=== PATIENT | female | born 1950 | race Caucasian/White ===

== ENCOUNTER → 2017-09-05 14:06 | Outpatient (CLI) | payer MEDICARE, OTHER, SELFPAY ==
[2017-09-05 15:42] LABS: Absolute Lymphocyte Count 3.13 X10^3/ul (0.83-4.51); Absolute Neutrophil Count 5.6 X10^3/uL (2.0-7.7); Basophil# 0.02 X10^3/uL; Basophil% 0.2 % (0-1); Eosinophil# 0.22 X10^3/uL; Eosinophils% 2.3 % (0-5); Hematocrit 41.2 % (37-47); Hemoglobin 13.7 g/dl (12.0-15.0); Lymphocyte # 3.13 X10^3/ul (4.0); Lymphocyte % 32.2 % (19-41); Mean Corp Hgb Conc 33.3 g/gl (32-36); Mean Corpuscular Hgb 31.9 pg (27.0-32.0); Mean Platelet Vol. 10.9 fl (6.2-12.0); Monocyte# 0.69 X10^3/uL; Monocyte% 7.1 % (0-10); Neutrophil # 5.63 X10^3/uL (2.7-7.7); Platelet Count 253 K/mm3 (150-450); RBC Distribution Width CV 13.6 % (11.6-14.6); RBC Distribution Width SD 46.6 fl (35.1-43.9); Red Blood Count 4.29 M/mm3 (4.2-5.4); White Blood Count 9.7 K/mm3 (4.4-11.0)
[2017-09-05 15:49] LABS: POSITIVE COUNT NO; POSITIVE DIFFERENTIAL NO; POSITIVE MORPHOLOGY NO
[2017-09-05 16:07] LABS: AST(SGOT) 29 U/L (15-37); Alanine Aminotransfer ALT/SGPT 55 U/L (13-56); Albumin, Serum 3.7 g/dL (3.2-5.0); Alkaline Phosphatase 73 U/L (45-117); Anion Gap 9 (5-15); BUN 24 mg/dL (7-18); CRP 5.72 mg/L (0.0-3.0); Calcium,Total 8.8 mg/dL (8.5-10.1); Chloride 106 mmol/L (98-107); Creatinine, Serum 0.75 mg/dL (0.55-1.02); EST Glomerular Filtration Rate 82 mL/min (>60); Est Glom Filt Rate - Afr Amer 100 mL/min (>60); Globulin 3.6 g/dL (2.2-4.2); Glucose 83 mg/dL (74-106); Potassium 4.1 mmol/L (3.5-5.1); Protein, Total 7.3 g/dL (6.4-8.2); Rheumatoid Factor < 10.0 IU/mL (<15); Sodium Level 141 mmol/L (136-145)
[2017-09-05 16:17] LABS: Erythrocyte Sedimentation Rate 11 mm/hr (0-30)
[2017-09-07 16:09] LABS: SJOGREN'S Anti-SS-A test < 0.2 AI (0.0-0.9); SJOGREN'S Anti-SS-B test < 0.2 AI (0.0-0.9)
[2017-09-08 09:27] LABS: CCP IgG Antibodies 2 units (0-19); HEPATITIS B SURFACE AG Negative (Negative); Hep B Surface Antibodies Non Reactive (.); Hep C Antibodies <0.1 s/co ratio (0.0-0.9)
[2017-09-08 09:39] LABS: ANTINUCLEAR ANTIBODIES DIRECT Negative (Negative)
== END ==
PROVIDERS: Family Provider Internal Medicine; PCP Internal Medicine; Visit Provider Internal Medicine Rheumatology
DX: M06.4 Inflammatory polyarthropathy (principal); E11.9 Type 2 diabetes mellitus without complications
CPT/HCPCS: 36415; 80053; 85025; 85652; 86038; 86140; 86200; 86235; 86431; 86706; 86803; 87340

== ENCOUNTER → 2017-12-26 11:15 | Outpatient (CLI) | payer MEDICARE, OTHER, SELFPAY | PROVIDERS: Family Provider Internal Medicine; PCP Internal Medicine; Visit Provider Internal Medicine Rheumatology | DX: M06.4 Inflammatory polyarthropathy (principal); E11.9 Type 2 diabetes mellitus without complications; I10 Essential (primary) hypertension; Z79.899 Other long term (current) drug therapy; Z79.4 Long term (current) use of insulin | CPT/HCPCS: 36415; 80053; 83036 ==

== ENCOUNTER → 2017-12-28 09:49 | Outpatient (CLI) | payer MEDICARE, OTHER, SELFPAY ==
[2017-12-28 12:20] LABS: Absolute Lymphocyte Count 2.58 X10^3/ul (0.83-4.51); Basophil# 0.02 X10^3/uL; Basophil% 0.3 % (0-1); Eosinophil# 0.24 X10^3/uL; Eosinophils% 3.7 % (0-5); Hematocrit 42.8 % (37-47); Hemoglobin 13.7 g/dl (12.0-15.0); Lymphocyte # 2.58 X10^3/ul (4.0); Lymphocyte % 40.2 % (19-41); Mean Corpuscular Hgb 30.5 pg (27.0-32.0); Mean Corpuscular Volume 95.3 fL (81-99); Mean Platelet Vol. 10.6 fl (6.2-12.0); Monocyte# 0.53 X10^3/uL; Monocyte% 8.3 % (0-10); Neutrophil # 3.04 X10^3/uL (2.7-7.7); Neutrophil % 47.3 % (47-70); Platelet Count 216 K/mm3 (150-450); RBC Distribution Width CV 13.5 % (11.6-14.6); RBC Distribution Width SD 46.9 fl (35.1-43.9); Red Blood Count 4.49 M/mm3 (4.2-5.4); White Blood Count 6.4 K/mm3 (4.4-11.0)
[2017-12-28 12:21] LABS: POSITIVE COUNT NO; POSITIVE DIFFERENTIAL NO; POSITIVE MORPHOLOGY NO
[2017-12-28 12:45] LABS: Hemoglobin A1c 6.6 % (4.2-6.3)
[2017-12-28 12:49] LABS: AST(SGOT) 16 U/L (15-37); Alanine Aminotransfer ALT/SGPT 36 U/L (13-56); Albumin, Serum 3.5 g/dL (3.2-5.0); Alkaline Phosphatase 68 U/L (45-117); Anion Gap 8 (5-15); BUN 16 mg/dL (7-18); BUN/Creat Ratio 22.5 RATIO (10-20); Calcium,Total 8.3 mg/dL (8.5-10.1); Chloride 108 mmol/L (98-107); Creatinine, Serum 0.71 mg/dL (0.55-1.02); EST Glomerular Filtration Rate 88 mL/min (>60); Est Glom Filt Rate - Afr Amer 106 mL/min (>60); Globulin 3.6 g/dL (2.2-4.2); Glucose 109 mg/dL (74-106); Potassium 3.9 mmol/L (3.5-5.1); Protein, Total 7.1 g/dL (6.4-8.2); Sodium Level 141 mmol/L (136-145)
== END ==
PROVIDERS: Family Provider Internal Medicine; PCP Internal Medicine; Visit Provider Internal Medicine Rheumatology
DX: M06.4 Inflammatory polyarthropathy (principal); I10 Essential (primary) hypertension; E11.9 Type 2 diabetes mellitus without complications; Z79.4 Long term (current) use of insulin; Z79.899 Other long term (current) drug therapy
CPT/HCPCS: 36415; 80053; 83036; 85025

== ENCOUNTER → 2018-02-15 12:34 | Outpatient (CLI) | payer MEDICARE, OTHER, SELFPAY ==
--- NOTE | 2018-02-15 12:38 | BI_ITS ---
MAMMOGRAPHY - BILATERAL SCREENING 3-D CELESTINE SYNTHESIS REASON FOR EXAM: Female, 67 years old. Bilateral Screening 3-D tomosynthesis PERTINENT HISTORY: Asymptomatic. Family breast carcinoma, maternal aunt about age 50 and first cousins x2 each about age 50. TECHNIQUE: 2-D mammograms and 3-D Celestine synthesis of the breast (s) were performed. CAD was performed. COMPARISON: 02/07/2017 through 10/07/2014. FINDINGS: The breast composition is almost entirely fat. No new asymmetric density, dominant mass, dense spiculated masses, abnormal clustered microcalcifications, architectural distortion, skin thickening or nipple retraction identified. Coarse benign-appearing calcifications. No new abnormality identified with tomosynthesis. There has been no significant change since the prior study. BI/SCREENING MAMM (CAD), BILAT IMPRESSION: No mammographic signs of malignancy. Routine yearly mammograms recommended. ASSESSMENT CATEGORY: BIRADS Category 2: Benign. A letter regarding these results will be sent to the patient by the facility within 30 days. FOLLOW UP RECOMMENDATION: Yearly follow up mammogram recommended. (A) Negative results should not deter biopsy as a palpable lesion should be followed on clinical grounds and biopsy performed if clinically persistent for 3 months or increasing size. Approximately 10% of breast cancers are not detected by mammography. A normal mammogram should not delay biopsy of a clinically suspicious abnormality. . Electronically Signed: Rich Mckenna, at 22:10 EDT Tel , Service support ,
== END ==
PROVIDERS: Family Provider Internal Medicine; PCP Internal Medicine
DX: Z12.31 Encounter for screening mammogram for malignant neoplasm of breast (principal)
CPT/HCPCS: 77063; 77067

== ENCOUNTER → 2018-03-22 08:44 | Outpatient (CLI) | payer MEDICARE, OTHER, SELFPAY ==
[2018-03-22 10:20] LABS: Absolute Neutrophil Count 3.7 X10^3/uL (2.0-7.7); Basophil# 0.02 X10^3/uL; Basophil% 0.3 % (0-1); Eosinophil# 0.26 X10^3/uL; Eosinophils% 3.8 % (0-5); Hematocrit 41.8 % (37-47); Lymphocyte % 36.2 % (19-41); Mean Corp Hgb Conc 33.5 g/gl (32-36); Mean Corpuscular Hgb 31.5 pg (27.0-32.0); Mean Corpuscular Volume 94.1 fL (81-99); Mean Platelet Vol. 10.8 fl (6.2-12.0); Monocyte# 0.45 X10^3/uL; Monocyte% 6.5 % (0-10); Neutrophil # 3.67 X10^3/uL (2.7-7.7); Neutrophil % 53.1 % (47-70); Platelet Count 237 K/mm3 (150-450); RBC Distribution Width CV 13.4 % (11.6-14.6); RBC Distribution Width SD 44.7 fl (35.1-43.9); Red Blood Count 4.44 M/mm3 (4.2-5.4); White Blood Count 6.9 K/mm3 (4.4-11.0)
[2018-03-22 10:21] LABS: POSITIVE COUNT NO; POSITIVE DIFFERENTIAL NO; POSITIVE MORPHOLOGY NO
[2018-03-22 10:31] LABS: ALB/GLOB Ratio 0.9 RATIO (0.9-2.4); AST(SGOT) 17 U/L (15-37); Alanine Aminotransfer ALT/SGPT 43 U/L (13-56); Albumin, Serum 3.6 g/dL (3.2-5.0); Alkaline Phosphatase 74 U/L (45-117); Anion Gap 9 (5-15); BUN 19 mg/dL (7-18); BUN/Creat Ratio 24.3 RATIO (10-20); Calcium,Total 8.8 mg/dL (8.5-10.1); Chloride 105 mmol/L (98-107); Creatinine, Serum 0.78 mg/dL (0.55-1.02); EST Glomerular Filtration Rate 79 mL/min (>60); Est Glom Filt Rate - Afr Amer 95 mL/min (>60); Globulin 3.9 g/dL (2.2-4.2); Glucose 155 mg/dL (74-106); Protein, Total 7.5 g/dL (6.4-8.2); Sodium Level 139 mmol/L (136-145)
== END ==
PROVIDERS: Family Provider Internal Medicine; PCP Internal Medicine; Visit Provider Internal Medicine Rheumatology
DX: M06.4 Inflammatory polyarthropathy (principal); E11.9 Type 2 diabetes mellitus without complications; I10 Essential (primary) hypertension; Z79.899 Other long term (current) drug therapy
CPT/HCPCS: 36415; 80053; 85025

== ENCOUNTER → 2018-06-14 09:09 | Outpatient (CLI) | payer MEDICARE, OTHER, SELFPAY ==
[2018-06-14 10:21] LABS: Absolute Neutrophil Count 4.1 X10^3/uL (2.0-7.7); Basophil# 0.01 X10^3/uL; Basophil% 0.2 % (0-1); Eosinophil# 0.25 X10^3/uL; Eosinophils% 3.8 % (0-5); Hematocrit 41.8 % (37-47); Hemoglobin 13.7 g/dl (12.0-15.0); Mean Corp Hgb Conc 32.8 g/gl (32-36); Mean Corpuscular Hgb 31.1 pg (27.0-32.0); Mean Corpuscular Volume 94.8 fL (81-99); Mean Platelet Vol. 10.4 fl (6.2-12.0); Monocyte# 0.31 X10^3/uL; Monocyte% 4.7 % (0-10); Neutrophil # 4.08 X10^3/uL (2.7-7.7); Neutrophil % 61.1 % (47-70); Platelet Count 228 K/mm3 (150-450); RBC Distribution Width CV 13.3 % (11.6-14.6); Red Blood Count 4.41 M/mm3 (4.2-5.4); White Blood Count 6.7 K/mm3 (4.4-11.0)
[2018-06-14 10:23] LABS: POSITIVE COUNT NO; POSITIVE DIFFERENTIAL NO; POSITIVE MORPHOLOGY NO
[2018-06-14 10:46] LABS: AST(SGOT) 20 U/L (15-37); Alanine Aminotransfer ALT/SGPT 39 U/L (13-56); Albumin, Serum 3.6 g/dL (3.2-5.0); Alkaline Phosphatase 72 U/L (45-117); Anion Gap 5 (5-15); BUN 15 mg/dL (7-18); BUN/Creat Ratio 19.8 RATIO (10-20); Calcium,Total 8.7 mg/dL (8.5-10.1); Chloride 106 mmol/L (98-107); Creatinine, Serum 0.76 mg/dL (0.55-1.02); EST Glomerular Filtration Rate 81 mL/min (>60); Est Glom Filt Rate - Afr Amer 98 mL/min (>60); Globulin 3.6 g/dL (2.2-4.2); Glucose 121 mg/dL (74-106); Protein, Total 7.2 g/dL (6.4-8.2); Sodium Level 140 mmol/L (136-145)
== END ==
PROVIDERS: Family Provider Internal Medicine; PCP Internal Medicine; Referring Provider Internal Medicine Rheumatology; Visit Provider Internal Medicine Rheumatology
DX: M06.4 Inflammatory polyarthropathy (principal); E11.9 Type 2 diabetes mellitus without complications; I10 Essential (primary) hypertension; Z79.899 Other long term (current) drug therapy
CPT/HCPCS: 36415; 80053; 85025

== ENCOUNTER → 2018-09-19 08:50 | Outpatient (CLI) | payer MEDICARE, OTHER, SELFPAY ==
[2018-09-19 09:58] LABS: Absolute Lymphocyte Count 2.09 X10^3/ul (0.83-4.51); Absolute Neutrophil Count 3.2 X10^3/uL (2.0-7.7); Basophil# 0.01 X10^3/uL; Basophil% 0.2 % (0-1); Eosinophil# 0.21 X10^3/uL; Eosinophils% 3.5 % (0-5); Hematocrit 43.3 % (37-47); Lymphocyte # 2.09 X10^3/ul (4.0); Lymphocyte % 34.8 % (19-41); Mean Corp Hgb Conc 32.3 g/gl (32-36); Mean Corpuscular Hgb 31.5 pg (27.0-32.0); Mean Corpuscular Volume 97.3 fL (81-99); Mean Platelet Vol. 10.8 fl (6.2-12.0); Monocyte# 0.46 X10^3/uL; Monocyte% 7.7 % (0-10); Neutrophil # 3.23 X10^3/uL (2.7-7.7); Neutrophil % 53.8 % (47-70); POSITIVE COUNT NO; POSITIVE DIFFERENTIAL NO; POSITIVE MORPHOLOGY NO; Platelet Count 234 K/mm3 (150-450); RBC Distribution Width CV 13.7 % (11.6-14.6); RBC Distribution Width SD 47.2 fl (35.1-43.9); Red Blood Count 4.45 M/mm3 (4.2-5.4)
[2018-09-19 10:13] LABS: AST(SGOT) 24 U/L (15-37); Alanine Aminotransfer ALT/SGPT 50 U/L (13-56); Albumin, Serum 3.5 g/dL (3.2-5.0); Alkaline Phosphatase 68 U/L (45-117); Anion Gap 10 (5-15); BUN 15 mg/dL (7-18); BUN/Creat Ratio 20.1 RATIO (10-20); Calcium,Total 8.4 mg/dL (8.5-10.1); Chloride 104 mmol/L (98-107); Creatinine, Serum 0.75 mg/dL (0.55-1.02); EST Glomerular Filtration Rate 82 mL/min (>60); Est Glom Filt Rate - Afr Amer 100 mL/min (>60); Globulin 3.6 g/dL (2.2-4.2); Glucose 143 mg/dL (74-106); Potassium 3.9 mmol/L (3.5-5.1); Protein, Total 7.1 g/dL (6.4-8.2); Sodium Level 141 mmol/L (136-145)
== END ==
PROVIDERS: Family Provider Internal Medicine; PCP Internal Medicine; Referring Provider Internal Medicine Rheumatology; Visit Provider Internal Medicine Rheumatology
DX: M06.4 Inflammatory polyarthropathy (principal); E11.9 Type 2 diabetes mellitus without complications; I10 Essential (primary) hypertension; Z79.899 Other long term (current) drug therapy
CPT/HCPCS: 36415; 80053; 85025

== ENCOUNTER → 2018-12-12 08:58 | Outpatient (CLI) | payer MEDICARE, OTHER, SELFPAY ==
[2018-12-12 09:53] LABS: Absolute Lymphocyte Count 2.16 X10^3/ul (0.83-4.51); Absolute Neutrophil Count 3.4 X10^3/uL (2.0-7.7); Basophil# 0.01 X10^3/uL; Basophil% 0.2 % (0-1); Eosinophil# 0.18 X10^3/uL; Hematocrit 41.6 % (37-47); Hemoglobin 13.8 g/dl (12.0-15.0); Lymphocyte # 2.16 X10^3/ul (4.0); Lymphocyte % 35.8 % (19-41); Mean Corp Hgb Conc 33.2 g/gl (32-36); Mean Corpuscular Hgb 31.7 pg (27.0-32.0); Mean Corpuscular Volume 95.4 fL (81-99); Mean Platelet Vol. 10.6 fl (6.2-12.0); Neutrophil # 3.38 X10^3/uL (2.7-7.7); Platelet Count 226 K/mm3 (150-450); RBC Distribution Width CV 13.7 % (11.6-14.6); RBC Distribution Width SD 47.4 fl (35.1-43.9); Red Blood Count 4.36 M/mm3 (4.2-5.4)
[2018-12-12 09:54] LABS: POSITIVE COUNT NO; POSITIVE DIFFERENTIAL NO; POSITIVE MORPHOLOGY NO
[2018-12-12 10:20] LABS: AST(SGOT) 27 U/L (15-37); Alanine Aminotransfer ALT/SGPT 57 U/L (13-56); Albumin, Serum 3.4 g/dL (3.2-5.0); Alkaline Phosphatase 62 U/L (45-117); Anion Gap 9 (5-15); BUN 18 mg/dL (7-18); BUN/Creat Ratio 25.8 RATIO (10-20); Calcium,Total 8.8 mg/dL (8.5-10.1); Chloride 107 mmol/L (98-107); EST Glomerular Filtration Rate 89 mL/min (>60); Est Glom Filt Rate - Afr Amer 108 mL/min (>60); Globulin 3.5 g/dL (2.2-4.2); Glucose 124 mg/dL (74-106); Potassium 4.1 mmol/L (3.5-5.1); Protein, Total 6.9 g/dL (6.4-8.2); Sodium Level 143 mmol/L (136-145)
== END ==
PROVIDERS: Family Provider Internal Medicine; PCP Internal Medicine; Referring Provider Internal Medicine Rheumatology; Visit Provider Internal Medicine Rheumatology
DX: M06.4 Inflammatory polyarthropathy (principal); E11.9 Type 2 diabetes mellitus without complications; I10 Essential (primary) hypertension; Z79.899 Other long term (current) drug therapy
CPT/HCPCS: 36415; 80053; 85025

== ENCOUNTER → 2019-03-02 10:12 | Outpatient (CLI) | payer MEDICARE, OTHER, SELFPAY ==
--- NOTE | 2019-03-02 10:15 | BI_ITS ---
MAMMOGRAPHY - BILATERAL SCREENING 3-D TOMOSYNTHESIS REASON FOR EXAM: Female, 68 years old. Bilateral Screening 3-D tomosynthesis PERTINENT HISTORY: Maternal aunt, cousin with history of breast cancer. TECHNIQUE: 2-D mammograms and 3-D Tomosynthesis of the breast (s) were performed. CAD was performed. COMPARISON: 02/15/2018, 02/07/17. FINDINGS: The breast composition is almost entirely fat. Unremarkable bilateral breast parenchyma. No dense spiculated masses or suspicious microcalcifications are identified. No architectural distortion is identified. There is no skin thickening or retraction. There has been no significant change since the prior study. BI/SCREEN MAMM (CAD) W/CELESTINE BILAT IMPRESSION: No mammographic signs of malignancy. Routine yearly mammograms recommended. ASSESSMENT CATEGORY: BIRADS Category 1: Negative. A letter regarding these results will be sent to the patient by the facility within 30 days. FOLLOW UP RECOMMENDATION: Yearly follow up mammogram recommended. (A) Approximately 10% of breast cancers are not detected by mammography. A normal mammogram should not delay biopsy of a clinically suspicious abnormality. Electronically Signed: Art Parra MD at 16:50 EDT Tel [phone], Service support ,
== END ==
PROVIDERS: Family Provider Internal Medicine; PCP Internal Medicine; Referring Provider Internal Medicine; Visit Provider Internal Medicine
DX: Z12.31 Encounter for screening mammogram for malignant neoplasm of breast (principal)
CPT/HCPCS: 77063; 77067

== ENCOUNTER → 2019-03-06 08:37 | Outpatient (CLI) | payer MEDICARE, OTHER, SELFPAY ==
[2019-03-06 10:45] LABS: Absolute Lymphocyte Count 2.04 X10^3/uL (0.83-4.51); Basophil# 0.03 X10^3/uL; Basophil% 0.5 % (0-1); Eosinophil# 0.22 X10^3/uL; Eosinophils% 3.9 % (0-5); Hematocrit 41.8 % (37-47); Hemoglobin 13.6 g/dL (12.0-15.0); Lymphocyte # 2.04 X10^3/ul (4.0); Lymphocyte % 36.1 % (19-41); Mean Corp Hgb Conc 32.5 g/dL (32-36); Mean Corpuscular Hgb 31.2 pg (27.0-32.0); Mean Corpuscular Volume 95.9 fL (81-99); Monocyte% 7.1 % (0-10); NRBC Flagged by Analyzer 0 % (0-5); Neutrophil # 2.95 X10^3/uL (2.7-7.7); Neutrophil % 52.2 % (47-70); Platelet Count 216 K/mm3 (150-450); RBC Distribution Width CV 12.9 % (11.6-14.6); RBC Distribution Width SD 45.2 fl (35.1-43.9); Red Blood Count 4.36 M/mm3 (4.2-5.4); White Blood Count 5.7 K/mm3 (4.4-11.0)
[2019-03-06 11:11] LABS: AST(SGOT) 26 U/L (15-37); Alanine Aminotransfer ALT/SGPT 52 U/L (13-56); Albumin, Serum 3.4 g/dL (3.2-5.0); Alkaline Phosphatase 70 U/L (45-117); Anion Gap 6 (5-15); BUN 16 mg/dL (7-18); BUN/Creat Ratio 21.8 RATIO (10-20); Calcium,Total 8.6 mg/dL (8.5-10.1); Chloride 110 mmol/L (98-107); Creatinine, Serum 0.74 mg/dL (0.55-1.02); EST Glomerular Filtration Rate 84 mL/min (>60); Est Glom Filt Rate - Afr Amer 102 mL/min (>60); Globulin 3.5 g/dL (2.2-4.2); Glucose 124 mg/dL (74-106); Potassium 4.2 mmol/L (3.5-5.1); Protein, Total 6.9 g/dL (6.4-8.2); Sodium Level 143 mmol/L (136-145)
== END ==
PROVIDERS: Family Provider Internal Medicine; PCP Internal Medicine; Referring Provider Internal Medicine Rheumatology; Visit Provider Internal Medicine Rheumatology
DX: I10 Essential (primary) hypertension (principal); E11.9 Type 2 diabetes mellitus without complications; Z79.899 Other long term (current) drug therapy; M06.4 Inflammatory polyarthropathy
CPT/HCPCS: 36415; 80053; 85025

== ENCOUNTER → 2019-05-18 14:02 | Outpatient (CLI) | payer MEDICARE, OTHER, SELFPAY ==
--- NOTE | 2019-05-18 | LES_PTH ---
PATIENT: KATALINA CRANE LOC: [facility] U#:[id number] AGE/SX: 74/F ROOM: RE05/18/[address]: Dr. Darek Muse MD : 1950 BED: DIS: SPEC #: [id number] RECD: 05/18/19 14:45 STATUS: CATARINO TIANA #: [id number] FELICIA: 05/18/19 00:[address]: Darek Muse DEPT: SURGICAL PATHOLOGY RECD BY: See Dickson ENTERED: 05/18/19 14:45 SP TYPE: Lesion OTHR DR: Dr. Ainsley Luo MD Tissues: Skin of face, NOS Procedures: Surgery Specimen Level IV HEADER OPERATION: Excisional biopsy lesion right upper eyelid PRE-OP DIAGNOSIS: Elevated vascular lesion x6 months TISSUE SUBMITTED: Right upper lid lesion MICROSCOPIC DIAGNOSIS Right upper lid lesion, biopsy: Mild sebaceous gland hyperplasia. Minimal vascular ectasia. SJ:sameer 05/21/19 COMMENT Case has been reviewed in consultation with Dr. Blanchard who concurs with the above diagnosis. IDC:AM MICROSCOPIC DESCRIPTION Slides are reviewed. GROSS DESCRIPTION Received in fixative is one container labeled with the patient's name and designated right brow. The specimen consists of a piece of pantoja-white skin measuring 0.4 x 0.3 x 0.1 cm. The specimen is totally submitted in one cassette. / SUMAN:sameer 05/18/19 TC:5 CPT: 13665
== END ==
PROVIDERS: Family Provider Internal Medicine; PCP Internal Medicine; Referring Provider Ophthalmology; Visit Provider Ophthalmology
DX: H02.87 Vascular anomalies of eyelid (principal)
CPT/HCPCS: 88305

== ENCOUNTER → 2019-05-29 09:12 | Outpatient (CLI) | payer MEDICARE, OTHER, SELFPAY ==
[2019-05-29 10:07] LABS: Absolute Lymphocyte Count 2.33 X10^3/uL (0.83-4.51); Absolute Neutrophil Count 3.2 X10^3/uL (2.0-7.7); Basophil# 0.04 X10^3/uL; Basophil% 0.6 % (0-1); Eosinophil# 0.24 X10^3/uL; Eosinophils% 3.9 % (0-5); Hemoglobin 14.2 g/dL (12.0-15.0); Lymphocyte # 2.33 X10^3/ul (4.0); Lymphocyte % 37.5 % (19-41); Mean Corp Hgb Conc 32.3 g/dL (32-36); Mean Corpuscular Hgb 31.4 pg (27.0-32.0); Mean Corpuscular Volume 97.3 fL (81-99); Mean Platelet Vol. 10.7 fl (6.2-12.0); Monocyte# 0.45 X10^3/uL; Monocyte% 7.2 % (0-10); NRBC Flagged by Analyzer 0 % (0-5); Neutrophil # 3.15 X10^3/uL (2.7-7.7); Neutrophil % 50.6 % (47-70); Platelet Count 214 K/mm3 (150-450); RBC Distribution Width CV 13.2 % (11.6-14.6); Red Blood Count 4.52 M/mm3 (4.2-5.4); White Blood Count 6.2 K/mm3 (4.4-11.0)
[2019-05-29 10:32] LABS: ALB/GLOB Ratio 1.1 RATIO (0.9-2.4); AST(SGOT) 26 U/L (15-37); Alanine Aminotransfer ALT/SGPT 55 U/L (13-56); Albumin, Serum 3.5 g/dL (3.2-5.0); Alkaline Phosphatase 71 U/L (45-117); Anion Gap 5 (5-15); BUN 18 mg/dL (7-18); BUN/Creat Ratio 26.3 RATIO (10-20); Calcium,Total 9.1 mg/dL (8.5-10.1); Chloride 107 mmol/L (98-107); Creatinine, Serum 0.68 mg/dL (0.55-1.02); EST Glomerular Filtration Rate 91 mL/min (>60); Est Glom Filt Rate - Afr Amer 110 mL/min (>60); Globulin 3.3 g/dL (2.2-4.2); Glucose 120 mg/dL (74-106); Potassium 3.9 mmol/L (3.5-5.1); Protein, Total 6.8 g/dL (6.4-8.2); Sodium Level 141 mmol/L (136-145)
== END ==
PROVIDERS: Family Provider Internal Medicine; PCP Internal Medicine; Referring Provider Internal Medicine Rheumatology; Visit Provider Internal Medicine Rheumatology
DX: M06.4 Inflammatory polyarthropathy (principal); E11.9 Type 2 diabetes mellitus without complications; I10 Essential (primary) hypertension; Z79.899 Other long term (current) drug therapy
CPT/HCPCS: 36415; 80053; 85025

== ENCOUNTER → 2019-08-21 10:29 | Outpatient (CLI) | payer MEDICARE, OTHER, SELFPAY ==
[2019-08-21 13:02] LABS: Absolute Lymphocyte Count 2.13 X10^3/uL (0.83-4.51); Absolute Neutrophil Count 3.2 X10^3/uL (2.0-7.7); Basophil# 0.03 X10^3/uL; Basophil% 0.5 % (0-1); Eosinophil# 0.21 X10^3/uL; Eosinophils% 3.5 % (0-5); Hematocrit 42.5 % (37-47); Hemoglobin 14.2 g/dL (12.0-15.0); Lymphocyte # 2.13 X10^3/ul (4.0); Lymphocyte % 35.7 % (19-41); Mean Corp Hgb Conc 33.4 g/dL (32-36); Mean Corpuscular Hgb 31.9 pg (27.0-32.0); Mean Corpuscular Volume 95.5 fL (81-99); Mean Platelet Vol. 10.6 fl (6.2-12.0); Monocyte# 0.35 X10^3/uL; Monocyte% 5.9 % (0-10); NRBC Flagged by Analyzer 0 % (0-5); Neutrophil # 3.22 X10^3/uL (2.7-7.7); Neutrophil % 54.1 % (47-70); Platelet Count 219 K/mm3 (150-450); RBC Distribution Width CV 12.9 % (11.6-14.6); RBC Distribution Width SD 44.9 fl (35.1-43.9); Red Blood Count 4.45 M/mm3 (4.2-5.4)
[2019-08-21 13:23] LABS: ALB/GLOB Ratio 1.1 RATIO (0.9-2.4); AST(SGOT) 26 U/L (15-37); Alanine Aminotransfer ALT/SGPT 54 U/L (13-56); Albumin, Serum 3.6 g/dL (3.2-5.0); Alkaline Phosphatase 68 U/L (45-117); Anion Gap 5 (5-15); BUN 13 mg/dL (7-18); BUN/Creat Ratio 17.4 RATIO (10-20); Calcium,Total 8.9 mg/dL (8.5-10.1); Chloride 108 mmol/L (98-107); Creatinine, Serum 0.75 mg/dL (0.55-1.02); EST Glomerular Filtration Rate 82 mL/min (>60); Est Glom Filt Rate - Afr Amer 99 mL/min (>60); Globulin 3.3 g/dL (2.2-4.2); Glucose 121 mg/dL (74-106); Protein, Total 6.9 g/dL (6.4-8.2); Sodium Level 140 mmol/L (136-145)
[2019-08-21 13:25] LABS: Vitamin D,25 Hydroxy 59.3 ng/mL (29.95-100.01)
== END ==
PROVIDERS: PCP Internal Medicine; Referring Provider Internal Medicine Rheumatology; Visit Provider Internal Medicine Rheumatology
DX: M06.4 Inflammatory polyarthropathy (principal); E11.9 Type 2 diabetes mellitus without complications; E55.9 Vitamin D deficiency, unspecified; I10 Essential (primary) hypertension; Z79.899 Other long term (current) drug therapy
CPT/HCPCS: 36415; 80053; 82306; 85025

== ENCOUNTER → 2019-11-07 10:35 | Outpatient (CLI) | payer MEDICARE, OTHER, SELFPAY ==
[2019-11-07 12:15] LABS: Absolute Neutrophil Count 3.5 X10^3/uL (2.0-7.7); Basophil# 0.02 X10^3/uL; Basophil% 0.3 % (0-1); Eosinophils% 3.3 % (0-5); Hematocrit 40.8 % (37-47); Hemoglobin 13.4 g/dL (12.0-15.0); Lymphocyte % 31.1 % (19-41); Mean Corp Hgb Conc 32.8 g/dL (32-36); Mean Corpuscular Hgb 30.5 pg (27.0-32.0); Mean Corpuscular Volume 92.7 fL (81-99); Mean Platelet Vol. 10.6 fl (6.2-12.0); Monocyte# 0.44 X10^3/uL; Monocyte% 7.2 % (0-10); NRBC Flagged by Analyzer 0 % (0-5); Neutrophil # 3.53 X10^3/uL (2.7-7.7); Neutrophil % 57.8 % (47-70); Platelet Count 221 K/mm3 (150-450); RBC Distribution Width CV 13.1 % (11.6-14.6); RBC Distribution Width SD 44.7 fl (35.1-43.9); White Blood Count 6.1 K/mm3 (4.4-11.0)
[2019-11-07 12:28] LABS: AST(SGOT) 18 U/L (15-37); Alanine Aminotransfer ALT/SGPT 38 U/L (13-56); Albumin, Serum 3.3 g/dL (3.2-5.0); Alkaline Phosphatase 72 U/L (45-117); Anion Gap 5 (5-15); BUN 16 mg/dL (7-18); BUN/Creat Ratio 22.7 RATIO (10-20); Calcium,Total 8.5 mg/dL (8.5-10.1); Chloride 109 mmol/L (98-107); EST Glomerular Filtration Rate 88 mL/min (>60); Est Glom Filt Rate - Afr Amer 107 mL/min (>60); Globulin 3.4 g/dL (2.2-4.2); Glucose 118 mg/dL (74-106); Potassium 3.6 mmol/L (3.5-5.1); Protein, Total 6.7 g/dL (6.4-8.2); Sodium Level 140 mmol/L (136-145)
== END ==
PROVIDERS: PCP Internal Medicine; Referring Provider Internal Medicine Rheumatology; Visit Provider Internal Medicine Rheumatology
DX: M06.4 Inflammatory polyarthropathy (principal); M19.041 Primary osteoarthritis, right hand; M19.042 Primary osteoarthritis, left hand; E11.9 Type 2 diabetes mellitus without complications; I10 Essential (primary) hypertension; Z79.899 Other long term (current) drug therapy
CPT/HCPCS: 36415; 80053; 85025

== ENCOUNTER → 2020-02-04 10:26 | Outpatient (CLI) | payer MEDICARE, OTHER, SELFPAY ==
[2020-02-04 12:38] LABS: Absolute Lymphocyte Count 2.25 X10^3/uL (0.83-4.51); Absolute Neutrophil Count 3.1 X10^3/uL (2.0-7.7); Basophil# 0.03 X10^3/uL; Basophil% 0.5 % (0-1); Eosinophil# 0.22 X10^3/uL; Eosinophils% 3.6 % (0-5); Hemoglobin 14.1 g/dL (12.0-15.0); Lymphocyte # 2.25 X10^3/ul (4.0); Lymphocyte % 36.5 % (19-41); Mean Corp Hgb Conc 32.8 g/dL (32-36); Mean Corpuscular Volume 97.5 fL (81-99); Monocyte# 0.52 X10^3/uL; Monocyte% 8.4 % (0-10); NRBC Flagged by Analyzer 0 % (0-5); Neutrophil # 3.13 X10^3/uL (2.7-7.7); Neutrophil % 50.7 % (47-70); Platelet Count 239 K/mm3 (150-450); RBC Distribution Width CV 13.2 % (11.6-14.6); RBC Distribution Width SD 47.3 fl (35.1-43.9); Red Blood Count 4.41 M/mm3 (4.2-5.4); White Blood Count 6.2 K/mm3 (4.4-11.0)
[2020-02-04 12:59] LABS: AST(SGOT) 20 U/L (15-37); Alanine Aminotransfer ALT/SGPT 41 U/L (13-56); Albumin, Serum 3.4 g/dL (3.2-5.0); Alkaline Phosphatase 72 U/L (45-117); Anion Gap 4 (5-15); BUN 16 mg/dL (7-18); BUN/Creat Ratio 20.1 RATIO (10-20); Calcium,Total 8.8 mg/dL (8.5-10.1); Chloride 111 mmol/L (98-107); EST Glomerular Filtration Rate 76 mL/min (>60); Est Glom Filt Rate - Afr Amer 92 mL/min (>60); Globulin 3.5 g/dL (2.2-4.2); Glucose 95 mg/dL (74-106); Potassium 3.9 mmol/L (3.5-5.1); Protein, Total 6.9 g/dL (6.4-8.2); Sodium Level 142 mmol/L (136-145)
== END ==
PROVIDERS: PCP Internal Medicine; Referring Provider Internal Medicine Rheumatology; Visit Provider Internal Medicine Rheumatology
DX: M06.4 Inflammatory polyarthropathy (principal); M19.041 Primary osteoarthritis, right hand; E11.9 Type 2 diabetes mellitus without complications; I10 Essential (primary) hypertension; Z79.899 Other long term (current) drug therapy
CPT/HCPCS: 36415; 80053; 85025

== ENCOUNTER → 2020-05-06 09:27 | Outpatient (CLI) | payer MEDICARE, OTHER, SELFPAY ==
[2020-05-06 12:26] LABS: Absolute Lymphocyte Count 2.21 X10^3/uL (0.83-4.51); Basophil# 0.04 X10^3/uL; Basophil% 0.7 % (0-1); Eosinophils% 3.4 % (0-5); Hematocrit 41.7 % (37-47); Hemoglobin 13.9 g/dL (12.0-15.0); Lymphocyte # 2.21 X10^3/ul (4.0); Lymphocyte % 37.4 % (19-41); Mean Corp Hgb Conc 33.3 g/dL (32-36); Mean Corpuscular Hgb 31.5 pg (27.0-32.0); Mean Corpuscular Volume 94.6 fL (81-99); Mean Platelet Vol. 10.9 fl (6.2-12.0); Monocyte# 0.41 X10^3/uL; Monocyte% 6.9 % (0-10); NRBC Flagged by Analyzer 0 % (0-5); Neutrophil # 3.04 X10^3/uL (2.7-7.7); Neutrophil % 51.4 % (47-70); Platelet Count 237 K/mm3 (150-450); RBC Distribution Width SD 44.1 fl (35.1-43.9); Red Blood Count 4.41 M/mm3 (4.2-5.4); White Blood Count 5.9 K/mm3 (4.4-11.0)
[2020-05-06 12:40] LABS: AST(SGOT) 28 U/L (15-37); Alanine Aminotransfer ALT/SGPT 45 U/L (13-56); Albumin, Serum 3.4 g/dL (3.2-5.0); Alkaline Phosphatase 78 U/L (45-117); Anion Gap 8 (5-15); BUN 18 mg/dL (7-18); BUN/Creat Ratio 23.7 RATIO (10-20); Calcium,Total 8.9 mg/dL (8.5-10.1); Chloride 109 mmol/L (98-107); Creatinine, Serum 0.76 mg/dL (0.55-1.02); EST Glomerular Filtration Rate 81 mL/min (>60); Est Glom Filt Rate - Afr Amer 97 mL/min (>60); Globulin 3.5 g/dL (2.2-4.2); Glucose 105 mg/dL (74-106); Potassium 3.6 mmol/L (3.5-5.1); Protein, Total 6.9 g/dL (6.4-8.2); Sodium Level 142 mmol/L (136-145)
== END ==
PROVIDERS: PCP Internal Medicine; Referring Provider Internal Medicine Rheumatology; Visit Provider Internal Medicine Rheumatology
DX: M06.4 Inflammatory polyarthropathy (principal); M19.041 Primary osteoarthritis, right hand; E11.9 Type 2 diabetes mellitus without complications; I10 Essential (primary) hypertension; Z79.899 Other long term (current) drug therapy
CPT/HCPCS: 36415; 80053; 85025

== ENCOUNTER → 2020-05-15 11:53 | Outpatient (CLI) | payer MEDICARE, OTHER, SELFPAY ==
--- NOTE | 2020-05-15 11:54 | BI_ITS ---
MAMMOGRAPHY - BILATERAL SCREENING REASON FOR EXAM: Female, 69 years old. Routine annual screening examination. PERTINENT HISTORY: Aunt with breast cancer. TECHNIQUE: Digital bilateral breast celestine (3D mammographic acquisition) in the CC and MLO projections. 2-D mediolateral oblique (MLO) and craniocaudad (CC) views of both breasts were obtained. CAD: Full Field Digital Mammography with Computer Added Detection was performed. COMPARISON: Comparison is made with prior study dated 03/02/2019 and 02/15/2018. FINDINGS: Breast Composition: The breasts are almost entirely fatty. There are no dominant masses or suspicious calcifications. Stable benign-appearing left axillary lymph nodes. No other significant abnormalities are identified. There has been no significant change since the prior study. BI/SCREEN MAMM (CAD) W/CELESTINE BILAT IMPRESSION: Stable bilateral screening mammogram. Yearly follow-up mammogram recommended. (A) ASSESSMENT CATEGORY: BIRADS Category 2: Benign. A letter regarding these results will be sent to the patient by the facility within 30 days. Approximately 10% of breast cancers are not detected by mammography. A normal mammogram should not delay biopsy of a clinically suspicious abnormality. [id number] Electronically Signed: Tian Prince, at 7:59 EST , Service support ,
== END ==
PROVIDERS: PCP Internal Medicine; Referring Provider Internal Medicine; Visit Provider Internal Medicine
DX: Z12.31 Encounter for screening mammogram for malignant neoplasm of breast (principal)
CPT/HCPCS: 77063; 77067

== ENCOUNTER → 2020-07-22 14:20 | Outpatient (CLI) | payer MEDICARE, OTHER, SELFPAY ==
[2020-07-22 18:21] LABS: Absolute Lymphocyte Count 2.11 X10^3/uL (0.83-4.51); Absolute Neutrophil Count 3.4 X10^3/uL (2.0-7.7); Basophil# 0.04 X10^3/uL; Basophil% 0.6 % (0-1); Eosinophil# 0.41 X10^3/uL; Eosinophils% 6.5 % (0-5); Hematocrit 43.6 % (37-47); Hemoglobin 14.3 g/dL (12.0-15.0); Lymphocyte # 2.11 X10^3/ul (4.0); Lymphocyte % 33.4 % (19-41); Mean Corp Hgb Conc 32.8 g/dL (32-36); Mean Corpuscular Hgb 31.7 pg (27.0-32.0); Mean Corpuscular Volume 96.7 fL (81-99); Mean Platelet Vol. 10.9 fl (6.2-12.0); Monocyte# 0.38 X10^3/uL; NRBC Flagged by Analyzer 0 % (0-5); Neutrophil # 3.36 X10^3/uL (2.7-7.7); Neutrophil % 53.3 % (47-70); Platelet Count 236 K/mm3 (150-450); RBC Distribution Width CV 12.9 % (11.6-14.6); RBC Distribution Width SD 45.7 fl (35.1-43.9); Red Blood Count 4.51 M/mm3 (4.2-5.4); White Blood Count 6.3 K/mm3 (4.4-11.0)
[2020-07-22 18:38] LABS: AST(SGOT) 25 U/L (15-37); Alanine Aminotransfer ALT/SGPT 48 U/L (13-56); Albumin, Serum 3.6 g/dL (3.2-5.0); Alkaline Phosphatase 79 U/L (45-117); Anion Gap 6 (5-15); BUN 15 mg/dL (7-18); BUN/Creat Ratio 21.3 RATIO (10-20); Calcium,Total 8.8 mg/dL (8.5-10.1); Chloride 104 mmol/L (98-107); EST Glomerular Filtration Rate 88 mL/min (>60); Est Glom Filt Rate - Afr Amer 106 mL/min (>60); Globulin 3.5 g/dL (2.2-4.2); Glucose 72 mg/dL (74-106); Potassium 3.6 mmol/L (3.5-5.1); Protein, Total 7.1 g/dL (6.4-8.2); Sodium Level 139 mmol/L (136-145)
== END ==
PROVIDERS: PCP Internal Medicine; Referring Provider Internal Medicine Rheumatology; Visit Provider Internal Medicine Rheumatology
DX: M06.4 Inflammatory polyarthropathy (principal); M19.041 Primary osteoarthritis, right hand; E11.9 Type 2 diabetes mellitus without complications; I10 Essential (primary) hypertension; Z79.899 Other long term (current) drug therapy
CPT/HCPCS: 36415; 80053; 85025

== ENCOUNTER → 2020-10-14 10:54 | Outpatient (CLI) | payer MEDICARE, OTHER, SELFPAY ==
[2020-10-14 12:13] LABS: Absolute Lymphocyte Count 2.18 X10^3/uL (0.83-4.51); Absolute Neutrophil Count 3.1 X10^3/uL (2.0-7.7); Basophil# 0.04 X10^3/uL; Basophil% 0.7 % (0-1); Eosinophil# 0.24 X10^3/uL; Hematocrit 43.9 % (37-47); Hemoglobin 14.4 g/dL (12.0-15.0); Lymphocyte # 2.18 X10^3/ul (4.0); Lymphocyte % 36.3 % (19-41); Mean Corp Hgb Conc 32.8 g/dL (32-36); Mean Corpuscular Hgb 31.6 pg (27.0-32.0); Mean Corpuscular Volume 96.3 fL (81-99); Mean Platelet Vol. 11.1 fl (6.2-12.0); Monocyte# 0.46 X10^3/uL; Monocyte% 7.7 % (0-10); NRBC Flagged by Analyzer 0 % (0-5); Neutrophil # 3.08 X10^3/uL (2.7-7.7); Neutrophil % 51.1 % (47-70); Platelet Count 241 K/mm3 (150-450); RBC Distribution Width CV 12.9 % (11.6-14.6); RBC Distribution Width SD 45.1 fl (35.1-43.9); Red Blood Count 4.56 M/mm3 (4.2-5.4)
[2020-10-14 12:52] LABS: AST(SGOT) 31 U/L (15-37); Alanine Aminotransfer ALT/SGPT 53 U/L (13-56); Albumin, Serum 3.6 g/dL (3.2-5.0); Alkaline Phosphatase 79 U/L (45-117); Anion Gap 6 (5-15); BUN 20 mg/dL (7-18); BUN/Creat Ratio 28.2 RATIO (10-20); Calcium,Total 8.9 mg/dL (8.5-10.1); Chloride 106 mmol/L (98-107); Creatinine, Serum 0.71 mg/dL (0.55-1.02); EST Glomerular Filtration Rate 87 mL/min (>60); Est Glom Filt Rate - Afr Amer 106 mL/min (>60); Globulin 3.5 g/dL (2.2-4.2); Glucose 125 mg/dL (74-106); Potassium 3.8 mmol/L (3.5-5.1); Protein, Total 7.1 g/dL (6.4-8.2); Sodium Level 141 mmol/L (136-145)
== END ==
PROVIDERS: PCP Internal Medicine; Referring Provider Internal Medicine Rheumatology; Visit Provider Internal Medicine Rheumatology
DX: M06.4 Inflammatory polyarthropathy (principal); M19.041 Primary osteoarthritis, right hand; E11.9 Type 2 diabetes mellitus without complications; I10 Essential (primary) hypertension; Z79.899 Other long term (current) drug therapy
CPT/HCPCS: 36415; 80053; 85025

== ENCOUNTER → 2021-01-07 16:36 | Outpatient (CLI) | payer MEDICARE, OTHER, SELFPAY ==
[2021-01-07 17:48] LABS: Absolute Lymphocyte Count 3.03 X10^3/uL (0.83-4.51); Absolute Neutrophil Count 4.6 X10^3/uL (2.0-7.7); Basophil# 0.03 X10^3/uL; Basophil% 0.4 % (0-1); Eosinophils% 2.4 % (0-5); Hematocrit 40.6 % (37-47); Hemoglobin 13.3 g/dL (12.0-15.0); Lymphocyte # 3.03 X10^3/ul (0.83-4.51); Lymphocyte % 35.9 % (19-41); Mean Corp Hgb Conc 32.8 g/dL (32-36); Mean Corpuscular Hgb 31.1 pg (27.0-32.0); Mean Corpuscular Volume 94.9 fL (81-99); Mean Platelet Vol. 11.1 fl (6.2-12.0); Monocyte# 0.61 X10^3/uL; Monocyte% 7.2 % (0-10); NRBC Flagged by Analyzer 0 % (0-5); Neutrophil # 4.55 X10^3/uL (2.7-7.7); Neutrophil % 53.9 % (47-70); Platelet Count 235 K/mm3 (150-450); RBC Distribution Width SD 44.4 fl (35.1-43.9); Red Blood Count 4.28 M/mm3 (4.2-5.4); White Blood Count 8.4 K/mm3 (4.4-11.0)
[2021-01-07 18:05] LABS: ALB/GLOB Ratio 1.1 RATIO (0.9-2.4); AST(SGOT) 18 U/L (15-37); Alanine Aminotransfer ALT/SGPT 39 U/L (13-56); Albumin, Serum 3.6 g/dL (3.2-5.0); Alkaline Phosphatase 89 U/L (45-117); Anion Gap 4 (5-15); BUN 22 mg/dL (7-18); BUN/Creat Ratio 25.9 RATIO (10-20); Calcium,Total 8.7 mg/dL (8.5-10.1); Chloride 108 mmol/L (98-107); Creatinine, Serum 0.85 mg/dL (0.55-1.02); EST Glomerular Filtration Rate 71 mL/min (>60); Est Glom Filt Rate - Afr Amer 86 mL/min (>60); Globulin 3.4 g/dL (2.2-4.2); Glucose 167 mg/dL (74-106); Sodium Level 140 mmol/L (136-145)
== END ==
PROVIDERS: PCP Internal Medicine; Referring Provider Internal Medicine Rheumatology; Visit Provider Internal Medicine Rheumatology
DX: M06.4 Inflammatory polyarthropathy (principal); M19.041 Primary osteoarthritis, right hand; E11.9 Type 2 diabetes mellitus without complications; I10 Essential (primary) hypertension; Z79.899 Other long term (current) drug therapy
CPT/HCPCS: 36415; 80053; 85025

== ENCOUNTER → 2021-03-19 13:57 | Outpatient (CLI) | payer MEDICARE, OTHER, SELFPAY ==
[2021-03-19 18:29] LABS: Absolute Lymphocyte Count 1.92 X10^3/uL (0.83-4.51); Absolute Neutrophil Count 4.3 X10^3/uL (2.0-7.7); Basophil# 0.04 X10^3/uL; Basophil% 0.6 % (0-1); Eosinophil# 0.23 X10^3/uL; Eosinophils% 3.3 % (0-5); Hematocrit 41.5 % (37-47); Hemoglobin 13.6 g/dL (12.0-15.0); Lymphocyte # 1.92 X10^3/ul (0.83-4.51); Lymphocyte % 27.3 % (19-41); Mean Corp Hgb Conc 32.8 g/dL (32-36); Mean Corpuscular Hgb 31.3 pg (27.0-32.0); Mean Corpuscular Volume 95.4 fL (81-99); Mean Platelet Vol. 12.4 fl (6.2-12.0); Monocyte# 0.52 X10^3/uL; Monocyte% 7.4 % (0-10); NRBC Flagged by Analyzer 0 % (0-5); Neutrophil # 4.31 X10^3/uL (2.7-7.7); Neutrophil % 61.1 % (47-70); POSITIVE COUNT YES; Platelet Count 173 K/mm3 (150-450); RBC Distribution Width CV 12.6 % (11.6-14.6); RBC Distribution Width SD 43.6 fl (35.1-43.9); Red Blood Count 4.35 M/mm3 (4.2-5.4)
[2021-03-19 18:46] LABS: Differential Indicated SCAN CRITERIA MET
[2021-03-19 19:00] LABS: ALB/GLOB Ratio 0.9 RATIO (0.9-2.4); AST(SGOT) 19 U/L (15-37); Alanine Aminotransfer ALT/SGPT 42 U/L (13-56); Albumin, Serum 3.2 g/dL (3.2-5.0); Alkaline Phosphatase 73 U/L (45-117); Anion Gap 6 (5-15); BUN 16 mg/dL (7-18); BUN/Creat Ratio 20.9 RATIO (10-20); Calcium,Total 8.3 mg/dL (8.5-10.1); Chloride 106 mmol/L (98-107); Creatinine, Serum 0.77 mg/dL (0.55-1.02); EST Glomerular Filtration Rate 80 mL/min (>60); Est Glom Filt Rate - Afr Amer 96 mL/min (>60); Globulin 3.7 g/dL (2.2-4.2); Glucose 136 mg/dL (74-106); Potassium 3.7 mmol/L (3.5-5.1); Protein, Total 6.9 g/dL (6.4-8.2); Sodium Level 138 mmol/L (136-145)
[2021-03-19 19:45] LABS: Differential Comment SCANNED
== END ==
PROVIDERS: PCP Internal Medicine; Referring Provider Internal Medicine Rheumatology; Visit Provider Internal Medicine Rheumatology
DX: M06.4 Inflammatory polyarthropathy (principal); M19.041 Primary osteoarthritis, right hand; M47.897 Other spondylosis, lumbosacral region; E11.9 Type 2 diabetes mellitus without complications; I10 Essential (primary) hypertension; Z79.899 Other long term (current) drug therapy
CPT/HCPCS: 36415; 80053; 85025

== ENCOUNTER → 2021-06-19 13:12 | Outpatient (CLI) | payer MEDICARE, OTHER, SELFPAY ==
--- NOTE | 2021-06-19 13:14 | BI_ITS ---
MAMMOGRAPHY - BILATERAL SCREENING REASON FOR EXAM: Female, 70 years old. Routine annual screening examination. PERTINENT HISTORY: Aunt with breast cancer. TECHNIQUE: Digital bilateral breast celestine (3D mammographic acquisition) in the CC and MLO projections. 2-D mediolateral oblique (MLO) and craniocaudad (CC) views of both breasts were obtained. CAD: Full Field Digital Mammography with Computer Added Detection was performed. COMPARISON: Comparison is made with prior examination in 05/15/2020 and 03/02/2019. FINDINGS: Breast Composition: The breasts are almost entirely fatty. There are no dominant masses or suspicious calcifications. Stable small benign appearing bilateral axillary lymph nodes. No other significant abnormalities are identified. There has been no significant change since the prior study. BI/SCRN MAMM (CAD)W/CELESTINE BILAT IMPRESSION: Stable bilateral screening mammogram. Yearly follow-up mammogram recommended. (A) ASSESSMENT CATEGORY: BIRADS Category 2: Benign. A letter regarding these results will be sent to the patient by the facility within 30 days. Approximately 10% of breast cancers are not detected by mammography. A normal mammogram should not delay biopsy of a clinically suspicious abnormality. [id number] Electronically Signed: Tian Prince MD at 14:06 EST , Service support ,
[2021-06-19 15:17] LABS: Absolute Lymphocyte Count 1.65 X10^3/uL (0.83-4.51); Absolute Neutrophil Count 3.3 X10^3/uL (2.0-7.7); Basophil# 0.03 X10^3/uL; Basophil% 0.5 % (0-1); Eosinophil# 0.16 X10^3/uL; Eosinophils% 2.9 % (0-5); Hematocrit 42.6 % (37-47); Hemoglobin 14.3 g/dL (12.0-15.0); Lymphocyte # 1.65 X10^3/ul (0.83-4.51); Lymphocyte % 29.9 % (19-41); Mean Corp Hgb Conc 33.6 g/dL (32-36); Mean Corpuscular Hgb 31.6 pg (27.0-32.0); Mean Platelet Vol. 11.4 fl (6.2-12.0); Monocyte# 0.41 X10^3/uL; Monocyte% 7.4 % (0-10); NRBC Flagged by Analyzer 0 % (0-5); Neutrophil # 3.26 X10^3/uL (2.7-7.7); Neutrophil % 59.1 % (47-70); Platelet Count 212 K/mm3 (150-450); RBC Distribution Width SD 44.2 fl (35.1-43.9); Red Blood Count 4.53 M/mm3 (4.2-5.4); White Blood Count 5.5 K/mm3 (4.4-11.0)
[2021-06-19 15:38] LABS: AST(SGOT) 20 U/L (15-37); Alanine Aminotransfer ALT/SGPT 40 U/L (13-56); Albumin, Serum 3.4 g/dL (3.2-5.0); Alkaline Phosphatase 70 U/L (45-117); Anion Gap 7 (5-15); BUN 19 mg/dL (7-18); BUN/Creat Ratio 28.2 RATIO (10-20); Calcium,Total 8.7 mg/dL (8.5-10.1); Chloride 110 mmol/L (98-107); Creatinine, Serum 0.67 mg/dL (0.55-1.02); EST Glomerular Filtration Rate 92 mL/min (>60); Est Glom Filt Rate - Afr Amer 112 mL/min (>60); Globulin 3.4 g/dL (2.2-4.2); Glucose 134 mg/dL (74-106); Potassium 3.9 mmol/L (3.5-5.1); Protein, Total 6.8 g/dL (6.4-8.2); Sodium Level 141 mmol/L (136-145)
== END ==
PROVIDERS: PCP Internal Medicine; Referring Provider Internal Medicine; Visit Provider Internal Medicine
DX: Z12.31 Encounter for screening mammogram for malignant neoplasm of breast (principal); I10 Essential (primary) hypertension; E11.9 Type 2 diabetes mellitus without complications; M06.4 Inflammatory polyarthropathy; M19.041 Primary osteoarthritis, right hand; M47.897 Other spondylosis, lumbosacral region; Z79.899 Other long term (current) drug therapy; Z80.3 Family history of malignant neoplasm of breast
CPT/HCPCS: 36415; 77063; 77067; 80053; 85025

== ENCOUNTER 2021-09-01 13:32 | Outpatient (CLI) | payer MEDICARE, OTHER, SELFPAY ==
[2021-09-01 15:31] LABS: Absolute Lymphocyte Count 2.16 X10^3/uL (0.83-4.51); Absolute Neutrophil Count 3.8 X10^3/uL (2.0-7.7); Basophil# 0.03 X10^3/uL; Basophil% 0.5 % (0-1); Eosinophil# 0.15 X10^3/uL; Eosinophils% 2.3 % (0-5); Hematocrit 43.3 % (37-47); Hemoglobin 14.2 g/dL (12.0-15.0); Lymphocyte # 2.16 X10^3/ul (0.83-4.51); Lymphocyte % 32.6 % (19-41); Mean Corp Hgb Conc 32.8 g/dL (32-36); Mean Corpuscular Hgb 30.9 pg (27.0-32.0); Mean Corpuscular Volume 94.1 fL (81-99); Mean Platelet Vol. 11.3 fl (6.2-12.0); Monocyte# 0.44 X10^3/uL; Monocyte% 6.6 % (0-10); NRBC Flagged by Analyzer 0 % (0-5); Neutrophil # 3.82 X10^3/uL (2.7-7.7); Neutrophil % 57.7 % (47-70); Platelet Count 253 K/mm3 (150-450); RBC Distribution Width CV 13.3 % (11.6-14.6); RBC Distribution Width SD 46.2 fl (35.1-43.9); White Blood Count 6.6 K/mm3 (4.4-11.0)
[2021-09-01 15:54] LABS: AST(SGOT) 27 U/L (15-37); Alanine Aminotransfer ALT/SGPT 54 U/L (13-56); Albumin, Serum 3.6 g/dL (3.2-5.0); Alkaline Phosphatase 70 U/L (45-117); Anion Gap 8 (5-15); BUN 19 mg/dL (7-18); Chloride 107 mmol/L (98-107); Creatinine, Serum 0.63 mg/dL (0.55-1.02); EST Glomerular Filtration Rate 99 mL/min (>60); Est Glom Filt Rate - Afr Amer 120 mL/min (>60); Globulin 3.5 g/dL (2.2-4.2); Glucose 119 mg/dL (74-106); Potassium 3.9 mmol/L (3.5-5.1); Protein, Total 7.1 g/dL (6.4-8.2); Sodium Level 140 mmol/L (136-145)
== END 2021-09-01 23:59 | disposition home or self-care (01) ==
LOC: MTLAB 13:39
PROVIDERS: PCP Internal Medicine; Referring Provider Internal Medicine Rheumatology; Visit Provider Internal Medicine Rheumatology
DX: M06.4 Inflammatory polyarthropathy (principal); E11.9 Type 2 diabetes mellitus without complications; M19.041 Primary osteoarthritis, right hand; M19.042 Primary osteoarthritis, left hand; M47.897 Other spondylosis, lumbosacral region; M17.0 Bilateral primary osteoarthritis of knee; I10 Essential (primary) hypertension; Z79.899 Other long term (current) drug therapy
CPT/HCPCS: 36415; 80053; 85025

== ENCOUNTER → 2021-12-12 | Outpatient (CLI) | payer MEDICARE, OTHER, SELFPAY ==
--- NOTE | 2021-12-12 10:13 | US_ITS ---
STUDY: ABDOMINAL ULTRASOUND - RIGHT UPPER QUADRANT REASON FOR VISIT: Female, 71 years old ELEVATED LIVER ENZYMES TECHNIQUE: Ultrasound evaluation of the right upper quadrant was performed with real-time and static pagan-scale imaging. TECHNICAL QUALITY: Adequate. COMPARISON: None. FINDINGS: Liver: The liver measures 21.6 cm. There is increased echogenicity consistent with fatty infiltration. There is a inhomogeneous appearance of the liver which may represent possible underlying nodularity or infiltrative process. The bile ducts are within normal limits. There is hepatic color flow. The direction of portal flow is hepatopetal. Limited color Doppler of the shana hepatis. Gallbladder: Normal distended gallbladder. The gallbladder wall measures 2.1 mm. There is a negative sonographic Sahu''s sign. There is no pericholecystic fluid. There are no gallstones. Common Bile Duct (C.B.D.): The common bile duct measures 5.2 mm. Pancreas: Normal size of the head, body and tail of the pancreas. There is normal echogenicity of the pancreas. There is no demonstrated pancreatic mass or cyst. Right Kidney: Normal size of the right kidney. The right kidney measures 11.5 x 5.6 x 5.2 cm. Normal renal cortex. The right cortex measures 1.3 cm. There is no demonstrated renal mass or cyst. There is no right hydronephrosis. US/Abdomen Limited IMPRESSION: Abnormal liver. The liver is enlarged fatty infiltrated, and appears inhomogeneous possible with subtle lobulation. Recommend further evaluation with a CT scan or MRI with a liver mass protocol For clarification Electronically Signed: Antonia Georges MD at 16:17 EDT ,
== END | disposition home or self-care (01) ==
LOC: US 10:12
PROVIDERS: PCP Internal Medicine; Visit Provider Internal Medicine Rheumatology
DX: K76.0 Fatty (change of) liver, not elsewhere classified (principal); M06.4 Inflammatory polyarthropathy; E11.9 Type 2 diabetes mellitus without complications; R94.5 Abnormal results of liver function studies; M19.041 Primary osteoarthritis, right hand; M19.042 Primary osteoarthritis, left hand; M47.897 Other spondylosis, lumbosacral region; M17.0 Bilateral primary osteoarthritis of knee; I10 Essential (primary) hypertension; Z79.899 Other long term (current) drug therapy
CPT/HCPCS: 76705

== ENCOUNTER → 2022-01-04 | Outpatient (CLI) | payer MEDICARE, OTHER, SELFPAY ==
[2022-01-04 12:53] LABS: ALB/GLOB Ratio 0.9 RATIO (0.9-2.4); AST(SGOT) 17 U/L (15-37); Alanine Aminotransfer ALT/SGPT 36 U/L (13-56); Albumin, Serum 3.5 g/dL (3.2-5.0); Alkaline Phosphatase 65 U/L (45-117); Anion Gap 7 (5-15); BUN 14 mg/dL (7-18); BUN/Creat Ratio 21.3 RATIO (10-20); Calcium,Total 9.2 mg/dL (8.5-10.1); Chloride 105 mmol/L (98-107); Creatinine, Serum 0.66 mg/dL (0.55-1.02); EST Glomerular Filtration Rate 95 mL/min (>60); Est Glom Filt Rate - Afr Amer 115 mL/min (>60); Globulin 3.8 g/dL (2.2-4.2); Glucose 131 mg/dL (74-106); Potassium 3.7 mmol/L (3.5-5.1); Protein, Total 7.3 g/dL (6.4-8.2); Sodium Level 141 mmol/L (136-145)
== END | disposition home or self-care (01) ==
LOC: MTLAB 10:48
PROVIDERS: PCP Internal Medicine; Referring Provider Internal Medicine Rheumatology; Visit Provider Internal Medicine Rheumatology
DX: M06.4 Inflammatory polyarthropathy (principal); E11.9 Type 2 diabetes mellitus without complications; M19.041 Primary osteoarthritis, right hand; M47.897 Other spondylosis, lumbosacral region; M17.0 Bilateral primary osteoarthritis of knee; I10 Essential (primary) hypertension; Z79.899 Other long term (current) drug therapy
CPT/HCPCS: 36415; 80053

== ENCOUNTER → 2022-01-25 | Outpatient (CLI) | payer MEDICARE, OTHER, SELFPAY ==
[2022-01-25 15:45] LABS: Absolute Lymphocyte Count 2.03 X10^3/uL (0.83-4.51); Absolute Neutrophil Count 3.9 X10^3/uL (2.0-7.7); Basophil# 0.03 X10^3/uL; Basophil% 0.5 % (0-1); Eosinophil# 0.16 X10^3/uL; Eosinophils% 2.4 % (0-5); Hematocrit 44.3 % (37-47); Hemoglobin 14.5 g/dL (12.0-15.0); Lymphocyte # 2.03 X10^3/ul (0.83-4.51); Lymphocyte % 30.9 % (19-41); Mean Corp Hgb Conc 32.7 g/dL (32-36); Mean Corpuscular Volume 94.7 fL (81-99); Mean Platelet Vol. 11.2 fl (6.2-12.0); Monocyte# 0.46 X10^3/uL; NRBC Flagged by Analyzer 0 % (0-5); Neutrophil # 3.89 X10^3/uL (2.7-7.7); Platelet Count 244 K/mm3 (150-450); RBC Distribution Width CV 12.6 % (11.6-14.6); Red Blood Count 4.68 M/mm3 (4.2-5.4); White Blood Count 6.6 K/mm3 (4.4-11.0)
[2022-01-25 16:14] LABS: ALB/GLOB Ratio 1.1 RATIO (0.9-2.4); AST(SGOT) 22 U/L (15-37); Alanine Aminotransfer ALT/SGPT 42 U/L (13-56); Albumin, Serum 3.8 g/dL (3.2-5.0); Alkaline Phosphatase 60 U/L (45-117); Anion Gap 6 (5-15); BUN 19 mg/dL (7-18); Calcium,Total 9.4 mg/dL (8.5-10.1); Chloride 108 mmol/L (98-107); Creatinine, Serum 0.79 mg/dL (0.55-1.02); EST Glomerular Filtration Rate 76 mL/min (>60); Est Glom Filt Rate - Afr Amer 92 mL/min (>60); Globulin 3.5 g/dL (2.2-4.2); Glucose 132 mg/dL (74-106); Potassium 4.3 mmol/L (3.5-5.1); Protein, Total 7.3 g/dL (6.4-8.2); Sodium Level 140 mmol/L (136-145)
== END | disposition home or self-care (01) ==
PROVIDERS: PCP Internal Medicine; Referring Provider Internal Medicine Rheumatology; Visit Provider Internal Medicine Rheumatology
DX: M06.4 Inflammatory polyarthropathy (principal); E11.9 Type 2 diabetes mellitus without complications; M19.041 Primary osteoarthritis, right hand; M47.897 Other spondylosis, lumbosacral region; M17.0 Bilateral primary osteoarthritis of knee; I10 Essential (primary) hypertension; Z79.899 Other long term (current) drug therapy
CPT/HCPCS: 36415; 80053; 85025

== ENCOUNTER → 2022-04-14 | Outpatient (CLI) | payer MEDICARE, OTHER, SELFPAY ==
[2022-04-14 17:31] LABS: Absolute Lymphocyte Count 2.67 X10^3/uL (0.83-4.51); Absolute Neutrophil Count 5.5 X10^3/uL (2.0-7.7); Basophil# 0.05 X10^3/uL; Basophil% 0.6 % (0-1); Eosinophil# 0.16 X10^3/uL; Eosinophils% 1.8 % (0-5); Hematocrit 43.2 % (37-47); Hemoglobin 14.1 g/dL (12.0-15.0); Lymphocyte # 2.67 X10^3/ul (0.83-4.51); Mean Corp Hgb Conc 32.6 g/dL (32-36); Mean Corpuscular Hgb 31.2 pg (27.0-32.0); Mean Corpuscular Volume 95.6 fL (81-99); Mean Platelet Vol. 11.3 fl (6.2-12.0); Monocyte# 0.54 X10^3/uL; Monocyte% 6.1 % (0-10); NRBC Flagged by Analyzer 0 % (0-5); Neutrophil # 5.46 X10^3/uL (2.7-7.7); Neutrophil % 61.3 % (47-70); Platelet Count 258 K/mm3 (150-450); RBC Distribution Width CV 13.6 % (11.6-14.6); RBC Distribution Width SD 47.4 fl (35.1-43.9); Red Blood Count 4.52 M/mm3 (4.2-5.4); White Blood Count 8.9 K/mm3 (4.4-11.0)
[2022-04-14 17:54] LABS: ALB/GLOB Ratio 1.1 RATIO (0.9-2.4); AST(SGOT) 16 U/L (15-37); Alanine Aminotransfer ALT/SGPT 36 U/L (13-56); Albumin, Serum 3.6 g/dL (3.2-5.0); Alkaline Phosphatase 74 U/L (45-117); Anion Gap 7 (5-15); BUN 24 mg/dL (7-18); BUN/Creat Ratio 30.5 RATIO (10-20); Chloride 107 mmol/L (98-107); Creatinine, Serum 0.79 mg/dL (0.55-1.02); EST Glomerular Filtration Rate 77 mL/min (>60); Est Glom Filt Rate - Afr Amer 93 mL/min (>60); Globulin 3.4 g/dL (2.2-4.2); Glucose 96 mg/dL (74-106); Potassium 3.2 mmol/L (3.5-5.1); Sodium Level 143 mmol/L (136-145)
== END | disposition home or self-care (01) ==
LOC: MTLAB 14:16
PROVIDERS: PCP Internal Medicine; Referring Provider Internal Medicine Rheumatology; Visit Provider Internal Medicine Rheumatology
DX: M06.4 Inflammatory polyarthropathy (principal); E11.9 Type 2 diabetes mellitus without complications; M19.041 Primary osteoarthritis, right hand; M19.042 Primary osteoarthritis, left hand; M47.897 Other spondylosis, lumbosacral region; M17.0 Bilateral primary osteoarthritis of knee; I10 Essential (primary) hypertension; Z79.899 Other long term (current) drug therapy
CPT/HCPCS: 36415; 80053; 85025

== ENCOUNTER → 2022-08-02 | Outpatient (CLI) | payer MEDICARE, OTHER, SELFPAY ==
[2022-08-02 12:21] LABS: Absolute Lymphocyte Count 1.94 X10^3/uL (0.83-4.51); Absolute Neutrophil Count 3.7 X10^3/uL (2.0-7.7); Basophil# 0.03 X10^3/uL; Basophil% 0.5 % (0-1); Eosinophil# 0.16 X10^3/uL; Eosinophils% 2.6 % (0-5); Hematocrit 42.9 % (37-47); Hemoglobin 14.3 g/dL (12.0-15.0); Lymphocyte # 1.94 X10^3/ul (0.83-4.51); Mean Corp Hgb Conc 33.3 g/dL (32-36); Mean Corpuscular Hgb 31.4 pg (27.0-32.0); Mean Corpuscular Volume 94.3 fL (81-99); Mean Platelet Vol. 10.7 fl (6.2-12.0); Monocyte# 0.46 X10^3/uL; Monocyte% 7.3 % (0-10); NRBC Flagged by Analyzer 0 % (0-5); Neutrophil # 3.66 X10^3/uL (2.7-7.7); Neutrophil % 58.4 % (47-70); Platelet Count 234 K/mm3 (150-450); RBC Distribution Width CV 12.5 % (11.6-14.6); RBC Distribution Width SD 43.2 fl (35.1-43.9); Red Blood Count 4.55 M/mm3 (4.2-5.4); White Blood Count 6.3 K/mm3 (4.4-11.0)
[2022-08-02 12:33] LABS: AST(SGOT) 19 U/L (15-37); Alanine Aminotransfer ALT/SGPT 32 U/L (13-56); Albumin, Serum 3.4 g/dL (3.2-5.0); Alkaline Phosphatase 69 U/L (45-117); Anion Gap 7 (5-15); BUN 17 mg/dL (7-18); BUN/Creat Ratio 22.2 RATIO (10-20); Calcium,Total 8.8 mg/dL (8.5-10.1); Chloride 107 mmol/L (98-107); Creatinine, Serum 0.77 mg/dL (0.55-1.02); EST Glomerular Filtration Rate 79 mL/min (>60); Est Glom Filt Rate - Afr Amer 96 mL/min (>60); Globulin 3.5 g/dL (2.2-4.2); Glucose 120 mg/dL (74-106); Potassium 4.2 mmol/L (3.5-5.1); Protein, Total 6.9 g/dL (6.4-8.2); Sodium Level 139 mmol/L (136-145)
== END | disposition home or self-care (01) ==
LOC: MTLAB 10:40
PROVIDERS: PCP Internal Medicine; Referring Provider Internal Medicine Rheumatology; Visit Provider Internal Medicine Rheumatology
DX: M06.4 Inflammatory polyarthropathy (principal); E11.9 Type 2 diabetes mellitus without complications; M19.041 Primary osteoarthritis, right hand; M47.897 Other spondylosis, lumbosacral region; M17.0 Bilateral primary osteoarthritis of knee; I10 Essential (primary) hypertension; Z79.899 Other long term (current) drug therapy
CPT/HCPCS: 36415; 80053; 85025

== ENCOUNTER → 2022-10-28 | Outpatient (CLI) | payer MEDICARE, OTHER, SELFPAY ==
[2022-10-28 15:42] LABS: AST(SGOT) 20 U/L (15-37); Alanine Aminotransfer ALT/SGPT 38 U/L (13-56); Albumin, Serum 3.5 g/dL (3.2-5.0); Alkaline Phosphatase 74 U/L (45-117); Anion Gap 2 (5-15); BUN 16 mg/dL (7-18); BUN/Creat Ratio 23.4 RATIO (10-20); Calcium,Total 9.3 mg/dL (8.5-10.1); Chloride 109 mmol/L (98-107); Creatinine, Serum 0.68 mg/dL (0.55-1.02); EST Glomerular Filtration Rate 90 mL/min (>60); Est Glom Filt Rate - Afr Amer 109 mL/min (>60); Globulin 3.4 g/dL (2.2-4.2); Glucose 122 mg/dL (74-106); Potassium 4.1 mmol/L (3.5-5.1); Protein, Total 6.9 g/dL (6.4-8.2); Sodium Level 138 mmol/L (136-145)
[2022-10-28 15:43] LABS: Absolute Lymphocyte Count 2.07 X10^3/uL (0.83-4.51); Absolute Neutrophil Count 3.7 X10^3/uL (2.0-7.7); Basophil# 0.03 X10^3/uL; Basophil% 0.5 % (0-1); Eosinophil# 0.17 X10^3/uL; Eosinophils% 2.7 % (0-5); Hematocrit 43.2 % (37-47); Hemoglobin 14.1 g/dL (12.0-15.0); Lymphocyte # 2.07 X10^3/ul (0.83-4.51); Lymphocyte % 32.3 % (19-41); Mean Corp Hgb Conc 32.6 g/dL (32-36); Mean Corpuscular Hgb 31.1 pg (27.0-32.0); Mean Corpuscular Volume 95.4 fL (81-99); Mean Platelet Vol. 11.3 fl (6.2-12.0); Monocyte# 0.45 X10^3/uL; NRBC Flagged by Analyzer 0 % (0-5); Neutrophil # 3.66 X10^3/uL (2.7-7.7); Neutrophil % 57.2 % (47-70); Platelet Count 250 K/mm3 (150-450); RBC Distribution Width CV 13.4 % (11.6-14.6); RBC Distribution Width SD 46.5 fl (35.1-43.9); Red Blood Count 4.53 M/mm3 (4.2-5.4); White Blood Count 6.4 K/mm3 (4.4-11.0)
== END | disposition home or self-care (01) ==
LOC: MTLAB 11:27
PROVIDERS: PCP Internal Medicine; Referring Provider Internal Medicine Rheumatology; Visit Provider Internal Medicine Rheumatology
DX: M06.4 Inflammatory polyarthropathy (principal); Z79.899 Other long term (current) drug therapy
CPT/HCPCS: 36415; 80053; 85025

== ENCOUNTER → 2023-01-17 | Outpatient (CLI) | payer MEDICARE, OTHER, SELFPAY ==
[2023-01-17 18:06] LABS: Absolute Lymphocyte Count 2.04 X10^3/uL (0.83-4.51); Basophil# 0.03 X10^3/uL; Basophil% 0.4 % (0-1); Eosinophil# 0.15 X10^3/uL; Eosinophils% 1.9 % (0-5); Hematocrit 42.5 % (37-47); Lymphocyte # 2.04 X10^3/ul (0.83-4.51); Lymphocyte % 26.1 % (19-41); Mean Corp Hgb Conc 32.9 g/dL (32-36); Mean Corpuscular Hgb 31.7 pg (27.0-32.0); Mean Corpuscular Volume 96.2 fL (81-99); Mean Platelet Vol. 10.8 fl (6.2-12.0); Monocyte# 0.56 X10^3/uL; Monocyte% 7.2 % (0-10); NRBC Flagged by Analyzer 0 % (0-5); Neutrophil # 5.04 X10^3/uL (2.7-7.7); Neutrophil % 64.3 % (47-70); Platelet Count 236 K/mm3 (150-450); RBC Distribution Width CV 13.1 % (11.6-14.6); RBC Distribution Width SD 46.3 fl (35.1-43.9); Red Blood Count 4.42 M/mm3 (4.2-5.4); White Blood Count 7.8 K/mm3 (4.4-11.0)
[2023-01-17 18:38] LABS: ALB/GLOB Ratio 0.9 RATIO (0.9-2.4); AST(SGOT) 21 U/L (15-37); Alanine Aminotransfer ALT/SGPT 39 U/L (13-56); Albumin, Serum 3.4 g/dL (3.2-5.0); Alkaline Phosphatase 78 U/L (45-117); Anion Gap 5 (5-15); BUN 19 mg/dL (7-18); BUN/Creat Ratio 21.1 RATIO (10-20); Calcium,Total 8.9 mg/dL (8.5-10.1); Chloride 108 mmol/L (98-107); EST Glomerular Filtration Rate 66 mL/min (>60); Est Glom Filt Rate - Afr Amer 80 mL/min (>60); Globulin 3.6 g/dL (2.2-4.2); Glucose 137 mg/dL (74-106); Potassium 3.9 mmol/L (3.5-5.1); Sodium Level 139 mmol/L (136-145)
== END | disposition home or self-care (01) ==
LOC: MTLAB 16:03
PROVIDERS: PCP Internal Medicine; Referring Provider Internal Medicine Rheumatology; Visit Provider Internal Medicine Rheumatology
DX: M06.4 Inflammatory polyarthropathy (principal); M19.041 Primary osteoarthritis, right hand; Z79.899 Other long term (current) drug therapy
CPT/HCPCS: 36415; 80053; 85025

== ENCOUNTER → 2023-04-19 | Outpatient (CLI) | payer MEDICARE, OTHER, SELFPAY ==
[2023-04-19 15:37] LABS: Absolute Lymphocyte Count 2.11 X10^3/uL (0.83-4.51); Absolute Neutrophil Count 3.4 X10^3/uL (2.0-7.7); Basophil# 0.03 X10^3/uL; Basophil% 0.5 % (0-1); Eosinophil# 0.16 X10^3/uL; Eosinophils% 2.6 % (0-5); Hematocrit 42.9 % (37-47); Lymphocyte # 2.11 X10^3/ul (0.83-4.51); Lymphocyte % 33.9 % (19-41); Mean Corp Hgb Conc 32.6 g/dL (32-36); Mean Corpuscular Hgb 31.5 pg (27.0-32.0); Mean Corpuscular Volume 96.4 fL (81-99); Monocyte# 0.48 X10^3/uL; Monocyte% 7.7 % (0-10); NRBC Flagged by Analyzer 0 % (0-5); Neutrophil # 3.43 X10^3/uL (2.7-7.7); Neutrophil % 55.1 % (47-70); Platelet Count 236 K/mm3 (150-450); RBC Distribution Width SD 45.8 fl (35.1-43.9); Red Blood Count 4.45 M/mm3 (4.2-5.4); White Blood Count 6.2 K/mm3 (4.4-11.0)
[2023-04-19 16:05] LABS: AST(SGOT) 22 U/L (15-37); Alanine Aminotransfer ALT/SGPT 47 U/L (13-56); Albumin, Serum 3.4 g/dL (3.2-5.0); Alkaline Phosphatase 73 U/L (45-117); Anion Gap 6 (5-15); BUN 18 mg/dL (7-18); BUN/Creat Ratio 24.2 RATIO (10-20); Calcium,Total 8.8 mg/dL (8.5-10.1); Chloride 106 mmol/L (98-107); Creatinine, Serum 0.74 mg/dL (0.55-1.02); EST Glomerular Filtration Rate 82 mL/min (>60); Est Glom Filt Rate - Afr Amer 99 mL/min (>60); Globulin 3.5 g/dL (2.2-4.2); Glucose 157 mg/dL (74-106); Potassium 4.1 mmol/L (3.5-5.1); Protein, Total 6.9 g/dL (6.4-8.2); Sodium Level 138 mmol/L (136-145)
== END | disposition home or self-care (01) ==
LOC: MTLAB 11:35
PROVIDERS: PCP Internal Medicine; Referring Provider Internal Medicine Rheumatology; Visit Provider Internal Medicine Rheumatology
DX: M06.4 Inflammatory polyarthropathy (principal); Z79.899 Other long term (current) drug therapy
CPT/HCPCS: 36415; 80053; 85025

== ENCOUNTER → 2023-10-20 | Outpatient (CLI) | payer MEDICARE, OTHER, SELFPAY ==
[2023-10-20 12:03] LABS: Absolute Lymphocyte Count 2.24 X10^3/uL (0.83-4.51); Absolute Neutrophil Count 3.5 X10^3/uL (2.0-7.7); Basophil# 0.04 X10^3/uL; Basophil% 0.6 % (0-1); Eosinophil# 0.23 X10^3/uL; Eosinophils% 3.5 % (0-5); Hematocrit 43.4 % (37-47); Hemoglobin 14.2 g/dL (12.0-15.0); Lymphocyte # 2.24 X10^3/ul (0.83-4.51); Lymphocyte % 34.1 % (19-41); Mean Corp Hgb Conc 32.7 g/dL (32-36); Mean Corpuscular Hgb 31.1 pg (27.0-32.0); Mean Corpuscular Volume 95.2 fL (81-99); Mean Platelet Vol. 11.1 fl (6.2-12.0); Monocyte# 0.53 X10^3/uL; Monocyte% 8.1 % (0-10); NRBC Flagged by Analyzer 0 % (0-5); Neutrophil % 53.4 % (47-70); Platelet Count 261 K/mm3 (150-450); RBC Distribution Width CV 13.2 % (11.6-14.6); RBC Distribution Width SD 45.1 fl (35.1-43.9); Red Blood Count 4.56 M/mm3 (4.2-5.4); White Blood Count 6.6 K/mm3 (4.4-11.0)
[2023-10-20 12:22] LABS: AST(SGOT) 24 U/L (15-37); Alanine Aminotransfer ALT/SGPT 46 U/L (13-56); Albumin, Serum 3.5 g/dL (3.2-5.0); Alkaline Phosphatase 68 U/L (45-117); Anion Gap 2 (5-15); BUN 18 mg/dL (7-18); BUN/Creat Ratio 22.5 RATIO (10-20); Calcium,Total 9.1 mg/dL (8.5-10.1); Chloride 108 mmol/L (98-107); EST Glomerular Filtration Rate 75 mL/min (>60); Est Glom Filt Rate - Afr Amer 91 mL/min (>60); Globulin 3.4 g/dL (2.2-4.2); Glucose 95 mg/dL (74-106); Potassium 3.9 mmol/L (3.5-5.1); Protein, Total 6.9 g/dL (6.4-8.2); Sodium Level 141 mmol/L (136-145)
== END | disposition home or self-care (01) ==
LOC: MTLAB 10:38
PROVIDERS: PCP Internal Medicine; Referring Provider Internal Medicine Rheumatology; Visit Provider Internal Medicine Rheumatology
DX: M06.4 Inflammatory polyarthropathy (principal); Z79.899 Other long term (current) drug therapy
CPT/HCPCS: 36415; 80053; 85025

== ENCOUNTER → 2024-04-03 | Outpatient (CLI) | payer MEDICARE, OTHER, SELFPAY ==
[2024-04-03 12:23] LABS: Absolute Lymphocyte Count 1.46 X10^3/uL (0.83-4.51); Absolute Neutrophil Count 3.1 X10^3/uL (2.0-7.7); Basophil# 0.03 X10^3/uL; Basophil% 0.6 % (0-1); Eosinophil# 0.15 X10^3/uL; Hemoglobin 13.6 g/dL (12.0-15.0); Lymphocyte # 1.46 X10^3/ul (0.83-4.51); Mean Corp Hgb Conc 32.4 g/dL (32-36); Mean Corpuscular Hgb 31.2 pg (27.0-32.0); Mean Corpuscular Volume 96.3 fL (81-99); Mean Platelet Vol. 10.9 fl (6.2-12.0); Monocyte# 0.34 X10^3/uL; Monocyte% 6.8 % (0-10); NRBC Flagged by Analyzer 0 % (0-5); Neutrophil # 3.05 X10^3/uL (2.7-7.7); Neutrophil % 60.6 % (47-70); Platelet Count 223 K/mm3 (150-450); RBC Distribution Width CV 13.1 % (11.6-14.6); RBC Distribution Width SD 45.6 fl (35.1-43.9); Red Blood Count 4.36 M/mm3 (4.2-5.4)
[2024-04-03 13:35] LABS: ALB/GLOB Ratio 1.1 RATIO (0.9-2.4); AST(SGOT) 25 U/L (15-37); Alanine Aminotransfer ALT/SGPT 36 U/L (13-56); Albumin, Serum 3.5 g/dL (3.2-5.0); Alkaline Phosphatase 56 U/L (45-117); Anion Gap 5 (5-15); BUN 19 mg/dL (7-18); BUN/Creat Ratio 26.1 RATIO (10-20); Calcium,Total 9.1 mg/dL (8.5-10.1); Chloride 111 mmol/L (98-107); Creatinine, Serum 0.73 mg/dL (0.55-1.02); EST Glomerular Filtration Rate 84 mL/min (>60); Est Glom Filt Rate - Afr Amer 101 mL/min (>60); Globulin 3.3 g/dL (2.2-4.2); Glucose 126 mg/dL (74-106); Potassium 4.4 mmol/L (3.5-5.1); Protein, Total 6.8 g/dL (6.4-8.2); Sodium Level 141 mmol/L (136-145)
== END | disposition home or self-care (01) ==
LOC: MTLAB 10:45
PROVIDERS: PCP Internal Medicine; Referring Provider Internal Medicine Rheumatology; Visit Provider Internal Medicine Rheumatology
DX: M06.4 Inflammatory polyarthropathy (principal); M19.041 Primary osteoarthritis, right hand; M17.0 Bilateral primary osteoarthritis of knee; Z79.899 Other long term (current) drug therapy
CPT/HCPCS: 36415; 80053; 85025

== ENCOUNTER → 2024-06-20 | Outpatient (CLI) | payer MEDICARE, OTHER, SELFPAY ==
[2024-06-20 12:50] LABS: Absolute Lymphocyte Count 1.23 X10^3/uL (0.83-4.51); Absolute Neutrophil Count 6.4 X10^3/uL (2.0-7.7); Basophil# 0.01 X10^3/uL; Basophil% 0.1 % (0-1); Hematocrit 38.7 % (37-47); Hemoglobin 13.2 g/dL (12.0-15.0); Lymphocyte # 1.23 X10^3/ul (0.83-4.51); Lymphocyte % 15.4 % (19-41); Mean Corp Hgb Conc 34.1 g/dL (32-36); Mean Corpuscular Hgb 31.9 pg (27.0-32.0); Mean Corpuscular Volume 93.5 fL (81-99); Mean Platelet Vol. 11.1 fl (6.2-12.0); Monocyte# 0.35 X10^3/uL; Monocyte% 4.4 % (0-10); NRBC Flagged by Analyzer 0 % (0-5); Neutrophil # 6.35 X10^3/uL (2.7-7.7); Neutrophil % 79.6 % (47-70); Platelet Count 240 K/mm3 (150-450); RBC Distribution Width CV 13.2 % (11.6-14.6); Red Blood Count 4.14 M/mm3 (4.2-5.4)
[2024-06-20 13:04] LABS: ALB/GLOB Ratio 1.1 RATIO (0.9-2.4); AST(SGOT) 12 U/L (15-37); Alanine Aminotransfer ALT/SGPT 31 U/L (13-56); Albumin, Serum 3.5 g/dL (3.2-5.0); Alkaline Phosphatase 62 U/L (45-117); Anion Gap 6 (5-15); BUN 22 mg/dL (7-18); BUN/Creat Ratio 24.4 RATIO (10-20); Calcium,Total 8.7 mg/dL (8.5-10.1); Chloride 111 mmol/L (98-107); EST Glomerular Filtration Rate 65 mL/min (>60); Est Glom Filt Rate - Afr Amer 79 mL/min (>60); Globulin 3.3 g/dL (2.2-4.2); Glucose 183 mg/dL (74-106); Potassium 3.9 mmol/L (3.5-5.1); Protein, Total 6.8 g/dL (6.4-8.2); Sodium Level 139 mmol/L (136-145)
== END | disposition home or self-care (01) ==
LOC: MTLAB 10:40
PROVIDERS: PCP Internal Medicine; Referring Provider Internal Medicine Rheumatology; Visit Provider Internal Medicine Rheumatology
DX: M06.4 Inflammatory polyarthropathy (principal); M19.041 Primary osteoarthritis, right hand; Z79.899 Other long term (current) drug therapy
CPT/HCPCS: 36415; 80053; 85025

== ENCOUNTER → 2024-09-13 | Outpatient (CLI) | payer MEDICARE, OTHER, SELFPAY ==
[2024-09-13 14:41] LABS: Absolute Lymphocyte Count 2.34 X10^3/uL (0.83-4.51); Absolute Neutrophil Count 3.8 X10^3/uL (2.0-7.7); Basophil# 0.05 X10^3/uL; Basophil% 0.7 % (0-1); Eosinophil# 0.19 X10^3/uL; Eosinophils% 2.7 % (0-5); Hematocrit 43.5 % (37-47); Hemoglobin 14.2 g/dL (12.0-15.0); Lymphocyte # 2.34 X10^3/ul (0.83-4.51); Lymphocyte % 33.5 % (19-41); Mean Corp Hgb Conc 32.6 g/dL (32-36); Mean Corpuscular Hgb 30.8 pg (27.0-32.0); Mean Corpuscular Volume 94.4 fL (81-99); Mean Platelet Vol. 11.3 fl (6.2-12.0); Monocyte# 0.63 X10^3/uL; NRBC Flagged by Analyzer 0 % (0-5); Neutrophil # 3.77 X10^3/uL (2.7-7.7); Platelet Count 251 K/mm3 (150-450); RBC Distribution Width CV 12.9 % (11.6-14.6); RBC Distribution Width SD 44.3 fl (35.1-43.9); Red Blood Count 4.61 M/mm3 (4.2-5.4)
[2024-09-13 14:51] LABS: ALB/GLOB Ratio 1.5 RATIO (0.9-2.4); AST(SGOT) 20 U/L (<=31); Alanine Aminotransfer ALT/SGPT 23 U/L (<=34); Albumin, Serum 4.2 g/dL (3.4-4.8); Alkaline Phosphatase 70 U/L (35-104); Anion Gap 10 (5-15); BUN 21 mg/dL (4-19); BUN/Creat Ratio 25.7 RATIO (10-20); Calcium,Total 9.5 mg/dL (7.6-11.0); Carbon Dioxide 26.4 mmol/L (21.0-32.0); Chloride 103 mmol/L (98-108); Creatinine, Serum 0.83 mg/dL (0.70-1.20); EST Glomerular Filtration Rate 75 (>60); Globulin 2.7 g/dL (2.2-4.2); Glucose 102 mg/dL (70-99); Protein, Total 6.9 g/dL (5.9-8.4); Sodium Level 140 mmol/L (133-145); Total Bilirubin 0.42 mg/dL (0.00-1.30)
== END | disposition home or self-care (01) ==
LOC: MTLAB 10:55
PROVIDERS: PCP Internal Medicine; Referring Provider Internal Medicine Rheumatology; Visit Provider Internal Medicine Rheumatology
DX: M06.4 Inflammatory polyarthropathy (principal); M19.041 Primary osteoarthritis, right hand; Z79.899 Other long term (current) drug therapy
CPT/HCPCS: 36415; 80053; 85025

== ENCOUNTER → 2024-12-06 | Outpatient (CLI) | payer MEDICARE, OTHER, SELFPAY ==
[2024-12-06 15:31] LABS: Absolute Lymphocyte Count 1.86 X10^3/uL (0.83-4.51); Basophil# 0.05 X10^3/uL; Basophil% 0.8 % (0-1); Eosinophil# 0.21 X10^3/uL; Eosinophils% 3.2 % (0-5); Hematocrit 42.2 % (37-47); Hemoglobin 14.3 g/dL (12.0-15.0); Lymphocyte # 1.86 X10^3/ul (0.83-4.51); Lymphocyte % 28.3 % (19-41); Mean Corp Hgb Conc 33.9 g/dL (32-36); Mean Corpuscular Hgb 31.1 pg (27.0-32.0); Mean Corpuscular Volume 91.7 fL (81-99); Monocyte# 0.46 X10^3/uL; NRBC Flagged by Analyzer 0 % (0-5); Neutrophil # 3.98 X10^3/uL (2.7-7.7); Neutrophil % 60.5 % (47-70); Platelet Count 259 K/mm3 (150-450); RBC Distribution Width CV 13.2 % (11.6-14.6); RBC Distribution Width SD 43.5 fl (35.1-43.9); White Blood Count 6.6 K/mm3 (4.4-11.0)
[2024-12-06 17:06] LABS: ALB/GLOB Ratio 1.5 RATIO (0.9-2.4); AST(SGOT) 23 U/L (<=31); Alanine Aminotransfer ALT/SGPT 25 U/L (<=34); Albumin, Serum 4.1 g/dL (3.4-4.8); Alkaline Phosphatase 67 U/L (35-104); Anion Gap 13 (5-15); BUN 16 mg/dL (4-19); BUN/Creat Ratio 22.4 RATIO (10-20); Calcium,Total 9.2 mg/dL (7.6-11.0); Carbon Dioxide 23.2 mmol/L (21.0-32.0); Chloride 102 mmol/L (98-108); Creatinine, Serum 0.71 mg/dL (0.70-1.20); EST Glomerular Filtration Rate 90 (>60); Globulin 2.7 g/dL (2.2-4.2); Glucose 107 mg/dL (70-99); Potassium 4.4 mmol/L (3.3-5.1); Protein, Total 6.8 g/dL (5.9-8.4); Sodium Level 138 mmol/L (133-145); Total Bilirubin 0.53 mg/dL (0.00-1.30)
== END | disposition home or self-care (01) ==
LOC: MTLAB 11:36
PROVIDERS: PCP Internal Medicine; Referring Provider Internal Medicine Rheumatology; Visit Provider Internal Medicine Rheumatology
DX: M06.4 Inflammatory polyarthropathy (principal); M19.041 Primary osteoarthritis, right hand; Z79.899 Other long term (current) drug therapy
CPT/HCPCS: 36415; 80053; 85025

== ENCOUNTER 2025-01-10 13:39 | Emergency (ER) | payer MEDICARE, OTHER, SELFPAY ==
[2025-01-10 13:41] VITALS: BP 184/88; PULSE 94; RESP 18; TEMP 35.9; O2SAT 97; BMI 41.1
--- NOTE | 2025-01-10 14:05 | EDS_ITS ---
HPI History of Present Illness Chief Complaint: Head Injury Associated Symptoms Associated Symptoms: Negative for Parasthesias, Weakness, Loss of function, Inability to ambulate, Loss of consciousness or Amnesia Narrative Narrative: Patient presents with a head injury that occurred today. Patient states she was pushing a trash can that is on the wheels. Patient states that the trash can fell and she fell under it. Patient states the lid of the trash can hit her in the head. Patient noted some increased swelling. Patient describes the pain as dull. Patient states that the pain is worse with palpation. Patient denies any paresthesias or weakness. Patient denies any nausea or vomiting. Patient denies any other injuries. [facility] Medical History Vision problems Rheumatoid arthritis Osteoarthritis Hypertension Diabetes mellitus Back problem Arthritis Home Medications ?Medication ?Instructions ?Recorded ?Last Taken ?Type aspirin 81 mg tablet,delayed 81 mg PO DAILY 08/25/21 U nknown History release (Adult Aspirin Regimen) calcium 500 mg-vitamin D3 100 1 tab PO BID 08/25/21 Un known History unit-vitamin K 40 mcg chewable tablet cetirizine 10 mg capsule (Zyrtec) 10 mg PO DAILY PRN 0 08/25/21 Unknown History folic acid 400 mcg tablet 1 mg PO DAILY PRN 08/25/21 U nknown History lisinopril 10 mg tablet 10 mg PO DAILY 08/25/21 Unkn own History metformin 1,000 mg tablet 1,000 mg PO BID 08/25/21 Unk nown History multivitamin with iron (Daily 1 tab PO DAILY 08/25/21 Unknown History Multiple Vitamins with Iron tablet) semaglutide 1 mg/dose (2 mg/1.5 1 mg subcut QWEEK 08/11 11/29 Unknown History mL) subcutaneous pen injector tramadol 50 mg tablet 50 mg PO TID PRN 08/25/21 Un known History cholecalciferol (vitamin D3) 25 25 mcg PO DAILY Unknown History mcg (1,000 unit) capsule insulin aspart U-100 100 unit/mL 1 sliding scale dose subcut 08/27/21 Unknown History subcutaneous solution (Novolog USEASDIRECTD U-100 Insulin aspart) insulin glargine 100 unit/mL 26 unit subcut BID Unknown History subcutaneous solution (Lantus U-100 Insulin) Allergy/AdvReac Type Severity Reaction Status Date / Time epinephrine AdvReac Intermediate Other Verified 01/10/25 13:40 Sulfa (Sulfonamide AdvReac Intermediate Hives Verified 01/10/25 13:40 Antibiotics) Cimedyv-[id number]-TiR Reductase AdvReac Mild Other Verified 01/10/25 13:40 Inhibitor Family History Mother Arthritis CVA (cerebral vascular accident) Osteoporosis Grandfather Heart disease Surgical History History of Social History Smoking Status: Former smoker alcohol intake: never substance use type: does not use what type of physical activity do you participate in: none EXAM Physical Exam Const Vital Signs: 01/10/25 13:41 Temperature 96.7 F L Temperature Source Temporal Pulse Rate 94 Respiratory Rate 18 Blood Pressure 184/88 H Blood Pressure Mean 120 Pulse Ox 97 Oxygen Delivery Method Room Air Discharge Plan Triage Chief Complaint: Head Injury ED Provider: Jace Hayes Dx/Rx/DC Orders Prescriptions: No Action metformin 1,000 mg tablet 1,000 mg PO BID semaglutide 1 mg/dose (2 mg/1.5 mL) pen injector 1 mg subcut QWEEK lisinopril 10 mg tablet 10 mg PO DAILY folic acid 400 mcg tablet 1 mg PO DAILY PRN tramadol 50 mg tablet 50 mg PO TID PRN multivitamin with iron [Daily Multiple Vitamins/Iron] Tablet 1 tab PO DAILY calcium-vitamin D3-vitamin K 500-100-40 mg-unit-mcg tablet,chewable 1 tab PO BID aspirin [Adult Aspirin Regimen] 81 mg tablet,delayed release (DR/EC) 81 mg PO DAILY Zyrtec 10 mg capsule 10 mg PO DAILY PRN Lantus U-100 Insulin 100 unit/mL solution 26 unit subcut BID insulin aspart U-100 [Novolog U-100 Insulin aspart] 100 unit/mL solution 1 sliding scale dose subcut USEASDIRECTD cholecalciferol (vitamin D3) 25 mcg (1,000 unit) capsule 25 mcg PO DAILY Primary Care Provider: Ainsley Luo Referrals: Ainsley Luo MD [Primary Care Provider] - Print Language: Tajik
--- NOTE | 2025-01-10 14:05 | EX.ED.GENINJ ---
HPI History of Present Illness Chief Complaint: Head Injury Informant: patient Onset/Context/Timing Onset: Today Mechanism/Context: Blunt Injury and Fall Quality of Pain: Dull Location: Right frontal scalp and forehead Worsened by: Palpation Relieved by: Nothing Associated Symptoms Associated Symptoms: Negative for Parasthesias, Weakness, Loss of function, Inability to ambulate, Loss of consciousness or Amnesia Narrative Narrative: Patient presents with a head injury that occurred today. Patient states she was pushing a trash can that is on the wheels. Patient states that the trash can fell and she fell under it. Patient states the lid of the trash can hit her in the head. Patient noted some increased swelling. Patient describes the pain as dull. Patient states that the pain is worse with palpation. Patient denies any paresthesias or weakness. Patient denies any nausea or vomiting. Patient denies any other injuries. [facility] Medical History Vision problems Rheumatoid arthritis Osteoarthritis Hypertension Diabetes mellitus Back problem Arthritis Home Medications ?Medication ?Instructions ?Recorded ?Last Taken ?Type aspirin 81 mg tablet,delayed 81 mg PO DAILY 08/25/21 Unknown History release (Adult Aspirin Regimen) calcium 500 mg-vitamin D3 100 1 tab PO BID 08/25/21 Unknown History unit-vitamin K 40 mcg chewable tablet cetirizine 10 mg capsule (Zyrtec) 10 mg PO DAILY PRN 08/25/21 Unknown History folic acid 400 mcg tablet 1 mg PO DAILY PRN 08/25/21 Unknown History lisinopril 10 mg tablet 10 mg PO DAILY 08/25/21 Unknown History metformin 1,000 mg tablet 1,000 mg PO BID 08/25/21 Unknown History multivitamin with iron (Daily 1 tab PO DAILY 08/25/21 Unknown History Multiple Vitamins with Iron tablet) semaglutide 1 mg/dose (2 mg/1.5 1 mg subcut QWEEK 08/25/21 Unknown History mL) subcutaneous pen injector tramadol 50 mg tablet 50 mg PO TID PRN 08/25/21 Unknown History cholecalciferol (vitamin D3) 25 25 mcg PO DAILY 08/27/21 Unknown History mcg (1,000 unit) capsule insulin aspart U-100 100 unit/mL 1 sliding scale dose subcut 08/27/21 Unknown History subcutaneous solution (Novolog USEASDIRECTD U-100 Insulin aspart) insulin glargine 100 unit/mL 26 unit subcut BID 08/27/21 Unknown History subcutaneous solution (Lantus U-100 Insulin) Allergy/AdvReac Type Severity Reaction Status Date / Time epinephrine AdvReac Intermediate Other Verified 01/10/25 13:40 Sulfa (Sulfonamide AdvReac Intermediate Hives Verified 01/10/25 13:40 Antibiotics) Wfumxfo-YTP-NvD Reductase AdvReac Mild Other Verified 01/10/25 13:40 Inhibitor Family History Mother Arthritis CVA (cerebral vascular accident) Osteoporosis Grandfather Heart disease Surgical History History of Social History Smoking Status: Former smoker alcohol intake: never substance use type: does not use what type of physical activity do you participate in: none ROS ROS ED Constitutional Constitutional ED: Denies chills or fever(s) Eyes Eyes: Denies blurry vision or change in vision ENT ENT ED: Denies rhinorrhea or sore throat Cardiovascular Cardiovascular: Denies chest pain or palpitations Respiratory/Chest Respiratory/Chest: Denies cough or dyspnea Gastrointestinal Gastrointestinal: Denies nausea or vomiting Genitourinary Genitourinary ED: Denies dysuria or hematuria Musculoskeletal Musculoskeletal: Denies back pain or neck pain Integumentary Denies abscess or rash Neurologic Neurologic: Reports headache(s); Denies weakness Allergic/Immunologic Allergic/Immunologic ED: Denies mouth swelling or urticaria EXAM Physical Exam Const Vital Signs: 01/10/25 13:41 Temperature 96.7 F L Temperature Source Temporal Pulse Rate 94 Respiratory Rate 18 Blood Pressure 184/88 H Blood Pressure Mean 120 Pulse Ox 97 Oxygen Delivery Method Room Air Positive well nourished and well developed General Appearance ED: well developed and NAD HEENT HEENT Narrative: There is a hematoma noted over the right forehead and frontal scalp. There is no bony crepitance or step-off. There are no abrasions or lacerations noted. There is no bleeding noted. trauma and tenderness Eyes PERRL and EOMs intact bilaterally Neck full ROM Extremity normal to inspection and full ROM Neuro oriented x3, CN's II-XII intact bilaterally, moves all extremities, no focal motor deficits and no sensory deficits noted [place] Coma Scale: document GCS findings Spontaneous Obeys Commands Oriented 15 Sensorium / Orientation: alert Motor Exam: strength 5/5 throughout Psych mental status grossly normal MDM MDM MDM Narrative Medical decision making narrative: Differential diagnosis includes closed head injury, intracranial bleeding, and cranial fracture. CT scan of the brain will be obtained to assess for fracture and intracranial bleeding. Radiography Diagnostic Testing: CT scan of the brain was obtained. There is no acute intracranial abnormality. This was interpreted by the radiologist and was also independently reviewed by myself. Treatment and Re-Evaluation Narrative: Patient was advised of her findings. Patient was instructed to apply ice to the area. Patient was instructed to follow-up with her primary care physician in 5 to 7 days. Patient understood and was agreeable with the plan. All questions were answered. Discharge Plan Triage Chief Complaint: Head Injury ED Provider: Jace Hayes Dx/Rx/DC Orders Clinical Impression: Closed head injury, Rheumatoid arthritis Instructions: ED Head Injury (Adult) Prescriptions: No Action metformin 1,000 mg tablet 1,000 mg PO BID semaglutide 1 mg/dose (2 mg/1.5 mL) pen injector 1 mg subcut QWEEK lisinopril 10 mg tablet 10 mg PO DAILY folic acid 400 mcg tablet 1 mg PO DAILY PRN tramadol 50 mg tablet 50 mg PO TID PRN multivitamin with iron [Daily Multiple Vitamins/Iron] Tablet 1 tab PO DAILY calcium-vitamin D3-vitamin K 500-100-40 mg-unit-mcg tablet,chewable 1 tab PO BID aspirin [Adult Aspirin Regimen] 81 mg tablet,delayed release (DR/EC) 81 mg PO DAILY Zyrtec 10 mg capsule 10 mg PO DAILY PRN Lantus U-100 Insulin 100 unit/mL solution 26 unit subcut BID insulin aspart U-100 [Novolog U-100 Insulin aspart] 100 unit/mL solution 1 sliding scale dose subcut USEASDIRECTD cholecalciferol (vitamin D3) 25 mcg (1,000 unit) capsule 25 mcg PO DAILY Primary Care Provider: Ainsley Luo Referrals: Ainsley Luo MD [Primary Care Provider] - 3-5 Days Print Language: Indonesian Disposition Disposition: Home, Self Care
--- NOTE | 2025-01-10 14:13 | CT_ITS ---
PROCEDURE: BRAIN/HEAD WITHOUT CONTRAST 01/10/2025 REASON FOR EXAM: INJURY/PAIN TECHNIQUE: BRAIN/HEAD WITHOUT CONTRAST Coronal and Sagittal reconstruction series were provided. One or more dose reduction techniques were used (e.g., Automated exposure control, adjustment of the mA and/or kV according to patient size, use of iterative reconstruction technique. RADIATION DOSE SUMMARY: CTDlvol: 44.99 mGy DLP: 829.85 mGycm COMPARISON: None. FINDINGS: A RIGHT FRONTAL CEPHALOHEMATOMA IS NOTED. Brain: Normal. No orbital pathology is noted. CSF Spaces: Normal Sinuses/Mastoids: Clear at visualized levels Bones: No fracture site is seen. CT/Brain/Head without Contrast IMPRESSION: 1. NO ACUTE INTRACRANIAL HEMORRHAGE. 2. No fracture site is evident. 3. Right frontal cephalohematoma. Reading Location: [place] [id number]
[2025-01-10 15:14] VITALS: BP 168/84; PULSE 91; RESP 16; TEMP 36.4; O2SAT 99
== END 2025-01-10 15:16 | disposition home or self-care (01) ==
PROVIDERS: Emergency Provider Emergency Medicine; PCP Internal Medicine; Referring Provider Emergency Medicine; Visit Provider Emergency Medicine
DX: S09.90XA Unspecified injury of head, initial encounter (principal); M06.9 Rheumatoid arthritis, unspecified; E11.9 Type 2 diabetes mellitus without complications; Z87.891 Personal history of nicotine dependence; W19.XXXA Unspecified fall, initial encounter
CPT/HCPCS: 70450; 99282

== ENCOUNTER → 2025-03-12 | Outpatient (CLI) | payer MEDICARE, OTHER, SELFPAY ==
[2025-03-12 16:02] LABS: AST(SGOT) 28 U/L (<=31); Alanine Aminotransfer ALT/SGPT 27 U/L (<=34); Albumin, Serum 4.4 g/dL (3.4-4.8); Alkaline Phosphatase 71 U/L (35-104); Anion Gap 16 (5-15); BUN 21 mg/dL (4-19); BUN/Creat Ratio 27.0 RATIO (10-20); Calcium,Total 9.8 mg/dL (7.6-11.0); Carbon Dioxide 19.3 mmol/L (21.0-32.0); Chloride 104 mmol/L (98-108); Globulin 2.9 g/dL (2.2-4.2); Glucose 108 mg/dL (70-99); Potassium 4.6 mmol/L (3.3-5.1)
[2025-03-12 16:31] LABS: Hematocrit 47.2 % (37-47); Hemoglobin 15.4 g/dL (12.0-15.0); Immature Granulocytes Count 0.020 X10^3/uL (0.0-0.0); Mean Corp Hgb Conc 32.6 g/dL (32-36); Mean Corpuscular Volume 95.2 fL (81-99); Mean Platelet Vol. 11.3 fl (6.2-12.0); NRBC Flagged by Analyzer 0 % (0-5); Platelet Count 232 K/mm3 (150-450); RBC Distribution Width CV 13.2 % (11.6-14.6); RBC Distribution Width SD 46.4 fl (35.1-43.9); Red Blood Count 4.96 M/mm3 (4.2-5.4); White Blood Count 8.2 K/mm3 (4.4-11.0)
--- OUTSIDE RECORDS SUMMARY | 2025-03-12 22:49 | XMS RPT_ITS | CCD ---
Author Organization [facility] Care Team Providers Care Vp Respiratory Name Role Phone Mino Barcenas MD Primary Care Provider Valerio, Dr. Mino Kaur Primary Care Provider Valerio, Dr. Mino Kaur Referring Provider Dossi, Dr. Guerra Attending Provider 1([facility]) 25 Dr. Marco Levy Attending Provider [phone] Dr. Estrada Antoine Referring Provider 1([facility])[phone] Dossi, Dr. Guerra Referring Provider 1([facility]) 25 Dr. Mino Barcenas Primary Care Provider Valerio, Dr. Mino Kaur Referring Provider Dossi, Dr. Guerra Attending Provider 1([facility]) 25 Dr. Mino Barcenas Primary Care Provider Valerio, Dr. Mino Kaur Referring Provider Dossi, Dr. Guerra Attending Provider 1([facility]) 25 Dr. Mino Barcenas Primary Care Provider Valerio, Dr. Mino Kaur Referring Provider Dossi, Dr. Guerra Attending Provider 1([facility]) 25 Mino Barcenas MD Primary Care Provider Mino Barcenas MD Primary Care Provider Mino Barcenas MD Primary Care Provider Сергей NONDESTRUCTIVE TESTER.SOLAR POWER INSTALLER, Bianka Unavailable Ratna NONDESTRUCTIVE TESTER.SAMPLE STEAMER, Barby Unavailable Valerio RODRIGUEZ, Dr. Mino Kaur Primary Care Provider [phone] La Nena RODRIGUEZ, Dr. Cisneros Attending Provider La Nena RODRIGUEZ, Dr. Cisneros Referring Provider Valerio RODRIGUEZ, Dr. Mino Kaur Referring Provider Libby RAYMOND, Dr. Guerra Attending Provider Ratna NONDESTRUCTIVE TESTER.SAMPLE STEAMER, Barby Unavailable Ratna NONDESTRUCTIVE TESTER.SAMPLE STEAMER, Barby Unavailable Valerio RODRIGUEZ, Dr. Mino Kaur Primary Care Provider La Nena RODRIGUEZ, Dr. Cisneros Attending Provider La Nena RODRIGUEZ, Dr. Cisneros Referring Provider Freddy MAGAÑA, Dr. Mccormick Referring Provider Freddy MAGAÑA, Dr. Mccormick Emergency Provider [place] NONDESTRUCTIVE TESTER.SOLAR POWER INSTALLER, Bianka Unavailable La Nena, Amelia Attending Unavailable Moiselanki, Amelia Referring Unavailable Talampas, Mino D Primary Care Unavailable Talampas, Mino D Primary Care Unavailable Moiselanki, Amelia Attending Unavailable Moiselanki, Amelia Referring Unavailable Talampas, Mino D Primary Care Unavailable Moiselanki, Amelia Referring Unavailable Moiselanki, Amelia Attending Unavailable Talampas, Mino D Primary Care Unavailable Jace Hayes Attending Unavailable Jace Hayes Referring Unavailable Talampas, Mino D Referring Unavailable DosMari denton Attending Unavailable Talampas, Mino D Primary Care Unavailable Talampas, Mino D Referring Unavailable Mari Souza Attending Unavailable Talampas, Mino D Primary Care Unavailable Moiselanki, Amelia Attending Unavailable Vellanki, Amelia Referring Unavailable Talampas, Mino D Primary Care Unavailable TALAMPAS, MINO D Attending Unavailable TALAMPAS, MINO D Primary Care Unavailable TALAMPAS, MINO D Referring Unavailable TALAMPAS, MINO D Primary Care Unavailable TALAMPAS, MINO D Attending Unavailable TALAMPAS, MINO D Primary Care Unavailable CANDIE LLAMAS Attending Unavailable SELF Referring Unavailable TALAMPAS, MINO D Primary Care Unavailable CANDIE LLAMAS Referring Unavailable TALAMPAS, MINO D Primary Care Unavailable TALAMPAS, MINO D Primary Care Unavailable LOBO QUEVEDO Attending Unavailable ANGI SU Attending Unavailable TALAMPAS, MINO D Primary Care Unavailable TALAMPAS, MINO D Referring Unavailable TALAMPAS, MINO D Primary Care Unavailable Allergies Allergy Classification Reported Allergen(s) Allergy Type Date of Onset Reaction(s) Facility Pollen (1 source) Pollen Substance Allergy 2 Other: See Comments [facility] Work Phone: Sulfonamides (antibiotic) (1 source) Sulfonamides (Antibiotic) Drug Allergy 7 Rash [facility] Work Phone: (20 sources) Sulfonamides (Antibiotic); Translations: [SULFA (SULFONAMIDE ANTIBIOTICS)] Propensity to adverse reactions 7 [facility] Work Phone: (20 sources) Epinephrine-Chlo rpheniramine; Translations: [EPINEPHRINE-CHL ORPHENIRAMINE] Propensity to adverse reactions to drug 9 Unknown [facility] (20 sources) EPINEPHrine; Translations: [EPINEPHRINE] Drug Allergy 9 GI Upset, Other: See Comments [facility] Comment on above: chills, rapid heart beat (11 sources) Sedsmfe-Uat-Xdg Reductase Inhibitor; Translations: [Jbvdfjk-Psw-Fpw Reductase Inhibitor] Propensity to adverse reactions 2 Other [facility] Comment on above: muscle pain (20 sources) Pollen; Translations: [POLLEN EXTRACTS] Drug Allergy 2 Other: See Comments [facility] Work Phone: (7 sources) Sulfonamides (Antibiotic) Propensity to adverse reactions 2 Hives [facility] (15 sources) atorvastatin; Translations: [ATORVASTATIN] Drug Allergy 6 Myalgia [facility] (15 sources) oxybutynin; Translations: [OXYBUTYNIN CHLORIDE] Drug Allergy 2 Diarrhea [facility] (1 source) EPINEPHrine Drug Allergy 5 [facility] (1 source) Sulfonamides (Antibiotic) Drug allergy (disorder) 5 [facility] Rep[facility] Medications Current Medications Medication Drug Class(es) Dates Sig (Normalized) Sig (Original) [id number] 200 actuat albuterol 0.09 mg/actuat metered dose inhaler (20 sources) beta2-Adrenergic Agonist Start: 07-09-2022 take 2 puff(s) by inhalation every four hours as needed for cough and wheezing albuterol HFA (PROVENTIL HFA, VENTOLIN HFA) 90 mcg/actuation inhaler Indications: Acute laryngitis , Acute bronchitis, unspecified organism Inhale 2 Puffs as instructed every 4 hours as needed (cough and/or wheezing). 1 Each 07/09/2022 Active Start: 01-23-2019 End: 05-14-2021 take 2 puff(s) by inhalation every six hours as needed albuterol HFA (PROAIR HFA) 90 mcg/actuation inhaler Inhale 2 Puffs as instructed every 6 hours as needed. 1 Inhaler 01/23/2019 05/14/2021 Discontinued Comment on above: Inhale 2 Puffs as in structed every 4 hours as needed (cough and/or wheezing). aspirin 81 mg delayed release oral tablet (20 sources) Platelet Aggregation Inhibitor, Nonsteroidal Anti-inflammatory Drug Start: 2021 take 1 tablet by mouth once daily Aspirin (Adult Aspirin Regimen) 81 mg tablet,delayed release (DR/EC) Active 81 mg PO DAILY 2021 1:00am Start: 01-05-2007 take 1 tablet by matt th once daily Aspirin 81 mg ORAL Tab Take one(1) tablet daily. 0 01/05/2007 Active Comment on above: Take one(1) tablet d aily. calcium carb/vitamin D3/vit K1 (SOFT CHEWS CALCIUM ORAL) (20 sources) Start: 07-11-2016 calcium carb/vitamin D3/vit K1 (SOFT CHEWS CALCIUM ORAL) 07/11/2016 Active Start: 07-11-2016 calcium carb/v itamin D3/vit K1 (SOFT CHEWS CALCIUM ORAL) calcium carbonate 1250 mg / cholecalciferol 100 unt / vitamin k1 0.04 mg chewable tablet (10 sources) Vitamin D, Warfarin Reversal Agent, Vitamin K Start: 2021 Calcium-Vitamin D3-Vitamin K 500-100-40 mg-unit-mcg tablet,chewable Active 1 {tbl} PO TWICE A DAY 2021 1:00am Start: 2021 take 1 tablet by matt th twice daily Calcium-Vitamin D3-Vitamin K Active 1 TABLET PO TWICE A DAY 2021 1:00am cetirizine hydrochloride 10 mg oral capsule (20 sources) Histamine-1 Receptor Antagonist Start: 2021 take 1 capsule by mouth once daily as needed Cetirizine (Zyrtec) 10 mg capsule Active 10 mg PO DAILY as needed 2021 1:00am Start: 04-19-2018 take 1 tablet by matt th once daily cetirizine (ZYRTEC) 10 mg tablet Take 1 tablet by mouth once daily. 04/19/2018 Active Comment on above: Take 1 tablet by matt th once daily. cholecalciferol 0.025 mg oral capsule (20 sources) Vitamin D Start: 08-27-19 take 1 capsule by mouth once daily Cholecalciferol (Vitamin D3) 25 mcg (1,000 unit) capsule Active 25 ug PO DAILY August 27, 2021 1:00am Cholecalciferol, Vitamin D3, (VITAMIN D) 25 mcg (1,000 unit) cap Take 1,000 Units by mouth once daily. Active Comment on above: Take 1,000 Units by mouth once daily. doxycycline monohydrate 100 mg oral tablet (2 sources) Tetracycline-cla ss Drug Start: 01-14-2024 End: 01-21-2024 take 1 tablet by mouth twice daily doxycycline monohydrate 100 mg tablet Indications: Skin infection Take 1 tablet by mouth two times a day for 7 days. 14 tablet 0 01/14/2024 01/21/2024 Active Start: 07-09-2022 End: 07-19-2022 take 1 tablet by mouth twice daily doxycycline (VIBRA-TABS) 100 mg tablet Indications: Acute laryngitis , Acute bronchitis, unspecified organism Take 1 tablet by mouth twice daily for 10 days. 20 tablet 0 07/09/2022 07/19/2022 Comment on above: Take 1 tablet by matt th twice daily for 10 days. folic acid 0.4 mg oral tablet (20 sources) Start: 2021 take 1 mg by mouth once daily as needed Folic Acid 400 mcg tablet Active 1 mg PO DAILY as needed 2021 1:00am Start: 2021 take 1 mg by mouth once daily Folic Acid Active 1 MG PO DAILY 2021 1:00am take 1 tablet by mouth once tamika y folic acid 1 mg tablet Take 1 mg by mouth once daily. Active Comment on above: Take 1 mg by mouth o nce daily. 3 ml insulin aspart, human 100 unt/ml pen injector (20 sources) Insulin Analog Start: 08-27-2021 Insulin Aspart U-100 (Novolog U-100 Insulin Aspart) 100 unit/mL solution Active 1 sliding scale dose SC Use as Directed August 27, 2021 1:00am Start: 08-27-2021 Insulin Aspart U-100 (Novolog U-100 Insulin Aspart) 100 unit/mL solution Active 1 sliding scale dose SC Use as Directed August 27, 2021 1:00am Start: 05-15-2021 End: 08-06-2024 insulin aspart U-100 (NOVOLO G FLEXPEN U-100 INSULIN) 100 unit/mL (3 mL) Indications: Type 2 diabetes mellitus without complication, with long-term current use of insulin (HCC) Inject three times daily prior to meals following sliding scale and carb-correction (1 unit for every 20 units >150, 1 unit covers 10g carbs) 15 Each 3 08/06/2024 Active Start: 11-07-2020 End: 05-15-2021 insulin aspart U-100 (NOVOLO G FLEXPEN U-100 INSULIN) 100 unit/mL (3 mL) Indications: Type 2 diabetes mellitus without complication, with long-term current use of insulin (HCC) Inject 7-10 Units subcutaneously w MEALS. Primes pen with 2 units. Sliding scale with meals and snacks. On average 7 to 10 units per meal. Eats about 3 meals plus snacks 15 Pen 3 11/07/2020 05/15/2021 Discontinued Comment on above: Inject three times d aily prior to meals following sliding scale and carb-correction (1 unit for every 20 units >150, 1 unit covers 10g carbs) insulin glargine 100 unt/ml injectable solution (20 sources) Insulin Analog Start: 08-27-2021 Insulin Glargine (Lantus U-100 Insulin) 100 unit/mL solution Active 26 U SC TWICE A DAY August 27, 2021 1:00am Start: 05-15-2021 End: 08-06-2025 inject 26 [IU] by subcutaneous injection twice daily insulin glargine (LANTUS U-100 INSULIN) 100 unit/mL injection Indications: Type 2 diabetes mellitus without complication, with long-term current use of insulin ([facility]) Inject 26 Units subcutaneously two times a day. Adjust as directed 50 mL 3 08/06/2024 08/06/2025 Active Start: 11-07-2020 End: 03-26-2021 inject 28 [IU] by subcutaneous injection twice daily insulin glargine (LANTUS U-100 INSULIN) 100 unit/mL injection Indications: Type 2 diabetes mellitus without complication, with long-term current use of insulin (HCC) Inject 28 Units subcutaneously twice daily. Adjust as directed 6 Vial 3 11/07/2020 03/26/2021 Discontinued (Adjust Sig - Block E-Cancel) Comment on above: Inject 26 Units subc utaneously twice daily. Adjust as directed lisinopril 10 mg oral tablet (20 sources) Angiotensin Converting Enzyme Inhibitor Start: End: 5 take 1 tablet by mouth once daily lisinopril (PRINIVIL) 10 mg tablet Indications: Type 2 diabetes mellitus without complication, with long-term current use of insulin ([facility]) , Essential hypertension Take 1 tablet by mouth once daily. 90 tablet 3 08/06/2024 Active Start: 11-07-2020 End: 05-19-2021 take 1 tablet by mouth once daily lisinopril (PRINIVIL) 10 mg tablet Take 1 tablet by mouth once daily. 90 tablet 3 11/07/2020 05/19/2021 Discontinued Comment on above: Take 1 tablet by matt th once daily. metFORMIN hydrochloride 1000 mg oral tablet (20 sources) Biguanide Start: End: 5 take 1 tablet by mouth twice daily at mealtime metFORMIN (GLUCOPHAGE) 1,000 mg tablet Indications: Type 2 diabetes mellitus without complication, with long-term current use of insulin ([facility]) Take 1 tablet by mouth two times a day with meals. 180 tablet 3 08/06/2024 Active Start: 11-07-2020 End: 05-19-2021 take 1 tablet by mouth twice daily at mealtime metFORMIN (GLUCOPHAGE) 1,000 mg tablet Take 1 tablet by mouth twice daily with meals. 180 tablet 3 11/07/2020 05/19/2021 Discontinued Comment on above: Take 1 tablet by matt th twice daily with meals. Take 1 tablet by matt th two times a day with meals. methotrexate 2.5 mg oral tablet (20 sources) Folate Analog Metabolic Inhibitor Start: 1 take 6 tablets by mouth once methotrexate 2.5 mg tablet Take 6 tablets by mouth every Tuesday. (Dr. Deutsch) 11/07/2020 Active Comment on above: Take 6 tablets by mo [facility] every Tuesday. (Dr. Deutsch) multivitamin tablet (20 sources) Start: 8 take 1 tablet by mouth once daily multivitamin tablet Take 1 tablet by mouth once daily. 10/17/2017 Active Start: 10-17-2017 take 1 tablet by matt th once daily multivitamin tablet Take 1 tablet by mouth once daily. 0 10/17/2017 Active Comment on above: Take 1 tablet by matt th once daily. Multivitamin With Iron (Daily Multiple Vitamins/Iron) tablet (10 sources) Start: 2021 take 1 tablet by mouth once daily Multivitamin With Iron (Daily Multiple Vitamins/Iron) tablet Active 1 TABLET PO DAILY 2021 1:58pm Start: 2021 Multivitamin W ith Iron (Daily Multiple Vitamins/Iron) tablet Active 1 {tbl} PO DAILY 2021 1:00am Start: 2021 take 1 tablet by matt th once daily Multivitamin With Iron (Daily Multiple Vitamins/Iron) tablet Active 1 TABLET PO DAILY 2021 1:00am propranolol hydrochloride 10 mg oral tablet (20 sources) beta-Adrenergic Ivy Start: 12-28-2023 End: 08-06-2024 take 1 tablet by mouth once daily as needed for anxiety propranolol (INDERAL) 10 mg tablet Take 1 tablet by mouth once daily as needed (anxiety). Uses PRN 60 tablet 1 08/06/2024 Active Start: 11-07-2020 End: 12-28-2023 take 1 tablet by mouth three times daily as needed propranolol (INDERAL) 10 mg tablet Take 1 tablet by mouth three times daily. Uses PRN 270 tablet 3 12/11/2021 Active Comment on above: Take 1 tablet by matt th three times daily. Uses PRN rosuvastatin calcium 5 mg oral tablet (2 sources) HMG-CoA Reductase Inhibitor Start: 5 take 1 tablet by mouth once daily at bedtime rosuvastatin (CRESTOR) 5 mg tablet Take 1 tablet by mouth daily at bedtime. As directed 30 tablet 02/11/2025 Active 1 mg dose 1.5 ml semaglutide 1.34 mg/ml pen injector (7 sources) Start: 2 Semaglutide Active 1 MG SC EVERY WEEK 2021 1:00am semaglutide (OZEMPIC) 1 mg/dose (4 mg/3 mL) pen (20 sources) Start: 5 semaglutide (OZEMPIC) 1 mg/dose (4 mg/3 mL) pen Indications: Type 2 diabetes mellitus without complication, with long-term current use of insulin (HCC) Inject 1 mg subcutaneously one time a week. Dx: Type 2 DM E11.9 12 Each 4 08/06/2024 Active Start: 12-28-2023 End: 08-06-2024 semaglutide (OZEMPIC) 1 mg/d ose (4 mg/3 mL) pen Indications: Type 2 diabetes mellitus without complication, with long-term current use of insulin (HCC) Inject 1 mg subcutaneously one time a week. Dx: Type 2 DM E11.9 12 Each 4 12/28/2023 08/06/2024 Discontinued Start: 12-28-2023 semaglutide (O ZEMPIC) 1 mg/dose (4 mg/3 mL) pen Indications: Type 2 diabetes mellitus without complication, with long-term current use of insulin (HCC) Inject 1 mg subcutaneously one time a week. Dx: Type 2 DM E11.9 12 Each 4 12/28/2023 Active Start: 08-24-2023 End: 12-28-2023 semaglutide (OZEMPIC) 1 mg/d ose (4 mg/3 mL) pen Indications: Type 2 diabetes mellitus without complication, with long-term current use of insulin (HCC) Inject 1 mg subcutaneously one time a week. Dx: Type 2 DM E11.9 12 Each 4 08/24/2023 12/28/2023 Discontinued Start: 08-24-2023 semaglutide (O ZEMPIC) 1 mg/dose (4 mg/3 mL) pen Indications: Type 2 diabetes mellitus without complication, with long-term current use of insulin (HCC) Inject 1 mg subcutaneously one time a week. Dx: Type 2 DM E11.9 12 Each 4 08/24/2023 Active Start: 07-22-2023 End: 08-24-2023 inject 1 mg by subcutaneous injection every week semaglutide (OZEMPIC) 1 mg/dose (4 mg/3 mL) pen Inject 1 mg subcutaneously one time a week. 12 Each 4 07/22/2023 08/24/2023 Discontinued Start: 12-17-2022 End: 07-22-2023 inject 1 mg by subcutaneous injection every week semaglutide (OZEMPIC) 1 mg/dose (4 mg/3 mL) pen Inject 1 mg subcutaneously one time a week. 12 Each 4 12/17/2022 07/22/2023 Discontinued Start: 12-17-2022 inject 1 mg by subcu taneous injection every week semaglutide (OZEMPIC) 1 mg/dose (4 mg/3 mL) pen Inject 1 mg subcutaneously one time a week. 12 Each 4 12/17/2022 Active Comment on above: Inject 1 mg subcutan eously one time a week. Inject 1 mg subcutan eously one time a week. Dx: Type 2 DM E11.9 Semaglutide 1 mg/dose (2 mg/1.5 mL) pen injector (3 sources) Start: 08-25-19 Semaglutide 1 mg/dose (2 mg/1.5 mL) pen injector Active 1 mg SC EVERY WEEK 2021 1:00am traMADol hydrochloride 50 mg oral tablet (20 sources) Opioid Agonist Start: 12-24-19 21 take 1 tablet by mouth every eight hours as needed traMADol (ULTRAM) 50 mg tablet Take 50 mg by mouth three times daily as needed. 12/23/2020 Active Comment on above: Take 50 mg by mouth three times daily as needed. Completed/Discontinued Medications Medication Drug Class(es) Dates Sig (Normalized) Sig (Original) benzonatate 100 mg oral capsule (20 sources) Non-narcotic Antitussive Start: 07-09-2022 End: 01-14-2025 take 1 capsule by mouth three times daily as needed for cough benzonatate (TESSALON PERLES) 100 mg capsule Indications: Acute laryngitis , Acute bronchitis, unspecified organism Take 1 capsule by mouth three times daily as needed for cough. 30 capsule 07/09/2022 01/14/2025 Discontinued (Course of therapy completed) Comment on above: Take 1 capsule by mo ut three times daily as needed for cough. betamethasone 3 mg/ml / betamethasone acetate 3 mg/ml injectable suspension (1 source) Corticosteroid Start: 01-07-2022 End: 01-07-2022 betamethasone acetate-betamethas one sodium phosphate 6 mg injection (CELESTONE) Start: 01-07-2022 End: 01-07-2022 betamethasone acetate-betame thasone sodium phosphate 6 mg injection (CELESTONE) Blood-Glucose Meter (FREESTYLE LITE METER) monitoring kit (1 source) Start: 07-09-2022 End: 07-10-2022 Blood-Glucose Meter (FREESTYLE LITE METER) monitoring kit Freestyle LITE Meter Kit - Dx: Type 2 DM - Controlled E11.9, Insulin: yes 1 Each 0 07/09/2022 07/10/2022 Comment on above: Freestyle LITE Meter Kit - Dx: Type 2 DM - Controlled E11.9, Insulin: yes brompheniramine maleate 0.4 mg/ml / dextromethorphan hydrobromide 2 mg/ml / pseudoephedrine hydrochloride 6 mg/ml oral solution (1 source) alpha-Adrenergic Agonist, Uncompetitive N-icklwp-I-asparta te Receptor Antagonist, Sigma-1 Agonist Start: 05-21-2019 End: 05-14-2021 take 5 mL by mouth three times daily as needed Brompheniramine-P seudoeph-DM (BROMFED DM) 2-30-10 mg/5 mL syrup Indications: Sinusitis, unspecified chronicity, unspecified location Take 5 mL by mouth three times daily as needed. 120 mL 05/21/2019 05/14/2021 Discontinued diclofenac sodium 0.01 mg/mg topical gel (2 sources) Nonsteroidal Anti-inflammatory Drug Start: 04-24-2021 End: 12-11-2021 apply 2 g topically four times daily diclofenac (VOLTAREN) 1 % topical gel Indications: Acute pain of left knee Apply 2 g to affected area four times daily. 20 g 0 04/24/2021 12/11/2021 Discontinued (Lack of Efficacy) Comment on above: Apply 2 g to affecte d area four times daily. Inhalational Spacing Device (1 source) Start: 07-09-2022 End: 07-09-2022 Inhalational Spacing Device Indications: Acute laryngitis , Acute bronchitis, unspecified organism 1 Device one time only for 1 dose. 1 Each 0 07/09/2022 07/09/2022 Comment on above: 1 Device one time on ly for 1 dose. 10 ml lidocaine hydrochloride 10 mg/ml injection (1 source) Antiarrhythmic, Amide Local Anesthetic Start: 01-07-2022 End: 01-07-2022 lidocaine (PF) 10 mg/mL (1 %) 4 mL injection (XYLOCAINE) Start: 01-07-2022 End: 01-07-2022 lidocaine (PF) 10 mg/mL (1 % ) 4 mL injection (XYLOCAINE) 3 ml liraglutide 6 mg/ml pen injector (1 source) GLP-1 Receptor Agonist Start: 11-07-2020 End: 03-26-2021 inject 1.8 mg by subcutaneous injection once daily liraglutide (VICTOZA) 0.6 mg/ 0.1 ml subcutaneous pen injector Inject 1.8 mg subcutaneously once daily. 9 Pen 3 11/07/2020 03/26/2021 Discontinued semaglutide (OZEMPIC) 1 mg/dose (4 mg/3 mL) pen injector (9 sources) Start: 12-11-2021 End: 12-17-2022 inject 1 mg by subcutaneous injection every week semaglutide (OZEMPIC) 1 mg/dose (4 mg/3 mL) pen injector Inject 1 mg subcutaneously one time a week. 12 Syringe 4 12/11/2021 12/17/2022 Discontinued Start: 12-11-2021 inject 1 mg by subcu taneous injection every week semaglutide (OZEMPIC) 1 mg/dose (4 mg/3 mL) pen injector Inject 1 mg subcutaneously one time a week. 12 Syringe 4 12/11/2021 Active Start: 09-17-2021 End: 12-11-2021 inject 1 mg by subcutaneous injection every week semaglutide (OZEMPIC) 1 mg/dose (4 mg/3 mL) pen injector Inject 1 mg subcutaneously one time a week. 3 Each 3 09/17/2021 12/11/2021 Discontinued Comment on above: Inject 1 mg subcutan eously one time a week. Problems Active Problems Problem Classification Problem Date Documented Da te Episodic/Chronic Acute bronchitis (1 source) Acute bronchitis; Translations: [Acute bronchitis, unspecified] Episodic Diabetes mellitus without complication (20 sources) Type 2 diabetes mellitus without complication; Translations: [Type 2 diabetes mellitus without complications] Onset: 10-07-2006 05-15-2016 Chronic Disorders of lipid metabolism (20 sources) Mixed hyperlipidemia; Translations: [Mixed hyperlipidemia] Onset: 11-04-2006 05-15-2016 Chronic Essential hypertension (20 sources) Essential hypertension; Translations: [Essential (primary) hypertension] Onset: 01-05-2007 05-15-2016 Chronic Nutritional deficiencies (5 sources) Vitamin D deficiency; Translations: [Vitamin D deficiency, unspecified] Onset: 07-31-2024 Chronic Osteoarthritis (2 sources) Osteoarthritis of left knee joint; Translations: [Unilateral primary osteoarthritis, left knee] Chronic Other acquired deformities (12 sources) Scoliosis of lumbar spine; Translations: [Scoliosis, unspecified] 08-27-2021 Chronic Other acquired deformities (20 sources) Scoliosis, unspecified; Translations: [Scoliosis [and kyphoscoliosis], idiopathic] Chronic Other and unspecified benign neoplasm (3 sources) Neuroma; Translations: [Benign neoplasm of peripheral nerves and autonomic nervous system, unspecified] 09-04-2024 Episodic Other bone disease and musculoskeletal deformities (1 source) Other idiopathic scoliosis, lumbar region; Translations: [Other idiopathic scoliosis, lumbar region] Onset: 07-24-2024 Chronic Other bone disease and musculoskeletal deformities (20 sources) Segmental and somatic dysfunction; Translations: [Segmental and somatic dysfunction of lumbar region] 08-17-2021 Episodic Other congenital anomalies (3 sources) Talipes cavus; Translations: [Congenital pes cavus, right foot] Chronic Other congenital anomalies (20 sources) Bilateral foot congenital pes cavus; Translations: [Congenital pes cavus, right foot] Onset: 11-03-2023 11-03-2023 Chronic Other connective tissue disease (2 sources) Pain in right foot; Translations: [Pain in right foot] Episodic Other connective tissue disease (3 sources) Pain in left foot; Translations: [Pain in left foot] 09-04-2024 Episodic Other injuries and conditions due to external causes (1 source) Closed injury of head; Translations: [Unspecified injury of head, initial encounter] 01-10-2025 Episodic Other injuries and conditions due to external causes (2 sources) Injury of head; Translations: [Unspecified injury of head, initial encounter] 01-10-2025 Episodic Other injuries and conditions due to external causes (2 sources) Unspecified injury of head, initial encounter; Translations: [Unspecified injury of head, initial encounter] Onset: 01-10-2025 Episodic Other non-traumatic joint disorders (2 sources) Pain in left knee; Translations: [Pain in joint, lower leg] Episodic Other non-traumatic joint disorders (2 sources) Acute ankle pain; Translations: [Pain in right ankle and joints of right foot] Episodic Other nutritional; endocrine; and metabolic disorders (20 sources) Morbid obesity; Translations: [Morbid (severe) obesity due to excess calories] Onset: 05-15-2016 05-15-2016 Chronic Other nutritional; endocrine; and metabolic disorders (1 source) Severe obesity; Translations: [Morbid (severe) obesity due to excess calories] 08-28-2023 Chronic Other screening for suspected conditions (not mental disorders or infectious disease) (7 sources) Patient encounter status; Translations: [Encounter for screening for malignant neoplasm of colon] Onset: 02-11-2025 Episodic Other upper respiratory infections (1 source) Acute laryngitis; Translations: [Acute laryngitis] Episodic Residual codes; unclassified (1 source) Persistent insomnia; Translations: [Insomnia, unspecified] 08-28-2023 Episodic Residual codes; unclassified (1 source) Pain; Translations: [Pain, unspecified] 10-28-2023 Episodic Rheumatoid arthritis and related disease (20 sources) Seronegative rheumatoid arthritis; Translations: [Rheumatoid arthritis without rheumatoid factor, unspecified site] Onset: 12-11-2024 04-19-2018 Chronic Screening and history of mental health and substance abuse codes (20 sources) Tobacco use and exposure - finding; Translations: [Personal history of nicotine dependence] Onset: 10-07-2006 Resolved: 05-15-2016 07-06-2021 Episodic Skin and subcutaneous tissue infections (1 source) Infection of skin; Translations: [Local infection of the skin and subcutaneous tissue, unspecified] 01-14-2024 Episodic Spondylosis; intervertebral disc disorders; other back problems (20 sources) Backache; Translations: [Dorsalgia, unspecified] Episodic Superficial injury; contusion (4 sources) Injury of face; Translations: [Contusion of other part of head, initial encounter] Onset: 01-14-2025 01-14-2025 Episodic Viral infection (1 source) Disease caused by 2019-nCoV; Translations: [COVID-19] Episodic Past or Other Problems Problem Classification Problem Date Documented Da te Episodic/Chronic Other aftercare (1 source) termite inspector (current) use of insulin; Translations: [Type 2 diabetes mellitus without complication, with long-term current use of insulin (HCC)] Onset: 05-15-2016 Episodic Other and unspecified benign neoplasm (1 source) Benign neoplasm of peripheral nerves and autonomic nervous system, unspecified; Translations: [Neuroma] Onset: 09-04-2024 Episodic Other bone disease and musculoskeletal deformities (20 sources) Segmental and somatic dysfunction of lumbar region; Translations: [Nonallopathic lesions, lumbar region] Onset: 07-24-2024 Episodic Other bone disease and musculoskeletal deformities (20 sources) Segmental and somatic dysfunction of pelvic region; Translations: [Nonallopathic lesions, pelvic region] Onset: 07-24-2024 Episodic Other circulatory disease (1 source) Abnormal peripheral pulse; Translations: [Other specified symptoms and signs involving the circulatory and respiratory systems] 10-14-2023 Episodic Other connective tissue disease (1 source) Pain in left foot; Translations: [Pain in left foot] Onset: 09-04-2024 Episodic Other nutritional; endocrine; and metabolic disorders (19 sources) Obesity; Translations: [Obesity, unspecified] Onset: 10-07-2006 Resolved: 05-15-2016 05-15-2016 Chronic Other skin disorders (2 sources) Foot callus; Translations: [Corns and callosities] Episodic Other skin disorders (1 source) Ingrowing toenail; Translations: [Ingrowing nail] 10-14-2023 Episodic Unclassified (1 source) Patient encounter status 02-11-2025 Results Test Name Value Interpretation Reference Range Facility [facility] 02-11-2025 CNOV Office Visit (INTMWS ) KATALINA LEMOS ([id number]) 1950 F Date Time Provider Department 02/11/25 1:40 PM MINO BARCENAS INTM[facility] During your visit today, we recorded the following information about you: Pulse Blood pressure Weight 79/minute 138/80 109 kg Mino Barcenas MD 02/11/2025 6:34 PM Signed Subjective Katalina Lemos is a 74 year old female. HPI SUBJECTIVE: Gustabo Lemos is a 74-year-old female with a history of HTN, DM, and HLD, presenting for a 6-month follow-up. Gustabo reports consistently elevated blood pressure readings during medical visits, which she attributes to improper arm positioning and the use of automatic blood pressure cuffs. She notes that her blood pressure is typically lower when measured manually and when she is relaxed. She denies monitoring her blood pressure at home due to anxiety. She also reports anxiety related to weighing herself and does not keep a scale at home. She denies current anxiety symptoms requiring medication. Gustabo has a history of HLD and previously experienced myalgias with atorvastatin. She is not currently on a statin and is unsure if she has tried rosuvastatin in the past. She receives her medications through the [place] and [facility]. Gustabo reports a sedentary lifestyle and poor dietary habits, contributing to weight gain. She is aware of the need for regular exercise and expresses interest in incorporating more physical activity into her routine. She has a set of 3 lb weights at home and is open to using them more regularly. She also inquires about the benefits of taking her antihypertensive medication at bedtime. Gustabo has a history of a head injury from a garbage can lid, resulting in a hematoma. She reports that the hematoma has resolved, and she denies any residual symptoms. She also notes difficulty tolerating heat, which she attributes to her rheumatoid arthritis. No problems with blood sugars dropping below 70. Diabetes has been well controlled with current dosing of insulin. Counts carbs and adjusts meal time insulin well. PAST MEDICAL HISTORY Diagnosis Date DIABETES MELLITUS TYPE II-UNCOMPL 10/07/2006 HYPERLIPIDEMIA NEC/NOS 11/04/2006 PERS HX TOBACCO USE 10/07/2006 Seronegative rheumatoid arthritis (HCC) Dr. Deutsch Current Outpatient Medications Medication Sig propranolol (INDERAL) 10 mg tablet Take 1 tablet by mouth once daily as needed (anxiety). Uses PRN lisinopril (PRINIVIL) 10 mg tablet Take 1 tablet by mouth once daily. metFORMIN (GLUCOPHAGE) 1,000 mg tablet Take 1 tablet by mouth two times a day with meals. semaglutide (OZEMPIC) 1 mg/dose (4 mg/3 mL) pen Inject 1 mg subcutaneously one time a week. Dx: Type 2 DM E11.9 insulin aspart U-100 (NOVOLOG FLEXPEN U-100 INSULIN) 100 unit/mL (3 mL) Inject three times daily prior to meals following sliding scale and carb-correction (1 unit for every 20 units >150, 1 unit covers 10g carbs) insulin glargine (LANTUS U-100 INSULIN) 100 unit/mL injection Inject 26 Units subcutaneously two times a day. Adjust as directed blood sugar diagnostic (FREESTYLE LITE STRIPS) test strip Test blood sugar(s) 2 times daily. Dx: Type 2 DM - Controlled E11.9 Insulin: Yes Insulin [place], Disposable, (PEN NEEDLE) 30 gauge x 5/16 ndle Use with Novolog flex pen three times daily and as needed DM 2 E11.9 [facility] Novofine 30 gauge X 1/3 one needle. Us 2 times daily for glargine twice daily lancets (FREESTYLE LANCETS) 28 gauge Test blood sugar(s) 2 times daily. Dx: Type 2 DM - Controlled E11.9 Insulin: Yes albuterol HFA (PROVENTIL HFA, VENTOLIN HFA) 90 mcg/actuation inhaler Inhale 2 Puffs as instructed every 4 hours as needed (cough and/or wheezing). calcium carb/vitamin D3/vit K1 (SOFT CHEWS CALCIUM ORAL) traMADol (ULTRAM) 50 mg tablet Take 50 mg by mouth three times daily as needed. methotrexate 2.5 mg tablet Take 6 tablets by mouth every Tuesday. (Dr. Deutsch) cetirizine (ZYRTEC) 10 mg tablet Take 1 tablet by mouth once daily. multivitamin tablet Take 1 tablet by mouth once daily. Cholecalciferol, Vitamin D3, (VITAMIN D) 25 mcg (1,000 unit) cap Take 1,000 Units by mouth once daily. folic acid 1 mg tablet Take 1 mg by mouth once daily. Aspirin 81 mg ORAL Tab Take one(1) tablet daily. rosuvastatin (CRESTOR) 5 mg tablet Take 1 tablet by mouth daily at bedtime. As directed No current facility-administered medications for this visit. Review of Systems Objective BP 138/80 Pulse 79 Wt 109 kg (240 lb 4.8 oz) SpO2 97% BMI 41.25 kg/m? Last 5 Encounter Wt Readings: Date: Wt: 02/11/2025 109 kg (240 lb 4.8 oz) 01/14/2025 108.7 kg (239 lb 10.2 oz) 08/06/2024 109.8 kg (242 lb) 01/14/2024 110.7 kg (244 lb 0.8 oz) 12/28/2023 109.3 kg (241 lb) No waist measurement recorded Estimated body mass index is 41.25 kg/m? as calculated from the following: (more content not included)... Normal [facility] 25(OH)D3 [facility] 2024 25-hydroxyvitamin D3 [Mass/Vol] 52.6 ng/mL Normal 31.0-80.0 [facility] Comment on above: Order Comment: Speci men Type: BLOOD SPECIMENOrdering Facility: [facility] Address: [address] [place] [address] Result Comment: Clas sification of 25 [place] Vitamin D status: Deficiency/Insufficiency: < or = 30 ng/ml. Sufficiency/Optimal Levels: 31-80 ng/mL Toxicity: > 100 ng/mL. Test performed by chemiluminescent immunoassay. Performed By: #### 1 989-3 ####[facility] LABCLIA [id number] [place] [address] [place] CBC panel Auto (Bld)on 02-04 Erythrocyte distribution width (RBC) [Ratio] 14.1 % Normal 11.5-15.0 [facility] Comment on above: Order Comment: Speci men Type: BLOOD SPECIMENOrdering Facility: [facility] Address: [address] [place] [address] Performed By: #### 5 8410-2 ####[facility] LABIA [id number] [place] [address] [place] Hematocrit (Bld) [Volume fraction] 40.6 % Normal 36.0-46.0 [facility] Comment on above: Order Comment: Speci men Type: BLOOD SPECIMENOrdering Facility: [facility] Address: [address] [place] [address] Performed By: #### 5 8410-2 ####[facility] LABIA [id number] [place] [address] [place] Hemoglobin (Bld) [Mass/Vol] 13.3 g/dL Normal 11.5-15.5 [facility] Comment on above: Order Comment: Speci men Type: BLOOD SPECIMENOrdering Facility: [facility] Address: [address] [place] [address] Performed By: #### 5 8410-2 ####[facility] LABIA [id number] [place] [address] [place] MCH (RBC) [Entitic mass] 31.7 pg Normal 26.0-34.0 [facility] Comment on above: Order Comment: Speci men Type: BLOOD SPECIMENOrdering Facility: [facility] Address: [address] [place] [address] Performed By: #### 5 8410-2 ####[facility] LABIA [id number] [place] [address] [place] MCHC (RBC) [Mass/Vol] 32.8 g/dL Normal 30.5-36.0 [facility] Comment on above: Order Comment: Speci men Type: BLOOD SPECIMENOrdering Facility: [facility] Address: [address] [place] [address] Performed By: #### 5 8410-2 ####[facility] LABCLIA [id number] [place] [address] [place] MCV (RBC) [Entitic vol] 96.9 fL Normal 80.0-100.0 [facility] Comment on above: Order Comment: Speci men Type: BLOOD SPECIMENOrdering Facility: [facility] Address: [address] [place] [address] Performed By: #### 5 8410-2 ####[facility] LABIA [id number] [place] [address] [place] Nucleated RBC (Bld) [#/Vol] 10*3/uL Normal <0.01 [facility] Comment on above: Order Comment: Speci men Type: BLOOD SPECIMENOrdering Facility: [facility] Address: [address] [place] [address] Performed By: #### 5 8410-2 ####[facility] LABIA [id number] [place] [address] [place] Platelet mean volume (Bld) [Entitic vol] 11.2 fL Normal 9.0-12.7 [facility] Comment on above: Order Comment: Speci men Type: BLOOD SPECIMENOrdering Facility: [facility] Address: [address] [place] [address] Performed By: #### 5 8410-2 ####[facility] LABCLIA [id number] [place] [address] [place] Platelets (Bld) [#/Vol] 206 10*3/uL Normal 150-400 [facility] Comment on above: Order Comment: Speci men Type: BLOOD SPECIMENOrdering Facility: [facility] Address: [address] [place] [address] Performed By: #### 5 8410-2 ####[facility] LABCLIA [id number] [address] [address] [place] RBC (Bld) [#/Vol] 4.19 10*6/uL Normal 3.90-5.20 [facility] Comment on above: Order Comment: Speci men Type: BLOOD SPECIMENOrdering Facility: [facility] Address: [address] [place] [address] Performed By: #### 5 8410-2 ####[facility] LABCLIA [id number] [place] [address] [place] WBC (Bld) [#/Vol] 5.51 10*3/uL Normal 3.70-11.00 [facility] Comment on above: Order Comment: Speci men Type: BLOOD SPECIMENOrdering Facility: [facility] Address: [address] [place] [address] Performed By: #### 5 8410-2 ####[facility] LABIA [id number] [place] [address] [place] Comprehensive metabolic 2000 panelon 02-04-2025 Albumin [Mass/Vol] 3.8 g/dL Low 3.9-4.9 [facility] Comment on above: Order Comment: Speci men Type: BLOOD SPECIMENOrdering Facility: [facility] Address: [address] [place] [address] Performed By: #### 2 4331-1, 81024-1 ####[facility] LABIA [id number] [place] [address] [place] ALP [Catalytic activity/Vol] 66 U/L Normal 34-123 [facility] Comment on above: Order Comment: Speci men Type: BLOOD SPECIMENOrdering Facility: [facility] Address: [address] [place] [address] Performed By: #### 2 4331-1, 71780-4 ####[facility] LABCLIA [id number] [place] [address] [place] ALT [Catalytic activity/Vol] 27 U/L Normal 7-38 [facility] Comment on above: Order Comment: Speci men Type: BLOOD SPECIMENOrdering Facility: [facility] Address: [address] [place] [address] Performed By: #### 2 4331-1, 23454-6 ####[facility] LABCLIA [id number] [facility] [address] [address] [place] Anion gap [Moles/Vol] 12 mmol/L Normal 8-15 [facility] Comment on above: Order Comment: Speci men Type: BLOOD SPECIMENOrdering Facility: [facility] Address: [address] [place], [place] [address] Performed By: #### 2 4331-1, ####[facility] LABCLIA [id number] [address] [address] [place] AST [Catalytic activity/Vol] 26 U/L Normal 13-35 [facility] Comment on above: Order Comment: Speci men Type: BLOOD SPECIMENOrdering Facility: [facility] Address: [address] [place] [address] Performed By: #### 2 4331-1, 49426-0 ####[facility] LABCLIA [id number] [facility] [address] [address] [place] Bilirubin [Mass/Vol] 0.4 mg/dL Normal 0.2-1.3 [facility] Comment on above: Order Comment: Speci men Type: BLOOD SPECIMENOrdering Facility: [facility] Address: [address] [place] [address] Performed By: #### 2 4331-1, 42499-3 ####[facility] LABCLIA [id number] [address] [address] [place] Calcium [Mass/Vol] 8.9 mg/dL Normal 8.5-10.2 [facility] Comment on above: Order Comment: Speci men Type: BLOOD SPECIMENOrdering Facility: [facility] Address: [address] [place], [place] [address] Performed By: #### 2 4331-1, 59957-2 ####[facility] LABCLIA [id number] [address] [address] [place] Chloride [Moles/Vol] 108 mmol/L High 98-107 [facility] Comment on above: Order Comment: Speci men Type: BLOOD SPECIMENOrdering Facility: [facility] Address: [address] [place] [address] Performed By: #### 2 4331-1, 61929-1 ####[facility] LABCLIA [id number] [place] [address] [place] CO2 [Moles/Vol] 23 mmol/L Normal 22-30 [facility] Comment on above: Order Comment: Speci men Type: BLOOD SPECIMENOrdering Facility: [facility] Address: [address] [place] [address] Performed By: #### 2 4331-1, 98931-9 ####[facility] LABCLIA [id number] [place] [address] [place] Creatinine [Mass/Vol] 0.67 mg/dL Normal 0.58-0.96 [facility] Comment on above: Order Comment: Speci men Type: BLOOD SPECIMENOrdering Facility: [facility] Address: [address] [place], [place] [address] Performed By: #### 2 4331-1, 09736-6 ####[facility] LABCLIA [id number] [place] [address] [place] eGFRcr SerPlBld CKD-EPI 2020 93 mL/min/1.73m??? Normal >=60 [facility] Comment on above: Order Comment: Speci men Type: BLOOD SPECIMENOrdering Facility: [facility] Address: [address] [place], [place] [address] Result Comment: Wanda mated Glomerular Filtration Rate (eGFR) is calculated using the 2020 CKD-EPI creatinine equation. This equation utilizes serum creatinine, sex, and age as parameters. The creatinine assay has traceable calibration to isotope dilution-mass spectrometry. Refer to KDIGO guidelines for clinical interpretation. In patients with unstable renal function, e.g. those with acute kidney injury, the eGFR may not accurately reflect actual GFR. Performed By: #### 2 4331-, 71241-3 ####[facility] LABCLIA [id number] [address] [address] [place] Glucose [Mass/Vol] 115 mg/dL High 74-99 [facility] Comment on above: Order Comment: Speci men Type: BLOOD SPECIMENOrdering Facility: [facility] Address: [address] [place] [address] Result Comment: The [place] Diabetes Association (ADA) provides guidance for cutoff values for fasting glucose and random glucose. The ADA defines fasting as no caloric intake for at least 8 hours. Fasting plasma glucose results between 100 to 125 mg/dL indicate increased risk for diabetes (prediabetes). Fasting plasma glucose results greater than or equal to 126 mg/dL meet the criteria for diagnosis of diabetes. In the absence of unequivocal hyperglycemia, results should be confirmed by repeat testing. In a patient with classic symptoms of hyperglycemia or hyperglycemic crisis, random plasma glucose results greater than or equal to 200 mg/dL meet the criteria for diagnosis of diabetes. Reference: Standards of Medical Care in Diabetes 2016, [place] [employer] Association. Diabetes Care. 2016.39(Suppl 1). Performed By: #### 2 4331-, 99869-1 ####[facility] LABIA [id number] [address] [address] [place] Potassium [Moles/Vol] 4.4 mmol/L Normal 3.7-5.1 [facility] Comment on above: Order Comment: Brian mckeon Type: BLOOD SPECIMENOrdering Facility: [facility] Address: [address] [place] [address] Performed By: #### 2 4331-, 37965-4 ####[facility] LABIA [id number] [address] [address] [place] Protein [Mass/Vol] 6.2 g/dL Low 6.3-8.0 [facility] Comment on above: Order Comment: Speci men Type: BLOOD SPECIMENOrdering Facility: [facility] Address: [address] [place] [address] Performed By: #### 2 4331-1, 22215-8 ####[facility] LABCLIA [id number] [place] [address] [place] Sodium [Moles/Vol] 143 mmol/L Normal 136-144 [facility] Comment on above: Order Comment: Speci men Type: BLOOD SPECIMENOrdering Facility: [facility] Address: [address] [place] [address] Performed By: #### 2 4331-1, 14974-2 ####[facility] LABCLIA [id number] [place] [address] [place] Urea nitrogen [Mass/Vol] 18 mg/dL Normal 7-21 [facility] Comment on above: Order Comment: Speci men Type: BLOOD SPECIMENOrdering Facility: [facility] Address: [address] [place] [address] Performed By: #### 2 4331-1, 24151-1 ####[facility] LABCLIA [id number] [place] [address] [place] HbA1c (Bld)on 02-04-2025 Average glucose Estimated from glycated hemoglobin (Bld) [Mass/Vol] 123 mg/dL Normal [facility] Comment on above: Order Comment: Speci men Type: BLOOD SPECIMENOrdering Facility: [facility] Address: [address] [place] [address] Result Comment: eAG: (Estimated average glucose) is a calculated value from HgbA1c and is cash application representative of the average blood glucose level in the last 2-3 month period. Performed By: #### 5 5454-3 ####[facility] LABCLIA [id number] [address] [place] HbA1c (Bld) [Mass fraction] 5.9 % High 4.3-5.6 [facility] Comment on above: Order Comment: Brian mckeon Type: BLOOD SPECIMENOrdering Facility: [facility] Address: [address] [place] [address] Result Comment: [place] Diabetes Association guidelines indicate that patients with HgbA1c in the range 5.7-6.4% are at increased risk for development of diabetes, and intervention by lifestyle modification may be beneficial. HgbA1c greater or equal to 6.5% is considered diagnostic of diabetes. Performed By: #### 5 5454-3 ####[facility] LABCLIA [id number] [address] OF [facility] Lipid 1996 panelon 5 Cholesterol [Mass/Vol] 134 mg/dL Normal <200 [facility] Comment on above: Order Comment: Brian mckeon Type: BLOOD SPECIMENOrdering Facility: [facility] Address: [address] [place] [address] Result Comment: <200 mg/dL, Desirable 200-239 mg/dL, Borderline high >239 mg/dL, High Performed By: #### 2 4331-1, 68638-8 ####[facility] LABCLIA [id number] [address] Cholesterol in HDL [Mass/Vol] 50 mg/dL Normal >39 [facility] Comment on above: Order Comment: Brian mckeon Type: BLOOD SPECIMENOrdering Facility: [facility] Address: [address] [place] [address] Result Comment: 40-5 9 mg/dL, Acceptable >59 mg/dL, High: Negative risk factor for coronary heart disease <40 mg/dL, Low: Positive risk factor for coronary heart disease Performed By: #### 2 4331-1, 95688-9 ####[facility] LABCLIA [id number] [place] [id number] [facility] Cholesterol in LDL [Mass/Vol] 71 mg/dL Normal <100 [facility] Comment on above: Order Comment: Brian mckeon Type: BLOOD SPECIMENOrdering Facility: [facility] Address: [address] [place] [address] Result Comment: <100 mg/dL, Optimal 100-129 mg/dL, Near optimal/above optimal 130-159 mg/dL, Borderline high 160-189 mg/dL, High >189 mg/dL, Very high Secondary prevention optimal LDL Cholesterol levels are recommended to be <70 mg/dL LDL cholesterol is calculated using the Paredes-NIH equation. Performed By: #### 2 433-, ####[facility] LABCLIA [id number] [place] [address] [place] Cholesterol in LDL/Cholesterol in HDL [Mass ratio] 1.42 {ratio} Normal <2.54 [facility] Comment on above: Order Comment: Brian mckeon Type: BLOOD SPECIMENOrdering Facility: [facility] Address: [address] [place] [address] Result Comment: Refe arthurce: 1. National Cholesterol Education Program ATP III Guideline At-A-Glance Quick Desk Reference: National Heart, Lung, and Blood [place]. National Institutes of Health. 2001: NIH Publication No. 01-3305. 2. An International Atherosclerosis Society position paper: global recommendations for the management of dyslipidemia: executive summary, Atherosclerosis. 2014: 232(2):410-413. Performed By: #### 2 433-, ####[facility] LABCLIA [id number] [place] [address] [place] Cholesterol in VLDL [Mass/Vol] 9 mg/dL Normal <30 [facility] Comment on above: Order Comment: Brian mckeon Type: BLOOD SPECIMENOrdering Facility: [facility] Address: [address] [place] [address] Performed By: #### 2 433-, ####[facility] LABCLIA [id number] [address] [address] [place] Cholesterol non HDL [Mass/Vol] 84 mg/dL Normal <130 [facility] Comment on above: Order Comment: Speci men Type: BLOOD SPECIMENOrdering Facility: [facility] Address: [address] [place] [address] Result Comment: <130 mg/dL, Optimal 130-159 mg/dL, Near optimal/above optimal 160-189 mg/dL, Borderline high 190-219 mg/dL, High >219 mg/dL, Very high Secondary prevention optimal non HDL Cholesterol levels are recommended to be <100 mg/dL Performed By: #### 2 4331-1, ####[facility] LABCLIA [id number] [place] [address] [place] Cholesterol.total/Choles terol in HDL [Mass ratio] 2.68 {ratio} Normal <5.10 [facility] Comment on above: Order Comment: Speci men Type: BLOOD SPECIMENOrdering Facility: [facility] Address: [address] [place] [address] Performed By: #### 2 4331-1, ####[facility] LABIA [id number] [address] [place] FASTING TIME 12 hrs Normal [facility] Comment on above: Order Comment: Speci men Type: BLOOD SPECIMENOrdering Facility: [facility] Address: [address] [place] [address] Performed By: #### 2 4331-, ####[facility] LABCLIA [id number] [place] [id number] [place] Triglyceride [Mass/Vol] 60 mg/dL Normal <150 [facility] Comment on above: Order Comment: Speci men Type: BLOOD SPECIMENOrdering Facility: [facility] Address: [address] [place] [address] Result Comment: <150 mg/dL, Normal 150-199 mg/dL, Borderline high 200-499 mg/dL, High >499 mg/dL, Very high Performed By: #### 2 433-1, ####[facility] HEATHER [id number] [address] OF [facility] CNOVon 01-14-2025 CNOV Office Visit (INTMWS ) KATALINA LEMOS ([id number]) 1950 F Date Time Provider Department 01/14/25 12:40 PM ANGI SU INTMWS During your visit today, we recorded the following information about you: Pulse Respiration Blood pressure Weight 72/minute 16/minute 146/88 108.7 kg Angi Su, NONDESTRUCTIVE TESTER.[facility] 01/14/2025 1:03 PM Signed CC: Patient presents with: ER F/U HPI Recording using [employer] software for draft documentation of the visit was discussed with the patient/authorized cash application representative; all questions welcomed and answered. Patient/authorized cash application representative agreed to proceed Gustabo Lemos is a 74-year-old female presenting for follow-up after an ER visit for a head injury sustained on 01/10. Gustabo was pushing a wheeled trash can when it fell, causing her to fall under it. The lid of the trash can struck her head, resulting in swelling on the forehead and dull pain. She denies any other symptoms at the time of the incident. In the ER, a hematoma was noted over the right forehead and frontal scalp, without abrasions or lacerations. Due to her age and daily baby aspirin use, a CT scan of the brain was performed, which showed no acute intracranial abnormality. She was advised to apply ice to the area and follow up with her primary care provider. Since the incident, Gustabo has noticed worsening bruising around her eyes, which was not present on the day of the injury; she attributes this to her glasses she was wearing. She has been taking daily photographs to monitor the progression. She reports that the swelling is gradually decreasing but is still present, describing it as spongy. She has been applying ice for the first couple of days and then switched to heat after 48 hours based on her research. She denies any new or worsening symptoms since the ER visit, including cephalalgia, eye pain, visual disturbances, dizziness, lightheadedness, or sensitivity to light or sounds. She also denies nausea or emesis. She continues to take baby aspirin as prescribed and has not made any changes to her medication regimen. Review of Systems See HPI PAST MEDICAL HISTORY Diagnosis Date DIABETES MELLITUS TYPE II-UNCOMPL 10/07/2006 HYPERLIPIDEMIA NEC/NOS 11/04/2006 PERS HX TOBACCO USE 10/07/2006 Seronegative rheumatoid arthritis (HCC) Dr. Deutsch PAST SURGICAL HISTORY Procedure Laterality Date DELIVERY ONLY x 2 PAST SURGICAL HISTORY OF Dental implants ALLERGIES Epinephrine, Atorvastatin, Epinephrine-Chlorpheni ramine, Pollen Extracts, Sulfa (Sulfonamide Antibiotics), and Oxybutynin Chloride MEDICATIONS propranolol (INDERAL) 10 mg tablet Take 1 tablet by mouth once daily as needed (anxiety). Uses PRN lisinopril (PRINIVIL) 10 mg tablet Take 1 tablet by mouth once daily. metFORMIN (GLUCOPHAGE) 1,000 mg tablet Take 1 tablet by mouth two times a day with meals. semaglutide (OZEMPIC) 1 mg/dose (4 mg/3 mL) pen Inject 1 mg subcutaneously one time a week. Dx: Type 2 DM E11.9 insulin aspart U-100 (NOVOLOG FLEXPEN U-100 INSULIN) 100 unit/mL (3 mL) Inject three times daily prior to meals following sliding scale and carb-correction (1 unit for every 20 units >150, 1 unit covers 10g carbs) insulin glargine (LANTUS U-100 INSULIN) 100 unit/mL injection Inject 26 Units subcutaneously two times a day. Adjust as directed blood sugar diagnostic (FREESTYLE LITE STRIPS) test strip Test blood sugar(s) 2 times daily. Dx: Type 2 DM - Controlled E11.9 Insulin: Yes Insulin [place], Disposable, (PEN NEEDLE) 30 gauge x 5/16 ndle Use with Novolog flex pen three times daily and as needed DM 2 E11.9 Miscellaneous Medical Supply Novofine 30 gauge X 1/3 one needle. Us 2 times daily for glargine twice daily lancets (FREESTYLE LANCETS) 28 gauge Test blood sugar(s) 2 times daily. Dx: Type 2 DM - Controlled E11.9 Insulin: Yes albuterol HFA (PROVENTIL HFA, VENTOLIN HFA) 90 mcg/actuation inhaler Inhale 2 Puffs as instructed every 4 hours as needed (cough and/or wheezing). calcium carb/vitamin D3/vit K1 (SOFT CHEWS CALCIUM ORAL) traMADol (ULTRAM) 50 mg tablet Take 50 mg by mouth three times daily as needed. methotrexate 2.5 mg tablet Take 6 tablets by mouth every Tuesday. (Dr. Deutsch) cetirizine (ZYRTEC) 10 mg tablet Take 1 tablet by mouth once daily. multivitamin tablet Take 1 tablet by mouth once daily. Cholecalciferol, Vitamin D3, (VITAMIN D) 25 mcg (1,000 unit) cap Take 1,000 Units by mouth once daily. folic acid 1 mg tablet Take 1 mg by mouth once daily. Aspirin 81 mg ORAL Tab Take one(1) tablet daily. FAMILY HISTORY Problem Relation Age of Onset Diabetes Mother Hypertension Mother Stroke Mother other (Injuries from MVA) Father Social History Tobacco Use Smoking status: Former Current packs/day: 0.50 Average packs/day: 0.5 packs/day for 20.0 years (10.0 ttl pk-yrs) Types (more content not included)... Normal [facility] Brain/Head without Contrasto n 01-10-2025 Brain/Head without Contrast [facility] Imaging Services [address] [place], [place] [address] Brain/Head without Contrast MR#: [id number] Acct: [id number] Name: KATALINA LEMOS Rep #: [id number] : 1950 F 74 From: Isaias Kaur PCP: Dr. Mino Barcenas MD Status: REG ER Study: Brain/Head without Contrast Date of Exam: 10/02 Exam# [id number] Ordering Dr: Jace Hayes DO PROCEDURE: BRAIN/HEAD WITHOUT CONTRAST 01/10/2025 REASON FOR EXAM: INJURY/PAIN TECHNIQUE: BRAIN/HEAD WITHOUT CONTRAST Coronal and Sagittal reconstruction series were provided. One or more dose reduction techniques were used (e.g., Automated exposure control, adjustment of the mA and/or kV according to patient size, use of iterative reconstruction technique. RADIATION DOSE SUMMARY: CTDlvol: 44.99 mGy DLP: 829.85 mGycm COMPARISON: None. FINDINGS: A RIGHT FRONTAL CEPHALOHEMATOMA IS NOTED. Brain: Normal. No orbital pathology is noted. CSF Spaces: Normal Sinuses/Mastoids: Clear at visualized levels Bones: No fracture site is seen. CT/Brain/Head without Contrast IMPRESSION: 1. NO ACUTE INTRACRANIAL HEMORRHAGE. 2. No fracture site is evident. 3. Right frontal cephalohematoma. Reading Location: [place] [address] CC: Dr. Jace Hayes DO; Dr. Mino Barcenas MD Criminal Investigator Customs: Signed [facility] CNOVon 01-10-2025 CNOV Office Visit (UCWSTR ) KATALINA LEMOS ([id number]) 1950 F Date Time Provider Department 01/10/25 1:15 PM LOBO QUEVEDO [facility] During your visit today, we recorded the following information about you: Lobo Quevedo APRN.[facility] 01/10/2025 1:28 PM Signed Patient came in with complaints of bruising and swelling. Patient says her trash can when it hit her about couple hours ago. Patient did not lose consciousness does not have blurred vision does not have any other symptoms. However patient is on a baby aspirin and hematoma is significantly large compared to mechanism of injury. It is spreading towards the back of her head. It feels boggy. Did have a second provider's opinion at this time sending to the ER just to rule out any significant findings. Patient agreeable to care plan and will take herself Allergies As of Date: 01/10/2025 Noted Allergy Reaction EPINEPHRINE 11/25/2008 8 - GI Upset 14 - Other: See Comments ATORVASTATIN 01/05/2016 17 - Myalgia EPINEPHRINE-CHLORPHENI RAMINE 10/03/2018 16 - Unknown POLLEN EXTRACTS 01/07/2022 14 - Other: See Comments Comments: runny nose SULFA (SULFONAMIDE ANTIBIOTICS) 09/16/2006 2 - Rash OXYBUTYNIN CHLORIDE 03/10/2012 6 - Diarrhea Date Reviewed: 09/04/2024 Reviewed by: Meli Avila LPN - Fully Assessed Primary Visit Diagnosis:Injury of head, initial encounter [S09.90XA] Prescriptions as of 01/10/2025 - propranolol (INDERAL) 10 mg tablet Take 1 tablet by mouth once daily as needed (anxiety). Uses PRN - lisinopril (PRINIVIL) 10 mg tablet Take 1 tablet by mouth once daily. - metFORMIN (GLUCOPHAGE) 1,000 mg tablet Take 1 tablet by mouth two times a day with meals. - semaglutide (OZEMPIC) 1 mg/dose (4 mg/3 mL) pen Inject 1 mg subcutaneously one time a week. Dx: Type 2 DM E11.9 - insulin aspart U-100 (NOVOLOG FLEXPEN U-100 INSULIN) 100 unit/mL (3 mL) Inject three times daily prior to meals following sliding scale and carb-correction (1 unit for every 20 units >150, 1 unit covers 10g carbs) - insulin glargine (LANTUS U-100 INSULIN) 100 unit/mL injection Inject 26 Units subcutaneously two times a day. Adjust as directed - blood sugar diagnostic (FREESTYLE LITE STRIPS) test strip Test blood sugar(s) 2 times daily. Dx: Type 2 DM - Controlled E11.9 Insulin: Yes - Insulin [place], Disposable, (PEN NEEDLE) 30 gauge x 5/16 ndle Use with Novolog flex pen three times daily and as needed DM 2 E11.9 - Miscellaneous Medical Supply Novofine 30 gauge X 1/3 one needle. Us 2 times daily for glargine twice daily - lancets (FREESTYLE LANCETS) 28 gauge Test blood sugar(s) 2 times daily. Dx: Type 2 DM - Controlled E11.9 Insulin: Yes - benzonatate (TESSALON PERLES) 100 mg capsule Take 1 capsule by mouth three times daily as needed for cough. - albuterol HFA (PROVENTIL HFA, VENTOLIN HFA) 90 mcg/actuation inhaler Inhale 2 Puffs as instructed every 4 hours as needed (cough and/or wheezing). - calcium carb/vitamin D3/vit K1 (SOFT CHEWS CALCIUM ORAL) - traMADol (ULTRAM) 50 mg tablet Take 50 mg by mouth three times daily as needed. - methotrexate 2.5 mg tablet Take 6 tablets by mouth every Tuesday. (Dr. Deutsch) - cetirizine (ZYRTEC) 10 mg tablet Take 1 tablet by mouth once daily. - multivitamin tablet Take 1 tablet by mouth once daily. - Cholecalciferol, Vitamin D3, (VITAMIN D) 25 mcg (1,000 unit) cap Take 1,000 Units by mouth once daily. - folic acid 1 mg tablet Take 1 mg by mouth once daily. - Aspirin 81 mg ORAL Tab Take one(1) tablet daily. 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 Mino Barcenas MD Status:DEP ER Location: ED HPI History of Present Illness Chief Complaint: Head Injury Informant: patient Onset/Context/Timing Onset: Today Mechanism/Context: Blunt Injury and Fall Quality of Pain: Dull Location: Right frontal scalp and forehead Worsened by: Palpation Relieved by: Nothing Associated Symptoms Associated Symptoms: Negative for Parasthesias, Weakness, Loss of function, Inability to ambulate, Loss of consciousness or Amnesia Narrative Narrative: Patient presents with a head injury that occurred today. Patient states she was pushing a trash can that is on the wheels. Patient states that the trash can fell and she fell under it. Patient states the lid of the trash can hit her in the head. Patient noted some increased swelling. Patient describes the pain as dull. Patient states that the pain is worse with palpation. Patient denies any paresthesias or weakness. Patient denies any nausea or vomiting. Patient denies any other injuries. [facility] Medical History Vision problems Rheumatoid arthritis Osteoarthritis Hypertension Diabetes mellitus Back problem Arthritis Home Medications ???Medication ???Instructions ???Recorded ???Last Taken ???Type aspirin 81 mg tablet,delayed 81 mg PO DAILY 08/25/21 Unknown Hi story release (Adult Aspirin Regimen) calcium 500 mg-vitamin D3 100 1 tab PO BID 08/25/21 Unknown Hist ory unit-vitamin K 40 mcg chewable tablet cetirizine 10 mg capsule (Zyrtec) 10 mg PO DAILY PRN 08/25/21 Unkno wn History folic acid 400 mcg tablet 1 mg PO DAILY PRN 08/25/21 Unknown History lisinopril 10 mg tablet 10 mg PO DAILY 08/25/21 Unknown Hi story metformin 1,000 mg tablet 1,000 mg PO BID 08/25/21 Unknown H istory multivitamin with iron (Daily 1 tab PO DAILY 08/25/21 Unknown Hi story Multiple Vitamins with Iron tablet) semaglutide 1 mg/dose (2 mg/1.5 1 mg subcut QWEEK 08/25/21 Unknown History mL) subcutaneous pen injector tramadol 50 mg tablet 50 mg PO TID PRN 08/25/21 Unknown History cholecalciferol (vitamin D3) 25 25 mcg PO DAILY 08/27/21 Unknown H istory mcg (1,000 unit) capsule insulin aspart U-100 100 unit/mL 1 sliding scale dose subcut Unknown History subcutaneous solution (Novolog USEASDIRECTD U-100 Insulin aspart) insulin glargine 100 unit/mL 26 unit subcut BID 08/27/21 Unknow n History subcutaneous solution (Lantus U-100 Insulin) Allergy/AdvReac Type Severity Reaction Status Date / Time epinephrine AdvReac Intermediate Other Verified 01/10/25 13:40 Sulfa (Sulfonamide AdvReac Intermediate Hives Verified 01/10/25 13:40 Antibiotics) Newjyob-MQW-CjV Reductase AdvReac Mild Other Verified 01/10/25 13:40 Inhibitor Family History Mother Arthritis CVA (cerebral vascular accident) Osteoporosis Grandfather Heart disease Surgical History History of Social History Smoking Status: Former smoker alcohol intake: never substance use type: does not use what type of physical activity do you participate in: none ROS ROS ED Constitutional Constitutional ED: Denies chills or fever(s) Eyes Eyes: Denies blurry vision or change in vision ENT ENT ED: Denies rhinorrhea or sore throat Cardiovascular Cardiovascular: Denies chest pain or palpitations Respiratory/Chest Respiratory/Chest: Denies cough or dyspnea Gastrointestinal Gastrointestinal: Denies nausea or vomiting Genitourinary Genitourinary ED: Denies dysuria or hematuria Musculoskeletal Musculoskeletal: Denies back pain or neck pain Integumentary Denies abscess or rash Neurologic Neurologic: Reports headache(s); Denies weakness Allergic/Immunologic Allergic/Immunologic ED: Denies mouth swelling or urticaria EXAM Physical Exam Const Vital Signs: 01/10/25 13:41 Temperature 96.7 F L Temperature Source Temporal Pulse Rate 94 Respiratory Rate 18 Blood Pressure 184/88 H Blood Pressure Mean 120 Pulse Ox 97 Oxygen Delivery Method Room Air Positive well nourished and well developed General Appearance ED: well developed and NAD HEENT HEENT Narrative: There is a hematoma noted over the right forehead and frontal scalp. There is no bony crepitance or step-off. There are no abrasions or lacerations noted. There is no bleeding noted. tr (more content not included)... Normal [facility] Absolute lymphocyte countOrd ered By: Amelia Deutsch on 12-06-2024 Lymphocytes Auto (Unsp spec) [#/Vol] 1.86 10*3/uL 0.83-4.51 [facility] Absolute neutrophil countOrd ered By: Amelia Deutsch on 12-06-2024 Neutrophils (Bld) [#/Vol] 4.0 10*3/uL 2.0-7.7 [facility] Anion gap in Serum or Plasma Ordered By: Amelia Deutsch on 12-06-2024 Anion gap [Moles/Vol] 13 mmol/L 5- [facility] Automated lymphocyte count a s percentage of total leukocytesOrdered By: Amelia Deutsch on 12-06-2024 Lymphocytes/100 WBC Auto (Unsp spec) 28.3 % - [facility] BUN/creatinine ratioOrdered By: [facility] [place] on 12-06-2024 Urea nitrogen/Creatinine [Mass ratio] 22.4 mg/mg High 10- [facility] Basophil percentageOrdered B y: Amelia Deutsch on 12-06-2024 Basophils/100 WBC (Bld) 0.8 % 0-1 [facility] Bilirubin, totalOrdered By: Amelia Deutsch on 12-06-2024 Bilirubin [Mass/Vol] 0.53 mg/dL 0.00-1.30 [facility] CBC W/Diff, Automatedon 11-09 Absolute Lymph 1.86 X10 3/uL Normal 0.83-4.51 [facility] Comment on above: Performed By: #### L 100.0100, L500.4050 #### [facility] [address] [place], [address] Absolute Neut 4.0 X10 3/uL Normal 2.0-7.7 [facility] Comment on above: Performed By: #### L 100.0100, L500.4050 #### [facility] [address] [place], [address] Basophils/100 WBC (Bld) 0.8 % Normal 0-1 [facility] Comment on above: Performed By: #### L 100.0100, L500.4050 #### [facility] [address] [place], [address] Eosinophils/100 WBC (Bld) 3.2 % Normal 0-5 [facility] Comment on above: Performed By: #### L 100.0100, L500.4050 #### [facility] [address] [place], [address] Erythrocyte distribution width (RBC) [Ratio] 13.2 % Normal 11.6-14.6 [facility] Comment on above: Performed By: #### L 100.0100, L500.4050 #### [facility] [address] [place], [address] Hematocrit (Bld) [Volume fraction] 42.2 % Normal 37-47 [facility] Comment on above: Performed By: #### L 100.0100, L500.4050 #### [facility] [address] [place], [address] Hemoglobin (Bld) [Mass/Vol] 14.3 g/dL Normal 12.0-15.0 [facility] Comment on above: Performed By: #### L 100.0100, L500.4050 #### [facility] [address] [place], [address] IG% 0.200 Normal 0.0-0.9 [facility] Comment on above: Result Comment: IG% - Immature Granulocytes (promyelocytes, myelocytes and metamyelocytes) > 1% indicates that a LEFT SHIFT is Present. Performed By: #### L 100.0100, L500.4050 #### [facility] [address] [place], [address] Lymphocytes/100 WBC (Bld) 28.3 % Normal 19-41 [facility] Comment on above: Performed By: #### L 100.0100, L500.4050 #### [facility] [address] [place], [address] MCH (RBC) [Entitic mass] 31.1 pg Normal 27.0-32.0 [facility] Comment on above: Performed By: #### L 100.0100, L500.4050 #### [facility] [address] [place], [address] MCHC (RBC) [Mass/Vol] 33.9 g/dL Normal 32-36 [facility] Comment on above: Performed By: #### L 100.0100, [id number] #### [facility] [address] [place], [address] MCV (RBC) [Entitic vol] 91.7 fL Normal 81-99 [facility] Comment on above: Performed By: #### L 100.0100, L500.4050 #### [facility] [address] [place], [address] Monocytes/100 WBC (Bld) 7.0 % Normal 0-10 [facility] Comment on above: Performed By: #### L 100.0100, L500.4050 #### [facility] [address] [place], [address] Neutrophils/100 WBC (Bld) 60.5 % Normal 47-70 [facility] Comment on above: Performed By: #### L 100.0100, [id number] #### [facility] [address] [place], [address] Nucleated RBC (Bld) [#/Vol] 0 10*3/uL Normal 0-5 [facility] Comment on above: Performed By: #### L 100.0100, L500.4050 #### [facility] [address] [place], [address] Platelet mean volume (Bld) [Entitic vol] 11.0 fL Normal 6.2-12.0 [facility] Comment on above: Performed By: #### L 100.0100, L500.4050 #### [facility] [address] [place], [address] Platelets (Bld) [#/Vol] 259 10*3/uL Normal 150-450 [facility] Comment on above: Performed By: #### L 100.0100, L500.4050 #### [facility] [address] [place], [address] RBC (Bld) [#/Vol] 4.60 10*6/uL Normal 4.2-5.4 [facility] Comment on above: Performed By: #### L 100.0100, L500.4050 #### [facility] [address] [place], [address] RDW SD 43.5 fl Normal 35.1-43.9 [facility] Comment on above: Performed By: #### L 100.0100, L500.4050 #### [facility] [address] [place], [address] WBC (Bld) [#/Vol] 6.6 10*3/uL Normal 4.4-11.0 [facility] Comment on above: Performed By: #### L 100.0100, L500.4050 #### [facility] [address] [place], [address] Carbon dioxide, total [Moles /volume] in Central venous bloodOrdered By: Amelia Deutsch on 12-06-2024 CO2 [Moles/Vol] 23.2 mmol/L 21.0-32.0 [facility] Chloride assayOrdered By: Tom Deutshc on 12-06-2024 Chloride [Moles/Vol] 102 mmol/L 98-108 [facility] Comprehensive Metabolic Prof ilon 12-06-2024 Albumin [Mass/Vol] 4.1 g/dL Normal 3.4-4.8 [facility] Comment on above: Performed By: #### L 100.0100, L500.4050 #### [facility] [address] [place], [address] Albumin/Globulin [Mass ratio] 1.5 {ratio} Normal 0.9-2.4 [facility] Comment on above: Performed By: #### L 100.0100, L500.4050 #### [facility] [address] [place], [address] ALK PHOS 67 U/L Normal 35-104 [facility] Comment on above: Performed By: #### L 100.0100, L500.4050 #### [facility] [address] [place], [address] ALT [Catalytic activity/Vol] 25 U/L Normal <=34 [facility] Comment on above: Performed By: #### L 100.0100, L500.4050 #### [facility] [address] [place], [address] AST [Catalytic activity/Vol] 23 U/L Normal <=31 [facility] Comment on above: Performed By: #### L 100.0100, L500.4050 #### [facility] [address] [place], [address] Bilirubin [Mass/Vol] 0.53 mg/dL Normal 0.00-1.30 [facility] Comment on above: Performed By: #### L 100.0100, L500.4050 #### [facility] [address] [place], [address] BUN/CRE 22.4 RATIO High 10-20 [facility] Comment on above: Performed By: #### L 100.0100, L500.4050 #### [facility] [address] [place], [address] Calcium [Mass/Vol] 9.2 mg/dL Normal 7.6-11.0 [facility] Comment on above: Performed By: #### L 100.0100, L500.4050 #### [facility] [address] [place], [address] Chloride [Moles/Vol] 102 mmol/L Normal 98-108 [facility] Comment on above: Performed By: #### L 100.0100, L500.4050 #### [facility] [address] [place], [address] CO2 [Moles/Vol] 23.2 mmol/L Normal 21.0-32.0 [facility] Comment on above: Performed By: #### L 100.0100, L500.4050 #### [facility] [address] [place], [address] Creatinine [Mass/Vol] 0.71 mg/dL Normal 0.70-1.20 [facility] Comment on above: Performed By: #### L 100.0100, L500.4050 #### [facility] [address] [place], [address] GAP 13 Normal 5-15 [facility] Comment on above: Performed By: #### L 100.0100, L500.4050 #### [facility] [address] [place], [address] GFR/1.73 sq M.predicted among non-blacks MDRD (S/P/Bld) [Vol rate/Area] 90 mL/min/{1.73_m2} Normal >60 [facility] Comment on above: Result Comment: mL/m in/1.73m2 CKD-EPI Creatinine Equation (2020) Performed By: #### L 100.0100, L500.4050 #### [facility] [address] [place], [address] Globulin (S) [Mass/Vol] 2.7 g/dL Normal 2.2-4.2 [facility] Comment on above: Performed By: #### L 100.0100, L500.4050 #### [facility] [address] [place], [address] Glucose [Mass/Vol] 107 mg/dL High 70-99 [facility] Comment on above: Performed By: #### L 100.0100, L500.4050 #### [facility] [address] [place], [address] Potassium [Moles/Vol] 4.4 mmol/L Normal 3.3-5.1 [facility] Comment on above: Performed By: #### L 100.0100, L500.4050 #### [facility] [address] [place], [address] Sodium [Moles/Vol] 138 mmol/L Normal 133-145 [facility] Comment on above: Performed By: #### L 100.0100, L500.4050 #### [facility] [address] [place], [address] T PROT 6.8 g/dL Normal 5.9-8.4 [facility] Comment on above: Performed By: #### L 100.0100, L500.4050 #### [facility] [address] [place], [address] Urea nitrogen [Mass/Vol] 16 mg/dL Normal 4-19 [facility] Comment on above: Performed By: #### L 100.0100, L500.4050 #### [facility] [address] [place], [address] Eosinophil percentageOrdered By: Amelia Deutsch on 12-06-2024 Eosinophils/100 WBC (Bld) 3.2 % 0-5 [facility] Erythrocyte distribution wid th ratioOrdered By: Amelia Deutsch on 12-06-2024 Erythrocyte distribution width (RBC) [Ratio] 13.2 % 11.6-14.6 [facility] Erythrocyte distribution wid th standard deviationOrdered By: Amelia Deutsch on 12-06-2024 Erythrocyte distribution width (RBC) [Ratio] 43.5 fl 35.1-43.9 [facility] Glomerular filtration rate ( GFR) estimation/1.73 sq m using serum, plasma, or whole bOrdered By: Amelia Deutsch on 12-06-2024 GFR/1.73 sq M.predicted among non-blacks MDRD (S/P/Bld) [Vol rate/Area] 90 mL/min/{1.73_m2} >60 [facility] Comment on above: mL/min/1.73m2 CKD-EP I Creatinine Equation (2020) Hematocrit Auto (Bld) [Volum e fraction]Ordered By: Amelia Deutsch on 12-06-2024 Hematocrit (Bld) [Volume fraction] 42.2 % 37-47 [facility] Hemoglobin measurementOrdere d By: Amelia Deutsch on 12-06-2024 Hemoglobin (Bld) [Mass/Vol] 14.3 g/dL 12.0-15.0 [facility] Immature granulocytes/100 WB C Auto (Bld)Ordered By: Amelia Deutsch on 12-06-2024 Immature granulocytes/100 WBC (Bld) 0.200 % 0.0-0.9 [facility] Comment on above: IG% - Immature Granu locytes (promyelocytes, myelocytes and metamyelocytes) > 1% indicates that a LEFT SHIFT is Present. Laboratory - Chemistry and C hemistry - challengeOrdered By: Amelia Deutsch on 12-06-2024 AST [Catalytic activity/Vol] 23 U/L <32 [facility] MCV (mean corpuscular volume ) determinationOrdered By: Amelia Deutsch on 12-06-2024 MCV (RBC) [Entitic vol] 91.7 fL 81-99 [facility] Mean corpuscular hemoglobin (MCH) determinationOrdered By: Amelia Deutsch on 12-06-2024 MCH (RBC) [Entitic mass] 31.1 pg 27.0-32.0 [facility] Mean corpuscular hemoglobin concentration (MCHC) determinationOrdered By: Amelia Deutsch 12-06-2024 MCHC (RBC) [Mass/Vol] 33.9 g/dL 32-36 [facility] Mean platelet volume determi nationOrdered By: Amelia Deutsch on 12-06-2024 Platelet mean volume (Bld) [Entitic vol] 11.0 fL 6.2-12.0 [facility] Monocyte percentageOrdered B y: Amelia Deutsch on 12-06-2024 Monocytes/100 WBC (Bld) 7.0 % 0-10 [facility] Neutrophil percentageOrdered By: Amelia Deutsch on 12-06-2024 Neutrophils/100 WBC (Bld) 60.5 % 47-70 [facility] Nucleated red blood cell per centageOrdered By: Amelia Deutsch on 12-06-2024 Nucleated RBC/100 WBC (Bld) [Ratio] 0 % 0-5 [facility] Platelet countOrdered By: Tom Deutsch on 12-06-2024 Platelets (Bld) [#/Vol] 259 10*3/uL 150-450 [facility] Potassium measurement (mass/ volume)Ordered By: Amelia Deutsch on 12-06-2024 Potassium (Unsp spec) [Mass/Vol] 4.4 mmol/L 3.3-5.1 [facility] RBC Auto (Bld) [#/Vol]Ordere d By: Amelia Deutsch on 12-06-2024 RBC (Bld) [#/Vol] 4.60 10*6/uL 4.2-5.4 [facility] Serum creatinine measurement (mass/volume)Ordered By: Amelia Deutsch on 12-06-2024 Creatinine [Mass/Vol] 0.71 mg/dL 0.70-1.20 [facility] Serum globulin measurementOr dered By: Amelia Deutsch on 12-06-2024 Globulin (S) [Mass/Vol] 2.7 g/dL 2.2-4.2 [facility] Serum glucose measurement (m ass/volume)Ordered By: Amelia Deutsch on 12-06-2024 Glucose [Mass/Vol] 107 mg/dL High 70-99 [facility] Serum or plasma alanine zhang otransferase (ALT) measurementOrdered By: Amelia Deutsch on 12-06-2024 ALT [Catalytic activity/Vol] 25 U/L <35 [facility] Serum or plasma albumin albert urement (mass/volume)Ordered By: Amelia Deutsch on 12-06-2024 Albumin [Mass/Vol] 4.1 g/dL 3.4-4.8 [facility] Serum or plasma albumin/glob ulin mass ratioOrdered By: Amelia Deutsch on 12-06-2024 Albumin/Globulin [Mass ratio] 1.5 {ratio} 0.9-2.4 [facility] Serum or plasma alkaline juan sphatase measurementOrdered By: Amelia Deutsch on 12-06-2024 ALP [Catalytic activity/Vol] 67 U/L 35-104 [facility] Serum or plasma calcium albert urement (mass/volume)Ordered By: Amelia Deutsch on 12-06-2024 Calcium [Mass/Vol] 9.2 mg/dL 7.6-11.0 [facility] Serum or plasma urea nitroge n measurement (mass/volume)Ordered By: Amelia Deutsch on 12-06-2024 Urea nitrogen [Mass/Vol] 16 mg/dL 4-19 [facility] Sodium levelOrdered By: Jasmyn Deutsch on 12-06-2024 Sodium [Moles/Vol] 138 mmol/L 133-145 [facility] Total proteinOrdered By: Monica Deutsch on 12-06-2024 Protein [Mass/Vol] 6.8 g/dL 5.9-8.4 [facility] White blood cell (WBC) count Ordered By: Amelia Deutsch on 12-06-2024 WBC (Bld) [#/Vol] 6.6 10*3/uL 4.4-11.0 [facility] Absolute lymphocyte countOrd ered By: Amelia Deutsch on 09-13-2024 Lymphocytes Auto (Unsp spec) [#/Vol] 2.34 10*3/uL 0.83-4.51 [facility] Absolute neutrophil countOrd ered By: Amelia Deutsch on 09-13-2024 Neutrophils (Bld) [#/Vol] 3.8 10*3/uL 2.0-7.7 [facility] Anion gap in Serum or Plasma Ordered By: Amelia Deutsch on 09-13-2024 Anion gap [Moles/Vol] 10 mmol/L 5-15 [facility] Automated lymphocyte count a s percentage of total leukocytesOrdered By: Amelia Deutsch on 09-13-2024 Lymphocytes/100 WBC Auto (Unsp spec) 33.5 % 19-41 [facility] BUN/creatinine ratioOrdered By: Amelia Deutsch on 09-13-2024 Urea nitrogen/Creatinine [Mass ratio] 25.7 mg/mg High 10-20 [facility] Basophil percentageOrdered B y: Amelia Deutsch on 09-13-2024 Basophils/100 WBC (Bld) 0.7 % 0-1 [facility] Bilirubin, totalOrdered By: Amelia Deutsch on 09-13-2024 Bilirubin [Mass/Vol] 0.42 mg/dL 0.00-1.30 [facility] CBC W/Diff, Automatedon Absolute Lymph 2.34 X10 3/uL Normal 0.83-4.51 [facility] Comment on above: Performed By: #### L 500.4050, L100.0100 #### [facility] [address] [place], [address] Absolute Neut 3.8 X10 3/uL Normal 2.0-7.7 [facility] Comment on above: Performed By: #### L 500.4050, L100.0100 #### [facility] [address] [place], [address] Basophils/100 WBC (Bld) 0.7 % Normal 0-1 [facility] Comment on above: Performed By: #### L 500.4050, L100.0100 #### [facility] [address] [place], [address] Eosinophils/100 WBC (Bld) 2.7 % Normal 0-5 [facility] Comment on above: Performed By: #### L 500.4050, L100.0100 #### [facility] [address] [place], [address] Erythrocyte distribution width (RBC) [Ratio] 12.9 % Normal 11.6-14.6 [facility] Comment on above: Performed By: #### L 500.4050, L100.0100 #### [facility] [address] [place], [address] Hematocrit (Bld) [Volume fraction] 43.5 % Normal 37-47 [facility] Comment on above: Performed By: #### L 500.4050, L100.0100 #### [facility] [address] [place], [address] Hemoglobin (Bld) [Mass/Vol] 14.2 g/dL Normal 12.0-15.0 [facility] Comment on above: Performed By: #### L 500.4050, L100.0100 #### [facility] [address] [place], [address] IG% 0.100 Normal 0.0-0.9 [facility] Comment on above: Result Comment: IG% - Immature Granulocytes (promyelocytes, myelocytes and metamyelocytes) > 1% indicates that a LEFT SHIFT is Present. Performed By: #### L 500.4050, L100.0100 #### [facility] [address] [place], [address] Lymphocytes/100 WBC (Bld) 33.5 % Normal 19-41 [facility] Comment on above: Performed By: #### L 500.4050, L100.0100 #### [facility] [address] [place], [address] MCH (RBC) [Entitic mass] 30.8 pg Normal 27.0-32.0 [facility] Comment on above: Performed By: #### L 500.4050, L100.0100 #### [facility] [address] [place], [address] MCHC (RBC) [Mass/Vol] 32.6 g/dL Normal 32-36 [facility] Comment on above: Performed By: #### L 500.4050, L100.0100 #### [facility] [address] [place], [address] MCV (RBC) [Entitic vol] 94.4 fL Normal 81-99 [facility] Comment on above: Performed By: #### L 500.4050, L100.0100 #### [facility] [address] [place], [address] Monocytes/100 WBC (Bld) 9.0 % Normal 0-10 [facility] Comment on above: Performed By: #### L 500.4050, L100.0100 #### [facility] [address] [place], [address] Neutrophils/100 WBC (Bld) 54.0 % Normal 47-70 [facility] Comment on above: Performed By: #### L 500.4050, L100.0100 #### [facility] [address] [place], [address] Nucleated RBC (Bld) [#/Vol] 0 10*3/uL Normal 0-5 [facility] Comment on above: Performed By: #### L 500.4050, L100.0100 #### [facility] [address] [place], [address] Platelet mean volume (Bld) [Entitic vol] 11.3 fL Normal 6.2-12.0 [facility] Comment on above: Performed By: #### L 500.4050, L100.0100 #### [facility] [address] [place], [address] Platelets (Bld) [#/Vol] 251 10*3/uL Normal 150-450 [facility] Comment on above: Performed By: #### L 500.4050, L100.0100 #### [facility] [address] [place], [address] RBC (Bld) [#/Vol] 4.61 10*6/uL Normal 4.2-5.4 [facility] Comment on above: Performed By: #### L 500.4050, L100.0100 #### [facility] [address] [place], [address] RDW SD 44.3 fl High 35.1-43.9 [facility] Comment on above: Performed By: #### L 500.4050, L100.0100 #### [facility] [address] [place], [address] WBC (Bld) [#/Vol] 7.0 10*3/uL Normal 4.4-11.0 [facility] Comment on above: Performed By: #### L 500.4050, L100.0100 #### [facility] [address] [place], [address] Carbon dioxide, total [Moles /volume] in Central venous bloodOrdered By: Amelia Deutsch on 09-13-2024 CO2 [Moles/Vol] 26.4 mmol/L 21.0-32.0 [facility] Chloride assayOrdered By: Tom Deutsch on 09-13-2024 Chloride [Moles/Vol] 103 mmol/L 98-108 [facility] Comprehensive Metabolic Prof ilon 09-13-2024 Albumin [Mass/Vol] 4.2 g/dL Normal 3.4-4.8 [facility] Comment on above: Performed By: #### L 500.4050, L100.0100 #### [facility] [address] [place], [address] Albumin/Globulin [Mass ratio] 1.5 {ratio} Normal 0.9-2.4 [facility] Comment on above: Performed By: #### L 500.4050, L100.0100 #### [facility] [address] [place], [address] ALK PHOS 70 U/L Normal 35-104 [facility] Comment on above: Performed By: #### L 500.4050, L100.0100 #### [facility] [address] [place], [address] ALT [Catalytic activity/Vol] 23 U/L Normal <=34 [facility] Comment on above: Performed By: #### L 500.4050, L100.0100 #### [facility] [address] [place], [address] AST [Catalytic activity/Vol] 20 U/L Normal <=31 [facility] Comment on above: Performed By: #### L 500.4050, L100.0100 #### [facility] [address] [place], [address] Bilirubin [Mass/Vol] 0.42 mg/dL Normal 0.00-1.30 [facility] Comment on above: Performed By: #### L 500.4050, L100.0100 #### [facility] [address] [place], [address] BUN/CRE 25.7 RATIO High 10-20 [facility] Comment on above: Performed By: #### L 500.4050, L100.0100 #### [facility] [address] [place], [address] Calcium [Mass/Vol] 9.5 mg/dL Normal 7.6-11.0 [facility] Comment on above: Performed By: #### L 500.4050, L100.0100 #### [facility] [address] [place], [address] Chloride [Moles/Vol] 103 mmol/L Normal 98-108 [facility] Comment on above: Performed By: #### L 500.4050, L100.0100 #### [facility] [address] [place], [address] CO2 [Moles/Vol] 26.4 mmol/L Normal 21.0-32.0 [facility] Comment on above: Performed By: #### L 500.4050, L100.0100 #### [facility] [address] [place], [address] Creatinine [Mass/Vol] 0.83 mg/dL Normal 0.70-1.20 [facility] Comment on above: Performed By: #### L 500.4050, L100.0100 #### [facility] [address] [place], [address] GAP 10 Normal 5-15 [facility] Comment on above: Performed By: #### L 500.4050, L100.0100 #### [facility] [address] [place], [address] GFR/1.73 sq M.predicted among non-blacks MDRD (S/P/Bld) [Vol rate/Area] 75 mL/min/{1.73_m2} Normal >60 [facility] Comment on above: Result Comment: mL/m in/1.73m2 CKD-EPI Creatinine Equation (2020) Performed By: #### L 500.4050, L100.0100 #### [facility] [address] [place], [address] Globulin (S) [Mass/Vol] 2.7 g/dL Normal 2.2-4.2 [facility] Comment on above: Performed By: #### L 500.4050, L100.0100 #### [facility] [address] [place], [address] Glucose [Mass/Vol] 102 mg/dL High 70-99 [facility] Comment on above: Performed By: #### L 500.4050, L100.0100 #### [facility] [address] [place], [address] Potassium [Moles/Vol] 4.0 mmol/L Normal 3.3-5.1 [facility] Comment on above: Performed By: #### L 500.4050, L100.0100 #### [facility] [address] [place], [address] Sodium [Moles/Vol] 140 mmol/L Normal 133-145 [facility] Comment on above: Performed By: #### L 500.4050, L100.0100 #### [facility] [address] [place], [address] T PROT 6.9 g/dL Normal 5.9-8.4 [facility] Comment on above: Performed By: #### L 500.4050, L100.0100 #### [facility] [address] [place], [address] Urea nitrogen [Mass/Vol] 21 mg/dL High 4-19 [facility] Comment on above: Performed By: #### L 500.4050, L100.0100 #### [facility] [address] [place], [address] Eosinophil percentageOrdered By: Amelia Deutsch on 09-13-2024 Eosinophils/100 WBC (Bld) 2.7 % 0-5 [facility] Erythrocyte distribution wid th ratioOrdered By: Amelia Deutsch on 09-13-2024 Erythrocyte distribution width (RBC) [Ratio] 12.9 % 11.6-14.6 [facility] Erythrocyte distribution wid th standard deviationOrdered By: Amelia Deutsch on 09-13-2024 Erythrocyte distribution width (RBC) [Entitic vol] 44.3 fL High 35.1-43.9 [facility] Erythrocyte distribution width (RBC) [Ratio] 44.3 fl High 35.1-43.9 [facility] GFR/1.73 sq M.predicted kristal g non-blacks MDRD (S/P/Bld) [Vol rate/Area]Ordered By: Amelia Deutsch on 09-13-2024 Estimated GFR (MDRD) Non-Af Amer 75 >60 [facility] Comment on above: mL/min/1.73m2 CKD-EP I Creatinine Equation (2020) Glomerular filtration rate ( GFR) estimation/1.73 sq m using serum, plasma, or whole bOrdered By: Amelia Deutsch on 09-13-2024 GFR/1.73 sq M.predicted among non-blacks MDRD (S/P/Bld) [Vol rate/Area] 75 mL/min/{1.73_m2} >60 [facility] Comment on above: mL/min/1.73m2 CKD-EP I Creatinine Equation (2020) Hematocrit Auto (Bld) [Volum e fraction]Ordered By: Amelia Deutsch on 09-13-2024 Hematocrit (Bld) [Volume fraction] 43.5 % 37-47 [facility] Hemoglobin measurementOrdere d By: Amelia Deutsch on 09-13-2024 Hemoglobin (Bld) [Mass/Vol] 14.2 g/dL 12.0-15.0 [facility] Immature granulocytes/100 WB C Auto (Bld)Ordered By: Amelia Deutsch on 09-13-2024 Immature granulocytes/100 WBC (Bld) 0.100 % 0.0-0.9 [facility] Comment on above: IG% - Immature Granu locytes (promyelocytes, myelocytes and metamyelocytes) > 1% indicates that a LEFT SHIFT is Present. Laboratory - Chemistry and C hemistry - challengeOrdered By: Amelia Deutsch on 09-13-2024 AST [Catalytic activity/Vol] 20 U/L <32 [facility] Lymphocytes Auto (Unsp spec) [#/Vol]Ordered By: Amelia Deutsch on 09-13-2024 Lymphocytes (Bld) [#/Vol] 2.34 10*3/uL 0.83-4.51 [facility] Lymphocytes/100 WBC Auto (Un sp spec)Ordered By: Amelia Detusch on 09-13-2024 Lymphocytes/100 WBC (Bld) 33.5 % 19-41 [facility] MCV (mean corpuscular volume ) determinationOrdered By: Amelia Deutsch on 09-13-2024 MCV (RBC) [Entitic vol] 94.4 fL 81-99 [facility] Mean corpuscular hemoglobin (MCH) determinationOrdered By: Amelia Deutsch on 09-13-2024 MCH (RBC) [Entitic mass] 30.8 pg 27.0-32.0 [facility] Mean corpuscular hemoglobin concentration (MCHC) determinationOrdered By: Amelia Deutsch on 09-13-2024 MCHC (RBC) [Mass/Vol] 32.6 g/dL 32-36 [facility] Mean platelet volume determi nationOrdered By: Amelia Deutsch on 09-13-2024 Platelet mean volume (Bld) [Entitic vol] 11.3 fL 6.2-12.0 [facility] Monocyte percentageOrdered B y: Amelia Deutsch on 09-13-2024 Monocytes/100 WBC (Bld) 9.0 % 0-10 [facility] Neutrophil percentageOrdered By: Amelia Deutsch on 09-13-2024 Neutrophils/100 WBC (Bld) 54.0 % 47-70 [facility] Nucleated red blood cell per centageOrdered By: Amelia Deutsch on 09-13-2024 Nucleated RBC/100 WBC (Bld) [Ratio] 0 % 0-5 [facility] Platelet countOrdered By: Tom Deutsch on 09-13-2024 Platelets (Bld) [#/Vol] 251 10*3/uL 150-450 [facility] Potassium (Unsp spec) [Mass/ Vol]Ordered By: Amelia Deutsch on 09-13-2024 Potassium [Moles/Vol] 4.0 mmol/L 3.3-5.1 [facility] Potassium measurement (mass/ volume)Ordered By: Amelia Deutsch on 09-13-2024 Potassium (Unsp spec) [Mass/Vol] 4.0 mmol/L 3.3-5.1 [facility] RBC Auto (Bld) [#/Vol]Ordere d By: Amelia Deutsch on 09-13-2024 RBC (Bld) [#/Vol] 4.61 10*6/uL 4.2-5.4 [facility] Serum creatinine measurement (mass/volume)Ordered By: Amelia Deutsch on 09-13-2024 Creatinine [Mass/Vol] 0.83 mg/dL 0.70-1.20 [facility] Serum globulin measurementOr dered By: Amelia Deutsch on 09-13-2024 Globulin (S) [Mass/Vol] 2.7 g/dL 2.2-4.2 [facility] Serum glucose measurement (m ass/volume)Ordered By: Amelia Deutsch on 09-13-2024 Glucose [Mass/Vol] 102 mg/dL High 70-99 [facility] Serum or plasma alanine zhang otransferase (ALT) measurementOrdered By: Amelia Deutsch on 09-13-2024 ALT [Catalytic activity/Vol] 23 U/L <35 [facility] Serum or plasma albumin albert urement (mass/volume)Ordered By: Amelia Deutsch on 09-13-2024 Albumin [Mass/Vol] 4.2 g/dL 3.4-4.8 [facility] Serum or plasma albumin/glob ulin mass ratioOrdered By: Amelia Deutsch on 09-13-2024 Albumin/Globulin [Mass ratio] 1.5 {ratio} 0.9-2.4 [facility] Serum or plasma alkaline juan sphatase measurementOrdered By: Amelia Deutsch on 09-13-2024 ALP [Catalytic activity/Vol] 70 U/L 35-104 [facility] Serum or plasma calcium albert urement (mass/volume)Ordered By: Amelia Deutsch on 09-13-2024 Calcium [Mass/Vol] 9.5 mg/dL 7.6-11.0 [facility] Serum or plasma urea nitroge n measurement (mass/volume)Ordered By: Amelia Deutsch on 09-13-2024 Urea nitrogen [Mass/Vol] 21 mg/dL High 4-19 [facility] Sodium levelOrdered By: Jasmyn Deutsch on 09-13-2024 Sodium [Moles/Vol] 140 mmol/L 133-145 [facility] Total proteinOrdered By: Monica Deutsch on 09-13-2024 Protein [Mass/Vol] 6.9 g/dL 5.9-8.4 [facility] White blood cell (WBC) count Ordered By: Amelia Deutsch on 09-13-2024 WBC (Bld) [#/Vol] 7.0 10*3/uL 4.4-11.0 [facility] CNOVon 09-04-2024 CNOV Office Visit (PODIWS ) KATALINA LEMOS ([id number]) 1950 F Date Time Provider Department 09/04/24 11:30 AM CANDIE LLAMAS PODIWZuleyma During your visit today, we recorded the following information about you: Meli Avila LPN 09/04/2024 12:48 PM Signed AMB ROOMING INTAKE FLOWSHEET DATA Pain Pain Level: 2 Pain Location: Foot-Left Description: Sharp Duration Amount of Time: 1 Duration Units: Minutes Frequency: Intermittent Intervention/Comfort measure: Other: See comment Comments: Only hurts when I stand on it. Patient presents with: Left Foot - Established Patient, Follow Up, Wart, Pain NINO Lizarraga Matthew 09/04/2024 11:55 AM Signed Powerstep Original Full length. Can purchase at [facility] Runner and boots,shoes and more here in [place], [employer] in [place] or [place]. Also can find in [employer] in [facility]. Powersteps can also be purchased online, starting around $45.00 If you have a metatarsal or dancer pad for your feet apply the pad directly to the insole so you can interchange between your shoes. Find a shoe with a removable insole and take this out and replace with your powerstep insole. Always bring powersteps with you when shopping for shoes so that you can make sure that everything fits well together Candie Llamas 09/04/2024 12:48 PM Signed FOLLOW UP PODIATRIC OFFICE VISIT Chief Complaint: This 74 year old who presents for follow up:left foot pain Patient presents to clinic for follow-up left foot pain Has pain to the ball of left foot. Feels like she is stepping on a marble Pain is not intense. Just lets her know that something is going on. Has history of toe injury Here to discuss options. PAIN EVALUATION 08/28/2024 1328 Pain Level: 2 Pain Location: Foot-Left Description: Sharp Duration Amount of Time: 1 Duration Units: Minutes Frequency: Intermittent Intervention/Comfort measure: Other: See comment Comments: Only hurts when I stand on it. Hemoglobin A1C Date Value Ref Range Status 07/31/2024 6.0 (H) 4.3 - 5.6 % Final Comment: [place] Diabetes Association guidelines indicate that patients with HgbA1c in the range 5.7-6.4% are at increased risk for development of diabetes, and intervention by lifestyle modification may be beneficial. HgbA1c greater or equal to 6.5% is considered diagnostic of diabetes. PCP: Mino Barcenas MD PAST MEDICAL HISTORY Diagnosis Date DIABETES MELLITUS TYPE II-UNCOMPL 10/07/2006 HYPERLIPIDEMIA NEC/NOS 11/04/2006 PERS HX TOBACCO USE 10/07/2006 Seronegative rheumatoid arthritis (HCC) Dr. Deutsch Current Outpatient Medications Medication Sig propranolol (INDERAL) 10 mg tablet Take 1 tablet by mouth once daily as needed (anxiety). Uses PRN lisinopril (PRINIVIL) 10 mg tablet Take 1 tablet by mouth once daily. metFORMIN (GLUCOPHAGE) 1,000 mg tablet Take 1 tablet by mouth two times a day with meals. semaglutide (OZEMPIC) 1 mg/dose (4 mg/3 mL) pen Inject 1 mg subcutaneously one time a week. Dx: Type 2 DM E11.9 insulin aspart U-100 (NOVOLOG FLEXPEN U-100 INSULIN) 100 unit/mL (3 mL) Inject three times daily prior to meals following sliding scale and carb-correction (1 unit for every 20 units >150, 1 unit covers 10g carbs) insulin glargine (LANTUS U-100 INSULIN) 100 unit/mL injection Inject 26 Units subcutaneously two times a day. Adjust as directed blood sugar diagnostic (FREESTYLE LITE STRIPS) test strip Test blood sugar(s) 2 times daily. Dx: Type 2 DM - Controlled E11.9 Insulin: Yes Insulin [place], Disposable, (PEN NEEDLE) 30 gauge x 5/16 ndle Use with Novolog flex pen three times daily and as needed DM 2 E11.9 [employer] Novofine 30 gauge X 1/3 one needle. Us 2 times daily for glargine twice daily lancets (FREESTYLE LANCETS) 28 gauge Test blood sugar(s) 2 times daily. Dx: Type 2 DM - Controlled E11.9 Insulin: Yes benzonatate (TESSALON PERLES) 100 mg capsule Take 1 capsule by mouth three times daily as needed for cough. albuterol HFA (PROVENTIL HFA, VENTOLIN HFA) 90 mcg/actuation inhaler Inhale 2 Puffs as instructed every 4 hours as needed (cough and/or wheezing). calcium carb/vitamin D3/vit K1 (SOFT CHEWS CALCIUM ORAL) traMADol (ULTRAM) 50 mg tablet Take 50 mg by mouth three times daily as needed. methotrexate 2.5 mg tablet Take 6 tablets by mouth every Tuesday. (Dr. Deutsch) cetirizine (ZYRTEC) 10 mg tablet Take 1 tablet by mouth once daily. multivitamin tablet Take 1 tablet by mouth once daily. Cholecalciferol, Vitamin D3, (VITAMIN D) 25 mcg (1,000 unit) cap Take 1,000 Units by mouth once daily. folic acid 1 mg tablet Take 1 mg by mouth once daily. Aspirin 81 mg ORAL Tab Take one(1) tablet daily. No current facility-administered medications for this visit. ALLERGIES Allergen Reactions Epinephrine GI Upset, Other: See Comments Atorvastatin Myalgi (more content not included)... Normal [facility] XR FOOT 3V AP/LAT/OBL LTon 0 09-04-2024 XR FOOT 3V AP/LAT/OBL LT * * *Final Repo rt* * * DATE OF EXAM: Sep 04 2024 12:12PM WRX [id number] - XR FOOT 3V AP/LAT/OBL LT / PROCEDURE REASON: multiple diagnoses * * * * Physician Interpretation * * * * EXAMINATION: XR FOOT 3V AP/LAT/OBL LT CLINICAL HISTORY: Left foot pain Technique: XR FOOT 3V AP/LAT/OBL LT -- LEFT with 3 views on 3 images Comparison: None RESULT: No acute fracture or dislocation. Tarsometatarsal joint space narrowing. Mild first metatarsophalangeal joint space narrowing. Plantar calcaneal spur. IMPRESSION: No acute osseous abnormality [employer]: [employer] Transcribe Date/Time: Sep 07 2024 3:19P Dictated by : GINO AZUL MD This examination was interpreted and the report reviewed and electronically signed by: GINO AZUL MD on Sep 07 2024 3:22PM EST [id number] Normal [facility] CNOVon 08-06-2024 CNOV Office Visit (INTMWS ) KATALINA LEMOS ([id number]) 1950 F Date Time Provider Department 08/06/24 1:00 PM MINO BARCENAS INTMWS During your visit today, we recorded the following information about you: Temperature Pulse Respiration Blood pressure 98.7 degrees 84/minute 18/minute 132/78 Weight 109.8 kg Mino Barcenas MD 2024 2:06 PM Addendum This note was created using [employer]. Subjective Katalina Lemos is a 73 year old female. Patient presents with: F/U 6 months SUBJECTIVE: Katalina Lemos is a 73 year old year old lady here today for 6 month follow up appointment for review of medical conditions. Katalina Lemos is a 73-year-old female with a history of DM, HTN, and hypercholesterolemia, presenting for a 6-month follow-up visit. Katalina reports no new concerns since her last visit and has not reviewed her recent lab results. She mentions a recent episode of palpitations after consuming green tea, which she attributes to caffeine sensitivity. She denies any issues with her current medications, which include propranolol, lisinopril, metformin, Ozempic, Novolog, and Lantus. She confirms that her insulin regimen is effective and that she has an adequate supply of syringes. She reports engaging in physical activity by walking around [employer] twice a week and performing arm exercises with 3-pound weights. She denies any leg cramps. PAST MEDICAL HISTORY Diagnosis Date DIABETES MELLITUS TYPE II-UNCOMPL 10/07/2006 HYPERLIPIDEMIA NEC/NOS 11/04/2006 PERS HX TOBACCO USE 10/07/2006 Seronegative rheumatoid arthritis (HCC) Dr. Deutsch Current Outpatient Medications Medication Sig lisinopril (PRINIVIL) 10 mg tablet Take 1 tablet by mouth once daily. insulin glargine (LANTUS U-100 INSULIN) 100 unit/mL injection Inject 26 Units subcutaneously two times a day. Adjust as directed metFORMIN (GLUCOPHAGE) 1,000 mg tablet Take 1 tablet by mouth two times a day with meals. semaglutide (OZEMPIC) 1 mg/dose (4 mg/3 mL) pen Inject 1 mg subcutaneously one time a week. Dx: Type 2 DM E11.9 insulin aspart U-100 (NOVOLOG FLEXPEN U-100 INSULIN) 100 unit/mL (3 mL) Inject three times daily prior to meals following sliding scale and carb-correction (1 unit for every 20 units >150, 1 unit covers 10g carbs) blood sugar diagnostic (FREESTYLE LITE STRIPS) test strip Test blood sugar(s) 2 times daily. Dx: Type 2 DM - Controlled E11.9 Insulin: Yes propranolol (INDERAL) 10 mg tablet Take 1 tablet by mouth once daily as needed (anxiety). Uses PRN Insulin [place], Disposable, (PEN NEEDLE) 30 gauge x 5/16 ndle Use with Novolog flex pen three times daily and as needed DM 2 E11.9 M[employer] Novofine 30 gauge X 1/3 one needle. Us 2 times daily for glargine twice daily lancets (FREESTYLE LANCETS) 28 gauge Test blood sugar(s) 2 times daily. Dx: Type 2 DM - Controlled E11.9 Insulin: Yes calcium carb/vitamin D3/vit K1 (SOFT CHEWS CALCIUM ORAL) traMADol (ULTRAM) 50 mg tablet Take 50 mg by mouth three times daily as needed. methotrexate 2.5 mg tablet Take 6 tablets by mouth every Tuesday. (Dr. Deutsch) cetirizine (ZYRTEC) 10 mg tablet Take 1 tablet by mouth once daily. multivitamin tablet Take 1 tablet by mouth once daily. Cholecalciferol, Vitamin D3, (VITAMIN D) 25 mcg (1,000 unit) cap Take 1,000 Units by mouth once daily. folic acid 1 mg tablet Take 1 mg by mouth once daily. Aspirin 81 mg ORAL Tab Take one(1) tablet daily. benzonatate (TESSALON PERLES) 100 mg capsule Take 1 capsule by mouth three times daily as needed for cough. albuterol HFA (PROVENTIL HFA, VENTOLIN HFA) 90 mcg/actuation inhaler Inhale 2 Puffs as instructed every 4 hours as needed (cough and/or wheezing). No current facility-administered medications for this visit. Review of Systems Objective BP 134/84 Pulse 84 Temp 37.1 ?C (98.7 ?F) (Tympanic) Resp 18 Wt 109.8 kg (242 lb) SpO2 96% BMI 41.54 kg/m? Last 5 Encounter Wt Readings: Date: Wt: 08/06/2024 109.8 kg (242 lb) 01/14/2024 110.7 kg (244 lb 0.8 oz) 12/28/2023 109.3 kg (241 lb) 07/22/2023 109.8 kg (242 lb) 01/07/2023 110.7 kg (244 lb) No waist measurement recorded Estimated body mass index is 41.54 kg/m? as calculated from the following: Height as of 06/29/21: 162.6 cm (5' 4). Weight as of this encounter: 109.8 kg (242 lb). Last 5 Encounter BP Readings: Date: BP: 08/06/2024 134/84 01/14/2024 157/80 12/28/2023 120/78 07/22/2023 132/78 01/07/2023 132/68 08/06/24 1256 08/06/24 1338 BP: 134/84 132/78 Pulse: 84 Resp: 18 Temp: 37.1 ?C (98.7 ?F) TempSrc: Tympanic SpO2: 96% Weight: 109.8 kg (242 lb) Physical Exam Constitutional: Appearance: Normal appearance. HENT: Head: Normocephalic. Eyes: Conjunctiva/sclera: Conjunctivae normal. Cardiovascular: Rate and Rhythm: Normal rate and regular (more content not included)... Normal [facility] 25-hydroxyvitamin D3 [Mass/Vol] 54.1 ng/mL Normal 31.0-80.0 [facility] Comment on above: Order Comment: Speci men Type: BLOOD SPECIMENOrdering Facility: [facility] Address: [address] [place] [address] Result Comment: Clas sification of 25 [place] Vitamin D status: Deficiency/Insufficiency: < or = 30 ng/ml. Sufficiency/Optimal Levels: 31-80 ng/mL Toxicity: > 100 ng/mL. Test performed by chemiluminescent immunoassay. Performed By: #### 1 989-3 ####[facility] LABCLIA [id number] [place] [address] [place] ALBUMIN/CREATININE RATIO, UR INEon 07-31-2024 Albumin DL <= 20 mg/L (U) [Mass/Vol] 18.5 mg/L Normal [facility] Comment on above: Order Comment: Speci men Type: URINE SPECIMENOrdering Facility: [facility] Address: [address] [place] [address] Performed By: #### U ACR ####[facility] LABCLIA [id number] [place] [address] [place] Albumin/Creatinine (U) [Mass ratio] 9 mg/g Normal <30 [facility] Comment on above: Order Comment: Speci men Type: URINE SPECIMENOrdering Facility: [facility] Address: [address] [place] [address] Result Comment: Adul t Male and Female Nephrotic Criteria: <30 mg/g is considered normal to mildly increased 30-300 mg/g is considered moderately increased >300 mg/g is considered severely increased KDIGO. (2013). KDIGO 2012 Clinical Practice Guideline for the Evaluation and Management of Chronic Kidney Disease. Official Journal of the International Society of Nephrology, 3(1), 1-150. Performed By: #### U ACR ####[facility] LABCLIA [id number] [place] [address] [place] Creatinine (U) [Mass/Vol] 216.4 mg/dL Normal 20.0-300.0 [facility] Comment on above: Order Comment: Speci men Type: URINE SPECIMENOrdering Facility: [facility] Address: [address] [place] [address] Performed By: #### U ACR ####[facility] LABCLIA [id number] [place] [address] [place] CBC panel Auto (Bld)on 07-31 Erythrocyte distribution width (RBC) [Ratio] 13.0 % Normal 11.5-15.0 [facility] Comment on above: Order Comment: Speci men Type: BLOOD SPECIMENOrdering Facility: [facility] Address: [address] [place] [address] Performed By: #### 5 8410-2 ####[facility] LABIA [id number] [address] [place] Hematocrit (Bld) [Volume fraction] 44.8 % Normal 36.0-46.0 [facility] Comment on above: Order Comment: Speci men Type: BLOOD SPECIMENOrdering Facility: [facility] Address: [address] [place] [address] Performed By: #### 5 8410-2 ####[facility] LABIA [id number] [address] [place] Hemoglobin (Bld) [Mass/Vol] 14.7 g/dL Normal 11.5-15.5 [facility] Comment on above: Order Comment: Speci men Type: BLOOD SPECIMENOrdering Facility: [facility] Address: [address] [place] [address] Performed By: #### 5 8410-2 ####[facility] LABIA [id number] [place] [address] [place] MCH (RBC) [Entitic mass] 31.5 pg Normal 26.0-34.0 [facility] Comment on above: Order Comment: Speci men Type: BLOOD SPECIMENOrdering Facility: [facility] Address: [address] [place] [address] Performed By: #### 5 8410-2 ####[facility] LABCLIA [id number] [place] [address] [place] MCHC (RBC) [Mass/Vol] 32.8 g/dL Normal 30.5-36.0 [facility] Comment on above: Order Comment: Speci men Type: BLOOD SPECIMENOrdering Facility: [facility] Address: [address] [place] [address] Performed By: #### 5 8410-2 ####[facility] LABCLIA [id number] [place] [address] [place] MCV (RBC) [Entitic vol] 96.1 fL Normal 80.0-100.0 [facility] Comment on above: Order Comment: Speci men Type: BLOOD SPECIMENOrdering Facility: [facility] Address: [address] [place] [address] Performed By: #### 5 8410-2 ####[facility] LABIA [id number] [place] [address] [place] Nucleated RBC (Bld) [#/Vol] 10*3/uL Normal <0.01 [facility] Comment on above: Order Comment: Speci men Type: BLOOD SPECIMENOrdering Facility: [facility] Address: [address] [place] [address] Performed By: #### 5 8410-2 ####[facility] LABCLIA [id number] [place] [address] [place] Platelet mean volume (Bld) [Entitic vol] 11.1 fL Normal 9.0-12.7 [facility] Comment on above: Order Comment: Speci men Type: BLOOD SPECIMENOrdering Facility: [facility] Address: [address] [place] [address] Performed By: #### 5 8410-2 ####[facility] LABCLIA [id number] [place] [address] [place] Platelets (Bld) [#/Vol] 237 10*3/uL Normal 150-400 [facility] Comment on above: Order Comment: Speci men Type: BLOOD SPECIMENOrdering Facility: [facility] Address: [address] [place] [address] Performed By: #### 5 8410-2 ####[facility] LABCLIA [id number] [place] [address] [place] RBC (Bld) [#/Vol] 4.66 10*6/uL Normal 3.90-5.20 [facility] Comment on above: Order Comment: Speci men Type: BLOOD SPECIMENOrdering Facility: [facility] Address: [address] [place] [address] Performed By: #### 5 8410-2 ####[facility] LABCLIA [id number] [place] [address] [place] WBC (Bld) [#/Vol] 6.18 10*3/uL Normal 3.70-11.00 [facility] Comment on above: Order Comment: Speci men Type: BLOOD SPECIMENOrdering Facility: [facility] Address: [address] [place] [address] Performed By: #### 5 8410-2 ####[facility] LABCLIA [id number] [place] [address] [place] Comprehensive metabolic 2000 panelon 07-31-2024 Albumin [Mass/Vol] 3.9 g/dL Normal 3.9-4.9 [facility] Comment on above: Order Comment: Speci men Type: BLOOD SPECIMENOrdering Facility: [facility] Address: [address] [place] [address] Performed By: #### 2 4323-8, 04479-7 ####[facility] LABCLIA [id number] [id number] [address] [place] ALP [Catalytic activity/Vol] 59 U/L Normal 34-123 [facility] Comment on above: Order Comment: Speci men Type: BLOOD SPECIMENOrdering Facility: [facility] Address: [address] [id number] Performed By: #### 2 4323-8, 17564-7 ####[facility] LABCLIA [id number] [place] [address] [place] ALT [Catalytic activity/Vol] 31 U/L Normal 7-38 [facility] Comment on above: Order Comment: Speci men Type: BLOOD SPECIMENOrdering Facility: [facility] Address: [address] [place] [address] Performed By: #### 2 4323-8, 61056-1 ####[facility] LABCLIA [id number] [place] [address] [place] Anion gap [Moles/Vol] 14 mmol/L Normal 8-15 [facility] Comment on above: Order Comment: Speci men Type: BLOOD SPECIMENOrdering Facility: [facility] Address: [address] [place] [address] Performed By: #### 2 4323-8, 32739-8 ####[facility] LABCLIA [id number] [place] [address] [place] AST [Catalytic activity/Vol] 24 U/L Normal 13-35 [facility] Comment on above: Order Comment: Speci men Type: BLOOD SPECIMENOrdering Facility: [facility] Address: [address] [place], [place] [address] Performed By: #### 2 4323-8, 78012-6 ####[facility] LABCLIA [id number] [place] [address] [place] Bilirubin [Mass/Vol] 0.6 mg/dL Normal 0.2-1.3 [facility] Comment on above: Order Comment: Speci men Type: BLOOD SPECIMENOrdering Facility: [facility] Address: [address] [place] [address] Performed By: #### 2 4323-8, 99440-5 ####[facility] LABCLIA [id number] [place] [address] [place] Calcium [Mass/Vol] 9.3 mg/dL Normal 8.5-10.2 [facility] Comment on above: Order Comment: Speci men Type: BLOOD SPECIMENOrdering Facility: [facility] Address: [address] [place] [address] Performed By: #### 2 4323-8, 54995-8 ####[facility] LABCLIA [id number] [place] [address] [place] Chloride [Moles/Vol] 102 mmol/L Normal 98-107 [facility] Comment on above: Order Comment: Speci men Type: BLOOD SPECIMENOrdering Facility: [facility] Address: [address] [place] [address] Performed By: #### 2 4323-8, 20146-4 ####[facility] LABCLIA [id number] [place] [address] [place] CO2 [Moles/Vol] 27 mmol/L Normal 22-30 [facility] Comment on above: Order Comment: Speci men Type: BLOOD SPECIMENOrdering Facility: [facility] Address: [address] [place] [address] Performed By: #### 2 4323-8, 49126-9 ####[facility] LABCLIA [id number] [place] [address] [place] Creatinine [Mass/Vol] 0.71 mg/dL Normal 0.58-0.96 [facility] Comment on above: Order Comment: Speci men Type: BLOOD SPECIMENOrdering Facility: [facility] Address: [address] [place] [address] Performed By: #### 2 4323-8, 24809-2 ####[facility] [id number] [place] [address] [place] Creatinine and Glomerular filtration rate.predicted panel (S/P/Bld) 91 mL/min/1.73m??? Normal >=60 [facility] Comment on above: Order Comment: Speceneida mckeon Type: BLOOD SPECIMENOrdering Facility: [facility] Address: [address] [place] [address] Result Comment: Wanda mated Glomerular Filtration Rate (eGFR) is calculated using the 2020 CKD-EPI creatinine equation. This equation utilizes serum creatinine, sex, and age as parameters. The creatinine assay has traceable calibration to isotope dilution-mass spectrometry. Refer to KDIGO guidelines for clinical interpretation. In patients with unstable renal function, e.g. those with acute kidney injury, the eGFR may not accurately reflect actual GFR. Performed By: #### 2 4323-8, 44382-9 ####[facility] [id number] [place] [address] [place] Glucose [Mass/Vol] 107 mg/dL High 74-99 [facility] Comment on above: Order Comment: Brian mckeon Type: BLOOD SPECIMENOrdering Facility: [facility] Address: [address] [place] [address] Result Comment: The [place] Diabetes Association (ADA) provides guidance for cutoff values for fasting glucose and random glucose. The ADA defines fasting as no caloric intake for at least 8 hours. Fasting plasma glucose results between 100 to 125 mg/dL indicate increased risk for diabetes (prediabetes). Fasting plasma glucose results greater than or equal to 126 mg/dL meet the criteria for diagnosis of diabetes. In the absence of unequivocal hyperglycemia, results should be confirmed by repeat testing. In a patient with classic symptoms of hyperglycemia or hyperglycemic crisis, random plasma glucose results greater than or equal to 200 mg/dL meet the criteria for diagnosis of diabetes. Reference: Standards of Medical Care in Diabetes 2016, [place] Diabetes Association. Diabetes Care. 2016.39(Suppl 1). Performed By: #### 2 4323-8, 39516-6 ####[facility] LABIA [id number] [place] [address] [place] Potassium [Moles/Vol] 3.7 mmol/L Normal 3.7-5.1 [facility] Comment on above: Order Comment: Speci men Type: BLOOD SPECIMENOrdering Facility: [facility] Address: [address] [place] [address] Performed By: #### 2 4323-8, 43784-4 ####[facility] LABCLIA [id number] [place] [address] [place] Protein [Mass/Vol] 6.7 g/dL Normal 6.3-8.0 [facility] Comment on above: Order Comment: Speci men Type: BLOOD SPECIMENOrdering Facility: [facility] Address: [address] [place] [address] Performed By: #### 2 4323-8, 00603-5 ####[facility] LABCLIA [id number] [place] [address] [place] Sodium [Moles/Vol] 143 mmol/L Normal 136-144 [facility] Comment on above: Order Comment: Speci men Type: BLOOD SPECIMENOrdering Facility: [facility] Address: [address] [place] [address] Performed By: #### 2 4323-8, 68875-7 ####[facility] LABCLIA [id number] [place] [address] [place] Urea nitrogen [Mass/Vol] 14 mg/dL Normal 7-21 [facility] Comment on above: Order Comment: Speci men Type: BLOOD SPECIMENOrdering Facility: [facility] Address: [address] [place] [address] Performed By: #### 2 4323-8, 70008-5 ####[facility] LABCLIA [id number] [place] [address] [place] HbA1c (Bld)on 07-31-2024 Average glucose Estimated from glycated hemoglobin (Bld) [Mass/Vol] 126 mg/dL Normal [facility] Comment on above: Order Comment: Brian mckeon Type: BLOOD SPECIMENOrdering Facility: [facility] Address: [address] [place] [address] Result Comment: eAG: (Estimated average glucose) is a calculated value from HgbA1c and is cash application representative of the average blood glucose level in the last 2-3 month period. Performed By: #### 5 5454-3 ####[facility] LABCLIA [id number] [place] [address] [place] HbA1c (Bld) [Mass fraction] 6.0 % High 4.3-5.6 [facility] Comment on above: Order Comment: Brian mckeon Type: BLOOD SPECIMENOrdering Facility: [facility] Address: [address] [place] [address] Result Comment: Amer ican Diabetes Association guidelines indicate that patients with HgbA1c in the range 5.7-6.4% are at increased risk for development of diabetes, and intervention by lifestyle modification may be beneficial. HgbA1c greater or equal to 6.5% is considered diagnostic of diabetes. Performed By: #### 5 5454-3 ####[facility] LABCLIA [id number] [place] [address] [place] Lipid 1996 panelon 5 Cholesterol [Mass/Vol] 163 mg/dL Normal <200 [facility] Comment on above: Order Comment: Brian mckeon Type: BLOOD SPECIMENOrdering Facility: [facility] Address: [address] [place] [address] Result Comment: <200 mg/dL, Desirable 200-239 mg/dL, Borderline high >239 mg/dL, High Performed By: #### 2 4323-8, 67673-0 ####[facility] LABIA [id number] [place] [address] [place] Cholesterol in HDL [Mass/Vol] 64 mg/dL Normal >39 [facility] Comment on above: Order Comment: Brian men Type: BLOOD SPECIMENOrdering Facility: [facility] Address: [address] [place] [address] Result Comment: 40-5 9 mg/dL, Acceptable >59 mg/dL, High: Negative risk factor for coronary heart disease <40 mg/dL, Low: Positive risk factor for coronary heart disease Performed By: #### 2 4323-8, 69538-6 ####[facility] LABCLIA [id number] [facility] [address] [place] Cholesterol in LDL [Mass/Vol] 79 mg/dL Normal <100 [facility] Comment on above: Order Comment: Speci men Type: BLOOD SPECIMENOrdering Facility: [facility] Address: [address] [place] [address] Result Comment: <100 mg/dL, Optimal 100-129 mg/dL, Near optimal/above optimal 130-159 mg/dL, Borderline high 160-189 mg/dL, High >189 mg/dL, Very high Secondary prevention optimal LDL Cholesterol levels are recommended to be < 70 mg/dL Performed By: #### 2 4323-8, ####[facility] LABCLIA [id number] [place] [address] [place] Cholesterol in LDL/Cholesterol in HDL [Mass ratio] 1.23 {ratio} Normal <2.54 [facility] Comment on above: Order Comment: Speci men Type: BLOOD SPECIMENOrdering Facility: [facility] Address: [address] [place] [address] Result Comment: Tod anderson: 1. National Cholesterol Education Program ATP III Guideline At-A-Glance Quick Desk Reference: National Heart, Lung, and Blood [place]. National Institutes of Health. 2001: NIH Publication No. 01-3305. 2. An International Atherosclerosis Society position paper: global recommendations for the management of dyslipidemia: executive summary, Atherosclerosis. 2014: 232(2):410-413. Performed By: #### 2 4323-8, 23239-7 ####[facility] LABCLIA [id number] [place] [id number] [place] Cholesterol in VLDL [Mass/Vol] 20 mg/dL Normal <30 [facility] Comment on above: Order Comment: Speci men Type: BLOOD SPECIMENOrdering Facility: [facility] Address: [address] [place] [address] Performed By: #### 2 4323-8, 41580-0 ####[facility] LABCLIA [id number] [place] [address] [place] Cholesterol non HDL [Mass/Vol] 99 mg/dL Normal <130 [facility] Comment on above: Order Comment: Speci men Type: BLOOD SPECIMENOrdering Facility: [facility] Address: [address] [place] [address] Result Comment: <130 mg/dL, Optimal 130-159 mg/dL, Near optimal/above optimal 160-189 mg/dL, Borderline high 190-219 mg/dL, High >219 mg/dL, Very high Secondary prevention optimal non HDL Cholesterol levels are recommended to be <100 mg/dL Performed By: #### 2 4323-8, 24972-0 ####[facility] LABCLIA [id number] [place] [address] [place] Cholesterol.total/Choles terol in HDL [Mass ratio] 2.55 {ratio} Normal <5.10 [facility] Comment on above: Order Comment: Speci men Type: BLOOD SPECIMENOrdering Facility: [facility] Address: [address] [place] [address] Performed By: #### 2 4323-8, ####[facility] LABCLIA [id number] [place] [address] [place] FASTING TIME 12 hrs Normal [facility] Comment on above: Order Comment: Speci men Type: BLOOD SPECIMENOrdering Facility: [facility] Address: [address] [place] [address] Performed By: #### 2 4323-8, 30752-9 ####[facility] LABCLIA [id number] [place] [address] [place] Triglyceride [Mass/Vol] 102 mg/dL Normal <150 [facility] Comment on above: Order Comment: Speci men Type: BLOOD SPECIMENOrdering Facility: [facility] Address: [address] [place] [address] Result Comment: <150 mg/dL, Normal 150-199 mg/dL, Borderline high 200-499 mg/dL, High >499 mg/dL, Very high Performed By: #### 2 4323-8, 86898-6 ####[facility] LABCLIA [id number] [facility]incent AV[id number] [id number] [place] [facility] Chiropractic Reporton 2024 Chiropractic Report [facility] [address] [place] [address] OFFICE VISIT Date of Service: 07/24/24 MR#: [id number] Acct: [id number] Name: CANELOKATALINA ZHONG Rep #: [id number] : 1950 Provider: MANDI Griffin Age/Sex: 73/F Location[facility] Status: Signed Intake Vital Signs 06/27/24 11:20 Height 5 ft 4 in BP 166/88 H Intake Visit Reasons: Back pain Chief Complaint: Low Back, right Hip Allergies epinephrine Adverse Reaction (Intermediate, Verified 07/24/24 11:15) Other Sulfa (Sulfonamide Antibiotics) Adverse Reaction (Intermediate, Verified 07/24/24 11:15) Hives Pxehsmd-BGV-ChK Reductase Inhibitor Adverse Reaction (Mild, Verified 07/24/24 11:15) Other Medications ???Medication ???Instructions ???Recorded ???Confirmed ???Type aspirin 81 mg tablet,delayed 81 mg PO DAILY 08/25/21 07/24/24 History release (Adult Aspirin Regimen) calcium 500 mg-vitamin D3 100 1 tab PO BID 08/25/21 07/24/24 History unit-vitamin K 40 mcg chewable tablet cetirizine 10 mg capsule (Zyrtec) 10 mg PO DAILY PRN 08/25/21 07/24/24 History folic acid 400 mcg tablet 1 mg PO DAILY PRN 08/25/21 07/24/24 History lisinopril 10 mg tablet 10 mg PO DAILY 08/25/21 07/24/24 History metformin 1,000 mg tablet 1,000 mg PO BID 08/25/21 07/24/24 History multivitamin with iron (Daily 1 tab PO DAILY 08/25/21 07/24/24 History Multiple Vitamins with Iron tablet) semaglutide 1 mg/dose (2 mg/1.5 1 mg subcut QWEEK 08/25/21 07/24/24 History mL) subcutaneous pen injector tramadol 50 mg tablet 50 mg PO TID PRN 08/25/21 07/24/24 History cholecalciferol (vitamin D3) 25 25 mcg PO DAILY 08/27/21 07/24/24 History mcg (1,000 unit) capsule insulin aspart U-100 100 unit/mL 1 sliding scale dose subcut 08/27/21 07/24/24 History subcutaneous solution (Novolog USEASDIRECTD U-100 Insulin aspart) insulin glargine 100 unit/mL 26 unit subcut BID 08/27/21 07/24/24 History subcutaneous solution (Lantus U-100 Insulin) Have you fallen in the past year?: No PFSH Medical History Vision problems Rheumatoid arthritis Osteoarthritis Hypertension Diabetes mellitus Back problem Arthritis Surgical History History of Family History Mother Arthritis CVA (cerebral vascular accident) Osteoporosis Grandfather Heart disease Social History Smoking Status: Former smoker alcohol intake: never substance use type: does not use what type of physical activity do you participate in: none HPI Back pain Chief Complaint: Back pain Visit Number: 1 Details: Katalina is a 73 year old female here for follow up on low back/right pelvic pain. She reports her last adjustment alleviated her low back and hip pain completely. She states for three days after her last adjustment she had pain and then on the fourth day the pain was completely gone. She denies known injury, numbness, tingling or radiculopathy. She treats pain at home with heat and Advil. She reports chiropractic adjustments help alleviate her pain and stiffness. Onset: 05/23/24 Location: low back, right hip Duration: occasional Aggravating or associated factors: walking, ROM, stairs Relieving factors: chiro Pain Quality: aching, dull and sharp Exam Musc General: Yes joint tenderness and decreased range of motion; No normal posture or normal gait Thoracic/Lumber: No thoracic and lumbar spine normal to inspection, Yes paraspinal tenderness (improved) on the right greater than left (lumbopelvic), Yes scoliosis (left lumbar), Yes thoraco- lumbar spasm on the right greater than left ( QL, piriformis,glute med) and on the left greater than right (paraspinal (L3-S1)) and Yes misalignment L1, L2, L3, L4, L5 and RIL Sacroiliac joints: on the right tender to palpation Office Procedures Procedures - Chiropractic Procedures Manipulation: Lumbar L3 and Pelvis RIL Manipulation: 1-2 regions Patient Response: positive Assessment and Plan Assessment and Plan (1) Segmental and somatic dysfunction of lumbar region: Status: Acute (2) Segmental and somatic dysfunction of pelvic region: Status: Acute (3) Scoliosis of lumbar spine: Status: Chronic Qualifiers: Idiopathic scoliosis type: other Scoliosis type: idiopathic Qualified Code(s): M41.26 - Other idiopathic scoliosis, lumbar region (4) Back pain: Status: Acute Qualifiers: Back pain location: low back pain Chronicity: acute Back pain laterality: left Sciatica presence: without sciatica Qualified Code(s): M54.50 - Low back pain, unspecified (5) Rheumatoid arthritis: Status: Chronic Qualifiers: Rheumatoid (more content not included)... Normal [facility] Chiropractic Reporton 2023 Chiropractic Report [facility] [place] [facility] [place] [address] OFFICE VISIT Date of Service: 06/27/24 MR#: [id number] Acct: [id number] Name: KATALIAN LEMOS Rep #: [id number] : 1950 Provider: MANDI Griffin Age/Sex: 73/F Location[facility] Status: Signed Intake Vital Signs 08/27/21 10:24 06/27/24 11:20 Height 5 ft 4 in 5 ft 4 in BP 166/88 H Intake Visit Reasons: REEVAL Chief Complaint: Low Back, right Hip Is patient in pain?: Yes (right hip ) Pain scale (1-10): 7 Allergies epinephrine Adverse Reaction (Intermediate, Verified 06/27/24 11:20) Other Sulfa (Sulfonamide Antibiotics) Adverse Reaction (Intermediate, Verified 06/27/24 11:20) Hives Twubvrd-KRZ-JfH Reductase Inhibitor Adverse Reaction (Mild, Verified 06/27/24 11:20) Other Medications ???Medication ???Instructions ???Recorded ???Confirmed ???Type aspirin 81 mg tablet,delayed 81 mg PO DAILY 08/25/21 06/27/24 History release (Adult Aspirin Regimen) calcium 500 mg-vitamin D3 100 1 tab PO BID 08/25/21 06/27/24 History unit-vitamin K 40 mcg chewable tablet cetirizine 10 mg capsule (Zyrtec) 10 mg PO DAILY PRN 08/25/21 06/27/24 History folic acid 400 mcg tablet 1 mg PO DAILY PRN 08/25/21 06/27/24 History lisinopril 10 mg tablet 10 mg PO DAILY 08/25/21 06/27/24 History metformin 1,000 mg tablet 1,000 mg PO BID 08/25/21 06/27/24 History multivitamin with iron (Daily 1 tab PO DAILY 08/25/21 06/27/24 History Multiple Vitamins with Iron tablet) semaglutide 1 mg/dose (2 mg/1.5 1 mg subcut QWEEK 08/25/21 06/27/24 History mL) subcutaneous pen injector tramadol 50 mg tablet 50 mg PO TID PRN 08/25/21 06/27/24 History cholecalciferol (vitamin D3) 25 25 mcg PO DAILY 08/27/21 06/27/24 History mcg (1,000 unit) capsule insulin aspart U-100 100 unit/mL 1 sliding scale dose subcut 08/27/21 06/27/24 History subcutaneous solution (Novolog USEASDIRECTD U-100 Insulin aspart) insulin glargine 100 unit/mL 26 unit subcut BID 08/27/21 06/27/24 History subcutaneous solution (Lantus U-100 Insulin) Have you fallen in the past year?: No PFSH Medical History Vision problems Rheumatoid arthritis Osteoarthritis Hypertension Diabetes mellitus Back problem Arthritis Surgical History History of Family History Mother Arthritis CVA (cerebral vascular accident) Osteoporosis Grandfather Heart disease Social History Smoking Status: Former smoker alcohol intake: never substance use type: does not use what type of physical activity do you participate in: none HPI REEVAL Chief Complaint: right hip low back pain Visit Number: 1 Details: Katalina is a 73 year ols female here for a re-evaluation of low back/right pelvic pain. Pt. advises her right hip pain began about a month ago as a dull ache. 2 weks ago she turned to go down the stairs and as she twisted her right hip pain increased and has been worsened. She states the pain increases as the day goes on and with ambulation. She rates her pain 7/10 today but when her pain jabbs it can go up to 8-9. She states she was in a couple years ago for left pelvic pain and was informed was caused by scoliosis. Chiro tx resolved her issue. She denies known injury, numbness, tingling or radiculopathy. She treats pain at home with heat and Advil. She is a side sleeper and is not able to lay on her left side. Onset: 05/23/24 Location: low back right hip Duration: frequent Aggravating or associated factors: walking,ROM,stairs Relieving factors: chiro Pain Quality: aching, dull and sharp Exam Musc General: Yes joint tenderness and decreased range of motion; No normal posture or normal gait Thoracic/Lumber: No thoracic and lumbar spine normal to inspection, Yes paraspinal tenderness on the right greater than left (lumbopelvic), Yes scoliosis (left lumbar), Yes thoraco-lumbar spasm on the right greater than left ( QL, piriformis,glute med) and on the left greater than right (paraspinal (L3-S1)) and Yes misalignment L1, L2, L3, L4, L5 and RIL Sacroiliac joints: on the right tender to palpation Neuro General: patient alert, patient awake, patient oriented x3, normal light touch, pain and propioception and focal motor deficits present Cranial Nerves: CN's II-XI intact bilaterally Cognition: normal cognition Speech: speech normal Gait: antalgic Motor: strength abnormal right proximal lower extremity flexion and extension Sensory Exam: no sensory deficits noted Ortho Test CERVICAL THORACIC Cruz: Positive LUMBAR Kemps: Positive and Right Valsalvas: Negative SLR: Negati (more content not included)... Normal [facility] Absolute neutrophil countOrd ered By: Amelia Deutsch on 06-20-2024 Neutrophils (Bld) [#/Vol] 6.4 10*3/uL 2.0-7.7 [facility] Albumin to globulin ratioOrd ered By: Ameliamadhavi Deutsch on 06-20-2024 Albumin/Globulin [Mass ratio] 1.1 {ratio} 0.9-2.4 [facility] Basophil percentageOrdered B y: Amelia Deutsch on 06-20-2024 Basophils/100 WBC (Bld) 0.1 % 0-1 [facility] Bilirubin, totalOrdered By: Ameliamadhavi Deutsch on 06-20-2024 Bilirubin [Mass/Vol] 0.50 mg/dL 0.20-1.00 [facility] Comment on above: For patients on eltr ombopag therapy, use of Dimension Wykoff TBIL is not recommended. Blood urea nitrogen (BUN)/cr eatinine ratioOrdered By: Amelia Deutsch on 06-20-2024 Urea nitrogen/Creatinine [Mass ratio] 24.4 mg/mg High 04-29 [facility] CBC W/Diff, Automatedon 06-10 Absolute Lymph 1.23 X10 3/uL Normal 0.83-4.51 [facility] Comment on above: Performed By: #### L 500.4050, L100.0100 #### [facility] [address] [place], [place], [address] Absolute Neut 6.4 X10 3/uL Normal 2.0-7.7 [facility] Comment on above: Performed By: #### L 500.4050, L100.0100 #### [facility] [address] [place], [address] Basophils/100 WBC (Bld) 0.1 % Normal 0-1 [facility] Comment on above: Performed By: #### L 500.4050, L100.0100 #### [facility] [address] [place], [address] Eosinophils/100 WBC (Bld) 0.0 % Normal 0-5 [facility] Comment on above: Performed By: #### L 500.4050, L100.0100 #### [facility] [address] [place], [address] Erythrocyte distribution width (RBC) [Ratio] 13.2 % Normal 11.6-14.6 [facility] Comment on above: Performed By: #### L 500.4050, L100.0100 #### [facility] [address] [place], [address] Hematocrit (Bld) [Volume fraction] 38.7 % Normal 37-47 [facility] Comment on above: Performed By: #### L 500.4050, L100.0100 #### [facility] [address] [place], [address] Hemoglobin (Bld) [Mass/Vol] 13.2 g/dL Normal 12.0-15.0 [facility] Comment on above: Performed By: #### L 500.4050, L100.0100 #### [facility] [address] [place], [address] IG% 0.500 Normal 0.0-0.9 [facility] Comment on above: Result Comment: IG% - Immature Granulocytes (promyelocytes, myelocytes and metamyelocytes) > 1% indicates that a LEFT SHIFT is Present. Performed By: #### L 500.4050, L100.0100 #### [facility] [address] [place], [address] Lymphocytes/100 WBC (Bld) 15.4 % Low 19-41 [facility] Comment on above: Performed By: #### L 500.4050, L100.0100 #### [facility] [address] [place], [address] MCH (RBC) [Entitic mass] 31.9 pg Normal 27.0-32.0 [facility] Comment on above: Performed By: #### L 500.4050, L100.0100 #### [facility] [address] [place], [address] MCHC (RBC) [Mass/Vol] 34.1 g/dL Normal 32-36 [facility] Comment on above: Performed By: #### L 500.4050, L100.0100 #### [facility] [address] [place], [address] MCV (RBC) [Entitic vol] 93.5 fL Normal 81-99 [facility] Comment on above: Performed By: #### L 500.4050, L100.0100 #### [facility] [address] [place], [address] Monocytes/100 WBC (Bld) 4.4 % Normal 0-10 [facility] Comment on above: Performed By: #### L 500.4050, L100.0100 #### [facility] [address] [place], [address] Neutrophils/100 WBC (Bld) 79.6 % High 47-70 [facility] Comment on above: Performed By: #### L 500.4050, L100.0100 #### [facility] [address] [place], [address] Nucleated RBC (Bld) [#/Vol] 0 10*3/uL Normal 0-5 [facility] Comment on above: Performed By: #### L 500.4050, L100.0100 #### [facility] [address] [place], [address] Platelet mean volume (Bld) [Entitic vol] 11.1 fL Normal 6.2-12.0 [facility] Comment on above: Performed By: #### L 500.4050, L100.0100 #### [facility] [address] [place], [address] Platelets (Bld) [#/Vol] 240 10*3/uL Normal 150-450 [facility] Comment on above: Performed By: #### L 500.4050, L100.0100 #### [facility] [address] [place], [address] RBC (Bld) [#/Vol] 4.14 10*6/uL Low 4.2-5.4 [facility] Comment on above: Performed By: #### L 500.4050, L100.0100 #### [facility] [address] [place], [address] RDW SD 45.0 fl High 35.1-43.9 [facility] Comment on above: Performed By: #### L 500.4050, L100.0100 #### [facility] [address] [place], [address] WBC (Bld) [#/Vol] 8.0 10*3/uL Normal 4.4-11.0 [facility] Comment on above: Performed By: #### L 500.4050, L100.0100 #### [facility] [address] [place], [address] Carbon dioxide measurementOr dered By: Amelia Deutsch on 06-20-2024 CO2 [Moles/Vol] 22.0 mmol/L 21.0-32.0 [facility] Chloride measurementOrdered By: Amelia Deutsch on 06-20-2024 Chloride [Moles/Vol] 111 mmol/L High 98-107 [facility] Comprehensive Metabolic Prof ilon 06-20-2024 Albumin [Mass/Vol] 3.5 g/dL Normal 3.2-5.0 [facility] Comment on above: Performed By: #### L 500.4050, L100.0100 ####[facility] [address] [place], [address] Albumin/Globulin [Mass ratio] 1.1 {ratio} Normal 0.9-2.4 [facility] Comment on above: Performed By: #### L 500.4050, L100.0100 ####[facility] [address] [place], [address] ALK P 62 U/L Normal 45-117 [facility] Comment on above: Performed By: #### L 500.4050, L100.0100 ####[facility] [address] [place], [address] ALT [Catalytic activity/Vol] 31 U/L Normal 13-56 [facility] Comment on above: Performed By: #### L 500.4050, L100.0100 ####[facility] [address] [place], [address] AST [Catalytic activity/Vol] 12 U/L Low 15-37 [facility] Comment on above: Performed By: #### L 500.4050, L100.0100 ####[facility] [address] [place], [address] Bilirubin [Mass/Vol] 0.50 mg/dL Normal 0.20-1.00 [facility] Comment on above: Result Comment: For patients on eltrombopag therapy, use of Dimension Wykoff TBIL is not recommended. Performed By: #### L 500.4050, L100.0100 ####[facility] [address] [place], [address] BUN/CRE 24.4 RATIO High 10-20 [facility] Comment on above: Performed By: #### L 500.4050, L100.0100 ####[facility] [address] [place], [address] CA,Total 8.7 mg/dL Normal 8.5-10.1 [facility] Comment on above: Performed By: #### L 500.4050, L100.0100 ####[facility] [address] [place], [address] Chloride [Moles/Vol] 111 mmol/L High 98-107 [facility] Comment on above: Performed By: #### L 500.4050, L100.0100 ####[facility] [id number] [place], [address] CO2 [Moles/Vol] 22.0 mmol/L Normal 21.0-32.0 [facility] Comment on above: Performed By: #### L 500.4050, L100.0100 ####[facility] [id number] [place], [address] Creatinine [Mass/Vol] 0.90 mg/dL Normal 0.55-1.02 [facility] Comment on above: Result Comment: The validity of the calculated GFR GFRAA in patients over 70 years has not been determined. Clinical correlation is essential. Performed By: #### L 500.4050, L100.0100 ####[facility] [address] [place], [address] EST GFR - AA 79 mL/min Normal >60 [facility] Comment on above: Result Comment: Afri can [place] Citizen GFR Calc Performed By: #### L 500.4050, L100.0100 ####[facility] [id number] [place], [address] GAP 6 Normal 5-15 [facility] Comment on above: Performed By: #### L 500.4050, L100.0100 ####[facility] [id number] [place], [address] GFR/1.73 sq M.predicted among non-blacks MDRD (S/P/Bld) [Vol rate/Area] 65 mL/min/{1.73_m2} Normal >60 [facility] Comment on above: Result Comment: Non- GFR Calc Performed By: #### L 500.4050, L100.0100 ####[facility] [id number] [place], [address] Globulin (S) [Mass/Vol] 3.3 g/dL Normal 2.2-4.2 [facility] Comment on above: Performed By: #### L 500.4050, L100.0100 ####[facility] [address] [place], [address] Glucose [Mass/Vol] 183 mg/dL High 74-106 [facility] Comment on above: Result Comment: Fast ing Glucose result greater than or equal to 126 mg/dL suggests DIABETES MELLITUS per A.D.A. criteria. Performed By: #### L 500.4050, L100.0100 ####[facility] [address] [place], [address] Potassium [Moles/Vol] 3.9 mmol/L Normal 3.5-5.1 [facility] Comment on above: Performed By: #### L 500.4050, L100.0100 ####[facility] [address] [place], [address] Sodium [Moles/Vol] 139 mmol/L Normal 136-145 [facility] Comment on above: Performed By: #### L 500.4050, L100.0100 ####[facility] [address] [place], [address] T PROT 6.8 g/dL Normal 6.4-8.2 [facility] Comment on above: Performed By: #### L 500.4050, L100.0100 ####[facility] [address] [place], [place], [id number] Urea nitrogen [Mass/Vol] 22 mg/dL High 7-18 [facility] Comment on above: Performed By: #### L 500.4050, L100.0100 ####[facility] [address] [place], [address] Eosinophil percentageOrdered By: Amelia Deutsch on 06-20-2024 Eosinophils/100 WBC (Bld) 0.0 % 0-5 [facility] Erythrocyte distribution wid th ratioOrdered By: Amelia Deutsch on 06-20-2024 Erythrocyte distribution width (RBC) [Ratio] 13.2 % 11.6-14.6 [facility] Erythrocyte distribution wid th standard deviationOrdered By: Amelia Deutsch on 06-20-2024 Erythrocyte distribution width (RBC) [Entitic vol] 45.0 fL High 35.1-43.9 [facility] Estimated glomerular filtrat ion rate (GFR) AmericanOrdered By: Amelia Deutsch on 06-20-2024 Estimated GFR (MDRD) Amer 79 mL/min >60 [facility] Comment on above: GFR Calc Glomerular filtration rate ( GFR) estimationOrdered By: Amelia Deutsch on 06-20-2024 Estimated GFR (MDRD) Non-Af Amer 65 mL/min >60 [facility] Comment on above: Non- GFR Calc Glucose measurementOrdered B y: Amelia Deutsch on 06-20-2024 Glucose [Mass/Vol] 183 mg/dL High 74-106 [facility] Comment on above: Fasting Glucose resu lt greater than or equal to 126 mg/dL suggests DIABETES MELLITUS per A.D.A. criteria. Hematocrit Auto (Bld) [Volum e fraction]Ordered By: Amelia Deutsch on 06-20-2024 Hematocrit (Bld) [Volume fraction] 38.7 % 37-47 [facility] Hemoglobin measurementOrdere d By: Amelia Deutsch on 06-20-2024 Hemoglobin (Bld) [Mass/Vol] 13.2 g/dL 12.0-15.0 [facility] Immature granulocytes/100 WB C Auto (Bld)Ordered By: Amelia Deutsch on 06-20-2024 Immature granulocytes/100 WBC (Bld) 0.500 % 0.0-0.9 [facility] Comment on above: IG% - Immature Granu locytes (promyelocytes, myelocytes and metamyelocytes) > 1% indicates that a LEFT SHIFT is Present. Laboratory - Chemistry and C hemistry - challengeOrdered By: Amelia Deutsch on 06-20-2024 AST [Catalytic activity/Vol] 12 U/L Low 15-37 [facility] Lymphocytes Auto (Unsp spec) [#/Vol]Ordered By: Amelia Deutsch on 06-20-2024 Lymphocytes (Bld) [#/Vol] 1.23 10*3/uL 0.83-4.51 [facility] Lymphocytes/100 WBC Auto (Un sp spec)Ordered By: Amelia Deutsch on 06-20-2024 Lymphocytes/100 WBC (Bld) 15.4 % Low 19-41 [facility] MCV (mean corpuscular volume ) determinationOrdered By: Amelia Deutsch on 06-20-2024 MCV (RBC) [Entitic vol] 93.5 fL 81-99 [facility] Mean corpuscular hemoglobin (MCH) determinationOrdered By: Amelia Deutsch on 06-20-2024 MCH (RBC) [Entitic mass] 31.9 pg 27.0-32.0 [facility] Mean corpuscular hemoglobin concentration (MCHC) determinationOrdered By: Amelia Deutsch on 06-20-2024 MCHC (RBC) [Mass/Vol] 34.1 g/dL 32-36 [facility] Mean platelet volume determi nationOrdered By: Amelia Deutsch on 06-20-2024 Platelet mean volume (Bld) [Entitic vol] 11.1 fL 6.2-12.0 [facility] Monocyte percentageOrdered B y: Amelia Deutsch on 06-20-2024 Monocytes/100 WBC (Bld) 4.4 % 0-10 [facility] Neutrophil percentageOrdered By: Amelia Deutsch on 06-20-2024 Neutrophils/100 WBC (Bld) 79.6 % High 47-70 [facility] Nucleated red blood cell per centageOrdered By: Amelia Deutsch on 06-20-2024 Nucleated RBC/100 WBC (Bld) [Ratio] 0 % 0-5 [facility] Platelet countOrdered By: Tom Deutsch on 06-20-2024 Platelets (Bld) [#/Vol] 240 10*3/uL 150-450 [facility] Potassium measurementOrdered By: Amelia Deutsch on 06-20-2024 Potassium [Moles/Vol] 3.9 mmol/L 3.5-5.1 [facility] RBC Auto (Bld) [#/Vol]Ordere d By: Amelia Deutsch on 06-20-2024 RBC (Bld) [#/Vol] 4.14 10*6/uL Low 4.2-5.4 [facility] Serum anion gap measurementO rdered By: Amelia Deutsch on 06-20-2024 Anion gap [Moles/Vol] 6 mmol/L 5-15 [facility] Serum globulin measurementOr dered By: Amelia Deutsch on 06-20-2024 Globulin (S) [Mass/Vol] 3.3 g/dL 2.2-4.2 [facility] Serum or plasma alanine zhang otransferase (ALT) measurementOrdered By: Amelia Deutsch on 06-20-2024 ALT [Catalytic activity/Vol] 31 U/L 13-56 [facility] Serum or plasma albumin albert urement (mass/volume)Ordered By: Amelia Deutsch on 06-20-2024 Albumin [Mass/Vol] 3.5 g/dL 3.2-5.0 [facility] Serum or plasma alkaline juan sphatase measurementOrdered By: Amelia Deutsch on 06-20-2024 ALP [Catalytic activity/Vol] 62 U/L 45-117 [facility] Serum or plasma calcium albert urement (mass/volume)Ordered By: Amelia Deutsch on 06-20-2024 Calcium [Mass/Vol] 8.7 mg/dL 8.5-10.1 [facility] Serum or plasma creatinine m easurement (mass/volume)Ordered By: Amelia Deutsch on 06-20-2024 Creatinine [Mass/Vol] 0.90 mg/dL 0.55-1.02 [facility] Comment on above: The validity of the calculated GFR & GFRAA in patients over 70 years has not been determined. Clinical correlation is essential. Serum or plasma urea nitroge n measurement (mass/volume)Ordered By: Amelia Deustch on 06-20-2024 Urea nitrogen [Mass/Vol] 22 mg/dL High 7-18 [facility] Sodium levelOrdered By: Jasmyn Deutsch on 06-20-2024 Sodium [Moles/Vol] 139 mmol/L 136-145 [facility] Total proteinOrdered By: Monica Deutsch on 06-20-2024 Protein [Mass/Vol] 6.8 g/dL 6.4-8.2 [facility] White blood cell (WBC) count Ordered By: Amelia Deutsch on 06-20-2024 WBC (Bld) [#/Vol] 8.0 10*3/uL 4.4-11.0 [facility] CBC W/Diff, Automatedon 09-2 Absolute Lymph 1.46 X10 3/uL Normal 0.83-4.51 [facility] Comment on above: Performed By: #### L 500.4050, L100.0100 #### [facility] [address] [place], [address] Absolute Neut 3.1 X10 3/uL Normal 2.0-7.7 [facility] Comment on above: Performed By: #### L 500.4050, L100.0100 #### [facility] [address] [place], [address] Basophils/100 WBC (Bld) 0.6 % Normal 0-1 [facility] Comment on above: Performed By: #### L 500.4050, L100.0100 #### [facility] [address] [place], [address] Eosinophils/100 WBC (Bld) 3.0 % Normal 0-5 [facility] Comment on above: Performed By: #### L 500.4050, L100.0100 #### [facility] [address] [place], [address] Erythrocyte distribution width (RBC) [Ratio] 13.1 % Normal 11.6-14.6 [facility] Comment on above: Performed By: #### L 500.4050, L100.0100 #### [facility] [address] [place], [address] Hematocrit (Bld) [Volume fraction] 42.0 % Normal 37-47 [facility] Comment on above: Performed By: #### L 500.4050, L100.0100 #### [facility] [address] [place], [address] Hemoglobin (Bld) [Mass/Vol] 13.6 g/dL Normal 12.0-15.0 [facility] Comment on above: Performed By: #### L 500.4050, L100.0100 #### [facility] [address] [place], [address] IG% 0.000 Normal 0.0-0.9 [facility] Comment on above: Result Comment: IG% - Immature Granulocytes (promyelocytes, myelocytes and metamyelocytes) > 1% indicates that a LEFT SHIFT is Present. Performed By: #### L 500.4050, L100.0100 #### [facility] [address] [place], [address] Lymphocytes/100 WBC (Bld) 29.0 % Normal 19-41 [facility] Comment on above: Performed By: #### L 500.4050, L100.0100 #### [facility] [address] [place], [address] MCH (RBC) [Entitic mass] 31.2 pg Normal 27.0-32.0 [facility] Comment on above: Performed By: #### L 500.4050, L100.0100 #### [facility] [address] [place], [address] MCHC (RBC) [Mass/Vol] 32.4 g/dL Normal 32-36 [facility] Comment on above: Performed By: #### L 500.4050, L100.0100 #### [facility] [address] [place], [address] MCV (RBC) [Entitic vol] 96.3 fL Normal 81-99 [facility] Comment on above: Performed By: #### L 500.4050, L100.0100 #### [facility] [address] [place], [address] Monocytes/100 WBC (Bld) 6.8 % Normal 0-10 [facility] Comment on above: Performed By: #### L 500.4050, L100.0100 #### [facility] [address] [place], [address] Neutrophils/100 WBC (Bld) 60.6 % Normal 47-70 [facility] Comment on above: Performed By: #### L 500.4050, L100.0100 #### [facility] [address] [place], [address] Nucleated RBC (Bld) [#/Vol] 0 10*3/uL Normal 0-5 [facility] Comment on above: Performed By: #### L 500.4050, L100.0100 #### [facility] [address] [place], [address] Platelet mean volume (Bld) [Entitic vol] 10.9 fL Normal 6.2-12.0 [facility] Comment on above: Performed By: #### L 500.4050, L100.0100 #### [facility] [address] [place], [address] Platelets (Bld) [#/Vol] 223 10*3/uL Normal 150-450 [facility] Comment on above: Performed By: #### L 500.4050, L100.0100 #### [facility] [address] [place], [address] RBC (Bld) [#/Vol] 4.36 10*6/uL Normal 4.2-5.4 [facility] Comment on above: Performed By: #### L 500.4050, L100.0100 #### [facility] [address] [place], [address] RDW SD 45.6 fl High 35.1-43.9 [facility] Comment on above: Performed By: #### L 500.4050, L100.0100 #### [facility] [address] [place], [address] WBC (Bld) [#/Vol] 5.0 10*3/uL Normal 4.4-11.0 [facility] Comment on above: Performed By: #### L 500.4050, L100.0100 #### [facility] [address] [place], [address] Comprehensive Metabolic Prof [facility] 04-03-2024 Albumin [Mass/Vol] 3.5 g/dL Normal 3.2-5.0 [facility] Comment on above: Performed By: #### L 500.4050, L100.0100 #### [facility] [address] [place], [address] Albumin/Globulin [Mass ratio] 1.1 {ratio} Normal 0.9-2.4 [facility] Comment on above: Performed By: #### L 500.4050, L100.0100 #### [facility] [address] [place], [address] ALK P 56 U/L Normal 45-117 [facility] Comment on above: Performed By: #### L 500.4050, L100.0100 #### [facility] [address] [place], [address] ALT [Catalytic activity/Vol] 36 U/L Normal 13-56 [facility] Comment on above: Performed By: #### L 500.4050, L100.0100 #### [facility] [address] [place], [address] AST [Catalytic activity/Vol] 25 U/L Normal 15-37 [facility] Comment on above: Performed By: #### L 500.4050, L100.0100 #### [facility] [address] [place], [address] Bilirubin [Mass/Vol] 0.60 mg/dL Normal 0.20-1.00 [facility] Comment on above: Result Comment: For patients on eltrombopag therapy, use of Dimension Wykoff TBIL is not recommended. Performed By: #### L 500.4050, L100.0100 #### [facility] [address] [place], [address] BUN/CRE 26.1 RATIO High 10-20 [facility] Comment on above: Performed By: #### L 500.4050, L100.0100 #### [facility] [address] [place], [address] CA,Total 9.1 mg/dL Normal 8.5-10.1 [facility] Comment on above: Performed By: #### L 500.4050, L100.0100 #### [facility] [address] [place], [address] Chloride [Moles/Vol] 111 mmol/L High 98-107 [facility] Comment on above: Performed By: #### L 500.4050, L100.0100 #### [facility] [address] [place], [address] CO2 [Moles/Vol] 25.0 mmol/L Normal 21.0-32.0 [facility] Comment on above: Performed By: #### L 500.4050, L100.0100 #### [facility] [address] [place], [address] Creatinine [Mass/Vol] 0.73 mg/dL Normal 0.55-1.02 [facility] Comment on above: Result Comment: The validity of the calculated GFR GFRAA in patients over 70 years has not been determined. Clinical correlation is essential. Performed By: #### L 500.4050, L100.0100 #### [facility] [address] [place], [address] EST GFR - AA 101 mL/min Normal >60 [facility] Comment on above: Result Comment: Afri can [place] Citizen GFR Calc Performed By: #### L 500.4050, L100.0100 #### [facility] [address] [place], [address] GAP 5 Normal 5-15 [facility] Comment on above: Performed By: #### L 500.4050, L100.0100 #### [facility] [address] [place], [address] GFR/1.73 sq M.predicted among non-blacks MDRD (S/P/Bld) [Vol rate/Area] 84 mL/min/{1.73_m2} Normal >60 [facility] Comment on above: Result Comment: Non- GFR Calc Performed By: #### L 500.4050, L100.0100 #### [facility] [address] [place], [address] Globulin (S) [Mass/Vol] 3.3 g/dL Normal 2.2-4.2 [facility] Comment on above: Performed By: #### L 500.4050, L100.0100 #### [facility] [address] [place], [address] Glucose [Mass/Vol] 126 mg/dL High 74-106 [facility] Comment on above: Result Comment: Fast ing Glucose result greater than or equal to 126 mg/dL suggests DIABETES MELLITUS per A.D.A. criteria. Performed By: #### L 500.4050, L100.0100 #### [facility] [address] [place], [address] Potassium [Moles/Vol] 4.4 mmol/L Normal 3.5-5.1 [facility] Comment on above: Performed By: #### L 500.4050, L100.0100 #### [facility] [address] [place], [address] Sodium [Moles/Vol] 141 mmol/L Normal 136-145 [facility] Comment on above: Performed By: #### L 500.4050, L100.0100 #### [facility] [address] [place], [address] T PROT 6.8 g/dL Normal 6.4-8.2 [facility] Comment on above: Performed By: #### L 500.4050, L100.0100 #### [facility] [address] [place], [address] Urea nitrogen [Mass/Vol] 19 mg/dL High 7-18 [facility] Comment on above: Performed By: #### L 500.4050, L100.0100 #### [facility] [address] [place], [address] Absolute lymphocyte countOrd ered By: Amelia Deutsch on 10-20-2023 Lymphocytes Auto (Unsp spec) [#/Vol] 2.24 10*3/uL 0.83-4.51 [facility] Automated lymphocyte count a s percentage of total leukocytesOrdered By: Amelia Deutsch on 10-20-2023 Lymphocytes/100 WBC Auto (Unsp spec) 34.1 % 19-41 [facility] Basophil percentageOrdered B y: Amelia Deutsch on 10-20-2023 Basophils/100 WBC (Bld) 0.6 % 0-1 [facility] Bilirubin [Mass/Vol] 0.50 mg/dL 0.20-1.00 [facility] Comment on above: For patients on eltr ombopag therapy, use of Dimension Wy[place]off TBIL is not recommended. Chloride [Moles/Vol] 108 mmol/L 98-107 [facility] Eosinophils/100 WBC (Bld) 3.5 % 0-5 [facility] Glucose [Mass/Vol] 95 mg/dL 74-106 [facility] Hemoglobin (Bld) [Mass/Vol] 14.2 g/dL 12.0-15.0 [facility] Monocytes/100 WBC (Bld) 8.1 % 0-10 [facility] Neutrophils (Bld) [#/Vol] 3.5 10*3/uL 2.0-7.7 [facility] Neutrophils/100 WBC (Bld) 53.4 % 47-70 [facility] Potassium [Moles/Vol] 3.9 mmol/L 3.5-5.1 [facility] Protein [Mass/Vol] 6.9 g/dL 6.4-8.2 [facility] Sodium [Moles/Vol] 141 mmol/L 136-145 [facility] WBC (Bld) [#/Vol] 6.6 10*3/uL 4.4-11.0 [facility] Determination of erythrocyte mean corpuscular volume (MCV)Ordered By: Amelia Deutsch on 10-20-2023 MCV (RBC) [Entitic vol] 95.2 fL 81-99 [facility] Erythrocyte distribution wid th ratioOrdered By: Amelia Deutsch on 10-20-2023 Erythrocyte distribution width (RBC) [Ratio] 13.2 % 11.6-14.6 [facility] Erythrocyte distribution wid th standard deviationOrdered By: Amelia Deutsch on 10-20-2023 Erythrocyte distribution width (RBC) [Entitic vol] 45.1 fL 35.1-43.9 [facility] Hematocrit Auto (Bld) [Volum e fraction]Ordered By: Amelia Deutsch on 10-20-2023 Hematocrit (Bld) [Volume fraction] 43.4 % 37-47 [facility] Immature granulocytes/100 WB C Auto (Bld)Ordered By: Amelia Deutsch on 10-20-2023 Immature granulocytes/100 WBC (Bld) 0.300 % 0.0-0.9 [facility] Comment on above: IG% - Immature Granu locytes (promyelocytes, myelocytes and metamyelocytes) > 1% indicates that a LEFT SHIFT is Present. Laboratory - Chemistry and C hemistry - challengeOrdered By: Amelia Deutsch on 10-20-2023 Albumin/Globulin [Mass ratio] 1.0 {ratio} 0.9-2.4 [facility] ALP [Catalytic activity/Vol] 68 U/L 45-117 [facility] ALT [Catalytic activity/Vol] 46 U/L 13-56 [facility] CO2 [Moles/Vol] 31.0 mmol/L 21.0-32.0 [facility] Globulin (S) [Mass/Vol] 3.4 g/dL 2.2-4.2 [facility] Urea nitrogen/Creatinine [Mass ratio] 22.5 mg/mg 10-20 [facility] Laboratory - Hematology and Cell countsOrdered By: Amelia Deutsch on 10-20-2023 MCH (RBC) [Entitic mass] 31.1 pg 27.0-32.0 [facility] MCHC (RBC) [Mass/Vol] 32.7 g/dL 32-36 [facility] Nucleated RBC/100 WBC (Bld) [Ratio] 0 % 0-5 [facility] Platelet mean volume (Bld) [Entitic vol] 11.1 fL 6.2-12.0 [facility] Platelets (Bld) [#/Vol] 261 10*3/uL 150-450 [facility] No Panel InformationOrdered By: Amelia Deutsch on 10-20-2023 Estimated GFR (MDRD) Amer 91 mL/min >60 [facility] Comment on above: GFR Calc Estimated GFR (MDRD) Non-Af Amer 75 mL/min >60 [facility] Comment on above: Non- GFR Calc RBC Auto (Bld) [#/Vol]Ordere d By: Amelia Deutsch on 10-20-2023 RBC (Bld) [#/Vol] 4.56 10*6/uL 4.2-5.4 [facility] Serum or plasma calcium albert urement (mass/volume)Ordered By: Amelia Deutsch on 10-20-2023 Calcium [Mass/Vol] 9.1 mg/dL 8.5-10.1 [facility] Serum or plasma creatinine m easurement (mass/volume)Ordered By: Amelia Deutsch on 10-20-2023 Creatinine [Mass/Vol] 0.80 mg/dL 0.55-1.02 [facility] Comment on above: The validity of the calculated GFR & GFRAA in patients over 70 years has not been determined. Clinical correlation is essential. Serum or plasma urea nitroge n measurement (mass/volume)Ordered By: Amelia Deutsch on 10-20-2023 Urea nitrogen [Mass/Vol] 18 mg/dL 7-18 [facility] Thin prep Papanicolaou smear with manual screeningOrdered By: Amelia Deutsch on 10-20-2023 Thin prep Papanicolaou smear with manual screening 3.5 g/dL 3.2-5.0 [facility] Thin prep Papanicolaou smear with manual screening 24 U/L 15-37 [facility] Thin prep Papanicolaou smear with manual screening 2 5-15 [facility] Absolute lymphocyte countOrd ered By: Amelia Deutsch on 01-17-2023 Lymphocytes Auto (Unsp spec) [#/Vol] 2.04 10*3/uL 0.83-4.51 [facility] Basophil percentageOrdered B y: Amelia Deutsch on 01-17-2023 Basophils/100 WBC (Bld) 0.4 % 0-1 [facility] Bilirubin [Mass/Vol] 0.40 mg/dL 0.20-1.00 [facility] Comment on above: For patients on eltr ombopag therapy, use of Dimension Wykoff TBIL is not recommended. Chloride [Moles/Vol] 108 mmol/L 98-107 [facility] Eosinophils/100 WBC (Bld) 1.9 % 0-5 [facility] Glucose [Mass/Vol] 137 mg/dL 74-106 [facility] Comment on above: Fasting Glucose resu lt greater than or equal to 126 mg/dL suggests DIABETES MELLITUS per A.D.A. criteria. Neutrophils (Bld) [#/Vol] 5.0 10*3/uL 2.0-7.7 [facility] Neutrophils/100 WBC (Bld) 64.3 % 47-70 [facility] Potassium [Moles/Vol] 3.9 mmol/L 3.5-5.1 [facility] Protein [Mass/Vol] 7.0 g/dL 6.4-8.2 [facility] [facility] Sodium [Moles/Vol] 139 mmol/L 136-145 [facility] WBC (Bld) [#/Vol] 7.8 10*3/uL 4.4-11.0 [facility] Blood erythrocytes count (nu mber/volume)Ordered By: Amelia Deutsch on 01-17-2023 RBC (Bld) [#/Vol] 4.42 10*6/uL 4.2-5.4 [facility] Blood hemoglobin measurement (mass/volume)Ordered By: Amelia Deutsch on 01-17-2023 Hemoglobin (Bld) [Mass/Vol] 14.0 g/dL 12.0-15.0 [facility] Blood lymphocytes/100 leukoc ytesOrdered By: Amelia Deutsch on 01-17-2023 Lymphocytes/100 WBC (Bld) 26.1 % 19-41 [facility] Blood monocytes/100 leukocyt esOrdered By: Amelia Deutsch on 01-17-2023 Monocytes/100 WBC (Bld) 7.2 % 0-10 [facility] Blood platelet mean volumeOr dered By: Amelia Deutsch on 01-17-2023 Platelet mean volume (Bld) [Entitic vol] 10.8 fL 6.2-12.0 [facility] Determination of erythrocyte mean corpuscular volume (MCV)Ordered By: Amelia Deutsch on 01-17-2023 MCV (RBC) [Entitic vol] 96.2 fL 81-99 [facility] Hematocrit Auto (Bld) [Volum e fraction]Ordered By: Amelia Deutsch on 01-17-2023 Hematocrit (Bld) [Volume fraction] 42.5 % 37-47 [facility] Laboratory - Chemistry and C hemistry - challengeOrdered By: Amelia Deutsch on 01-17-2023 ALP [Catalytic activity/Vol] 78 U/L 45-117 [facility] ALT [Catalytic activity/Vol] 39 U/L 13-56 [facility] CO2 [Moles/Vol] 26.0 mmol/L 21.0-32.0 [facility] Globulin (S) [Mass/Vol] 3.6 g/dL 2.2-4.2 [facility] Urea nitrogen/Creatinine [Mass ratio] 21.1 mg/mg 10-20 [facility] Laboratory - Hematology and Cell countsOrdered By: Amelia Deutsch on 01-17-2023 Erythrocyte distribution width (RBC) [Entitic vol] 46.3 fL 35.1-43.9 [facility] Erythrocyte distribution width (RBC) [Ratio] 13.1 % 11.6-14.6 [facility] Immature granulocytes/100 WBC (Bld) 0.100 % 0.0-0.9 [facility] Comment on above: IG% - Immature Granu locytes (promyelocytes, myelocytes and metamyelocytes) > 1% indicates that a LEFT SHIFT is Present. MCH (RBC) [Entitic mass] 31.7 pg 27.0-32.0 [facility] Nucleated RBC/100 WBC (Bld) [Ratio] 0 % 0-5 [facility] MCHC Auto (RBC) [Mass/Vol]Or dered By: Amelia Deutsch on 01-17-2023 MCHC (RBC) [Mass/Vol] 32.9 g/dL 32-36 [facility] No Panel InformationOrdered By: Amelia Deutsch on 01-17-2023 Estimated GFR (MDRD) Amer 80 mL/min >60 [facility] Comment on above: GFR Calc Estimated GFR (MDRD) Non-Af Amer 66 mL/min >60 [facility] Comment on above: Non- GFR Calc Platelets bldOrdered By: Monica Deutsch on 01-17-2023 Platelets (Bld) [#/Vol] 236 10*3/uL 150-450 [facility] Serum or plasma albumin albert urement (mass/volume)Ordered By: Amelia Deutsch on 01-17-2023 Albumin [Mass/Vol] 3.4 g/dL 3.2-5.0 [facility] Serum or plasma albumin/glob ulin mass ratioOrdered By: Amelia Deutsch on 01-17-2023 Albumin/Globulin [Mass ratio] 0.9 {ratio} 0.9-2.4 [facility] Serum or plasma calcium albert urement (mass/volume)Ordered By: Amelia Deutsch on 01-17-2023 Calcium [Mass/Vol] 8.9 mg/dL 8.5-10.1 [facility] Serum or plasma creatinine m easurement (mass/volume)Ordered By: Amelia Deutsch on 01-17-2023 Creatinine [Mass/Vol] 0.90 mg/dL 0.55-1.02 [facility] Comment on above: The validity of the calculated GFR & GFRAA in patients over 70 years has not been determined. Clinical correlation is essential. Serum or plasma urea nitroge n measurement (mass/volume)Ordered By: Amelia Deutsch on 01-17-2023 Urea nitrogen [Mass/Vol] 19 mg/dL 7-18 [facility] Thin prep Papanicolaou smear with manual screeningOrdered By: Amelia Deutsch on 01-17-2023 Thin prep Papanicolaou smear with manual screening 21 U/L 15-37 [facility] Thin prep Papanicolaou smear with manual screening 5 5-15 [facility] Absolute lymphocyte countOrd ered By: Dr. Deutsch on 10-28-2022 Lymphocytes Auto (Unsp spec) [#/Vol] 2.07 10*3/uL 0.83-4.51 [facility] Basophil percentageOrdered B y: Dr. Deutsch on 10-28-2022 Basophils/100 WBC (Bld) 0.5 % 0-1 [facility] Bilirubin [Mass/Vol] 0.30 mg/dL 0.20-1.00 [facility] Comment on above: For patients on eltr ombopag therapy, use of Dimension Wykoff TBIL is not recommended. Chloride [Moles/Vol] 109 mmol/L 98-107 [facility] Eosinophils/100 WBC (Bld) 2.7 % 0-5 [facility] Glucose [Mass/Vol] 122 mg/dL 74-106 [facility] Comment on above: Fasting Glucose resu lt from 100 to 125 mg/dL suggests IMPAIRED HOMEOSTASIS per A.D.A. criteria. Neutrophils (Bld) [#/Vol] 3.7 10*3/uL 2.0-7.7 [facility] Neutrophils/100 WBC (Bld) 57.2 % 47-70 [facility] Potassium [Moles/Vol] 4.1 mmol/L 3.5-5.1 [facility] Protein [Mass/Vol] 6.9 g/dL 6.4-8.2 [facility] Sodium [Moles/Vol] 138 mmol/L 136-145 [facility] WBC (Bld) [#/Vol] 6.4 10*3/uL 4.4-11.0 [facility] Blood erythrocytes count (nu mber/volume)Ordered By: Dr. Deutsch on 10-28-2022 RBC (Bld) [#/Vol] 4.53 10*6/uL 4.2-5.4 [facility] Blood hemoglobin measurement (mass/volume)Ordered By: Dr. Deutsch on 10-28-2022 Hemoglobin (Bld) [Mass/Vol] 14.1 g/dL 12.0-15.0 [facility] Blood lymphocytes/100 leukoc ytesOrdered By: Dr. Deutsch on 10-28-2022 Lymphocytes/100 WBC (Bld) 32.3 % 19-41 [facility] Blood monocytes/100 leukocyt esOrdered By: Dr. Deutsch on 10-28-2022 Monocytes/100 WBC (Bld) 7.0 % 0-10 [facility] Blood platelet mean volumeOr dered By: Dr. Deutsch on 10-28-2022 Platelet mean volume (Bld) [Entitic vol] 11.3 fL 6.2-12.0 [facility] Determination of erythrocyte mean corpuscular volume (MCV)Ordered By: Dr. Deutsch on 10-28-2022 MCV (RBC) [Entitic vol] 95.4 fL 81-99 [facility] Hematocrit Auto (Bld) [Volum e fraction]Ordered By: Dr. Deutsch on 10-28-2022 Hematocrit (Bld) [Volume fraction] 43.2 % 37-47 [facility] Laboratory - Chemistry and C hemistry - challengeOrdered By: Dr. Deutsch on 10-28-2022 ALP [Catalytic activity/Vol] 74 U/L 45-117 [facility] ALT [Catalytic activity/Vol] 38 U/L 13-56 [facility] CO2 [Moles/Vol] 27.0 mmol/L 21.0-32.0 [facility] Globulin (S) [Mass/Vol] 3.4 g/dL 2.2-4.2 [facility] Urea nitrogen/Creatinine [Mass ratio] 23.4 mg/mg 10-20 [facility] Laboratory - Hematology and Cell countsOrdered By: Dr. Deutsch on 10-28-2022 Erythrocyte distribution width (RBC) [Entitic vol] 46.5 fL 35.1-43.9 [facility] Erythrocyte distribution width (RBC) [Ratio] 13.4 % 11.6-14.6 [facility] Immature granulocytes/100 WBC (Bld) 0.300 % 0.0-0.9 [facility] Comment on above: IG% - Immature Granu locytes (promyelocytes, myelocytes and metamyelocytes) > 1% indicates that a LEFT SHIFT is Present. MCH (RBC) [Entitic mass] 31.1 pg 27.0-32.0 [facility] Nucleated RBC/100 WBC (Bld) [Ratio] 0 % 0-5 [facility] MCHC Auto (RBC) [Mass/Vol]Or dered By: Dr. Deutsch on 10-28-2022 MCHC (RBC) [Mass/Vol] 32.6 g/dL 32-36 [facility] No Panel InformationOrdered By: Dr. Deutsch on 10-28-2022 Estimated GFR (MDRD) Amer 109 mL/min >60 [facility] Comment on above: GFR Calc Estimated GFR (MDRD) Non-Af Amer 90 mL/min >60 [facility] Comment on above: Non- GFR Calc Platelets bldOrdered By: Dr. Deutsch on 10-28-2022 Platelets (Bld) [#/Vol] 250 10*3/uL 150-450 [facility] Serum or plasma albumin albert urement (mass/volume)Ordered By: Dr. Deutsch on 10-28-2022 Albumin [Mass/Vol] 3.5 g/dL 3.2-5.0 [facility] Serum or plasma albumin/glob ulin mass ratioOrdered By: Dr. Deutsch on 10-28-2022 Albumin/Globulin [Mass ratio] 1.0 {ratio} 0.9-2.4 [facility] Serum or plasma calcium albert urement (mass/volume)Ordered By: Dr. Deutsch on 10-28-2022 Calcium [Mass/Vol] 9.3 mg/dL 8.5-10.1 [facility] Serum or plasma creatinine m easurement (mass/volume)Ordered By: Dr. Deutsch on 10-28-2022 Creatinine [Mass/Vol] 0.68 mg/dL 0.55-1.02 [facility] Comment on above: The validity of the calculated GFR & GFRAA in patients over 70 years has not been determined. Clinical correlation is essential. Serum or plasma urea nitroge n measurement (mass/volume)Ordered By: Dr. Deutsch on 10-28-2022 Urea nitrogen [Mass/Vol] 16 mg/dL 7-18 [facility] Thin prep Papanicolaou smear with manual screeningOrdered By: Dr. Deutsch on 10-28-2022 Thin prep Papanicolaou smear with manual screening 20 U/L 15-37 [facility] Thin prep Papanicolaou smear with manual screening 2 5-15 [facility] Absolute lymphocyte countOrd ered By: Dr. Deutsch on 08-02-2022 Lymphocytes Auto (Unsp spec) [#/Vol] 1.94 10*3/uL 0.83-4.51 [facility] Basophil percentageOrdered B y: Dr. Deutsch on 08-02-2022 Basophils/100 WBC (Bld) 0.5 % 0-1 [facility] Bilirubin [Mass/Vol] 0.50 mg/dL 0.20-1.00 [facility] Comment on above: For patients on eltr ombopag therapy, use of Dimension Wykoff TBIL is not recommended. Chloride [Moles/Vol] 107 mmol/L 98-107 [facility] Eosinophils/100 WBC (Bld) 2.6 % 0-5 [facility] Glucose [Mass/Vol] 120 mg/dL 74-106 [facility] Comment on above: Fasting Glucose resu lt from 100 to 125 mg/dL suggests IMPAIRED HOMEOSTASIS per A.D.A. criteria. Neutrophils (Bld) [#/Vol] 3.7 10*3/uL 2.0-7.7 [facility] Neutrophils/100 WBC (Bld) 58.4 % 47-70 [facility] Potassium [Moles/Vol] 4.2 mmol/L 3.5-5.1 [facility] Protein [Mass/Vol] 6.9 g/dL 6.4-8.2 [facility] Sodium [Moles/Vol] 139 mmol/L 136-145 [facility] WBC (Bld) [#/Vol] 6.3 10*3/uL 4.4-11.0 [facility] Blood erythrocytes count (nu mber/volume)Ordered By: Dr. Deutsch on 08-02-2022 RBC (Bld) [#/Vol] 4.55 10*6/uL 4.2-5.4 [facility] Blood hemoglobin measurement (mass/volume)Ordered By: Dr. Deutsch on 08-02-2022 Hemoglobin (Bld) [Mass/Vol] 14.3 g/dL 12.0-15.0 [facility] Blood lymphocytes/100 leukoc ytesOrdered By: Dr. Deutsch on 08-02-2022 Lymphocytes/100 WBC (Bld) 31.0 % 19-41 [facility] Blood monocytes/100 leukocyt esOrdered By: Dr. Deutsch on 08-02-2022 Monocytes/100 WBC (Bld) 7.3 % 0-10 [facility] Blood platelet mean volumeOr dered By: Dr. Deutsch on 08-02-2022 Platelet mean volume (Bld) [Entitic vol] 10.7 fL 6.2-12.0 [facility] Determination of erythrocyte mean corpuscular volume (MCV)Ordered By: Dr. Deutsch on 08-02-2022 MCV (RBC) [Entitic vol] 94.3 fL 81-99 [facility] Hematocrit Auto (Bld) [Volum e fraction]Ordered By: Dr. Deutsch on 08-02-2022 Hematocrit (Bld) [Volume fraction] 42.9 % 37-47 [facility] Laboratory - Chemistry and C hemistry - challengeOrdered By: Dr. Deutsch on 08-02-2022 ALP [Catalytic activity/Vol] 69 U/L 45-117 [facility] ALT [Catalytic activity/Vol] 32 U/L 13-56 [facility] CO2 [Moles/Vol] 25.0 mmol/L 21.0-32.0 [facility] Globulin (S) [Mass/Vol] 3.5 g/dL 2.2-4.2 [facility] Urea nitrogen/Creatinine [Mass ratio] 22.2 mg/mg 10-20 [facility] Laboratory - Hematology and Cell countsOrdered By: Dr. Deutsch on 08-02-2022 Erythrocyte distribution width (RBC) [Entitic vol] 43.2 fL 35.1-43.9 [facility] Erythrocyte distribution width (RBC) [Ratio] 12.5 % 11.6-14.6 [facility] Immature granulocytes/100 WBC (Bld) 0.200 % 0.0-0.9 [facility] Comment on above: IG% - Immature Granu locytes (promyelocytes, myelocytes and metamyelocytes) > 1% indicates that a LEFT SHIFT is Present. MCH (RBC) [Entitic mass] 31.4 pg 27.0-32.0 [facility] Nucleated RBC/100 WBC (Bld) [Ratio] 0 % 0-5 [facility] MCHC Auto (RBC) [Mass/Vol]Or dered By: Dr. Deutsch on 08-02-2022 MCHC (RBC) [Mass/Vol] 33.3 g/dL 32-36 [facility] No Panel InformationOrdered By: Dr. Deutsch on 08-02-2022 Estimated GFR (MDRD) Amer 96 mL/min >60 [facility] Comment on above: GFR Calc Estimated GFR (MDRD) Non-Af Amer 79 mL/min >60 [facility] Comment on above: Non- GFR Calc Platelets bldOrdered By: Dr. Deutsch on 08-02-2022 Platelets (Bld) [#/Vol] 234 10*3/uL 150-450 [facility] Serum or plasma albumin albert urement (mass/volume)Ordered By: Dr. Deutsch on 08-02-2022 Albumin [Mass/Vol] 3.4 g/dL 3.2-5.0 [facility] Serum or plasma albumin/glob ulin mass ratioOrdered By: Dr. Deutsch on 08-02-2022 Albumin/Globulin [Mass ratio] 1.0 {ratio} 0.9-2.4 [facility] Serum or plasma calcium albert urement (mass/volume)Ordered By: Dr. Deutsch on 08-02-2022 Calcium [Mass/Vol] 8.8 mg/dL 8.5-10.1 [facility] Serum or plasma creatinine m easurement (mass/volume)Ordered By: Dr. Deutsch on 08-02-2022 Creatinine [Mass/Vol] 0.77 mg/dL 0.55-1.02 [facility] Comment on above: The validity of the calculated GFR & GFRAA in patients over 70 years has not been determined. Clinical correlation is essential. Serum or plasma urea nitroge n measurement (mass/volume)Ordered By: Dr. Deutsch on 08-02-2022 Urea nitrogen [Mass/Vol] 17 mg/dL 7-18 [facility] Thin prep Papanicolaou smear with manual screeningOrdered By: Dr. Deutsch on 08-02-2022 Thin prep Papanicolaou smear with manual screening 19 U/L 15-37 [facility] Thin prep Papanicolaou smear with manual screening 7 5-15 [facility] No Panel Informationon 05-10 IMPRESSION: No acute fracture or dislocation [employer]: [employer] Transcribe Date/Time: May 10 2022 8:43A Dictated by : GINO AZUL MD This examination was interpreted and the report reviewed and electronically signed by: GINO AZUL MD on May 10 2022 8:45AM EST DIVISION OF RADIOLOGY No Panel InformationOrdered By: [facility] Provider on 05-10-2022 [facility] XR Ankle - right AP and Late ral and obliqueon 05-10-2022 * * *Final Report* * * DATE OF EXAM: May 07 2022 11:27AM WOX 5297 - XR ANKLE 3V AP/LAT/OBL RT / PROCEDURE REASON: Acute right ankle pain * * * * Physician Interpretation * * * * EXAMINATION: XR FOOT 3V AP/LAT/OBL RT, XR ANKLE 3V AP/LAT/OBL RT CLINICAL HISTORY: Right ankle and right foot pain Technique: XR FOOT 3V AP/LAT/OBL RT, XR ANKLE 3V AP/LAT/OBL RT -- RIGHT with 3 views on 3 images Comparison: None RESULT: No acute fracture or dislocation. Ankle mortise is maintained. Mild right first metatarsophalangeal joint space narrowing. No periarticular erosions. DIVISION OF RADIOLOGY Provider, [facility] - 05/10/2022 * * *Final Report* * * DATE OF EXAM: May 07 2022 11:27AM WOX 5297 - XR ANKLE 3V AP/LAT/OBL RT / PROCEDURE REASON: Acute right ankle pain * * * * Physician Interpretation * * * * EXAMINATION: XR FOOT 3V AP/LAT/OBL RT, XR ANKLE 3V AP/LAT/OBL RT CLINICAL HISTORY: Right ankle and right foot pain Technique: XR FOOT 3V AP/LAT/OBL RT, XR ANKLE 3V AP/LAT/OBL RT -- RIGHT with 3 views on 3 images Comparison: None RESULT: No acute fracture or dislocation. Ankle mortise is maintained. Mild right first metatarsophalangeal joint space narrowing. No periarticular erosions. 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: [employer] Transcribe Date/Time: May 10 2022 8:43A Dictated by : GINO AZUL MD This examination was interpreted and the report reviewed and electronically signed by: GINO AZUL MD on May 10 2022 8:45AM EST [facility] XR Foot - right AP and Later al and obliqueon 05-10-2022 * * *Final Report* * * DATE OF EXAM: May 07 2022 11:27AM WOX [id number] - XR FOOT 3V AP/LAT/OBL RT / PROCEDURE REASON: Pain in right foot * * * * Physician Interpretation * * * * EXAMINATION: XR FOOT 3V AP/LAT/OBL RT, XR ANKLE 3V AP/LAT/OBL RT CLINICAL HISTORY: Right ankle and right foot pain Technique: XR FOOT 3V AP/LAT/OBL RT, XR ANKLE 3V AP/LAT/OBL RT -- RIGHT with 3 views on 3 images Comparison: None RESULT: No acute fracture or dislocation. Ankle mortise is maintained. Mild right first metatarsophalangeal joint space narrowing. No periarticular erosions. DIVISION OF RADIOLOGY Provider, [facility] - 05/10/2022 * * *Final Report* * * DATE OF EXAM: May 07 2022 11:27AM WOX 5337 - XR FOOT 3V AP/LAT/OBL RT / PROCEDURE REASON: Pain in right foot * * * * Physician Interpretation * * * * EXAMINATION: XR FOOT 3V AP/LAT/OBL RT, XR ANKLE 3V AP/LAT/OBL RT CLINICAL HISTORY: Right ankle and right foot pain Technique: XR FOOT 3V AP/LAT/OBL RT, XR ANKLE 3V AP/LAT/OBL RT -- RIGHT with 3 views on 3 images Comparison: None RESULT: No acute fracture or dislocation. Ankle mortise is maintained. Mild right first metatarsophalangeal joint space narrowing. No periarticular erosions. 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: [facility] Transcribe Date/Time: May 10 2022 8:43A Dictated by : GINO AZUL MD This examination was interpreted and the report reviewed and electronically signed by: GINO AZUL MD on May 10 2022 8:45AM EST [facility] No Panel Informationon 05-07 Radiology Study observation (narrative) [facility] Absolute lymphocyte counton 04-14-2022 Lymphocytes Auto (Unsp spec) [#/Vol] 2.67 10*3/uL 0.83-4.51 [facility] Work Phone: Basophil percentageon 2021 Basophils/100 WBC (Bld) 0.6 % 0-1 [facility] Work Phone: Bilirubin [Mass/Vol] 0.40 mg/dL 0.20-1.00 [facility] Work Phone: Comment on above: For patients on eltr ombopag therapy, use of Dimension [place]koff TBIL is not recommended. Chloride [Moles/Vol] 107 mmol/L 98-107 [facility] Work Phone: Eosinophils/100 WBC (Bld) 1.8 % 0-5 [facility] Work Phone: Glucose [Mass/Vol] 96 mg/dL 74-106 [facility] Work Phone: Neutrophils (Bld) [#/Vol] 5.5 10*3/uL 2.0-7.7 [facility] Work Phone: Neutrophils/100 WBC (Bld) 61.3 % 47-70 [facility] Work Phone: Potassium [Moles/Vol] 3.2 mmol/L 3.5-5.1 [facility] Work Phone: Protein [Mass/Vol] 7.0 g/dL 6.4-8.2 [facility] Work Phone: Sodium [Moles/Vol] 143 mmol/L 136-145 [facility] Work Phone: WBC (Bld) [#/Vol] 8.9 10*3/uL 4.4-11.0 [facility] Work Phone: Blood erythrocytes count (nu mber/volume)on 04-14-2022 RBC (Bld) [#/Vol] 4.52 10*6/uL 4.2-5.4 [facility] Work Phone: Blood hemoglobin measurement (mass/volume)on 04-14-2022 Hemoglobin (Bld) [Mass/Vol] 14.1 g/dL 12.0-15.0 [facility] Work Phone: Blood lymphocytes/100 leukoc yteson 04-14-2022 Lymphocytes/100 WBC (Bld) 30.0 % 19-41 [facility] Work Phone: Blood monocytes/100 leukocyt eson 04-14-2022 Monocytes/100 WBC (Bld) 6.1 % 0-10 [facility] Work Phone: Blood platelet mean volumeon 04-14-2022 Platelet mean volume (Bld) [Entitic vol] 11.3 fL 6.2-12.0 [facility] Work Phone: Determination of erythrocyte mean corpuscular volume (MCV)on 04-14-2022 MCV (RBC) [Entitic vol] 95.6 fL 81-99 [facility] Work Phone: Hematocrit Auto (Bld) [Volum e fraction]on 04-14-2022 Hematocrit (Bld) [Volume fraction] 43.2 % 37-47 [facility] Work Phone: Laboratory - Chemistry and C hemistry - challengeon 04-14-2022 ALP [Catalytic activity/Vol] 74 U/L 45-117 [facility] Work Phone: ALT [Catalytic activity/Vol] 36 U/L 13-56 [facility] Work Phone: CO2 [Moles/Vol] 29.0 mmol/L 21.0-32.0 [facility] Work Phone: Globulin (S) [Mass/Vol] 3.4 g/dL 2.2-4.2 [facility] Work Phone: Urea nitrogen/Creatinine [Mass ratio] 30.5 mg/mg 10-20 [facility] Work Phone: Laboratory - Hematology and Cell countson 04-14-2022 Erythrocyte distribution width (RBC) [Entitic vol] 47.4 fL 35.1-43.9 [facility] Work Phone: Erythrocyte distribution width (RBC) [Ratio] 13.6 % 11.6-14.6 [facility] Work Phone: Immature granulocytes/100 WBC (Bld) 0.200 % 0.0-0.9 [facility] Work Phone: Comment on above: IG% - Immature Granu locytes (promyelocytes, myelocytes and metamyelocytes) > 1% indicates that a LEFT SHIFT is Present. MCH (RBC) [Entitic mass] 31.2 pg 27.0-32.0 [facility] Work Phone: Nucleated RBC/100 WBC (Bld) [Ratio] 0 % 0-5 [facility] Work Phone: [phone] MCHC Auto (RBC) [Mass/Vol]on 04-14-2022 MCHC (RBC) [Mass/Vol] 32.6 g/dL 32-36 [facility] Work Phone: No Panel Informationon 04-14 Estimated GFR (MDRD) Amer 93 mL/min >60 [facility] Work Phone: Comment on above: GFR Calc Estimated GFR (MDRD) Non-Af Amer 77 mL/min >60 [facility] Work Phone: [phone] Comment on above: Non- GFR Calc Platelets bldon 04-14-2022 Platelets (Bld) [#/Vol] 258 10*3/uL 150-450 [facility] Work Phone: [phone] Serum or plasma albumin albert urement (mass/volume)on 04-14-2022 Albumin [Mass/Vol] 3.6 g/dL 3.2-5.0 [facility] Work Phone: [phone] Serum or plasma albumin/glob ulin mass ratioon 04-14-2022 Albumin/Globulin [Mass ratio] 1.1 {ratio} 0.9-2.4 [facility] Work Phone: [phone] Serum or plasma calcium albert urement (mass/volume)on 04-14-2022 Calcium [Mass/Vol] 9.0 mg/dL 8.5-10.1 [facility] Work Phone: [phone] Serum or plasma creatinine m easurement (mass/volume)on 04-14-2022 Creatinine [Mass/Vol] 0.79 mg/dL 0.55-1.02 [facility] Work Phone: Comment on above: The validity of the calculated GFR & GFRAA in patients over 70 years has not been determined. Clinical correlation is essential. Serum or plasma urea nitroge n measurement (mass/volume)on 04-14-2022 Urea nitrogen [Mass/Vol] 24 mg/dL 7-18 [facility] Work Phone: Thin prep Papanicolaou smear with manual screeningon 04-14-2022 Thin prep Papanicolaou smear with manual screening 16 U/L 15-37 [facility] Work Phone: Thin prep Papanicolaou smear with manual screening 7 5-15 [facility] Work Phone: Absolute lymphocyte counton 01-25-2022 Lymphocytes Auto (Unsp spec) [#/Vol] 2.03 10*3/uL 0.83-4.51 [facility] Work Phone: Basophil percentageon 2021 Basophils/100 WBC (Bld) 0.5 % 0-1 [facility] Work Phone: Bilirubin [Mass/Vol] 0.40 mg/dL 0.20-1.00 [facility] Work Phone: Comment on above: For patients on eltr ombopag therapy, use of Dimension Wykoff TBIL is not recommended. Chloride [Moles/Vol] 108 mmol/L 98-107 [facility] Work Phone: Eosinophils/100 WBC (Bld) 2.4 % 0-5 [facility] [facility] Work Phone: Glucose [Mass/Vol] 132 mg/dL 74-106 [facility] Work Phone: Comment on above: Fasting Glucose resu lt greater than or equal to 126 mg/dL suggests DIABETES MELLITUS per A.D.A. criteria. Neutrophils (Bld) [#/Vol] 3.9 10*3/uL 2.0-7.7 [facility] Work Phone: Neutrophils/100 WBC (Bld) 59.0 % 47-70 [facility] Work Phone: [phone] Potassium [Moles/Vol] 4.3 mmol/L 3.5-5.1 [facility] [place], [place] Work Phone: [phone] Protein [Mass/Vol] 7.3 g/dL 6.4-8.2 [facility] Work Phone: [phone] Sodium [Moles/Vol] 140 mmol/L 136-145 [facility] [place], [place] Work Phone: [phone] WBC (Bld) [#/Vol] 6.6 10*3/uL 4.4-11.0 [facility] [place] [place] Work Phone: [phone] Blood erythrocytes count (nu mber/volume)on 01-25-2022 RBC (Bld) [#/Vol] 4.68 10*6/uL 4.2-5.4 [facility] [phone] Blood hemoglobin measurement (mass/volume)on 01-25-2022 Hemoglobin (Bld) [Mass/Vol] 14.5 g/dL 12.0-15.0 [facility] Work Phone: [phone] Blood lymphocytes/100 leukoc yteson 01-25-2022 Lymphocytes/100 WBC (Bld) 30.9 % 19-41 [facility] Work Phone: [phone] Blood monocytes/100 leukocyt eson 01-25-2022 Monocytes/100 WBC (Bld) 7.0 % 0-10 [facility] Work Phone: [phone] Blood platelet mean volumeon 01-25-2022 Platelet mean volume (Bld) [Entitic vol] 11.2 fL 6.2-12.0 [facility] Work Phone: [phone] Determination of erythrocyte mean corpuscular volume (MCV)on 01-25-2022 MCV (RBC) [Entitic vol] 94.7 fL 81-99 [facility] Work Phone: Hematocrit Auto (Bld) [Volum e fraction]on 01-25-2022 Hematocrit (Bld) [Volume fraction] 44.3 % 37-47 [facility] Work Phone: Laboratory - Chemistry and C hemistry - challengeon 01-25-2022 ALP [Catalytic activity/Vol] 60 U/L 45-117 [facility] Work Phone: [phone] ALT [Catalytic activity/Vol] 42 U/L 13-56 [facility] Work Phone: [phone] CO2 [Moles/Vol] 26.0 mmol/L 21.0-32.0 [facility] Work Phone: [phone] Globulin (S) [Mass/Vol] 3.5 g/dL 2.2-4.2 [facility] Work Phone: [phone] Urea nitrogen/Creatinine [Mass ratio] 24.0 mg/mg 10-20 [facility] Work Phone: [phone] Laboratory - Hematology and Cell countson 01-25-2022 Erythrocyte distribution width (RBC) [Entitic vol] 43.0 fL 35.1-43.9 [facility] Work Phone: [phone] Erythrocyte distribution width (RBC) [Ratio] 12.6 % 11.6-14.6 [facility] Work Phone: [phone] Immature granulocytes/100 WBC (Bld) 0.200 % 0.0-0.9 [facility] Work Phone: [phone] Comment on above: IG% - Immature Granu locytes (promyelocytes, myelocytes and metamyelocytes) > 1% indicates that a LEFT SHIFT is Present. MCH (RBC) [Entitic mass] 31.0 pg 27.0-32.0 [facility] Work Phone: [phone] Nucleated RBC/100 WBC (Bld) [Ratio] 0 % 0-5 [facility] Work Phone: [phone] MCHC Auto (RBC) [Mass/Vol]on 01-25-2022 MCHC (RBC) [Mass/Vol] 32.7 g/dL 32-36 [facility] Work Phone: [phone] Panel Informationon 01-25 Estimated GFR (MDRD) Amer 92 mL/min >60 [facility] Work Phone: [phone] Comment on above: GFR Calc Estimated GFR (MDRD) Non-Af Amer 76 mL/min >60 [facility] Work Phone: [phone] Comment on above: Non- GFR Calc Platelets bldon 01-25-2022 Platelets (Bld) [#/Vol] 244 10*3/uL 150-450 [facility] Work Phone: [phone] Serum or plasma albumin albert urement (mass/volume)on 01-25-2022 Albumin [Mass/Vol] 3.8 g/dL 3.2-5.0 [facility] Work Phone: [phone] Serum or plasma albumin/glob ulin mass ratioon 01-25-2022 Albumin/Globulin [Mass ratio] 1.1 {ratio} 0.9-2.4 [facility] Work Phone: [phone] Serum or plasma calcium albert urement (mass/volume)on 01-25-2022 Calcium [Mass/Vol] 9.4 mg/dL 8.5-10.1 [facility] Work Phone: [phone] Serum or plasma creatinine m easurement (mass/volume)on 01-25-2022 Creatinine [Mass/Vol] 0.79 mg/dL 0.55-1.02 [facility] Work Phone: [phone] Comment on above: The validity of the calculated GFR & GFRAA in patients over 70 years has not been determined. Clinical correlation is essential. Serum or plasma urea nitroge n measurement (mass/volume)on 01-25-2022 Urea nitrogen [Mass/Vol] 19 mg/dL -18 [facility] Work Phone: [phone] Thin prep Papanicolaou smear with manual screeningon 01-25-2022 Thin prep Papanicolaou smear with manual screening 22 U/L 15-37 [facility] Work Phone: [phone] Thin prep Papanicolaou smear with manual screening 6 5-15 [facility] Work Phone: Basophil percentageon 2021 Bilirubin [Mass/Vol] 0.40 mg/dL 0.20-1.00 [facility] Work Phone: Comment on above: For patients on eltr ombopag therapy, use of Dimension [place] TBIL is not recommended. Chloride [Moles/Vol] 105 mmol/L 98-107 [facility] Work Phone: Glucose [Mass/Vol] 131 mg/dL 74-106 [facility] Work Phone: Comment on above: Fasting Glucose resu lt greater than or equal to 126 mg/dL suggests DIABETES MELLITUS per A.D.A. criteria. Potassium [Moles/Vol] 3.7 mmol/L 3.5-5.1 [facility] Work Phone: Protein [Mass/Vol] 7.3 g/dL 6.4-8.2 [facility] Work Phone: Sodium [Moles/Vol] 141 mmol/L 136-145 [facility] Work Phone: Laboratory - Chemistry and C hemistry - challengeon 01-04-2022 ALP [Catalytic activity/Vol] 65 U/L 45-117 [facility] Work Phone: ALT [Catalytic activity/Vol] 36 U/L 13-56 [facility] Work Phone: CO2 [Moles/Vol] 29.0 mmol/L 21.0-32.0 [facility] Work Phone: Globulin (S) [Mass/Vol] 3.8 g/dL 2.2-4.2 [facility] Work Phone: Urea nitrogen/Creatinine [Mass ratio] 21.3 mg/mg 10-20 [facility] Work Phone: No Panel Informationon 01-04 Estimated GFR (MDRD) Amer 115 mL/min >60 [facility] Work Phone: Comment on above: GFR Calc Estimated GFR (MDRD) Non-Af Amer 95 mL/min >60 [facility] Work Phone: Comment on above: Non- GFR Calc Serum or plasma albumin albert urement (mass/volume)on 01-04-2022 Albumin [Mass/Vol] 3.5 g/dL 3.2-5.0 [facility] Work Phone: [phone] Serum or plasma albumin/glob ulin mass ratioon 01-04-2022 Albumin/Globulin [Mass ratio] 0.9 {ratio} 0.9-2.4 [facility] Work Phone: [phone] Serum or plasma calcium albert urement (mass/volume)on 01-04-2022 Calcium [Mass/Vol] 9.2 mg/dL 8.5-10.1 [facility] Work Phone: [phone] Serum or plasma creatinine m easurement (mass/volume)on 01-04-2022 Creatinine [Mass/Vol] 0.66 mg/dL 0.55-1.02 [facility] Work Phone: Comment on above: The validity of the calculated GFR & GFRAA in patients over 70 years has not been determined. Clinical correlation is essential. Serum or plasma urea nitroge n measurement (mass/volume)on 01-04-2022 Urea nitrogen [Mass/Vol] 14 mg/dL 7-18 [facility] Work Phone: [phone] Thin prep Papanicolaou smear with manual screeningon 01-04-2022 Thin prep Papanicolaou smear with manual screening 17 U/L 15-37 [facility] Work Phone: [phone] Thin prep Papanicolaou smear with manual screening 7 5-15 [facility] Work Phone: [phone] Absolute lymphocyte counton 09-01-2021 Lymphocytes Auto (Unsp spec) [#/Vol] 2.16 10*3/uL 0.83-4.51 [facility] Work Phone: [phone] Basophil percentageon 2021 Basophils/100 WBC (Bld) 0.5 % 0-1 [facility] Work Phone: [phone] Bilirubin [Mass/Vol] 0.50 mg/dL 0.20-1.00 [facility] Work Phone: [phone] Comment on above: For patients on eltr ombopag therapy, use of Dimension [place] TBIL is not recommended. Chloride [Moles/Vol] 107 mmol/L 98-107 [facility] Work Phone: Eosinophils/100 WBC (Bld) 2.3 % 0-5 [facility] Work Phone: Glucose [Mass/Vol] 119 mg/dL 74-106 [facility] Work Phone: Comment on above: Fasting Glucose resu lt from 100 to 125 mg/dL suggests IMPAIRED HOMEOSTASIS per A.D.A. criteria. Neutrophils (Bld) [#/Vol] 3.8 10*3/uL 2.0-7.7 [facility] Work Phone: Neutrophils/100 WBC (Bld) 57.7 % 47-70 [facility] Work Phone: Potassium [Moles/Vol] 3.9 mmol/L 3.5-5.1 [facility] Work Phone: Protein [Mass/Vol] 7.1 g/dL 6.4-8.2 [facility] Work Phone: Sodium [Moles/Vol] 140 mmol/L 136-145 [facility] Work Phone: WBC (Bld) [#/Vol] 6.6 10*3/uL 4.4-11.0 [facility] Work Phone: Blood erythrocytes count (nu mber/volume)on 09-01-2021 RBC (Bld) [#/Vol] 4.60 10*6/uL 4.2-5.4 [facility] Work Phone: Blood hemoglobin measurement (mass/volume)on 09-01-2021 Hemoglobin (Bld) [Mass/Vol] 14.2 g/dL 12.0-15.0 [facility] Work Phone: Blood lymphocytes/100 leukoc yteson 09-01-2021 Lymphocytes/100 WBC (Bld) 32.6 % 19-41 [facility] Work Phone: Blood monocytes/100 leukocyt eson 09-01-2021 Monocytes/100 WBC (Bld) 6.6 % 0-10 [facility] Work Phone: [phone] Blood platelet mean volumeon 09-01-2021 Platelet mean volume (Bld) [Entitic vol] 11.3 fL 6.2-12.0 [facility] Work Phone: [phone] Determination of erythrocyte mean corpuscular volume (MCV)on 09-01-2021 MCV (RBC) [Entitic vol] 94.1 fL 81-99 [facility] Work Phone: [phone] Hematocrit Auto (Bld) [Volum e fraction]on 09-01-2021 Hematocrit (Bld) [Volume fraction] 43.3 % 37-47 [facility] Work Phone: [phone] Laboratory - Chemistry and C hemistry - challengeon 09-01-2021 ALP [Catalytic activity/Vol] 70 U/L 45-117 [facility] Work Phone: [phone] ALT [Catalytic activity/Vol] 54 U/L 13-56 [facility] Work Phone: [phone] CO2 [Moles/Vol] 25.0 mmol/L 21.0-32.0 [facility] Work Phone: [phone] Globulin (S) [Mass/Vol] 3.5 g/dL 2.2-4.2 [facility] Work Phone: [phone] Urea nitrogen/Creatinine [Mass ratio] 30.0 mg/mg 10-20 [facility] Work Phone: [phone] Laboratory - Hematology and Cell countson 09-01-2021 Erythrocyte distribution width (RBC) [Entitic vol] 46.2 fL 35.1-43.9 [facility] Work Phone: [phone] Erythrocyte distribution width (RBC) [Ratio] 13.3 % 11.6-14.6 [facility] Work Phone: [phone] Immature granulocytes/100 WBC (Bld) 0.300 % 0.0-0.9 [facility] Work Phone: [phone] Comment on above: IG% - Immature Granu locytes (promyelocytes, myelocytes and metamyelocytes) > 1% indicates that a LEFT SHIFT is Present. MCH (RBC) [Entitic mass] 30.9 pg 27.0-32.0 [facility] Work Phone: [phone] Nucleated RBC/100 WBC (Bld) [Ratio] 0 % 0-5 [facility] Work Phone: [phone] MCHC Auto (RBC) [Mass/Vol]on 09-01-2021 MCHC (RBC) [Mass/Vol] 32.8 g/dL 32-36 [facility] Work Phone: No Panel Informationon 09-01 Estimated GFR (MDRD) Amer 120 mL/min >60 [facility] Work Phone: Comment on above: GFR Calc Estimated GFR (MDRD) Non-Af Amer 99 mL/min >60 [facility] Work Phone: Comment on above: Non- GFR Calc Platelets bldon 09-01-2021 Platelets (Bld) [#/Vol] 253 10*3/uL 150-450 [facility] Work Phone: [phone] Serum or plasma albumin albert urement (mass/volume)on 09-01-2021 Albumin [Mass/Vol] 3.6 g/dL 3.2-5.0 [facility] Work Phone: [phone] Serum or plasma albumin/glob ulin mass ratioon 09-01-2021 Albumin/Globulin [Mass ratio] 1.0 {ratio} 0.9-2.4 [facility] Work Phone: [phone] Serum or plasma calcium albert urement (mass/volume)on 09-01-2021 Calcium [Mass/Vol] 10.0 mg/dL 8.5-10.1 [facility] Work Phone: [phone] Serum or plasma creatinine m easurement (mass/volume)on 09-01-2021 Creatinine [Mass/Vol] 0.63 mg/dL 0.55-1.02 [facility] Work Phone: [phone] Comment on above: The validity of the calculated GFR & GFRAA in patients over 70 years has not been determined. Clinical correlation is essential. Serum or plasma urea nitroge n measurement (mass/volume)on 09-01-2021 Urea nitrogen [Mass/Vol] 19 mg/dL 7-18 [facility] Work Phone: Thin prep Papanicolaou smear with manual screeningon 09-01-2021 Thin prep Papanicolaou smear with manual screening 27 U/L 15-37 [facility] Work Phone: Thin prep Papanicolaou smear with manual screening 8 5-15 [facility] Work Phone: XR Knee - left 4 Viewson * * *Final Report* * * DATE OF EXAM: Jan 30 2021 12:04PM WOX 5202 - XR KNEE 4V AP/PA BOTH+LAT/NADYA LT / PROCEDURE REASON: Acute pain of left knee * * * * Physician Interpretation * * * * Indication: Left knee pain Comparison: None AP, PA, lateral and merchant views of the left knee are obtained. AP, PA and merchant views of the right knee are included. There is no acute fracture or dislocation. There is bilateral medial compartment joint space narrowing. Impression: 1. No acute fracture or dislocation. Criminal Investigator Customs: [facility] Transcribe Date/Time: Jan 30 2021 12:08P Dictated by : GINO AUZL MD This examination was interpreted and the report reviewed and electronically signed by: GINO AZUL MD on Jan 30 2021 12:10PM [facility] DIV[facility] OF RADIOLOGY Provider, [facility] - 01/30/2021 * * *Final Report* * * DATE OF EXAM: Jan 30 2021 12:04PM WOX 5202 - XR KNEE 4V AP/PA BOTH+LAT/NADYA LT / PROCEDURE REASON: Acute pain of left knee * * * * Physician Interpretation * * * * Indication: Left knee pain Comparison: None AP, PA, lateral and merchant views of the left knee are obtained. AP, PA and merchant views of the right knee are included. There is no acute fracture or dislocation. There is bilateral medial compartment joint space narrowing. Impression: 1. No acute fracture or dislocation. Criminal Investigator Customs: [facility] Transcribe Date/Time: Jan 30 2021 12:08P Dictated by : GINO AZUL MD This examination was interpreted and the report reviewed and electronically signed by: GINO AZUL MD on Jan 30 2021 12:10PM EST [facility] Radiology Study observation (narrative) [facility] Knee - left 4 ViewsOrdere d By: [facility] Provider on 01-30-2021 [facility] Large Joint Arthro/Inj: L kn ee joint [facility] Vital Signs Date Time Vital Sign Value Performing Clinician Faci lity 02-11-2025 14:41-0400 Diastolic blood pressure 80 mm[Hg] Mino Barcenas MD Work Phone: [facility] 02-11-2025 14:41-0400 Systolic blood pressure 138 mm[Hg] Mino Barcenas MD Work Phone: [facility] 02-11-2025 13:21-0400 Body mass index (BMI) [Ratio] 41.25 kg/m2 Mino Barcenas MD Work Phone: [facility] 02-11-2025 13:21-0400 Body weight 109 kg Mino Barcenas MD Work Phone: [facility] 02-11-2025 13:21-0400 Heart rate 79 /min Mino Barcenas MD Work Phone: [facility] 02-11-2025 13:21-0400 SaO2% (BldA) [Mass fraction] 97 % Mino Barcenas MD Work Phone: [facility] 01-14-2025 12:52-0400 Diastolic blood pressure 88 mm[Hg] Angi Marsha NONDESTRUCTIVE TESTER.SAMPLE STEAMER Work Phone: [facility] 01-14-2025 12:52-0400 Systolic blood pressure 146 mm[Hg] Angi Marsha NONDESTRUCTIVE TESTER.SAMPLE STEAMER Work Phone: [facility] 01-14-2025 12:34-0400 Heart rate 72 /min Angi Marsha NONDESTRUCTIVE TESTER.SAMPLE STEAMER Work Phone: [facility] 01-14-2025 12:31-0400 Body mass index (BMI) [Ratio] 41.13 kg/m2 [facility] NONDESTRUCTIVE TESTER.SAMPLE STEAMER Work Phone: [facility] 01-14-2025 12:31-0400 Body weight 108.7 kg [facility] NONDESTRUCTIVE TESTER.SAMPLE STEAMER Work Phone: [facility] 01-14-2025 12:31-0400 Respiratory rate 16 /min [facility] NONDESTRUCTIVE TESTER.SAMPLE STEAMER Work Phone: [facility] 01-10-2025 15:14-0400 Body temperature 97.5 [degF] Dr. Mino Barcenas MD Work Phone: [phone] [place] [address] 01-10-2025 15:14-0400 Diastolic blood pressure 84 mm[Hg] Dr. Mino Barcenas MD Work Phone: [phone] [place] [address] 01-10-2025 15:14-0400 Heart rate 91 /min Dr. Mino Barcenas MD Work Phone: [phone] [place] [address] 01-10-2025 15:14-0400 Respiratory rate 16 /min Dr. Mino Barcenas MD Work Phone: [phone] [place] [address] 01-10-2025 15:14-0400 SaO2% (BldA) [Mass fraction] 99 % Dr. Mino Barcenas MD Work Phone: [phone] [place] [address] 01-10-2025 15:14-0400 Systolic blood pressure 168 mm[Hg] Dr. Mino Barcenas MD Work Phone: [phone] [place] [address] 01-10-2025 13:41-0400 Body height 162.[address] Mino Barcenas MD Work Phone: [phone] [place] [address] 01-10-2025 13:41-0400 Body mass index (BMI) [Ratio] 41.1 kg/m2 Dr. Mino Barcenas MD Work Phone: [phone] [place] [address] 01-10-2025 13:41-0400 Body weight 108.[address] Mino Barcenas MD Work Phone: [facility] 08-06-2024 13:38-0500 Diastolic blood pressure 78 mm[Hg] Mino Barcenas MD Work Phone: [facility] 08-06-2024 13:38-0500 Systolic blood pressure 132 mm[Hg] Mino Barcenas MD Work Phone: [facility] 08-06-2024 12:56-0500 Body mass index (BMI) [Ratio] 41.54 kg/m2 Mino Barcenas MD Work Phone: [facility] 08-06-2024 12:56-0500 Body temperature 98.71 [degF] Mino Barcenas MD Work Phone: [facility] 08-06-2024 12:56-0500 Body weight 109.77 kg Mino Barcenas MD Work Phone: [facility] 08-06-2024 12:56-0500 Heart rate 84 /min Mino Barcenas MD Work Phone: [facility] 08-06-2024 12:56-0500 Respiratory rate 18 /min Mino Barcenas MD Work Phone: [facility] 08-06-2024 12:56-0500 SaO2% (BldA) [Mass fraction] 96 % Mino Barcenas MD Work Phone: [facility] 06-27-2024 11:20-0500 Body height 162.[address] Mino Barcenas MD Work Phone: [facility] 06-27-2024 11:20-0500 Diastolic blood pressure 88 mm[Hg] Dr. Mino Barcenas MD Work Phone: [facility] 06-27-2024 11:20-0500 Systolic blood pressure 166 mm[Hg] Dr. Mino Barcenas MD Work Phone: [facility] 01-14-2024 12:04-0400 Body mass index (BMI) [Ratio] 41.89 kg/m2 Lobo Quevedo APRN.SAMPLE STEAMER Work Phone: [facility] 01-14-2024 12:04-0400 Body temperature 97.81 [degF] Lobo Quevedo APRN.SAMPLE STEAMER Work Phone: [facility] 01-14-2024 12:04-0400 Body weight 110.7 kg Lobo Quevedo APRN.SAMPLE STEAM[employer] Work Phone: [facility] 01-14-2024 12:04-0400 Diastolic blood pressure 80 mm[Hg] Lobo Quevedo APRN.SAMPLE STEAMER Work Phone: [facility] 01-14-2024 12:04-0400 Heart rate 73 /min Lobo Quevedo APRN.SAMPLE STEAMER Work Phone: [facility] 01-14-2024 12:04-0400 Respiratory rate 18 /min Lobo Quevedo APRN.SAMPLE STEAMER Work Phone: [facility] 01-14-2024 12:04-0400 SaO2% (BldA) [Mass fraction] 99 % Lobo Quevedo APRN.SAMPLE STEAMER Work Phone: [facility] 01-14-2024 12:04-0400 Systolic blood pressure 157 mm[Hg] Loob Quevedo APRN.SAMPLE STEAMER Work Phone: [facility] 12-28-2023 14:45-0400 Body mass index (BMI) [Ratio] 41.37 kg/m2 Mino Barcenas MD Work Phone: [facility] 12-28-2023 14:45-0400 Body temperature 98.6 [degF] Mino Barcenas MD Work Phone: [facility] 12-28-2023 14:45-0400 Body weight 109.32 kg Mino Barcenas MD Work Phone: [facility] 12-28-2023 14:45-0400 Diastolic blood pressure 78 mm[Hg] Mino Barcenas MD Work Phone: [facility] 12-28-2023 14:45-0400 Heart rate 89 /min Mino Barcenas MD Work Phone: [facility] 12-28-2023 14:45-0400 Respiratory rate 18 /min Mino Barcenas MD Work Phone: [facility] 12-28-2023 14:45-0400 SaO2% (BldA) [Mass fraction] 96 % Mino Barcenas MD Work Phone: [facility] 12-28-2023 14:45-0400 Systolic blood pressure 120 mm[Hg] Mino Barcenas MD Work Phone: [facility] 07-22-2023 16:49-0500 Body temperature 96.6 [degF] Mino Barcenas MD Work Phone: [facility] 07-22-2023 16:49-0500 Body weight 109.77 kg Mino Barcenas MD Work Phone: [facility] 07-22-2023 16:49-0500 Diastolic blood pressure 78 mm[Hg] Mino Barcenas MD Work Phone: [facility] 07-22-2023 16:49-0500 Heart rate 82 /min Mino Barcenas MD Work Phone: [facility] 07-22-2023 16:49-0500 Respiratory rate 18 /min Mino Barcenas MD Work Phone: [facility] 07-22-2023 16:49-0500 SaO2% (BldA) [Mass fraction] 97 % Mino Barcenas MD Work Phone: [facility] 07-22-2023 16:49-0500 Systolic blood pressure 132 mm[Hg] Mino Barcenas MD Work Phone: [facility] 01-07-2023 11:04-0400 Body temperature 98.1 [degF] Mino Barcenas MD Work Phone: [facility] 01-07-2023 11:04-0400 Body weight 110.68 kg Mino Barcenas MD Work Phone: [facility] 01-07-2023 11:04-0400 Diastolic blood pressure 68 mm[Hg] Mino Barcenas MD Work Phone: [facility] 01-07-2023 11:04-0400 Heart rate 75 /min Mino Barcenas MD Work Phone: [facility] 01-07-2023 11:04-0400 Respiratory rate 18 /min Mino Barcenas MD Work Phone: [facility] 01-07-2023 11:04-0400 SaO2% (BldA) [Mass fraction] 97 % Mino Barcenas MD Work Phone: [facility] 01-07-2023 11:04-0400 Systolic blood pressure 132 mm[Hg] Mino Barcenas MD Work Phone: [facility] 07-09-2022 11:44-0500 Body temperature 98.1 [degF] Mino Barcenas MD Work Phone: [facility] 07-09-2022 11:44-0500 Body weight 108.86 kg Mino Barcenas MD Work Phone: [facility] 07-09-2022 11:44-0500 Diastolic blood pressure 68 mm[Hg] Mino Barcenas MD Work Phone: [facility] 07-09-2022 11:44-0500 Heart rate 84 /min Mino Barcenas MD Work Phone: [facility] 07-09-2022 11:44-0500 Respiratory rate 18 /min Mino Barcenas MD Work Phone: [facility] 07-09-2022 11:44-0500 SaO2% (BldA) [Mass fraction] 96 % Mino Barcenas MD Work Phone: [facility] 07-09-2022 11:44-0500 Systolic blood pressure 122 mm[Hg] Mino Barcenas MD Work Phone: [facility] 12-11-2021 14:57-0400 Diastolic blood pressure 78 mm[Hg] Mino Barcenas MD Work Phone: [facility] 12-11-2021 14:57-0400 Systolic blood pressure 132 mm[Hg] Mino Barcenas MD Work Phone: [facility] 12-11-2021 13:46-0400 Body weight 108.41 kg Mino Barcenas MD Work Phone: [facility] 12-11-2021 13:46-0400 Heart rate 82 /min Mino Barcenas MD Work Phone: [facility] 08-27-2021 09:24-0500 Body height 162.[address] Mino Barcenas Work Phone: [facility] Work Phone: 08-17-2021 09:16-0500 Body mass index (BMI) [Ratio] 48.3 kg/m2 Dr. Mino Barcenas Work Phone: [facility] Work Phone: 08-17-2021 09:16-0500 Body weight 112.[address] Mino Barcenas Work Phone: [facility] Work Phone: 08-17-2021 09:16-0500 Diastolic blood pressure 88 mm[Hg] Dr. Mino Barcenas Work Phone: [facility] Work Phone: 08-17-2021 09:16-0500 Systolic blood pressure 138 mm[Hg] Dr. Mino Barcenas Work Phone: [facility] Work Phone: Encounters Encounter Date Encounter Type Care Provider Facility Start: 03-05-2025 End: 03-05-2025 ambulatory [facility] [employer] Start: 03-05-2025 End: 03-05-2025 Patient encounter procedure [facility]ca Phan [facility] [place] Comment on above: Population Health Na vigation Outreach ( [facility] [place] [facility] /.) Start: 02-11-2025 End: 02-11-2025 Office outpatient visit 40 minutes Mino Barcenas MD Work Phone: Internal Medicine [place] Comment on above: Type 2 diabetes blanco itus without complication, with long-term current use of insulin (HCC) (Primary Dx); Essential hypertension; Mixed hyperlipidemia; Morbid obesity due to excess calories (HCC); Vitamin D deficiency; Encounter for screening examination for other mental health and behavioral disorders; Screening for depression; Encounter for screening mammogram for breast cancer Start: 02-11-2025 End: 02-11-2025 ambulatory MINO BARCENAS Facility:[facility] Start: 02-04-2025 End: 02-04-2025 ambulatory MINO BARCENAS Facility:[facility] Start: 01-27-2025 End: 01-30-2025 ambulatory Angi Su APRN.[employer] Work Phone: Internal Medicine [place] Comment on above: Hematoma on forehead Start: 01-14-2025 End: 01-14-2025 Office outpatient visit 25 minutes Angi Su APRN.[employer] STE[employer] Work Phone: Internal Medicine [place] Comment on above: Injury of head, init ial encounter (Primary Dx); Traumatic ecchymosis of face, initial encounter; Traumatic hematoma of forehead, initial encounter Start: 01-14-2025 End: 01-14-2025 ambulatory ANGI SU Facility:[facility] Start: 01-10-2025 End: 01-10-2025 Emergency department patient visit Dr. Mino Barcenas MD Work Phone: -Emergency Department Work Phone: Start: 01-10-2025 End: 01-10-2025 Patient encounter procedure Lobo Quevedo APRN.SAMPLE STEAMER Work Phone: [place] [facility] Comment on above: Injury of head, init ial encounter (Primary Dx) Start: 01-10-2025 End: 01-10-2025 ambulatory MINO BARCENAS Facility:[facility] Start: 12-06-2024 End: 12-06-[address] Mino Barcenas MD Work Phone: [facility] Work Phone: Start: 12-06-2024 End: 12-06-[address] Amelia Deutsch MD -Laboratory [place] Work Phone: Start: 12-06-2024 End: 12-06-2024 ambulatory Mino Barcenas Facility:[facility] Start: 10-26-2024 End: 10-26-2024 ambulatory Mino Barcenas MD Work Phone: Internal Medicine [place] Comment on above: Finger Injury Start: 09-13-2024 End: 09-13-[address] Mino Barcenas MD Work Phone: [facility] Work Phone: Start: 09-13-2024 End: 09-13-[address] Amelia Deutsch MD -Laboratory, [place] Work Phone: Start: 09-13-2024 End: 09-13-2024 ambulatory Amelia Deutsch Facility:[facility] Start: 09-08-2024 End: 11-08-2024 Follow-up encounter Candie Llamas Work Phone: Podiatry Start: 09-04-2024 End: 09-04-2024 Subsequent hospital visit by physician [facility] Work Phone: Radiology Comment on above: Neuroma [D36.10] Start: 09-04-2024 End: 09-04-2024 ambulatory CANDIE LLAMAS Facility:[facility] Start: 09-04-2024 End: 09-04-2024 Patient encounter procedure Candie Llamas Work Phone: Podiatry Comment on above: Neuroma (Primary Dx) ; Pain in left foot Start: 08-06-2024 End: 08-06-2024 ambulatory MINO BARCENAS Facility:[facility] Start: 08-06-2024 End: 08-06-2024 Office outpatient visit 25 minutes Mino Barcenas MD Work Phone: Internal Medicine [place] Comment on above: Type 2 diabetes blanco itus without complication, with long-term current use of insulin (HCC) (Primary Dx); Essential hypertension; Mixed hyperlipidemia; Morbid obesity due to excess calories (HCC); Vitamin D deficiency Start: 07-31-2024 End: 07-31-2024 ambulatory MINO BARCENAS Facility:[facility] Start: 07-24-2024 End: 07-24-[address] Mari Souza DC -[facility] Work Phone: Start: 07-24-2024 End: 07-24-2024 ambulatory Mino Barcenas Facility:[facility] Start: 06-27-2024 End: 06-27-[address] Mari Souza DC -[facility] Work Phone: Start: 06-27-2024 End: 06-27-2024 ambulatory Mino Barcenas Facility:[facility] Start: 06-20-2024 End: 06-25-2024 ambulatory Mino Barcenas MD Work Phone: Internal Medicine [place] [id number] Start: 06-20-2024 End: 06-20-[address] 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) Start: 01-14-2024 End: 01-14-2024 Patient encounter procedure Lobo Quevedo APRN.SAMPLE STEAMER Work Phone: [place] [facility] Comment on above: Skin infection (Prim jarek Dx) Start: 12-28-2023 End: 12-28-2023 Office outpatient visit 25 minutes Mino Barcenas MD Work Phone: Internal Medicine [place] Comment on above: Type 2 diabetes blanco itus without complication, with long-term current use of insulin ([facility]) (Primary Dx); Essential hypertension; Morbid obesity due to excess calories (HCC); Mixed hyperlipidemia; Congenital cavus deformity of both feet; Vitamin D deficiency Start: 12-23-2023 ambulatory [email or web address] P T Work Phone: [facility] Comment on above: Orthotics Start: 11-25-2023 End: 11-25-2023 ambulatory Damai.cn PT Work Phone: [facility] Comment on above: Congenital cavus def ormity of both feet (Primary Dx) Start: 11-03-2023 End: 11-03-2023 ambulatory Damai.cn PT Work Phone: [facility] Comment on above: Pes cavus of both fe et; Type 2 diabetes mellitus without complication, with long-term current use of insulin ([facility]); Congenital cavus deformity of both feet Start: 10-28-2023 End: 10-28-2023 Patient encounter procedure Will Armas PA-C Work Phone: Orthopaedics Comment on above: Primary osteoarthrit is of left knee (Primary Dx) Start: 10-28-2023 End: 10-28-2023 Subsequent hospital visit by physician Fahad [facility] Work Phone: Radiology Comment on above: Pain [R52] Start: 10-20-2023 End: 10-20-2023 ambulatory [facility] Work Phone: Start: 10-20-2023 End: 10-20-2023 Patient encounter procedure [facility] Work Phone: Start: 10-14-2023 End: 10-14-2023 Patient encounter procedure Candie Llamas Work Phone: Podiatry Comment on above: Pes cavus of both fe et (Primary Dx); Type 2 diabetes mellitus without complication, with long-term current use of insulin (HCC); Callus of foot; Ingrowing toenail; Diminished pulses in lower extremity Start: 08-08-2023 ambulatory Mino ogden MD Work Phone: Internal Medicine [place] Comment on above: Ozempic Start: 07-22-2023 End: 07-22-2023 Office outpatient visit 25 minutes Mino Barcenas MD Work Phone: Internal Medicine [place] Comment on above: Type 2 diabetes blanco itus without complication, with long-term current use of insulin (HCC) (Primary Dx); Persistent disorder of maintaining sleep; Class 3 severe obesity due to excess calories with body mass index (BMI) of 40.0 to 44.9 in adult, unspecified whether serious comorbidity present (HCC); Essential hypertension; Mixed hyperlipidemia; Encounter for immunization; Seronegative rheumatoid arthritis (HCC) Start: 06-07-2023 ambulatory Mino ogden MD Work Phone: Internal Medicine [place] Comment on above: Ozempic Start: 02-28-2023 Refill Mino ogden MD Work Phone: Internal Medicine [place] Comment on above: Refill Request Start: 02-11-2023 Refill Mino ogden MD Work Phone: Internal Medicine [place] Comment on above: Refill Request Start: 01-17-2023 End: 01-17-2023 ambulatory [facility] Work Phone: Start: 01-17-2023 End: 01-17-2023 Patient encounter procedure [facility] Work Phone: Start: 01-07-2023 End: 01-07-2023 Office outpatient visit 25 minutes Mino Barcenas MD Work Phone: Internal Medicine [place] Comment on above: Type 2 diabetes blanco itus without complication, with long-term current use of insulin (HCC) (Primary Dx); Essential hypertension; Mixed hyperlipidemia; Colon cancer screening; Morbid obesity due to excess calories (HCC); Seronegative rheumatoid arthritis (HCC) Start: 10-28-2022 End: 10-28-2022 ambulatory [facility] Work Phone: Start: 10-28-2022 End: 10-28-2022 Patient encounter procedure [facility] Start: 08-02-2022 End: 08-02-2022 Patient encounter procedure [facility] Start: 07-09-2022 End: 07-09-2022 Office outpatient visit 40 minutes Mino Barcenas MD Work Phone: Internal Medicine [place] Comment on above: Acute laryngitis (Pr imary Dx); Type 2 diabetes mellitus without complication, with long-term current use of insulin ([facility]); Essential hypertension; Acute bronchitis, unspecified organism; Mixed hyperlipidemia; Morbid obesity due to excess calories ([facility]); Vitamin D deficiency Start: 05-10-2022 End: 05-10-2022 Patient encounter procedure Candie Llamas Work Phone: Podiatry Comment on above: Pes cavus of both fe et (Primary Dx); Type 2 diabetes mellitus without complication, with long-term current use of insulin ([facility]); Callus of foot Start: 05-07-2022 End: 05-07-2022 Subsequent hospital visit by physician [facility] Work Phone: Radiology Comment on above: Pain in right foot [ M79.671] Start: 04-26-2022 Orders Only Candie coleman Work Phone: Podiatry Comment on above: Pain in right foot ( Primary Dx); Acute right ankle pain Start: 04-14-2022 End: 04-14-[address] Mino Barcenas Work Phone: [facility] Work Phone: Start: 04-14-2022 End: 04-14-[address] Mino Barcenas Work Phone: [facility] Start: 01-25-2022 End: 01-25-[address] Mino Barcenas Work Phone: [facility] Start: 01-20-2022 End: 01-20-[address] Mino Barcenas Work Phone: [facility] Start: 01-07-2022 End: 01-07-2022 Patient encounter procedure Agustin Mejia MD Work Phone: Orthopaedics Comment on above: Chronic pain of left knee (Primary Dx); Primary osteoarthritis of left knee Start: 01-04-2022 End: 01-04-[address] Mino Barcenas Work Phone: [facility] Start: 12-23-2021 ambulatory Mino ogden MD Work Phone: Internal Medicine [place] Comment on above: Still coughing Start: 12-12-2021 End: 12-12-[address] Mino Barcensa Work Phone: [facility] Start: 12-11-2021 End: 12-11-2021 Office outpatient visit 25 minutes Mino Barcenas MD Work Phone: Internal Medicine [place] Comment on above: Type 2 diabetes blanco itus without complication, with long-term current use of insulin ([facility]) (Primary Dx); COVID-19 virus infection; Essential hypertension; Mixed hyperlipidemia; Seronegative rheumatoid arthritis (HCC) Start: 12-05-2021 ambulatory Mino ogden MD Work Phone: [facility] [place] Start: 12-05-2021 Patient encounter procedure Mino Barcenas MD Work Phone: Internal Medicine [place] Comment on above: Appointment 12/11/21 Start: 11-09-2021 End: 11-09-[address] Mino Barcenas Work Phone: [facility] Start: 10-13-2021 End: 10-13-[address] Mino Barcenas Work Phone: [facility] Start: 09-30-2021 End: 09-30-[address] Mino Barcenas Work Phone: [facility] Start: 09-22-2021 End: 09-22-[address] Mino Barcenas Work Phone: [facility] Start: 09-15-2021 End: 09-15-[address] Mino Barcenas Work Phone: [facility] Start: 09-10-2021 End: 09-10-[address] Mino Barcenas Work Phone: [facility] Start: 09-08-2021 End: 09-08-[address] Mino Barcenas Work Phone: [facility] Start: 09-03-2021 End: 09-03-[address] Mino Barcenas Work Phone: [facility] Start: 09-01-2021 End: 09-01-[address] Mino Barcenas Work Phone: [facility] Start: 08-27-2021 End: 08-27-[address] Mino Barcenas Work Phone: [facility] Start: 2021 End: [address] Mino Barcenas Work Phone: [facility] Start: 08-17-2021 Non-patient / Non-visit Dr. Dana Barcenas Work Phone: [facility] Start: 08-17-2021 End: 08-17-[address] Mino Barcenas Work Phone: [facility] Start: 01-30-2021 End: 01-30-2021 Subsequent hospital visit by physician [facility] Work Phone: Radiology Comment on above: Acute pain of left k nee [M25.562] Procedures Date Procedure Procedure Detail Performing Clinician Start: 02-11-2025 Adult depression scr eening assessment Mino Barcenas MD Work Phone: Start: 01-10-2025 CT of head without contrast Dr. Mino Barcenas MD Work Phone: Start: 05-07-2022 Radex ankle complete minimum 3 views Candie Llamas Work Phone: Start: 01-07-2022 Arthrocentesis aspir &/inj major jt/bursa w/o us Agustin Mejia MD Work Phone: Start: 12-12-[address] Mino Barcenas Work Phone: Start: 08-17-2021 X-ray of lumbosacral spine Dr. Mino Barcenas Work Phone: Start: 06-19-2021 Mammography Mino verde MD Work Phone: Start: 04-18-2021 Adult depression scr eening assessment Mino Barcenas MD Work Phone: Start: 01-30-2021 Radiologic exam knee complete 4/more views Marylu Dinh PA-C Work Phone: Plan of Treatment Date Care Activity Detail Author Start: 12-12-2030 Urine microalbumin profile [facility] Start: 02-11-2026 Annual PCP Team Talent Acquisition Administrator emelina Disease Visit Annual PCP Team Chronic Disease Visit [facility] Start: 02-11-2026 Anxiety Screening Anxiety Screening [facility] Start: 02-11-2026 Depression Screening Depression Scre ening [facility] Start: 02-04-2026 Hepatitis B surface antibody level LDL Cholesterol [facility] Start: 01-14-2026 Annual PCP Team Talent Acquisition Administrator emelina Disease Visit Annual PCP Team Chronic Disease Visit [facility] Start: 08-07-2025 Hemoglobin A1c measurement HbA1C [facility] Start: 08-07-2025 End: 08-07-2025 Patient encounter procedure [facility] [place] Comment on above: 6 month follow up Medicare wellness 6 month follow up Start: 08-06-2025 Annual PCP Team Talent Acquisition Administrator emelina Disease Visit Annual PCP Team Chronic Disease Visit [facility] Start: 08-04-2025 Medicare Annual Wellness Visit Medicare Annual Wellness Visit [facility] Comment on above: Postponed from 08/11 (Declined at this time) Start: 07-31-2025 Hepatitis B screening Urine Al bumin:Creatinine Ratio [facility] Start: 07-31-2025 Hepatitis B surface antibody level LDL Cholesterol [facility] Start: 03-27-2025 Glaucoma screening Dilated Retinal E xam [facility] Start: 03-11-2025 Influenza vaccination Influenza Vacc ine (#1) [facility] Start: 02-11-2025 End: 02-11-2025 Patient encounter procedure 02/11/2025 1:40 PM EDT Office Visit [facility] [place] [address] [place] [address] Mino Barcenas MD [address] [place] [id number] 6 month follow up Internal [place] [place] Comment on above: 6 month follow up Start: 01-28-2025 Hemoglobin A1c measurement HbA1C [facility] Start: 01-10-2025 [facility] Start: 12-27-2024 Annual PCP Team Talent Acquisition Administrator emelina Disease Visit Annual PCP Team Chronic Disease Visit [facility] Start: 12-25-2024 Hepatitis B screening Urine Al bumin:Creatinine Ratio [facility] Start: 12-25-2024 Hepatitis B surface antibody level LDL Cholesterol [facility] Start: 08-06-2024 End: 08-06-2024 Patient encounter procedure 08/06/2024 1:00 PM EST Office Visit [facility] [place] [address] [place] [id number] Mino Barcenas MD [address] [place] [id number] 6 month follow up [facility] [place] Comment on above: 6 month follow up Start: 07-22-2024 Annual PCP Team Talent Acquisition Administrator emelina Disease Visit Annual PCP Team Chronic Disease Visit [facility] Start: 07-18-2024 Hepatitis B surface antibody level LDL Cholesterol [facility] Start: 07-11-2024 Advance Directive Discussion Advance Directive Discussion [facility] Start: 07-04-2024 End: 10-03-2024 Microalbumin/Creatinine [Mass Ratio] in Urine ALBUMIN/CREATININE RATIO, URINE Lab Routine Type 2 diabetes mellitus without complication, with long-term current use of insulin (HCC) Expected: 07/04/2024 (Approximate), Expires: 10/03/2024 [facility] Comment on above: Expected: 07/04/2024 (Approximate), Expires: 10/03/2024 Start: 06-26-2024 Hemoglobin A1c measurement HbA1C [facility] Start: 03-16-2024 Glaucoma screening Dilated Retinal E xam [facility] Start: 03-11-2024 Covid-19 Vaccine () Covid-19 Vaccine () [facility] Start: 03-11-2024 Influenza vaccination Influenza Vacc ine (#1) [facility] Start: 01-25-2024 End: 01-25-2024 ambulatory 01/25/2024 10:00 AM EDT OT/PT/Speech Visit [facility] [address] [place], [place] [phone] Bandar Cleary, PT [address] [place], [place] [phone] pick up and delivery driver orthotics [facility] Comment on above: pick up and delivery driver orthotics Start: 01-20-2024 End: 04-20-2024 ALBUMIN/CREAT RATIO RND UR ALBUMIN/CREAT RATIO RND UR Lab Routine Type 2 diabetes mellitus without complication, with long-term current use of insulin (HCC) Expected: 01/20/2024, Expires: 04/20/2024 [facility] Work Phone: Comment on above: Expected: 01/20/2024 , Expires: 04/20/2024 Start: 01-20-2024 End: 04-20-2024 CBC panel - Blood by Automated count CBC Lab Routine Essential hypertension Expected: 01/20/2024, Expires: 04/20/2024 [facility] Work Phone: Comment on above: Expected: 01/20/2024 , Expires: 04/20/2024 Start: 01-20-2024 End: 04-20-2024 Comprehensive metabolic 2000 panel - Serum or Plasma COMP METABOLIC PANEL Lab Routine Type 2 diabetes mellitus without complication, with long-term current use of insulin (HCC) Essential hypertension Expected: 01/20/2024, Expires: 04/20/2024 [facility] Work Phone: Comment on above: Expected: 01/20/2024 , Expires: 04/20/2024 Start: 01-20-2024 End: 04-20-2024 Hemoglobin A1c in Blood HGB A1C Lab Routine Type 2 diabetes mellitus without complication, with long-term current use of insulin (HCC) Expected: 01/20/2024, Expires: 04/20/2024 [facility] Work Phone: Comment on above: Expected: 01/20/2024 , Expires: 04/20/2024 Start: 01-20-2024 End: 04-20-2024 Lipid 1996 panel - Serum or Plasma LIPID PANEL BASIC Lab Routine Mixed hyperlipidemia Expected: 01/20/2024, Expires: 04/20/2024 [facility] Work Phone: Comment on above: Expected: 01/20/2024 , Expires: 04/20/2024 Start: 01-16-2024 Hemoglobin A1c measurement HbA1C [facility] Start: 01-14-2024 COLORECTAL CANCER SCREENING COLORECTAL CANCER SCREENING [facility] Start: 01-14-2024 FECAL OCCULT BLOOD FECAL OCCULT BLOO D [facility] Start: 01-14-2024 Screening for malign ant neoplasm of colon [facility] Start: 01-08-2024 3 comp foot exam completed DIABETIC FOOT EXAM [facility] Start: 01-08-2024 ANNUAL PCP TEAM GAS TRANSFER OPERATOR EMELINA DISEASE VISIT ANNUAL PCP TEAM CHRONIC DISEASE VISIT [facility] Start: 01-08-2024 Diabetic foot examination Diabetic Foot Exam [facility] Start: 06-27-2024 Hepatitis B screening URINE AL BUMIN:CREATININE RATIO [facility] Start: 01-05-2024 Hepatitis B surface antibody level LDL CHOLESTEROL [facility] Start: 01-04-2024 End: 01-04-2024 Patient encounter procedure 01/04/2024 9:00 AM EDT Office Visit Internal Medicine [place] [address] [facility] [place] [address] Mino Barcenas MD [address] [facility] [place] [address] 6 Month Follow up [facility] [place] Comment on above: 6 Month Follow up Start: 12-28-2023 End: 12-28-2023 Patient encounter procedure 12/28/2023 2:40 PM EDT Office Visit [facility] [place] [address] [place] [address] Mino Barcenas MD [address] [place], [place] [phone] 6 Month Follow up [facility] [place] Comment on above: 6 Month Follow up Start: 07-11-2023 Advance Directive Discussion Advance Directive Discussion [facility] Start: 07-11-2023 Depression Assessment Depression Ass essment [facility] Start: 07-09-2023 ANNUAL PCP TEAM GAS TRANSFER OPERATOR EMELINA DISEASE VISIT ANNUAL PCP TEAM CHRONIC DISEASE VISIT [facility] Start: 07-09-2023 BP CONTROLLED (<130/80) BP CONTROLLE D (<130/80) [facility] Start: 07-09-2023 End: 09-08-2023 Hemoglobin A1c in Blood HGB A1C Lab Routine Type 2 diabetes mellitus without complication, with long-term current use of insulin (HCC) Expected: 07/09/2023 (Approximate), Expires: 09/08/2023 [facility] Work Phone: Comment on above: Expected: 07/09/2023 (Approximate), Expires: 09/08/2023 Start: 07-09-2023 End: 09-08-2023 Lipid 1996 panel - Serum or Plasma LIPID PANEL BASIC Lab Routine Mixed hyperlipidemia Expected: 07/09/2023 (Approximate), Expires: 09/08/2023 [facility] Work Phone: Comment on above: Expected: 07/09/2023 (Approximate), Expires: 09/08/2023 Start: 07-07-2023 Hepatitis B surface antibody level LDL CHOLESTEROL [facility] Start: 07-06-2023 Hemoglobin A1c measurement HbA1C [facility] Start: 07-06-2023 Hemoglobin A1c/Hemoglobin.total in Blood HBA1C [facility] Start: 06-22-2023 Covid-19 Vaccine () Covid-19 Vaccine () [facility] Start: 03-11-2023 Covid-19 Vaccine () Covid-19 Vaccine () [facility] Start: 03-11-2023 [facility] Start: 03-01-2023 Hepatitis C antibody , confirmatory test DILATED RETINAL EXAM [facility] Start: 01-07-2023 End: 03-09-2023 ALBUMIN/CREAT RATIO RND UR ALBUMIN/CREAT RATIO RND UR Lab Routine Type 2 diabetes mellitus without complication, with long-term current use of insulin (HCC) Expected: 01/07/2023 (Approximate), Expires: 03/09/2023 [facility] Work Phone: Comment on above: Expected: 01/07/2023 (Approximate), Expires: 03/09/2023 Start: 01-07-2023 End: 03-09-2023 Hemoglobin A1c in Blood HGB A1C Lab Routine Type 2 diabetes mellitus without complication, with long-term current use of insulin (HCC) Expected: 01/07/2023 (Approximate), Expires: 03/09/2023 [facility] Work Phone: Comment on above: Expected: 01/07/2023 (Approximate), Expires: 03/09/2023 Start: 01-07-2023 End: 03-09-2023 Lipid 1996 panel - Serum or Plasma LIPID PANEL BASIC Lab Routine Type 2 diabetes mellitus without complication, with long-term current use of insulin (HCC) Mixed hyperlipidemia Expected: 01/07/2023 (Approximate), Expires: 03/09/2023 [facility] Work Phone: Comment on above: Expected: 01/07/2023 (Approximate), Expires: 03/09/2023 Start: 01-05-2023 Hemoglobin A1c/Hemoglobin.total in Blood HBA1C [facility] Start: 12-23-2022 COVID-19 VACCINE (5 - Moderna risk series) COVID-19 VACCINE (5 - Moderna risk series) [facility] Start: 12-11-2022 ANNUAL PCP TEAM GAS TRANSFER OPERATOR EMELINA DISEASE VISIT ANNUAL PCP TEAM CHRONIC DISEASE VISIT [facility] Start: 11-23-2022 Hepatitis B screening URINE AL BUMIN:CREATININE RATIO [facility] Start: 11-23-2022 Hepatitis B surface antibody level LDL CHOLESTEROL [facility] Start: 07-11-2022 ADVANCE DIRECTIVE DISCUSSION ADVANCE DIRECTIVE DISCUSSION [facility] Start: 07-11-2022 DEPRESSION ASSESSMENT DEPRESSION ASS ESSMENT [facility] Start: 06-24-2022 End: 08-24-2022 CBC panel - Blood by Automated count CBC Lab Routine Essential hypertension Expected: 06/24/2022 (Approximate), Expires: 08/24/2022 [facility] Work Phone: Comment on above: Expected: 06/24/2022 (Approximate), Expires: 08/24/2022 Start: 06-24-2022 End: 08-24-2022 Comprehensive metabolic 2000 panel - Serum or Plasma COMP METABOLIC PANEL Lab Routine Type 2 diabetes mellitus without complication, with long-term current use of insulin (HCC) Essential hypertension Expected: 06/24/2022 (Approximate), Expires: 08/24/2022 [facility] Work Phone: Comment on above: Expected: 06/24/2022 (Approximate), Expires: 08/24/2022 Start: 06-24-2022 End: 08-24-2022 Hemoglobin A1c in Blood HGB A1C Lab Routine Type 2 diabetes mellitus without complication, with long-term current use of insulin (HCC) Expected: 06/24/2022 (Approximate), Expires: 08/24/2022 [facility] Work Phone: Comment on above: Expected: 06/24/2022 (Approximate), Expires: 08/24/2022 Start: 06-24-2022 End: 08-24-2022 Lipid 1996 panel - Serum or Plasma LIPID PANEL BASIC Lab Routine Mixed hyperlipidemia Expected: 06/24/2022 (Approximate), Expires: 08/24/2022 [facility] Work Phone: Comment on above: Expected: 06/24/2022 (Approximate), Expires: 08/24/2022 Start: 06-19-2022 Mammography MAMMOGRAM [facility] Start: 06-19-2022 Screening for malign ant neoplasm of breast Mammogram Screening [facility] Start: 06-06-2022 COLORECTAL CANCER SCREENING COLORECTAL CANCER SCREENING [facility] Start: 06-06-2022 FECAL OCCULT BLOOD FECAL OCCULT BLOO D [facility] Start: 05-26-2022 Hemoglobin A1c/Hemoglobin.total in Blood HBA1C [facility] Start: 05-14-2022 BP CONTROLLED (<130/80) BP CONTROLLE D (<130/80) [facility] Start: 04-18-2022 Adult depression screening assessment DEPRESSION SCREENING [facility] Start: 03-11-2022 Influenza vaccination INFLUENZA (#1) [facility] Start: 02-24-2022 Hepatitis C antibody , confirmatory test DILATED RETINAL EXAM [facility] Start: 11-07-2021 3 comp foot exam completed DIABETIC FOOT EXAM [facility] Start: 07-11-2021 ADVANCE DIRECTIVE DISCUSSION ADVANCE DIRECTIVE DISCUSSION [facility] Start: 07-11-2021 DEPRESSION ASSESSMENT DEPRESSION ASS ESSMENT [facility] Start: 06-16-2021 COVID-19 VACCINE (4 - Booster for Moderna series) COVID-19 VACCINE (4 - Booster for Moderna series) [facility] Start: 05-12-2021 COVID-19 VACCINE (4 - Booster for Moderna series) COVID-19 VACCINE (4 - Booster for Moderna series) [facility] Start: 06-15-2019 PNEUMOCOCCAL: 65+ (3 - PCV) PNEUMOCOCCAL: 65+ (3 - PCV) [facility] Start: 11-03-2017 Screening for malign ant neoplasm of cervix Cervical Cancer Screening [facility] Start: 08-11-2017 Medicare Annual Wellness Visit Medicare Annual Wellness Visit [facility] Start: 2012 RSV Vaccine (1 - 1-d ose 60+ series) RSV Vaccine (1 - 1-dose 60+ series) [facility] Start: 2012 RSV Vaccine (1 - Ris k 60-74 years 1-dose series) RSV Vaccine (1 - Risk 60-74 years 1-dose series) [facility] Start: 1997 COLOGUARD (FIT-DNA) COLOGUARD (FIT-D NA) [facility] Start: 1997 Colonoscopy COLONOSCOPY [facility] Start: [address] COLONOGRAPHY [facility] Start: 1997 Screening for malign ant neoplasm of colon [facility] Start: 1997 SIGMOIDOSCOPY SIGMOIDOSCOPY [facility] Start: 1970 Anxiety Screening Anxiety Screening [facility] Start: 1970 Depression Screening Depression Scre ening [facility] End: 02-01-2025 25-hydroxyvitamin D3 [Mass/volume] in Serum or Plasma VITAMIN D 25 HYDROXY Lab Routine Vitamin D deficiency Every 4 months for 60 Occurrences starting 02/02/2024 until 02/01/2025 [facility] Comment on above: Every 4 months for 6 0 Occurrences starting 02/02/2024 until 02/01/2025 End: 02-01-2025 CBC panel - Blood by Automated count COMPLETE BLOOD COUNT Lab Routine Essential hypertension Every 4 months for 60 Occurrences starting 02/02/2024 until 02/01/2025 [facility] Comment on above: Every 4 months for 6 0 Occurrences starting 02/02/2024 until 02/01/2025 End: 02-01-2025 Comprehensive metabolic 2000 panel - Serum or Plasma COMPREHENSIVE METABOLIC PANEL Lab Routine Type 2 diabetes mellitus without complication, with long-term current use of insulin (HCC) Essential hypertension Every 4 months for 60 Occurrences starting 02/02/2024 until 02/01/2025 [facility] Comment on above: Every 4 months for 6 0 Occurrences starting 02/02/2024 until 02/01/2025 End: 07-20-2025 DBT Breast - bilateral screening ROSEMARY SCREENING W [facility] Radiology Routine Encounter for screening mammogram for breast cancer 1 Occurrences starting 06/20/2024 until 07/20/2025 [facility] Work Phone: Comment on above: 1 Occurrences starti ng 06/20/2024 until 07/20/2025 End: 03-13-2026 DBT Breast - bilateral screening ROSEMARY SCREENING W [facility]LEST[facility] Radiology Routine Encounter for screening mammogram for breast cancer 1 Occurrences starting 02/11/2025 until 03/13/2026 [facility] Work Phone: Comment on above: 1 Occurrences starti ng 02/11/2025 until 03/13/2026 End: 02-01-2025 Hemoglobin A1c in Blood HEMOGLOBIN A1C Lab Routine Type 2 diabetes mellitus without complication, with long-term current use of insulin (HCC) Every 4 months for 60 Occurrences starting 02/02/2024 until 02/01/2025 [facility] Work Phone: Comment on above: Every 4 months for 6 0 Occurrences starting 02/02/2024 until 02/01/2025 Hemoglobin.gastroint est inal.lower [Presence] in Stool by Immunoassay FECAL OCCULT BLOOD TEST Lab Routine Colon cancer screening Ordered: 01/07/2023 [facility] Work Phone: Comment on above: Ordered: 01/07/2023 End: 02-01-2025 Lipid 1996 panel - Serum or Plasma LIPID PANEL BASIC Lab Routine Mixed hyperlipidemia Every 4 months for 60 Occurrences starting 02/02/2024 until 02/01/2025 [facility] Comment on above: Every 4 months for 6 0 Occurrences starting 02/02/2024 until 02/01/2025 Patient Education ED Head Injury (Adult) [facility] Work Phone: End: 10-13-2024 US.doppler Extremity arteries - bilateral for physiologic artery study PVR ANK PRESS [facility] Vascular Lab Routine Type 2 diabetes mellitus without complication, with long-term current use of insulin (HCC) Ingrowing toenail Diminished pulses in lower extremity 1 Occurrences starting 10/14/2023 until 10/13/2024 [facility] Work Phone: Comment on above: 1 Occurrences starti ng 10/14/2023 until 10/13/2024 End: 05-26-2023 XR ANKLE GENERAL 3V AP/LAT/OBL RIGHT XR ANKLE GENERAL 3V AP/LAT/OBL RIGHT Radiology Routine Acute right ankle pain 1 Occurrences starting 04/26/2022 until 05/26/2023 [facility] Work Phone: Comment on above: 1 Occurrences starti ng 04/26/2022 until 05/26/2023 End: 10-04-2025 XR Foot - left AP and Lateral and oblique XR FOOT GENERAL 3V AP/LAT/OBL LEFT Radiology Routine Neuroma Pain in left foot 1 Occurrences starting 09/04/2024 until 10/04/2025 [facility] Work Phone: Comment on above: 1 Occurrences starti ng 09/04/2024 until 10/04/2025 XR Foot - left AP an d Lateral and oblique XR FOOT GENERAL 3V AP/LAT/OBL LEFT Radiology Routine Neuroma Pain in left foot 09/04/2024 12:12 PM EST [facility] End: 05-26-2023 XR FOOT GENERAL 3V AP/LAT/OBL RIGHT XR FOOT GENERAL 3V AP/LAT/OBL RIGHT Radiology Routine Pain in right foot 1 Occurrences starting 04/26/2022 until 05/26/2023 [facility] Work Phone: Comment on above: 1 Occurrences starti ng 04/26/2022 until 05/26/2023 XR Knee - left 4 Views XR KNEE G ENERAL 4V AP BOTH/PA BOTH/LAT/MERC LEFT Radiology Routine Pain 10/28/2023 10:56 AM EDT [facility] Work Phone: [facility] Immunizations Immunization Date Immunization Notes Care Provider Sebasti[facility] 04-17-2024 influenza virus vacc ine, unspecified formulation Lobo Quevedo APRN.SAMPLE STEAMER Work Phone: [facility] 04-27-2023 influenza (HD-IIV4) vaccine, age 65+ yr, high dose, quadrivalent, PF (FLUZONE HIGH-DOSE) Mino Barcenas MD Work Phone: [facility] 04-27-2023 pneumococcal conjuga te (PCV20) vaccine, 20 valent (PREVNAR 20) Mino Barcenas MD Work Phone: [facility] 04-27-2023 influenza virus vacc ine, unspecified formulation Lobo Quevedo APRN.SAMPLE STEAMER Work Phone: [facility] 05-11-2022 influenza, high-dose , quadrivalent vaccine (FLUZONE HIGH DOSE QUADRIVALENT) Mino Barcenas MD Work Phone: [facility] 05-11-2022 influenza virus vacc ine, unspecified formulation Mino Barcenas MD Work Phone: [facility] 05-14-2021 influenza, high-dose , quadrivalent vaccine (FLUZONE HIGH DOSE QUADRIVALENT) Mino Barcenas MD Work Phone: [facility] Work Phone: 02-23-2021 zoster vaccine recombinant Mino Barcenas MD Work Phone: [facility] Work Phone: 12-12-2020 tetanus toxoid, redu neno diphtheria toxoid, and acellular pertussis vaccine, adsorbed Mino Barcenas MD Work Phone: [facility] Work Phone: 12-12-2020 zoster vaccine recombinant Mino Barcenas MD Work Phone: [facility] Work Phone: 04-22-2020 influenza, high-dose , quadrivalent vaccine (FLUZONE HIGH DOSE QUADRIVALENT) Mino Barcenas MD Work Phone: [facility] 03-26-2019 influenza, high dose seasonal, preservative-free Mino Barcenas MD Work Phone: [facility] 06-15-2018 pneumococcal polysaccharide vaccine, 23 valent Mino Barcenas MD Work Phone: [facility] Work Phone: 04-19-2018 influenza, high dose seasonal, preservative-free Mino Barcenas MD Work Phone: [facility] 07-20-2017 pneumococcal polysaccharide vaccine, 23 valent Mino Barcenas MD Work Phone: [facility] 04-14-2017 influenza, injectabl e, quadrivalent, preservative free Mino Barcenas MD Work Phone: [facility] 10-11-2016 pneumococcal conjuga te vaccine, 13 valent Mino Barcenas MD Work Phone: [facility] 04-14-2016 influenza, seasonal, injectable, preservative free Mino Barcenas MD Work Phone: [facility] 01-05-2016 zoster vaccine, live Mino baig MD Work Phone: [facility] 04-28-2015 influenza, seasonal, injectable, preservative free Mino Barcenas MD Work Phone: [facility] 04-10-2014 influenza nasal, unspecified formulation Mino Barcenas MD Work Phone: [facility] 05-17-2013 influenza nasal, unspecified formulation Mino Barcenas MD Work Phone: [facility] 07-14-2012 influenza nasal, unspecified formulation Mino Barcenas MD Work Phone: [facility] 04-19-2011 influenza nasal, unspecified formulation Mino Barcenas MD Work Phone: [facility] 04-10-2010 influenza nasal, unspecified formulation Mino Barcenas MD Work Phone: [facility] 04-19-2009 influenza nasal, unspecified formulation Mino Barcenas MD Work Phone: [facility] 08-08-2008 TD(adult) unspecifie d formulation Mino Barcenas MD Work Phone: [facility] 08-08-2008 tetanus toxoid, unspecified formulation Mino Barcenas MD Work Phone: [facility] 04-10-2008 influenza nasal, unspecified formulation Mino Barcenas MD Work Phone: [facility] 02-24-2007 pneumococcal vaccine , unspecified formulation Mino Barcenas MD Work Phone: [facility] 01-05-2007 pneumococcal polysaccharide vaccine, 23 valent Mino Barcenas MD Work Phone: [facility] Work Phone: Payers Date Payer Category Payer Self-pay [id number] 2017 Medicare MEDICARE MEDICAR E A AND B [id number] 2017-Present [phone] [place] [address] Medicare [id number] 2017 Medicare [id number] 2017 Medicare [id number] 2003 Government (not [facility] or Medicaid) [facility] [id number] 2003 Unknown [facility] [id number] 2003-Present [phone] [address] [address] [place] [address] Indemnity [id number] 2003 Unknown [facility] [id number] 2003-Present [phone] [address] [address] [place] [address] Indemnity [id number] 2003 Unknown [id number] Unknown [id number] Unknown [id number] Unknown [id number] Unknown [id number] Unknown [id number] Unknown [id number] Unknown [id number] Social History Date Type Detail Facility Start: 05-15-2016 End: 08-06-2024 Tobacco smoking status NHIS Ex-smoker [facility] Work Phone: History of tobacco use Cigarette Smoker [facility] Work Phone: Start: 05-15-2016 End: 07-24-2022 Cigarettes smoked current (pack per day) - Reported 0.5 [facility] Start: 05-15-2016 End: 08-06-2024 Tobacco use and exposure Former smokeless tobacco user [facility] Work Phone: End: 04-10-2013 History of tobacco use User of smokeless tobacco [facility] Work Phone: Start: 10-26-2021 End: 02-11-2025 Alcohol intake Current non-drinker of alcohol (finding) [facility] Start: 04-16-2020 End: 07-03-2022 History SDOH Alcohol Frequency 1 [facility] Start: 04-16-2020 History SDOH Alcohol Std Drinks 98 [facility] Start: 04-16-2020 End: 07-03-2022 History SDOH Social Connections Phone 5 [facility] Start: 04-16-2020 End: 07-03-2022 History SDOH Social Connections Get Together 4 [facility] Start: 04-16-2020 End: 07-03-2022 History SDOH Physical Activity DPW 0 [facility] Start: 04-16-2020 End: 07-03-2022 History SDOH Transport Med 2 [facility] Start: 04-16-2020 Education 17 [facility] Start: 1950 Sex Assigned At Not on file [facility] Start: 11-03-2021 End: 05-10-2022 Exposure to SARS-CoV-2 (event) Not sure [facility] Start: 11-09-2021 End: 01-20-2022 Tobacco smoking status NHIS Unknown if ever smoked [facility] Start: 1950 Sex Assigned At Female W [facility] History of tobacco use Current smoker [facility] Work Phone: Start: 07-03-2022 History SDOH Physica l Activity DPW 3 [facility] Start: 07-02-2022 End: 07-24-2022 Social connection and isolation panel [facility] Do you belong to any clubs or organizations such as lutheran groups, unions, [employer] or athletic groups, or school groups? No [facility] Are you now , , , , never or living with a partner? [facility] How often to you hav e a drink containing alcohol? Never [facility] Start: 06-11-[address] inks containing alcohol do you have on a typical day? Patient does not drink [facility] Do you feel stress - tense, restless, nervous, or anxious, or unable to sleep at night because your mind is troubled all the time - these days [OSQ] Only a little [facility] (I/We) worried dav er (my/our) food would run out before (I/we) got money to buy more. Never true [facility] Do you feel stress - tense, restless, nervous, or anxious, or unable to sleep at night because your mind is troubled all the time - these days [OSQ] To some extent [facility] Do you feel stress - tense, restless, nervous, or anxious, or unable to sleep at night because your mind is troubled all the time - these days [OSQ] Not at all [facility] Start: 03-19-2025 Sex Female (finding) [place] [facility] [place], [place] Medical Equipment Procedure Code Equipment Code Equipment Original Text Equipment Identifier Dates [id number], [id number], [id number], [id number], [id number], [id number], [id number], [id number], [id number], [id number] Start: 10-24-2019 End: 12-28-2023 Comment on above: Novofine 30G Disposa ble pen Needle. 30G x 8mm (1/3) . Use with each dose of insulin 3 to 4 meals a day plus Lantus (5 per day) . DM type 2, insulin requiring 11.9 Test blood sugar(s) two times daily. Dx: Type 2 DM - Controlled E11.9 Insulin: Yes BD Insulin [place] wi th BD Ultra Fine needle Test blood sugar(s) 2 times daily. Dx: Type 2 DM - Controlled E11.9 Insulin: Yes Novofine 30 gauge X 1/3 one needle. Us 5 times daily for insulin (3 to 4 times with meals for short-acting; once daily with glargine) 1 Each five times da harshad. (with meals and snacks for short -acting insulin;and once daily for glargine) Goals Date Patient Goal Desired Activity /State Clinical Notes 10-07-2006 to 03-05-2025 Bianca Phan MA - 03/05/2025 9:55 AM Mino Sebastian MD - 02/11/2025 2:13 PM EDTPatient InstructionsAngi Su, NONDESTRUCTIVE TESTER.SAMPLE STEAMER - 01/14/2025 12:56 PM EDTPatient Instructions Note Date & Type Note Facility 03-05-2025 Note HNO ID: [id number] Author: BIANCA PHAN MA Service: ? Author Type: [place] [employer] Type: Progress Notes Filed: 03/05/2025 09:56 Note Text: POPULATION HEALTH NAVIGATION OUTREACH Action/FYI Updated appointment note HCC CLOSURE Topic Due (Y or N) Comments Medicare Wellness PCP Follow up Colorectal Cancer Screening Controlling Blood Pressure A1C HCC Flu Vaccine Care Everywhere Reviewed MyChart Activation Updated Appointment Note Reason for Outreach Care Gap/HCC or Scheduling Wellness Visits Care Gaps due: N/A Patient Contacted: Unable or unnecessary to reach patient: HCC related Patient already scheduled Updated appointment notes Navigation Signature: Bianca Phan MA March 05, 2025 9:55 AM [facility] 03-05-2025 History of Presen t illness Narrative POPULATION HEALTH NAVIGATION OUTREACH Action/FYI Updated appointment note HCC CLOSURE Topic Due (Y or N) Comments Medicare Wellness PCP Follow up Colorectal Cancer Screening Controlling Blood Pressure A1C HCC Flu Vaccine Care Everywhere Reviewed MyChart Activation Updated Appointment Note Reason for Outreach Care Gap/HCC or Scheduling Wellness Visits Care Gaps due: N/A Patient Contacted: Unable or unnecessary to reach patient: HCC related Patient already scheduled Updated appointment notes Navigation Signature: Bianca Phan MA March 05, 2025 9:55 AM documented in this encounter [facility] 03-05-2025 Note Patient Outreach (NE TNAV) KATALINA LEMOS ([id number]) 1950 F Date Time Provider Department 03/05/25 BIANCA PHAN NETNAV During your visit today, we recorded the following information about you: Bianca Phan MA 03/05/2025 9:56 AM Signed POPULATION HEALTH NAVIGATION OUTREACH Action/FYI Updated appointment note HCC CLOSURE Topic Due (Y or N) Comments Medicare Wellness PCP Follow up Colorectal Cancer Screening Controlling Blood Pressure A1C HCC Flu Vaccine Care Everywhere Reviewed MyChart Activation Updated Appointment Note Reason for Outreach Care Gap/HCC or Scheduling Wellness Visits Care Gaps due: N/A Patient Contacted: Unable or unnecessary to reach patient: HCC related Patient already scheduled Updated appointment notes Navigation Signature: Bianca Phan MA March 05, 2025 9:55 AM Allergies As of Date: 03/05/2025 Noted Allergy Reaction EPINEPHRINE 11/25/2008 8 - GI Upset 14 - Other: See Comments ATORVASTATIN 01/05/2016 17 - Myalgia EPINEPHRINE-CHLORPHENIRAMINE 10/03/2018 16 - Unknown POLLEN EXTRACTS 01/07/2022 14 - Other: See Comments Comments: runny nose SULFA (SULFONAMIDE ANTIBIOTICS) 09/16/2006 2 - Rash OXYBUTYNIN CHLORIDE 03/10/2012 6 - Diarrhea Date Reviewed: 02/11/2025 Reviewed by: Socorro Reed MA - Fully Assessed Reason for Visit: Population Health Navigation Outreach [3910] Cmt: VELIA MONTOYA . Prescriptions as of 03/05/2025 - rosuvastatin (CRESTOR) 5 mg tablet Take 1 tablet by mouth daily at bedtime. As directed - propranolol (INDERAL) 10 mg tablet Take 1 tablet by mouth once daily as needed (anxiety). Uses PRN - lisinopril (PRINIVIL) 10 mg tablet Take 1 tablet by mouth once daily. - metFORMIN (GLUCOPHAGE) 1,000 mg tablet Take 1 tablet by mouth two times a day with meals. - semaglutide (OZEMPIC) 1 mg/dose (4 mg/3 mL) pen Inject 1 mg subcutaneously one time a week. Dx: Type 2 DM E11.9 - insulin aspart U-100 (NOVOLOG FLEXPEN U-100 INSULIN) 100 unit/mL (3 mL) Inject three times daily prior to meals following sliding scale and carb-correction (1 unit for every 20 units >150, 1 unit covers 10g carbs) - insulin glargine (LANTUS U-100 INSULIN) 100 unit/mL injection Inject 26 Units subcutaneously two times a day. Adjust as directed - blood sugar diagnostic (FREESTYLE LITE STRIPS) test strip Test blood sugar(s) 2 times daily. Dx: Type 2 DM - Controlled E11.9 Insulin: Yes - Insulin [place], Disposable, (PEN NEEDLE) 30 gauge x 5/16 ndle Use with Novolog flex pen three times daily and as needed DM 2 E11.9 - Miscellaneous Medical Supply Novofine 30 gauge X 1/3 one needle. Us 2 times daily for glargine twice daily - lancets (FREESTYLE LANCETS) 28 gauge Test blood sugar(s) 2 times daily. Dx: Type 2 DM - Controlled E11.9 Insulin: Yes - albuterol HFA (PROVENTIL HFA, VENTOLIN HFA) 90 mcg/actuation inhaler Inhale 2 Puffs as instructed every 4 hours as needed (cough and/or wheezing). - calcium carb/vitamin D3/vit K1 (SOFT CHEWS CALCIUM ORAL) - traMADol (ULTRAM) 50 mg tablet Take 50 mg by mouth three times daily as needed. - methotrexate 2.5 mg tablet Take 6 tablets by mouth every Tuesday. (Dr. Deutsch) - cetirizine (ZYRTEC) 10 mg tablet Take 1 tablet by mouth once daily. - multivitamin tablet Take 1 tablet by mouth once daily. - Cholecalciferol, Vitamin D3, (VITAMIN D) 25 mcg (1,000 unit) cap Take 1,000 Units by mouth once daily. - folic acid 1 mg tablet Take 1 mg by mouth once daily. - Aspirin 81 mg ORAL Tab Take one(1) tablet daily. 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 Author Type: Physician Type: Progress Notes Filed: 02/11/2025 18:34 Note Text: Subjective Katalina Lemos is a 74 year old female. HPI SUBJECTIVE: Gustabo Lemos is a 74-year-old female with a history of HTN, DM, and HLD, presenting for a 6-month follow-up. Gustabo reports consistently elevated blood pressure readings during medical visits, which she attributes to improper arm positioning and the use of automatic blood pressure cuffs. She notes that her blood pressure is typically lower when measured manually and when she is relaxed. She denies monitoring her blood pressure at home due to anxiety. She also reports anxiety related to weighing herself and does not keep a scale at home. She denies current anxiety symptoms requiring medication. Gustabo has a history of HLD and previously experienced myalgias with atorvastatin. She is not currently on a statin and is unsure if she has tried rosuvastatin in the past. She receives her medications through the [place] and [facility]. Gustabo reports a sedentary lifestyle and poor dietary habits, contributing to weight gain. She is aware of the need for regular exercise and expresses interest in incorporating more physical activity into her routine. She has a set of 3 lb weights at home and is open to using them more regularly. She also inquires about the benefits of taking her antihypertensive medication at bedtime. Gustabo has a history of a head injury from a garbage can lid, resulting in a hematoma. She reports that the hematoma has resolved, and she denies any residual symptoms. She also notes difficulty tolerating heat, which she attributes to her rheumatoid arthritis. No problems with blood sugars dropping below 70. Diabetes has been well controlled with current dosing of insulin. Counts carbs and adjusts meal time insulin well. PAST MEDICAL HISTORY Diagnosis Date DIABETES MELLITUS TYPE II-UNCOMPL 10/07/2006 HYPERLIPIDEMIA NEC/NOS 11/04/2006 PERS HX TOBACCO USE 10/07/2006 Seronegative rheumatoid arthritis (HCC) Dr. Deutsch Current Outpatient Medications Medication Sig propranolol (INDERAL) 10 mg tablet Take 1 tablet by mouth once daily as needed (anxiety). Uses PRN lisinopril (PRINIVIL) 10 mg tablet Take 1 tablet by mouth once daily. metFORMIN (GLUCOPHAGE) 1,000 mg tablet Take 1 tablet by mouth two times a day with meals. semaglutide (OZEMPIC) 1 mg/dose (4 mg/3 mL) pen Inject 1 mg subcutaneously one time a week. Dx: Type 2 DM E11.9 insulin aspart U-100 (NOVOLOG FLEXPEN U-100 INSULIN) 100 unit/mL (3 mL) Inject three times daily prior to meals following sliding scale and carb-correction (1 unit for every 20 units >150, 1 unit covers 10g carbs) insulin glargine (LANTUS U-100 INSULIN) 100 unit/mL injection Inject 26 Units subcutaneously two times a day. Adjust as directed blood sugar diagnostic (FREESTYLE LITE STRIPS) test strip Test blood sugar(s) 2 times daily. Dx: Type 2 DM - Controlled E11.9 Insulin: Yes Insulin [place], Disposable, (PEN NEEDLE) 30 gauge x 5/16 ndle Use with Novolog flex pen three times daily and as needed DM 2 E11.9 Miscellaneous Medical Supply Novofine 30 gauge X 1/3 one needle. Us 2 times daily for glargine twice daily lancets (FREESTYLE LANCETS) 28 gauge Test blood sugar(s) 2 times daily. Dx: Type 2 DM - Controlled E11.9 Insulin: Yes albuterol HFA (PROVENTIL HFA, VENTOLIN HFA) 90 mcg/actuation inhaler Inhale 2 Puffs as instructed every 4 hours as needed (cough and/or wheezing). calcium carb/vitamin D3/vit K1 (SOFT CHEWS CALCIUM ORAL) traMADol (ULTRAM) 50 mg tablet Take 50 mg by mouth three times daily as needed. methotrexate 2.5 mg tablet Take 6 tablets by mouth every Tuesday. (Dr. Deutsch) cetirizine (ZYRTEC) 10 mg tablet Take 1 tablet by mouth once daily. multivitamin tablet Take 1 tablet by mouth once daily. Cholecalciferol, Vitamin D3, (VITAMIN D) 25 mcg (1,000 unit) cap Take 1,000 Units by mouth once daily. folic acid 1 mg tablet Take 1 mg by mouth once daily. Aspirin 81 mg ORAL Tab Take one(1) tablet daily. rosuvastatin (CRESTOR) 5 mg tablet Take 1 tablet by mouth daily at bedtime. As directed No current facility-administered medications for this visit. Review of Systems Objective BP 138/80 Pulse 79 Wt 109 kg (240 lb 4.8 oz) SpO2 97% BMI 41.25 kg/m? Last 5 Encounter Wt Readings: Date: Wt: 02/11/2025 109 kg (240 lb 4.8 oz) 01/14/2025 108.7 kg (239 lb 10.2 oz) 08/06/2024 109.8 kg (242 lb) 01/14/2024 110.7 kg (244 lb 0.8 oz) 12/28/2023 109.3 kg (241 lb) No waist measurement recorded Estimated body mass index is 41.25 kg/m? as calculated from the following: Height as of 06/29/21: 162.6 cm (5' 4). Weight as of this encounter: 109 kg (240 lb 4.8 oz). Last 5 Encounter BP Readings: Date: BP: 02/11/2025 166/88 01/14/2025 146/88 08/06/2024 132/78 01/14/2024 157/80 12/28/2023 120/78 02/11/25 132 (more content not included)... [facility] 02-11-2025 History of Presen t illness Narrative Images from the original note were not included. Subjective Katalina Lemos is a 74 year old female. HPI SUBJECTIVE: Gustabo Lemos is a 74-year-old female with a history of HTN, DM, and HLD, presenting for a 6-month follow-up. Gustabo reports consistently elevated blood pressure readings during medical visits, which she attributes to improper arm positioning and the use of automatic blood pressure cuffs. She notes that her blood pressure is typically lower when measured manually and when she is relaxed. She denies monitoring her blood pressure at home due to anxiety. She also reports anxiety related to weighing herself and does not keep a scale at home. She denies current anxiety symptoms requiring medication. Gustabo has a history of HLD and previously experienced myalgias with atorvastatin. She is not currently on a statin and is unsure if she has tried rosuvastatin in the past. She receives her medications through the [place] and [facility]. Gustabo reports a sedentary lifestyle and poor dietary habits, contributing to weight gain. She is aware of the need for regular exercise and expresses interest in incorporating more physical activity into her routine. She has a set of 3 lb weights at home and is open to using them more regularly. She also inquires about the benefits of taking her antihypertensive medication at bedtime. Gustabo has a history of a head injury from a garbage can lid, resulting in a hematoma. She reports that the hematoma has resolved, and she denies any residual symptoms. She also notes difficulty tolerating heat, which she attributes to her rheumatoid arthritis. No problems with blood sugars dropping below 70. Diabetes has been well controlled with current dosing of insulin. Counts carbs and adjusts meal time insulin well. PAST MEDICAL HISTORY Diagnosis Date DIABETES MELLITUS TYPE II-UNCOMPL 10/07/2006 HYPERLIPIDEMIA NEC/NOS 11/04/2006 PERS HX TOBACCO USE 10/07/2006 Seronegative rheumatoid arthritis (HCC) Dr. Deutsch Current Outpatient Medications Medication Sig propranolol (INDERAL) 10 mg tablet Take 1 tablet by mouth once daily as needed (anxiety). Uses PRN lisinopril (PRINIVIL) 10 mg tablet Take 1 tablet by mouth once daily. metFORMIN (GLUCOPHAGE) 1,000 mg tablet Take 1 tablet by mouth two times a day with meals. semaglutide (OZEMPIC) 1 mg/dose (4 mg/3 mL) pen Inject 1 mg subcutaneously one time a week. Dx: Type 2 DM E11.9 insulin aspart U-100 (NOVOLOG FLEXPEN U-100 INSULIN) 100 unit/mL (3 mL) Inject three times daily prior to meals following sliding scale and carb-correction (1 unit for every 20 units >150, 1 unit covers 10g carbs) insulin glargine (LANTUS U-100 INSULIN) 100 unit/mL injection Inject 26 Units subcutaneously two times a day. Adjust as directed blood sugar diagnostic (FREESTYLE LITE STRIPS) test strip Test blood sugar(s) 2 times daily. Dx: Type 2 DM - Controlled E11.9 Insulin: Yes Insulin [place], Disposable, (PEN NEEDLE) 30 gauge x 5/16 ndle Use with Novolog flex pen three times daily and as needed DM 2 E11.9 Miscellaneous Medical Supply Novofine 30 gauge X 1/3 one needle. Us 2 times daily for glargine twice daily lancets (FREESTYLE LANCETS) 28 gauge Test blood sugar(s) 2 times daily. Dx: Type 2 DM - Controlled E11.9 Insulin: Yes albuterol HFA (PROVENTIL HFA, VENTOLIN HFA) 90 mcg/actuation inhaler Inhale 2 Puffs as instructed every 4 hours as needed (cough and/or wheezing). calcium carb/vitamin D3/vit K1 (SOFT CHEWS CALCIUM ORAL) traMADol (ULTRAM) 50 mg tablet Take 50 mg by mouth three times daily as needed. methotrexate 2.5 mg tablet Take 6 tablets by mouth every Tuesday. (Dr. Deutsch) cetirizine (ZYRTEC) 10 mg tablet Take 1 tablet by mouth once daily. multivitamin tablet Take 1 tablet by mouth once daily. Cholecalciferol, Vitamin D3, (VITAMIN D) 25 mcg (1,000 unit) cap Take 1,000 Units by mouth once daily. folic acid 1 mg tablet Take 1 mg by mouth once daily. Aspirin 81 mg ORAL Tab Take one(1) tablet daily. rosuvastatin (CRESTOR) 5 mg tablet Take 1 tablet by mouth daily at bedtime. As directed No current facility-administered medications for this visit. Review of Systems Objective BP 138/80 Pulse 79 Wt 109 kg (240 lb 4.8 oz) SpO2 97% BMI 41.25 kg/m Last 5 Encounter Wt Readings: Date: Wt: 02/11/2025 109 kg (240 lb 4.8 oz) 01/14/2025 108.7 kg (239 lb 10.2 oz) 08/06/2024 109.8 kg (242 lb) 01/14/2024 110.7 kg (244 lb 0.8 oz) 12/28/2023 109.3 kg (241 lb) No waist measurement recorded Estimated body mass index is 41.25 kg/m as calculated from the following: Height as of 06/29/21: 162.6 cm (5' 4). Weight as of this encounter: 109 kg (240 lb 4.8 oz). Last 5 Encounter BP Readings: Date: BP: 02/11/2025 166/88 01/14/2025 146/88 08/06/2024 132/78 01/14/2024 157/80 12/28/2023 120/78 02/11/25 1321 02/11/25 1441 BP: 166/88 138/80 BP Site: Left Arm BP Position: Sitting BP Cuff Size: Regular Adult Pulse: 79 SpO2: 97% Weight: 109 kg (240 lb 4.8 oz) Physical Exam Constitutional: Appearance: Normal appearance. She is obese. HENT: Head: Normocephalic. Eyes: Conjunctiva/sclera: Conjunctivae normal. Cardiovascular: Rate and Rhythm: Normal rate and regular rhythm. Heart sounds: Normal heart sounds. Pulmonary: Effort: Pulmonary effort is normal. Breath sounds: Normal breath sounds. Skin: General: Skin is warm and dry. Neurological: General: No focal deficit present. Mental Status: She is alert and oriented to person, place, and time. Psychiatric: Attention and Perception: Attention and perception normal. Mood and Affect: Mood and affect normal. Speech: Speech normal. Behavior: Behavior normal. Thought Content: Thought content normal. Judgment: Judgment normal. Latest Ref Rng 12/26/2023 07/31/2024 02/04/2025 WBC 3.70 - 11.00 k/uL 8.03 6.18 5.51 RBC 3.90 - 5.20 m/uL 4.37 4.66 4.19 Hemoglobin 11.5 - 15.5 g/dL 13.9 14.7 13.3 Hematocrit 36.0 - 46.0 % 43.2 44.8 40.6 MCV 80.0 - 100.0 fL 98.9 96.1 96.9 MCH 26.0 - 34.0 pg 31.8 31.5 31.7 MCHC 30.5 - 36.0 g/dL 32.2 32.8 32.8 RDW-CV 11.5 - 15.0 % 13.7 13.0 14.1 Platelet Count 150 - 400 k/uL 234 237 206 MPV 9.0 - 12.7 fL 11.1 11.1 11.2 Neut% % 58.6 Abs Neut (ANC) 1.45 - 7.50 k/uL 4.71 Lymph% % 29.8 Abs Lymph 1.00 - 4.00 k/uL 2.39 Arroyo% % 8.0 Abs [place] <0.87 k/uL 0.64 Eosin% % 2.5 Abs Eosin <0.46 k/uL 0.20 Baso% % 0.7 Abs Baso <0.11 k/uL 0.06 Immature Gran % % 0.4 IMMATURE GRANS (ABS) <0.10 k/uL 0.03 NRBC /100 WBC 0.0 Absolute nRBC <0.01 k/uL <0.01 <0.01 <0.01 DTYPE Auto Protein, Total 6.3 - 8.0 g/dL 6.7 6.7 6.2 (L) Albumin 3.9 - 4.9 g/dL 4.1 3.9 3.8 (L) Calcium 8.5 - 10.2 mg/dL 9.5 9.3 8.9 Bilirubin, Total 0.2 - 1.3 mg/dL 0.4 0.6 0.4 Alkaline Phosphatase 34 - 123 U/L 59 59 66 AST 13 - 35 U/L 22 24 26 ALT 7 - 38 U/L 23 31 27 Glucose 74 - 99 mg/dL 111 (H) 107 (H) 115 (H) BUN 7 - 21 mg/dL 31 (H) 14 18 Creatinine 0.58 - 0.96 mg/dL 0.86 0.71 0.67 Sodium 136 - 144 mmol/L 139 143 143 Potassium 3.7 - 5.1 mmol/L 5.1 3.7 4.4 Chloride 98 - 107 mmol/L 105 102 108 (H) CO2 22 - 30 mmol/L 22 27 23 Anion Gap 8 - 15 mmol/L 12 14 12 eGFR >=60 mL/min/1.73m 72 91 93 Cholesterol, Total <200 mg/dL 172 163 134 Triglyceride <150 mg/dL 115 102 60 HDL Cholesterol >39 mg/dL 60 64 50 Non HDL Cholesterol <130 mg/dL 112 99 84 Fasting Time hrs 12 12 12 VLDL Cholesterol <30 mg/dL 23 20 9 TC:HDL Ratio <5.10 2.87 2.55 2.68 LDL Cholesterol, Calculated <100 mg/dL 89 79 71 LDL:HDL Ratio <2.54 1.48 1.23 1.42 Creatinine, Ur Random (UCRR) 20.0 - 300.0 mg/dL 144.0 216.4 Albumin, Urine Random mg/L <12.0 18.5 Albumin/Creat Ratio <30 mg/g <8 9 Hemoglobin A1C 4.3 - 5.6 % 6.1 (H) 6.0 (H) 5.9 (H) Estimated Average Glucose mg/dL 128 126 123 Vitamin D 25 Hydroxy 31.0 - 80.0 ng/mL 54.1 52.6 Legend: (H) High (L) Low # Type 2 diabetes mellitus without complication, with long-term current use of insulin (HCC) (E11.9) - Well-controlled; most recent A1c 5.9%. - Glucose 115 mg/dL on most recent labs. - Educated on adjusting Lantus dose if morning hypoglycemia occurs. Ideally titrate down insulin to help with weight loss efforts. Does not need to tight of control of blood sugars. - Follow-up in 6 months, sooner if needed. # Essential hypertension (I10) - BP readings today: 140/80 mmHg, 138/88 mmHg, and 138/80 mmHg. - Discussed white coat hypertension and proper BP measurement technique. - Encouraged relaxation techniques (e.g., 4-4-8 breathing) during BP checks. - Advised patient to request manual BP measurements if automatic cuffs cause anxiety. - Follow-up in 6 months, sooner if needed. # Mixed hyperlipidemia (E78.2) - LDL in 70s on most recent labs; ASCVD risk 30-40% due to diabetes and hypertension. - Discussed statin therapy for vascular protection; reviewed prior intolerance to atorvastatin. - Start rosuvastatin 5 mg: tablet once weekly for 4 weeks, then increase to tablet twice weekly for 4 weeks, then tablet three times weekly as tolerated. - Discussed risks (myalgias) and benefits (reduction in CV events, vascular protection); patient understands and agrees to trial. - Follow-up in 6 months, sooner if needed. # Morbid obesity due to excess calories (HCC) (E66.01) - Weight trending down; most recent weight 240 lbs (109 kg). - Advised 120 minutes of physical activity per week, in any increments, to improve metabolism and support weight loss. - Encouraged patient to find enjoyable forms of movement and track progress. - Follow-up in 6 months, sooner if needed. # Vitamin D deficiency (E55.9) - Most recent vitamin D level within normal limits. # Encounter for screening examination for other mental health and behavioral disorders (Z13.39) # Screening for depression (Z13.31) # Encounter for screening mammogram for breast cancer (Z12.31) I spent a total of 45 minutes on the date of the service which included [id number] patient care, completing clinical documentation, obtaining and/or reviewing separately obtained history, performing a medically appropriate examination, counseling and educating the patient/family/caregiver, ordering medications, tests, or procedures, independently interpreting results (not separately reported), and communicating results to the patient/family/caregiver. documented in this encounter [facility] 01-14-2025 Instructions Angi Su, NONDESTRUCTIVE TESTER.SAMPLE STEAMER - 01/14/2025 12:58 PM EDT We discussed your head injury and follow-up care: - The bruising and swelling you are experiencing are consistent with the hematoma from your injury. It is normal for bruising to look worse before it improves, as gravity can pull the blood downward, causing discoloration in other areas. - Continue to monitor for any new or concerning symptoms, such as headaches, dizziness, nausea, vomiting, light sensitivity, or vision changes. If any of these occur, please contact our office immediately. - You may continue applying heat to the area, as this can help your body absorb the bruising. - There is no need to stop taking your baby aspirin at this time, as it was not advised by the ER team. However, it may contribute to the severity of the bruising. - Your blood pressure was slightly elevated today but improved upon recheck. This may be related to the stress of the injury and visit. No changes to your blood pressure management are needed at this time. Please continue your current care routine and let us know if you have any concerns or if your symptoms worsen. documented in this encounter [facility] 01-14-2025 Note HNO ID: [id number] Author: ANGI SU APRN.ANISHA Service: ? Author Type: Nurse Practitioner Type: Progress Notes Filed: 01/14/2025 13:03 Note Text: CC: Patient presents with: ER F/U HPI Recording using [employer] software for draft documentation of the visit was discussed with the patient/authorized cash application representative; all questions welcomed and answered. Patient/authorized cash application representative agreed to proceed Gustabo Lemos is a 74-year-old female presenting for follow-up after an ER visit for a head injury sustained on 01/10. Gustabo was pushing a wheeled trash can when it fell, causing her to fall under it. The lid of the trash can struck her head, resulting in swelling on the forehead and dull pain. She denies any other symptoms at the time of the incident. In the ER, a hematoma was noted over the right forehead and frontal scalp, without abrasions or lacerations. Due to her age and daily baby aspirin use, a CT scan of the brain was performed, which showed no acute intracranial abnormality. She was advised to apply ice to the area and follow up with her primary care provider. Since the incident, Gustabo has noticed worsening bruising around her eyes, which was not present on the day of the injury; she attributes this to her glasses she was wearing. She has been taking daily photographs to monitor the progression. She reports that the swelling is gradually decreasing but is still present, describing it as spongy. She has been applying ice for the first couple of days and then switched to heat after 48 hours based on her research. She denies any new or worsening symptoms since the ER visit, including cephalalgia, eye pain, visual disturbances, dizziness, lightheadedness, or sensitivity to light or sounds. She also denies nausea or emesis. She continues to take baby aspirin as prescribed and has not made any changes to her medication regimen. Review of Systems See HPI PAST MEDICAL HISTORY Diagnosis Date DIABETES MELLITUS TYPE II-UNCOMPL 10/07/2006 HYPERLIPIDEMIA NEC/NOS 11/04/2006 PERS HX TOBACCO USE 10/07/2006 Seronegative rheumatoid arthritis (HCC) Dr. Deutsch PAST SURGICAL HISTORY Procedure Laterality Date DELIVERY ONLY x 2 PAST SURGICAL HISTORY OF Dental implants ALLERGIES Epinephrine, Atorvastatin, Epinephrine-Chlorpheniramine, Pollen Extracts, Sulfa (Sulfonamide Antibiotics), and Oxybutynin Chloride MEDICATIONS propranolol (INDERAL) 10 mg tablet Take 1 tablet by mouth once daily as needed (anxiety). Uses PRN lisinopril (PRINIVIL) 10 mg tablet Take 1 tablet by mouth once daily. metFORMIN (GLUCOPHAGE) 1,000 mg tablet Take 1 tablet by mouth two times a day with meals. semaglutide (OZEMPIC) 1 mg/dose (4 mg/3 mL) pen Inject 1 mg subcutaneously one time a week. Dx: Type 2 DM E11.9 insulin aspart U-100 (NOVOLOG FLEXPEN U-100 INSULIN) 100 unit/mL (3 mL) Inject three times daily prior to meals following sliding scale and carb-correction (1 unit for every 20 units >150, 1 unit covers 10g carbs) insulin glargine (LANTUS U-100 INSULIN) 100 unit/mL injection Inject 26 Units subcutaneously two times a day. Adjust as directed blood sugar diagnostic (FREESTYLE LITE STRIPS) test strip Test blood sugar(s) 2 times daily. Dx: Type 2 DM - Controlled E11.9 Insulin: Yes Insulin [place], Disposable, (PEN NEEDLE) 30 gauge x 5/16 ndle Use with Novolog flex pen three times daily and as needed DM 2 E11.9 Miscellaneous Medical Supply Novofine 30 gauge X 1/3 one needle. Us 2 times daily for glargine twice daily lancets (FREESTYLE LANCETS) 28 gauge Test blood sugar(s) 2 times daily. Dx: Type 2 DM - Controlled E11.9 Insulin: Yes albuterol HFA (PROVENTIL HFA, VENTOLIN HFA) 90 mcg/actuation inhaler Inhale 2 Puffs as instructed every 4 hours as needed (cough and/or wheezing). calcium carb/vitamin D3/vit K1 (SOFT CHEWS CALCIUM ORAL) traMADol (ULTRAM) 50 mg tablet Take 50 mg by mouth three times daily as needed. methotrexate 2.5 mg tablet Take 6 tablets by mouth every Tuesday. (Dr. Deutsch) cetirizine (ZYRTEC) 10 mg tablet Take 1 tablet by mouth once daily. multivitamin tablet Take 1 tablet by mouth once daily. Cholecalciferol, Vitamin D3, (VITAMIN D) 25 mcg (1,000 unit) cap Take 1,000 Units by mouth once daily. folic acid 1 mg tablet Take 1 mg by mouth once daily. Aspirin 81 mg ORAL Tab Take one(1) tablet daily. FAMILY HISTORY Problem Relation Age of Onset Diabetes Mother Hypertension Mother Stroke Mother other (Injuries from MVA) Father Social History Tobacco Use Smoking status: Former Current packs/day: 0.50 Average packs/day: 0.5 packs/day for 20.0 years (10.0 ttl pk-yrs) Types: Cigarettes Smokeless tobacco: Former Quit date: 04/10/2013 Vaping Use Vaping status: Never Used Substance Use Topics Alcohol use: No Drug use: No BP 146/88 Pulse 72 Resp 16 Wt 108.7 kg (239 lb 10.2 oz) BMI 41.13 kg/m? Physical Exam Vitals revie (more content not included)... [facility] 01-14-2025 History of Presen t illness Narrative Images from the original note were not included. CC: Patient presents with: ER F/U HPI Recording using [employer] software for draft documentation of the visit was discussed with the patient/authorized cash application representative; all questions welcomed and answered. Patient/authorized cash application representative agreed to proceed Gustabo Lemos is a 74-year-old female presenting for follow-up after an ER visit for a head injury sustained on 01/10. Gustabo was pushing a wheeled trash can when it fell, causing her to fall under it. The lid of the trash can struck her head, resulting in swelling on the forehead and dull pain. She denies any other symptoms at the time of the incident. In the ER, a hematoma was noted over the right forehead and frontal scalp, without abrasions or lacerations. Due to her age and daily baby aspirin use, a CT scan of the brain was performed, which showed no acute intracranial abnormality. She was advised to apply ice to the area and follow up with her primary care provider. Since the incident, Gustabo has noticed worsening bruising around her eyes, which was not present on the day of the injury; she attributes this to her glasses she was wearing. She has been taking daily photographs to monitor the progression. She reports that the swelling is gradually decreasing but is still present, describing it as spongy. She has been applying ice for the first couple of days and then switched to heat after 48 hours based on her research. She denies any new or worsening symptoms since the ER visit, including cephalalgia, eye pain, visual disturbances, dizziness, lightheadedness, or sensitivity to light or sounds. She also denies nausea or emesis. She continues to take baby aspirin as prescribed and has not made any changes to her medication regimen. Review of Systems See HPI PAST MEDICAL HISTORY Diagnosis Date DIABETES MELLITUS TYPE II-UNCOMPL 10/07/2006 HYPERLIPIDEMIA NEC/NOS 11/04/2006 PERS HX TOBACCO USE 10/07/2006 Seronegative rheumatoid arthritis (HCC) Dr. Deutsch PAST SURGICAL HISTORY Procedure Laterality Date DELIVERY ONLY x 2 PAST SURGICAL HISTORY OF Dental implants ALLERGIES Epinephrine, Atorvastatin, Epinephrine-Chlorpheniramine, Pollen Extracts, Sulfa (Sulfonamide Antibiotics), and Oxybutynin Chloride MEDICATIONS propranolol (INDERAL) 10 mg tablet Take 1 tablet by mouth once daily as needed (anxiety). Uses PRN lisinopril (PRINIVIL) 10 mg tablet Take 1 tablet by mouth once daily. metFORMIN (GLUCOPHAGE) 1,000 mg tablet Take 1 tablet by mouth two times a day with meals. semaglutide (OZEMPIC) 1 mg/dose (4 mg/3 mL) pen Inject 1 mg subcutaneously one time a week. Dx: Type 2 DM E11.9 insulin aspart U-100 (NOVOLOG FLEXPEN U-100 INSULIN) 100 unit/mL (3 mL) Inject three times daily prior to meals following sliding scale and carb-correction (1 unit for every 20 units >150, 1 unit covers 10g carbs) insulin glargine (LANTUS U-100 INSULIN) 100 unit/mL injection Inject 26 Units subcutaneously two times a day. Adjust as directed blood sugar diagnostic (FREESTYLE LITE STRIPS) test strip Test blood sugar(s) 2 times daily. Dx: Type 2 DM - Controlled E11.9 Insulin: Yes Insulin [place], Disposable, (PEN NEEDLE) 30 gauge x 5/16 ndle Use with Novolog flex pen three times daily and as needed DM 2 E11.9 Miscellaneous Medical Supply Novofine 30 gauge X 1/3 one needle. Us 2 times daily for glargine twice daily lancets (FREESTYLE LANCETS) 28 gauge Test blood sugar(s) 2 times daily. Dx: Type 2 DM - Controlled E11.9 Insulin: Yes albuterol HFA (PROVENTIL HFA, VENTOLIN HFA) 90 mcg/actuation inhaler Inhale 2 Puffs as instructed every 4 hours as needed (cough and/or wheezing). calcium carb/vitamin D3/vit K1 (SOFT CHEWS CALCIUM ORAL) traMADol (ULTRAM) 50 mg tablet Take 50 mg by mouth three times daily as needed. methotrexate 2.5 mg tablet Take 6 tablets by mouth every Tuesday. (Dr. Deutsch) cetirizine (ZYRTEC) 10 mg tablet Take 1 tablet by mouth once daily. multivitamin tablet Take 1 tablet by mouth once daily. Cholecalciferol, Vitamin D3, (VITAMIN D) 25 mcg (1,000 unit) cap Take 1,000 Units by mouth once daily. folic acid 1 mg tablet Take 1 mg by mouth once daily. Aspirin 81 mg ORAL Tab Take one(1) tablet daily. FAMILY HISTORY Problem Relation Age of Onset Diabetes Mother Hypertension Mother Stroke Mother other (Injuries from MVA) Father Social History Tobacco Use Smoking status: Former Current packs/day: 0.50 Average packs/day: 0.5 packs/day for 20.0 years (10.0 ttl pk-yrs) Types: Cigarettes Smokeless tobacco: Former Quit date: 04/10/2013 Vaping Use Vaping status: Never Used Substance Use Topics Alcohol use: No Drug use: No BP 146/88 Pulse 72 Resp 16 Wt 108.7 kg (239 lb 10.2 oz) BMI 41.13 kg/m Physical Exam Vitals reviewed. Constitutional: Appearance: Normal appearance. HENT: Head: Eyes: General: Vision grossly intact. Extraocular Movements: Extraocular movements intact. Conjunctiva/sclera: Conjunctivae normal. Pupils: Pupils are equal, round, and reactive to light. Neurological: Mental Status: She is alert. I have reviewed the patient s records from [facility] including diagnostic testing performed, their discharge medications, and my assessment and plan with the patient and any family members present at today s visit. Assessment/Plan 1. Injury of head, initial encounter (S09.90XA) Traumatic ecchymosis of face, initial encounter (S00.83XA) Traumatic hematoma of forehead, initial encounter (S00.83XA) Patient sustained a head injury on 01/10 when a trash can lid hit her forehead, resulting in a hematoma over the right forehead and frontal scalp. No abrasions or lacerations were noted. CT scan of the brain showed no acute intracranial abnormality. Currently, there is a spongy hematoma on the forehead with associated ecchymosis around the eyes. No headaches, eye pain, visual disturbances, dizziness, lightheadedness, or sensitivity to light or sound reported. No nausea or vomiting. Patient continues to take baby aspirin as prescribed. - Continue applying ice to the affected area to reduce swelling. - After 48 hours, apply heat to facilitate absorption of the hematoma. - Monitor for any new or worsening symptoms such as headaches, visual disturbances, or dizziness, which could indicate a concussion. - Maintain current aspirin regimen. - Follow up with primary care if any concerning symptoms develop. I spent a total of 30 minutes on the date of the service which included preparing to see the patient, [id number] patient care, completing clinical documentation, obtaining and/or reviewing separately obtained history, performing a medically appropriate examination, counseling and educating the patient/family/caregiver, and care coordination (not separately reported). Prescription instructions reviewed with patient as applicable. Potential red flag symptoms discussed with the patient. Reviewed appropriate action plan to take if red flag symptoms occur. Patient agreeable to treatment plan. Angi Su APRN.SAMPLE STEAMER documented in this encounter [facility] 01-10-2025 Radiology Diagnostic study note [facility] Imaging Services [address] [place], [place] [address] Brain/Head without Contrast MR#: [id number] Acct: [id number] Name: KATALINA LEMOS Rep #: [id number] : [id number] F 74 From: Cole Callaway MD PCP: Dr. Mino Barcenas MD Status: RE G ER Study:Brain/Head without Contrast Date of Exa m: 01/10/25 Exam# [id number] Ordering Dr: Jace Hayes DO PROCEDURE: BRAIN/HEAD WITHOUT CONTRAST 01/10/2025 REASON FOR EXAM: INJURY/PAIN TECHNIQUE: BRAIN/HEAD WITHOUT CONTRAST Coronal and Sagittal reconstruction series were provided. One or more dose reduction techniques were used (e.g., Automated exposure control, adjustment of the mA and/or kV according to patient size, use of iterative reconstruction technique. RADIATION DOSE SUMMARY: CTDlvol: 44.99 mGy DLP: 829.85 mGycm COMPARISON: None. FINDINGS: A RIGHT FRONTAL CEPHALOHEMATOMA IS NOTED. Brain: Normal. No orbital pathology is noted. CSF Spaces: Normal Sinuses/Mastoids: Clear at visualized levels Bones: No fracture site is seen. CT/Brain/Head without Contrast IMPRESSION: 1. NO ACUTE INTRACRANIAL HEMORRHAGE. 2. No fracture site is evident. 3. Right frontal cephalohematoma. Reading Location: [place] [address] CC: Dr. Jace Hayes DO; Dr. Mino Barcenas MD ~ Criminal Investigator Customs: Signed [facility] 01-10-2025 Note HNO ID: [id number] Author: LOBO QUEVEDO APRN.SAMPLE STEAMER Service: ? Author Type: Nurse Practitioner Type: Progress Notes Filed: 01/10/2025 13:28 Note Text: Patient came in with complaints of bruising and swelling. Patient says her trash can when it hit her about couple hours ago. Patient did not lose consciousness does not have blurred vision does not have any other symptoms. However patient is on a baby aspirin and hematoma is significantly large compared to mechanism of injury. It is spreading towards the back of her head. It feels boggy. Did have a second provider's opinion at this time sending to the ER just to rule out any significant findings. Patient agreeable to care plan and will take herself [facility] 01-10-2025 History of Presen t illness Narrative Patient came in with complaints of bruising and swelling. Patient says her trash can when it hit her about couple hours ago. Patient did not lose consciousness does not have blurred vision does not have any other symptoms. However patient is on a baby aspirin and hematoma is significantly large compared to mechanism of injury. It is spreading towards the back of her head. It feels boggy. Did have a second provider's opinion at this time sending to the ER just to rule out any significant findings. Patient agreeable to care plan and will take herself documented in this encounter [facility] 10-26-2024 Telephone encounter Note Patient call in for cut index finger. Nurse Triage assessment completed with protocol recommending for disposition of Home care. Care advice reviewed with patient, patient stated understanding. Patient advised to contact office or seek evaluation in urgent care or ER if symptoms persist or gets worse. Reason for Disposition Small cut (scratch) or abrasion (scrape) is also present Answer Assessment - Initial Assessment Questions 1. MECHANISM: Cut finger with scissors 2. ONSET: 20 minutes 3. LOCATION: Half inch from tip of pointer finger 4. APPEARANCE of the INJURY: Small cut 5. SEVERITY: Yes she can move hand. 6. SIZE: Half inch long; Does not think it is real deep 7. PAIN: No Pain 8. TETANUS: Next due at 2030 9. OTHER SYMPTOMS: Denies Protocols used: Finger [id number] [facility] 10-26-2024 Miscellaneous Notes Patient call in for cut index finger. Nurse Triage assessment completed with protocol recommending for disposition of Home care. Care advice reviewed with patient, patient stated understanding. Patient advised to contact office or seek evaluation in urgent care or ER if symptoms persist or gets worse. Reason for Disposition Small cut (scratch) or abrasion (scrape) is also present Answer Assessment - Initial Assessment Questions 1. MECHANISM: Cut finger with scissors 2. ONSET: 20 minutes 3. LOCATION: Half inch from tip of pointer finger 4. APPEARANCE of the INJURY: Small cut 5. SEVERITY: Yes she can move hand. 6. SIZE: Half inch long; Does not think it is real deep 7. PAIN: No Pain 8. TETANUS: Next due at 2030 9. OTHER SYMPTOMS: Denies Protocols used: Finger [id number] documented in this encounter [facility] 09-04-2024 Note HNO ID: [id number] Author: CANDIE LLAMAS, ? Service: ? Author Type: Physician Type: Progress Notes Filed: 09/04/2024 12:48 Note Text: FOLLOW UP PODIATRIC OFFICE VISIT Chief Complaint: This 74 year old who presents for follow up:left foot pain Patient presents to clinic for follow-up left foot pain Has pain to the ball of left foot. Feels like she is stepping on a marble Pain is not intense. Just lets her know that something is going on. Has history of toe injury Here to discuss options. PAIN EVALUATION 08/28/2024 1328 Pain Level: 2 Pain Location: Foot-Left Description: Sharp Duration Amount of Time: 1 Duration Units: Minutes Frequency: Intermittent Intervention/Comfort measure: Other: See comment Comments: Only hurts when I stand on it. Hemoglobin A1C Date Value Ref Range Status 07/31/2024 6.0 (H) 4.3 - 5.6 % Final Comment: [place] [employer] Diabetes [employer] guidelines indicate that patients with HgbA1c in the range 5.7-6.4% are at increased risk for development of diabetes, and intervention by lifestyle modification may be beneficial. HgbA1c greater or equal to 6.5% is considered diagnostic of diabetes. PCP: Mino Barcenas MD PAST MEDICAL HISTORY Diagnosis Date DIABETES MELLITUS TYPE II-UNCOMPL 10/07/2006 HYPERLIPIDEMIA NEC/NOS 11/04/2006 PERS HX TOBACCO USE 10/07/2006 Seronegative rheumatoid arthritis (HCC) Dr. Deutsch Current Outpatient Medications Medication Sig propranolol (INDERAL) 10 mg tablet Take 1 tablet by mouth once daily as needed (anxiety). Uses PRN lisinopril (PRINIVIL) 10 mg tablet Take 1 tablet by mouth once daily. metFORMIN (GLUCOPHAGE) 1,000 mg tablet Take 1 tablet by mouth two times a day with meals. semaglutide (OZEMPIC) 1 mg/dose (4 mg/3 mL) pen Inject 1 mg subcutaneously one time a week. Dx: Type 2 DM E11.9 insulin aspart U-100 (NOVOLOG FLEXPEN U-100 INSULIN) 100 unit/mL (3 mL) Inject three times daily prior to meals following sliding scale and carb-correction (1 unit for every 20 units >150, 1 unit covers 10g carbs) insulin glargine (LANTUS U-100 INSULIN) 100 unit/mL injection Inject 26 Units subcutaneously two times a day. Adjust as directed blood sugar diagnostic (FREESTYLE LITE STRIPS) test strip Test blood sugar(s) 2 times daily. Dx: Type 2 DM - Controlled E11.9 Insulin: Yes Insulin [place], Disposable, (PEN NEEDLE) 30 gauge x 5/16 ndle Use with Novolog flex pen three times daily and as needed DM 2 E11.9 Miscellaneous Medical Supply Novofine 30 gauge X 1/3 one needle. Us 2 times daily for glargine twice daily lancets (FREESTYLE LANCETS) 28 gauge Test blood sugar(s) 2 times daily. Dx: Type 2 DM - Controlled E11.9 Insulin: Yes benzonatate (TESSALON PERLES) 100 mg capsule Take 1 capsule by mouth three times daily as needed for cough. albuterol HFA (PROVENTIL HFA, VENTOLIN HFA) 90 mcg/actuation inhaler Inhale 2 Puffs as instructed every 4 hours as needed (cough and/or wheezing). calcium carb/vitamin D3/vit K1 (SOFT CHEWS CALCIUM ORAL) traMADol (ULTRAM) 50 mg tablet Take 50 mg by mouth three times daily as needed. methotrexate 2.5 mg tablet Take 6 tablets by mouth every Tuesday. (Dr. Deutsch) cetirizine (ZYRTEC) 10 mg tablet Take 1 tablet by mouth once daily. multivitamin tablet Take 1 tablet by mouth once daily. Cholecalciferol, Vitamin D3, (VITAMIN D) 25 mcg (1,000 unit) cap Take 1,000 Units by mouth once daily. folic acid 1 mg tablet Take 1 mg by mouth once daily. Aspirin 81 mg ORAL Tab Take one(1) tablet daily. No current facility-administered medications for this visit. ALLERGIES Allergen Reactions Epinephrine GI Upset, Other: See Comments Atorvastatin Myalgia Epinephrine-Chlorph* Unknown Pollen Extracts Other: See Comments runny nose Sulfa (Sulfonamide * Rash Oxybutynin Chloride Diarrhea PAST SURGICAL HISTORY Procedure Laterality Date DELIVERY ONLY x 2 PAST SURGICAL HISTORY OF Dental implants Physical Exam: OBJECTIVE: Constitutional: Pt is a well developed 74 year old female who is alert, oriented, cooperative and in no apparent distress. Eyes: Following during examination. No redness or drainage. Respiratory: RR normal and nonlabored. Even breathing. No evidence of distress. Psychology: Patient is engaged during conversation. Normal affect and mood. Does not appear depressed or anxious. NVSI unchanged from previous visit. Dermatological: Nails 1-5 b/l are normal. Webspaces clean and dry 1-4 b/l. Skin appears dry. No open lesions present. No callosities present. Musculoskeletal/Orthopaedic: Patient has pain to palpation of left 3rd interspace No reymundo sign ASSESSMENT: Neuroma (primary encounter diagnosis) Pain in left foot PLAN: Discussed pain in left 3rd interspace. Suspect neuroma of left 3rd interspace vs bursitis Recommend gel inserts. Xray ordered If pain becomes more severe, consider diagnostic injection vs steroid injection of left 3 (more content not included)... [facility] 09-04-2024 History of Presen t illness Narrative Images from the original note were not included. FOLLOW UP PODIATRIC OFFICE VISIT Chief Complaint: This 74 year old who presents for follow up:left foot pain Patient presents to clinic for follow-up left foot pain Has pain to the ball of left foot. Feels like she is stepping on a marble Pain is not intense. Just lets her know that something is going on. Has history of toe injury Here to discuss options. PAIN EVALUATION 08/28/2024 1328 Pain Level: 2 Pain Location: Foot-Left Description: Sharp Duration Amount of Time: 1 Duration Units: Minutes Frequency: Intermittent Intervention/Comfort measure: Other: See comment Comments: Only hurts when I stand on it. Hemoglobin A1C Date Value Ref Range Status 07/31/2024 6.0 (H) 4.3 - 5.6 % Final Comment: [place] Diabetes [employer] guidelines indicate that patients with HgbA1c in the range 5.7-6.4% are at increased risk for development of diabetes, and intervention by lifestyle modification may be beneficial. HgbA1c greater or equal to 6.5% is considered diagnostic of diabetes. PCP: Mino Barcenas MD PAST MEDICAL HISTORY Diagnosis Date DIABETES MELLITUS TYPE II-UNCOMPL 10/07/2006 HYPERLIPIDEMIA NEC/NOS 11/04/2006 PERS HX TOBACCO USE 10/07/2006 Seronegative rheumatoid arthritis (HCC) Dr. Deutsch Current Outpatient Medications Medication Sig propranolol (INDERAL) 10 mg tablet Take 1 tablet by mouth once daily as needed (anxiety). Uses PRN lisinopril (PRINIVIL) 10 mg tablet Take 1 tablet by mouth once daily. metFORMIN (GLUCOPHAGE) 1,000 mg tablet Take 1 tablet by mouth two times a day with meals. semaglutide (OZEMPIC) 1 mg/dose (4 mg/3 mL) pen Inject 1 mg subcutaneously one time a week. Dx: Type 2 DM E11.9 insulin aspart U-100 (NOVOLOG FLEXPEN U-100 INSULIN) 100 unit/mL (3 mL) Inject three times daily prior to meals following sliding scale and carb-correction (1 unit for every 20 units >150, 1 unit covers 10g carbs) insulin glargine (LANTUS U-100 INSULIN) 100 unit/mL injection Inject 26 Units subcutaneously two times a day. Adjust as directed blood sugar diagnostic (FREESTYLE LITE STRIPS) test strip Test blood sugar(s) 2 times daily. Dx: Type 2 DM - Controlled E11.9 Insulin: Yes Insulin [place], Disposable, (PEN NEEDLE) 30 gauge x 5/16 ndle Use with Novolog flex pen three times daily and as needed DM 2 E11.9 Miscellaneous Medical Supply Novofine 30 gauge X 1/3 one needle. Us 2 times daily for glargine twice daily lancets (FREESTYLE LANCETS) 28 gauge Test blood sugar(s) 2 times daily. Dx: Type 2 DM - Controlled E11.9 Insulin: Yes benzonatate (TESSALON PERLES) 100 mg capsule Take 1 capsule by mouth three times daily as needed for cough. albuterol HFA (PROVENTIL HFA, VENTOLIN HFA) 90 mcg/actuation inhaler Inhale 2 Puffs as instructed every 4 hours as needed (cough and/or wheezing). calcium carb/vitamin D3/vit K1 (SOFT CHEWS CALCIUM ORAL) traMADol (ULTRAM) 50 mg tablet Take 50 mg by mouth three times daily as needed. methotrexate 2.5 mg tablet Take 6 tablets by mouth every Tuesday. (Dr. Deutsch) cetirizine (ZYRTEC) 10 mg tablet Take 1 tablet by mouth once daily. multivitamin tablet Take 1 tablet by mouth once daily. Cholecalciferol, Vitamin D3, (VITAMIN D) 25 mcg (1,000 unit) cap Take 1,000 Units by mouth once daily. folic acid 1 mg tablet Take 1 mg by mouth once daily. Aspirin 81 mg ORAL Tab Take one(1) tablet daily. No current facility-administered medications for this visit. ALLERGIES Allergen Reactions Epinephrine GI Upset, Other: See Comments Atorvastatin Myalgia Epinephrine-Chlorph* Unknown Pollen Extracts Other: See Comments runny nose Sulfa (Sulfonamide * Rash Oxybutynin Chloride Diarrhea PAST SURGICAL HISTORY Procedure Laterality Date DELIVERY ONLY x 2 PAST SURGICAL HISTORY OF Dental implants Physical Exam: OBJECTIVE: Constitutional: Pt is a well developed 74 year old female who is alert, oriented, cooperative and in no apparent distress. Eyes: Following during examination. No redness or drainage. Respiratory: RR normal and nonlabored. Even breathing. No evidence of distress. Psychology: Patient is engaged during conversation. Normal affect and mood. Does not appear depressed or anxious. NVSI unchanged from previous visit. Dermatological: Nails 1-5 b/l are normal. Webspaces clean and dry 1-4 b/l. Skin appears dry. No open lesions present. No callosities present. Musculoskeletal/Orthopaedic: Patient has pain to palpation of left 3rd interspace No reymundo sign ASSESSMENT: Neuroma (primary encounter diagnosis) Pain in left foot PLAN: Discussed pain in left 3rd interspace. Suspect neuroma of left 3rd interspace vs bursitis Recommend gel inserts. Xray ordered If pain becomes more severe, consider diagnostic injection vs steroid injection of left 3rd interspace. If pain fails to improve and xrays negative, patient can contact office and will bring her in for injection Candie Llamas DPM AMB ROOMING INTAKE FLOWSHEET DATA Pain Pain Level: 2 Pain Location: Foot-Left Description: Sharp Duration Amount of Time: 1 Duration Units: Minutes Frequency: Intermittent Intervention/Comfort measure: Other: See comment Comments: Only hurts when I stand on it. Patient presents with: Left Foot - Established Patient, Follow Up, Wart, Pain Meli Avila LPN documented in this encounter [facility] 09-04-2024 History of Presen t illness Narrative Radiology Service Progress Note PATIENT NAME: Katalina Lemos DATE OF SERVICE: September 04, 2024 TIME: 12:04 PM PATIENT IDENTITY VERIFICATION COMPLETED USING TWO (2) IDENTIFIERS: Name and Date of confirmed by patient verbally. FALL SCREENING: Has the patient had 2 falls in the last year or 1 fall with injury or currently using an Ambulatory Assistive Device (Walker, Cane, Wheelchair, Crutches, etc.)? No PATIENT GENDER DATA: Assigned female at . status: : No status: NO. PATIENT RELEVANT IMPLANT DATA REVIEWED: Not Applicable PATIENT PRESENTS WITH AN IMPLANTABLE OR ATTACHED TECHNICAL SUPPORT MANAGER: No RADIOLOGY DEPARTMENT: General X-ray: Exam(s) Completed: Lower Extremity X-Ray(s): Foot, Left and Wt. Bearing PERIPHERAL IV DATA: Not applicable SIGNED BY: OLGA Ortega) September 04, 2024 12:04 PM documented in this encounter [facility] 09-04-2024 Note HNO ID: [id number] Author: SHAZIA MAYS RT(R) Service: Radiology Author Type: Technologist Type: Progress Notes Filed: 09/04/2024 12:12 Note Text: Radiology Service Progress Note PATIENT NAME: Katalina Lemos DATE OF SERVICE: September 04, 2024 TIME: 12:04 PM PATIENT IDENTITY VERIFICATION COMPLETED USING TWO (2) IDENTIFIERS: Name and Date of confirmed by patient verbally. FALL SCREENING: Has the patient had 2 falls in the last year or 1 fall with injury or currently using an Ambulatory Assistive Device (Walker, Cane, Wheelchair, Crutches, etc.)? No PATIENT GENDER DATA: Assigned female at . status: : No status: NO. PATIENT RELEVANT IMPLANT DATA REVIEWED: Not Applicable PATIENT PRESENTS WITH AN IMPLANTABLE OR ATTACHED TECHNICAL SUPPORT MANAGER: No RADIOLOGY DEPARTMENT: General X-ray: Exam(s) Completed: Lower Extremity X-Ray(s): Foot, Left and Wt. Bearing PERIPHERAL IV DATA: Not applicable SIGNED BY: Shazia Mays, RT(R) September 04, 2024 12:04 PM [facility] 09-04-2024 Instructions Candie Llamas - 09/04/2024 11:55 AM EST Powerstep Original Full length. Can purchase at [facility] Runner and boots,shoes and more here in [place], [employer] in [place] or [place]. Also can find in [place] in [facility]. Powersteps can also be purchased online, starting around $45.00 If you have a metatarsal or dancer pad for your feet apply the pad directly to the insole so you can interchange between your shoes. Find a shoe with a removable insole and take this out and replace with your powerstep insole. Always bring powersteps with you when shopping for shoes so that you can make sure that everything fits well together documented in this encounter [facility] 09-04-2024 Note HNO ID: [id number] Author: MELI AVILA LPN Service: ? Author Type: LICENSED NURSE Type: Progress Notes Filed: 09/04/2024 12:48 Note Text: AMB ROOMING INTAKE FLOWSHEET DATA Pain Pain Level: 2 Pain Location: Foot-Left Description: Sharp Duration Amount of Time: 1 Duration Units: Minutes Frequency: Intermittent Intervention/Comfort measure: Other: See comment Comments: Only hurts when I stand on it. Patient presents with: Left Foot - Established Patient, Follow Up, Wart, Pain eMli Avila LPN [facility] 08-06-2024 Instructions Mino Barcenas MD - 08/06/2024 1:41 PM EST - Continue taking Propranolol, Lisinopril, Metformin, Ozempic, Novolog, and Lantus as prescribed. - Maintain a balanced diet that includes potassium-rich foods like fruits and vegetables. If you drink a lot of water, make sure to include electrolytes to prevent potassium loss. - If you eat a banana, pair it with a protein to avoid spiking your blood sugar. - Continue your current exercise routine, including walking at [employer] twice a week and using 3-pound weights for arm exercises. Aim to increase your exercise to 120 minutes per week, including light weights, stretching, and yoga. - Monitor your blood pressure regularly. Practice deep breathing exercises (inhale for 4 seconds, exhale for 8 seconds) to help lower your blood pressure. - Avoid green tea and other caffeinated beverages that may cause heart palpitations. - Follow-up appointment in 6 months for your next check-up. documented in this encounter [facility] 08-06-2024 Note HNO ID: [id number] Author: MINO BARCENAS MD Service: ? Author Type: Physician Type: Progress Notes Filed: 2024 14:06 Note Text: This note was created using [employer]. Subjective Katalina Lemos is a 73 year old female. Patient presents with: F/U 6 months SUBJECTIVE: Katalina Lemos is a 73 year old year old lady here today for 6 month follow up appointment for review of medical conditions. Katalina Lemos is a 73-year-old female with a history of DM, HTN, and hypercholesterolemia, presenting for a 6-month follow-up visit. Katalina reports no new concerns since her last visit and has not reviewed her recent lab results. She mentions a recent episode of palpitations after consuming green tea, which she attributes to caffeine sensitivity. She denies any issues with her current medications, which include propranolol, lisinopril, metformin, Ozempic, Novolog, and Lantus. She confirms that her insulin regimen is effective and that she has an adequate supply of syringes. She reports engaging in physical activity by walking around [employer] twice a week and performing arm exercises with 3-pound weights. She denies any leg cramps. PAST MEDICAL HISTORY Diagnosis Date DIABETES MELLITUS TYPE II-UNCOMPL 10/07/2006 HYPERLIPIDEMIA NEC/NOS 11/04/2006 PERS HX TOBACCO USE 10/07/2006 Seronegative rheumatoid arthritis (HCC) Dr. Deutsch Current Outpatient Medications Medication Sig lisinopril (PRINIVIL) 10 mg tablet Take 1 tablet by mouth once daily. insulin glargine (LANTUS U-100 INSULIN) 100 unit/mL injection Inject 26 Units subcutaneously two times a day. Adjust as directed metFORMIN (GLUCOPHAGE) 1,000 mg tablet Take 1 tablet by mouth two times a day with meals. semaglutide (OZEMPIC) 1 mg/dose (4 mg/3 mL) pen Inject 1 mg subcutaneously one time a week. Dx: Type 2 DM E11.9 insulin aspart U-100 (NOVOLOG FLEXPEN U-100 INSULIN) 100 unit/mL (3 mL) Inject three times daily prior to meals following sliding scale and carb-correction (1 unit for every 20 units >150, 1 unit covers 10g carbs) blood sugar diagnostic (FREESTYLE LITE STRIPS) test strip Test blood sugar(s) 2 times daily. Dx: Type 2 DM - Controlled E11.9 Insulin: Yes propranolol (INDERAL) 10 mg tablet Take 1 tablet by mouth once daily as needed (anxiety). Uses PRN Insulin [place], Disposable, (PEN NEEDLE) 30 gauge x 5/16 ndle Use with Novolog flex pen three times daily and as needed DM 2 E11.9 Miscellaneous Medical Supply Novofine 30 gauge X 1/3 one needle. Us 2 times daily for glargine twice daily lancets (FREESTYLE LANCETS) 28 gauge Test blood sugar(s) 2 times daily. Dx: Type 2 DM - Controlled E11.9 Insulin: Yes calcium carb/vitamin D3/vit K1 (SOFT CHEWS CALCIUM ORAL) traMADol (ULTRAM) 50 mg tablet Take 50 mg by mouth three times daily as needed. methotrexate 2.5 mg tablet Take 6 tablets by mouth every Tuesday. (Dr. Deutsch) cetirizine (ZYRTEC) 10 mg tablet Take 1 tablet by mouth once daily. multivitamin tablet Take 1 tablet by mouth once daily. Cholecalciferol, Vitamin D3, (VITAMIN D) 25 mcg (1,000 unit) cap Take 1,000 Units by mouth once daily. folic acid 1 mg tablet Take 1 mg by mouth once daily. Aspirin 81 mg ORAL Tab Take one(1) tablet daily. benzonatate (TESSALON PERLES) 100 mg capsule Take 1 capsule by mouth three times daily as needed for cough. albuterol HFA (PROVENTIL HFA, VENTOLIN HFA) 90 mcg/actuation inhaler Inhale 2 Puffs as instructed every 4 hours as needed (cough and/or wheezing). No current facility-administered medications for this visit. Review of Systems Objective BP 134/84 Pulse 84 Temp 37.1 ?C (98.7 ?F) (Tympanic) Resp 18 Wt 109.8 kg (242 lb) SpO2 96% BMI 41.54 kg/m? Last 5 Encounter Wt Readings: Date: Wt: 08/06/2024 109.8 kg (242 lb) 01/14/2024 110.7 kg (244 lb 0.8 oz) 12/28/2023 109.3 kg (241 lb) 07/22/2023 109.8 kg (242 lb) 01/07/2023 110.7 kg (244 lb) No waist measurement recorded Estimated body mass index is 41.54 kg/m? as calculated from the following: Height as of 06/29/21: 162.6 cm (5' 4). Weight as of this encounter: 109.8 kg (242 lb). Last 5 Encounter BP Readings: Date: BP: 08/06/2024 134/84 01/14/2024 157/80 12/28/2023 120/78 07/22/2023 132/78 01/07/2023 132/68 08/06/24 1256 08/06/24 1338 BP: 134/84 132/78 Pulse: 84 Resp: 18 Temp: 37.1 ?C (98.7 ?F) TempSrc: Tympanic SpO2: 96% Weight: 109.8 kg (242 lb) Physical Exam Constitutional: Appearance: Normal appearance. HENT: Head: Normocephalic. Eyes: Conjunctiva/sclera: Conjunctivae normal. Cardiovascular: Rate and Rhythm: Normal rate and regular rhythm. Heart sounds: Normal heart sounds. Pulmonary: Effort: Pulmonary effort is normal. Breath sounds: Normal breath sounds. Musculoskeletal: Right lower leg: No edema. Left lower leg: No edema. Skin: General: Skin is warm and dry. Neurological: General: No focal deficit present. Mental St (more content not included)... [facility] 08-06-2024 History of Presen t illness Narrative This note was created using [email or web address]. Subjective Katalina Lemos is a 73 year old female. Patient presents with: F/U 6 months SUBJECTIVE: Katalina Lemos is a 73 year old year old lady here today for 6 month follow up appointment for review of medical conditions. Katalina Lemos is a 73-year-old female with a history of DM, HTN, and hypercholesterolemia, presenting for a 6-month follow-up visit. Katalina reports no new concerns since her last visit and has not reviewed her recent lab results. She mentions a recent episode of palpitations after consuming green tea, which she attributes to caffeine sensitivity. She denies any issues with her current medications, which include propranolol, lisinopril, metformin, Ozempic, Novolog, and Lantus. She confirms that her insulin regimen is effective and that she has an adequate supply of syringes. She reports engaging in physical activity by [facility] twice a week and performing arm exercises with 3-pound weights. She denies any leg cramps. PAST MEDICAL HISTORY Diagnosis Date DIABETES MELLITUS TYPE II-UNCOMPL 10/07/2006 HYPERLIPIDEMIA NEC/NOS 11/04/2006 PERS HX TOBACCO USE 10/07/2006 Seronegative rheumatoid arthritis (HCC) Dr. Deutsch Current Outpatient Medications Medication Sig lisinopril (PRINIVIL) 10 mg tablet Take 1 tablet by mouth once daily. insulin glargine (LANTUS U-100 INSULIN) 100 unit/mL injection Inject 26 Units subcutaneously two times a day. Adjust as directed metFORMIN (GLUCOPHAGE) 1,000 mg tablet Take 1 tablet by mouth two times a day with meals. semaglutide (OZEMPIC) 1 mg/dose (4 mg/3 mL) pen Inject 1 mg subcutaneously one time a week. Dx: Type 2 DM E11.9 insulin aspart U-100 (NOVOLOG FLEXPEN U-100 INSULIN) 100 unit/mL (3 mL) Inject three times daily prior to meals following sliding scale and carb-correction (1 unit for every 20 units >150, 1 unit covers 10g carbs) blood sugar diagnostic (FREESTYLE LITE STRIPS) test strip Test blood sugar(s) 2 times daily. Dx: Type 2 DM - Controlled E11.9 Insulin: Yes propranolol (INDERAL) 10 mg tablet Take 1 tablet by mouth once daily as needed (anxiety). Uses PRN Insulin [place], Disposable, (PEN NEEDLE) 30 gauge x 5/16 ndle Use with Novolog flex pen three times daily and as needed DM 2 E11.9 Miscellaneous Medical Supply Novofine 30 gauge X 1/3 one needle. Us 2 times daily for glargine twice daily lancets (FREESTYLE LANCETS) 28 gauge Test blood sugar(s) 2 times daily. Dx: Type 2 DM - Controlled E11.9 Insulin: Yes calcium carb/vitamin D3/vit K1 (SOFT CHEWS CALCIUM ORAL) traMADol (ULTRAM) 50 mg tablet Take 50 mg by mouth three times daily as needed. methotrexate 2.5 mg tablet Take 6 tablets by mouth every Tuesday. (Dr. Deutsch) cetirizine (ZYRTEC) 10 mg tablet Take 1 tablet by mouth once daily. multivitamin tablet Take 1 tablet by mouth once daily. Cholecalciferol, Vitamin D3, (VITAMIN D) 25 mcg (1,000 unit) cap Take 1,000 Units by mouth once daily. folic acid 1 mg tablet Take 1 mg by mouth once daily. Aspirin 81 mg ORAL Tab Take one(1) tablet daily. benzonatate (TESSALON PERLES) 100 mg capsule Take 1 capsule by mouth three times daily as needed for cough. albuterol HFA (PROVENTIL HFA, VENTOLIN HFA) 90 mcg/actuation inhaler Inhale 2 Puffs as instructed every 4 hours as needed (cough and/or wheezing). No current facility-administered medications for this visit. Review of Systems Objective BP 134/84 Pulse 84 Temp 37.1 C (98.7 F) (Tympanic) Resp 18 Wt 109.8 kg (242 lb) SpO2 96% BMI 41.54 kg/m Last 5 Encounter Wt Readings: Date: Wt: 08/06/2024 109.8 kg (242 lb) 01/14/2024 110.7 kg (244 lb 0.8 oz) 12/28/2023 109.3 kg (241 lb) 07/22/2023 109.8 kg (242 lb) 01/07/2023 110.7 kg (244 lb) No waist measurement recorded Estimated body mass index is 41.54 kg/m as calculated from the following: Height as of 06/29/21: 162.6 cm (5' 4). Weight as of this encounter: 109.8 kg (242 lb). Last 5 Encounter BP Readings: Date: BP: 08/06/2024 134/84 01/14/2024 157/80 12/28/2023 120/78 07/22/2023 132/78 01/07/2023 132/68 08/06/24 1256 08/06/24 1338 BP: 134/84 132/78 Pulse: 84 Resp: 18 Temp: 37.1 C (98.7 F) TempSrc: Tympanic SpO2: 96% Weight: 109.8 kg (242 lb) Physical Exam Constitutional: Appearance: Normal appearance. HENT: Head: Normocephalic. Eyes: Conjunctiva/sclera: Conjunctivae normal. Cardiovascular: Rate and Rhythm: Normal rate and regular rhythm. Heart sounds: Normal heart sounds. Pulmonary: Effort: Pulmonary effort is normal. Breath sounds: Normal breath sounds. Musculoskeletal: Right lower leg: No edema. Left lower leg: No edema. Skin: General: Skin is warm and dry. Neurological: General: No focal deficit present. Mental Status: She is alert and oriented to person, place, and time. Psychiatric: Mood and Affect: Mood normal. Behavior: Behavior normal. Thought Content: Thought content normal. Judgment: Judgment normal. Latest Ref Rng 07/18/2023 12/26/2023 07/31/2024 WBC 3.70 - 11.00 k/uL 6.72 8.03 6.18 RBC 3.90 - 5.20 m/uL 4.52 4.37 4.66 Hemoglobin 11.5 - 15.5 g/dL 14.1 13.9 14.7 Hematocrit 36.0 - 46.0 % 43.9 43.2 44.8 MCV 80.0 - 100.0 fL 97.1 98.9 96.1 MCH 26.0 - 34.0 pg 31.2 31.8 31.5 MCHC 30.5 - 36.0 g/dL 32.1 32.2 32.8 RDW-CV 11.5 - 15.0 % 12.9 13.7 13.0 Platelet Count 150 - 400 k/uL 243 234 237 MPV 9.0 - 12.7 fL 10.6 11.1 11.1 Neut% % 58.1 58.6 Abs Neut (ANC) 1.45 - 7.50 k/uL 3.90 4.71 Lymph% % 29.9 29.8 Abs Lymph 1.00 - 4.00 k/uL 2.01 2.39 Arroyo% % 8.2 8.0 Abs [place]o <0.87 k/uL 0.55 0.64 Eosin% % 3.1 2.5 Abs Eosin <0.46 k/uL 0.21 0.20 Baso% % 0.6 0.7 Abs Baso <0.11 k/uL 0.04 0.06 Immature Gran % % 0.1 0.4 IMMATURE GRANS (ABS) <0.10 k/uL <0.03 0.03 NRBC /100 WBC 0.0 0.0 Absolute nRBC <0.01 k/uL <0.01 <0.01 <0.01 DTYPE Auto Auto Protein, Total 6.3 - 8.0 g/dL 6.7 6.7 6.7 Albumin 3.9 - 4.9 g/dL 4.2 4.1 3.9 Calcium 8.5 - 10.2 mg/dL 9.2 9.5 9.3 Bilirubin, Total 0.2 - 1.3 mg/dL 0.5 0.4 0.6 Alkaline Phosphatase 34 - 123 U/L 67 59 59 AST 13 - 35 U/L 30 22 24 ALT 7 - 38 U/L 33 23 31 Glucose 74 - 99 mg/dL 122 (H) 111 (H) 107 (H) BUN 7 - 21 mg/dL 15 31 (H) 14 Creatinine 0.58 - 0.96 mg/dL 0.75 0.86 0.71 Sodium 136 - 144 mmol/L 142 139 143 Potassium 3.7 - 5.1 mmol/L 4.1 5.1 3.7 Chloride 98 - 107 mmol/L 104 105 102 CO2 22 - 30 mmol/L 25 22 27 Anion Gap 8 - 15 mmol/L 13 12 14 eGFR >=60 mL/min/1.73m 86 72 91 Cholesterol, Total <200 mg/dL 150 172 163 Triglyceride <150 mg/dL 71 115 102 HDL Cholesterol >39 mg/dL 59 60 64 Non HDL Cholesterol <130 mg/dL 91 112 99 Fasting Time hrs 12 12 12 VLDL Cholesterol <30 mg/dL 14 23 20 TC:HDL Ratio <5.10 2.54 2.87 2.55 LDL Cholesterol <100 mg/dL 77 89 79 LDL:HDL Ratio <2.54 1.31 1.48 1.23 Creatinine, Ur Random (UCRR) 20.0 - 300.0 mg/dL 144.0 216.4 Albumin, Urine Random mg/L <12.0 18.5 Albumin/Creat Ratio <30 mg/g <8 9 Hemoglobin A1C 4.3 - 5.6 % 6.0 (H) 6.1 (H) 6.0 (H) Estimated Average Glucose mg/dL 126 128 126 Vitamin D 25 Hydroxy 31.0 - 80.0 ng/mL 54.1 Legend: (H) High Assessment and Plan Katalina Lemos is a 73-year-old female with a history of DM, HTN, and hypercholesterolemia, presenting for a 6-month follow-up visit. Katalina reports no new concerns since her last visit and has not reviewed her recent lab results. She mentions a recent episode of palpitations after consuming green tea, which she attributes to caffeine sensitivity. She denies any issues with her current medications, which include propranolol, lisinopril, metformin, Ozempic, Novolog, and Lantus. She confirms that her insulin regimen is effective and that she has an adequate supply of syringes. She reports engaging in physical activity by walking around [facility] twice a week and performing arm exercises with 3-pound weights. She denies any leg cramps. Mino Barcenas MD documented in this encounter [facility] 06-27-2024 Evaluation note Diagnosis Onset Date Resolution Segmental and somatic dysfunction of lumbar region acute June 27 10:53am Segmental and somatic dysfunction of pelvic region acute June 27 10:53am Scoliosis of lumbar spine chronic June 27 10:53am Back pain acute July 24, 2024 10:55am Segmental and somatic dysfunction of lumbar region acute July 24 10:55am Segmental and somatic dysfunction of pelvic region acute July 24 10:55am Rheumatoid arthritis chronic Evgeny tilley 2024 10:55am Scoliosis of lumbar spine chronic July 24 10:55am [facility] Work Phone: [phone]) 565-165912-11-2024 NotePatient Outreach ([facility]) KATALINA LEMOS ([id number]) 1950 F Date Time Provider Department 06/20/24 MINO BARCENAS [facility] During your visit today, we recorded the following information about you: Allergies As of Date: 06/20/2024 Noted Allergy Reaction EPINEPHRINE 11/25/2008 8 - GI Upset 14 - Other: See Comments ATORVASTATIN 01/05/2016 17 - Myalgia EPINEPHRINE-CHLORPHENIRAMINE 10/03/2018 16 - Unknown POLLEN EXTRACTS 01/07/2022 14 - Other: See Comments Comments: runny nose SULFA (SULFONAMIDE ANTIBIOTICS) 09/16/2006 2 - Rash OXYBUTYNIN CHLORIDE 03/10/2012 6 - Diarrhea Date Reviewed: 01/14/2024 Reviewed by: Deysi Arechiga MA - Fully Assessed Visit Diagnosis:Encounter for screening mammogram for breast cancer [Z12.31] Order(s):[facility] SCREENING [facility]LESTINE [[id number]] Order #: [id number] FUTURE Prescriptions as of 06/25/2024 - lisinopril (PRINIVIL) 10 mg tablet Take 1 tablet by mouth once daily. - insulin glargine (LANTUS U-100 INSULIN) 100 unit/mL injection Inject 26 Units subcutaneously two times a day. Adjust as directed - metFORMIN (GLUCOPHAGE) 1,000 mg tablet Take 1 tablet by mouth two times a day with meals. - semaglutide (OZEMPIC) 1 mg/dose (4 mg/3 mL) pen Inject 1 mg subcutaneously one time a week. Dx: Type 2 DM E11.9 - insulin aspart U-100 (NOVOLOG FLEXPEN U-100 INSULIN) 100 unit/mL (3 mL) Inject three times daily prior to meals following sliding scale and carb-correction (1 unit for every 20 units >150, 1 unit covers 10g carbs) - blood sugar diagnostic (FREESTYLE LITE STRIPS) test strip Test blood sugar(s) 2 times daily. Dx: Type 2 DM - Controlled E11.9 Insulin: Yes - propranolol (INDERAL) 10 mg tablet Take 1 tablet by mouth once daily as needed (anxiety). Uses PRN - Insulin [place], Disposable, (PEN NEEDLE) 30 gauge x 5/16 ndle Use with Novolog flex pen three times daily and as needed DM 2 E11.9 - Miscellaneous Medical Supply Novofine 30 gauge X 1/3 one needle. Us 2 times daily for glargine twice daily - lancets (FREESTYLE LANCETS) 28 gauge Test blood sugar(s) 2 times daily. Dx: Type 2 DM - Controlled E11.9 Insulin: Yes - benzonatate (TESSALON PERLES) 100 mg capsule Take 1 capsule by mouth three times daily as needed for cough. - albuterol HFA (PROVENTIL HFA, VENTOLIN HFA) 90 mcg/actuation inhaler Inhale 2 Puffs as instructed every 4 hours as needed (cough and/or wheezing). - calcium carb/vitamin D3/vit K1 (SOFT CHEWS CALCIUM ORAL) - traMADol (ULTRAM) 50 mg tablet Take 50 mg by mouth three times daily as needed. - methotrexate 2.5 mg tablet Take 6 tablets by mouth every Tuesday. (Dr. Deutsch) - cetirizine (ZYRTEC) 10 mg tablet Take 1 tablet by mouth once daily. - multivitamin tablet Take 1 tablet by mouth once daily. - Cholecalciferol, Vitamin D3, (VITAMIN D) 25 mcg (1,000 unit) cap Take 1,000 Units by mouth once daily. - folic acid 1 mg tablet Take 1 mg by mouth once daily. - Aspirin 81 mg ORAL Tab Take one(1) tablet daily. Problem List As Of Date 06/20/2024 Noted Resolved Type 2 diabetes mellitus without complication, *10/07/2006 OVERWEIGHT [E66.9] 10/07/2006 05/15/2016 Personal history of tobacco use, presenting haz*10/07/2006 05/15/2016 Mixed hyperlipidemia [E78.2] 11/04/2006 Essential hypertension [I10] 01/05/2007 Morbid obesity due to excess calories (HCC) [E6*05/15/2016 Seronegative rheumatoid arthritis (HCC) [M06.00] Congenital cavus deformity of both feet [Q66.71*11/03/2023 Encounter Status:Closed by MUSHTAQ, PRODUSER on 06/25/24[facility] 01-25-2024 History of Present illness Narrative* Bandar Cleary PT - 01/25/2024 10:43 AM EDT [facility] DME ISSUE NOTE Patient identified by name and date: Yes Subjective: Katalina Lemos is a 73 year old female seen today for fitting and pick up and delivery driver of modified custom foot orthotics. Arch height of original pair was lowered. Equipment Owned: none DME Delivery: Pt was educated on wear schedule and care of custom foot orthotics. Pt was urged to follow the wearschedule and to call with any questions or concerns. Pt was instructed to start with wearing orthotics one hour the first day and then to add one hour of wear time per day until time broker wear is achieved. Pt was educated on how to remove insoles from shoes and then place orthotics in shoes. The fit of orthotics was assessed with pt standing, with and without shoes. The comfort of orthotics was assessed with pt standing and walking with orthotics in shoes. Pt denied any rubbing or pinching and felt that fit of custom orthotics was correct. Contact information for this therapist was provided to patient. Custom biomechanical foot orthotics with serial number: #[id number] were issued to patient and proof of receipt form signed by pt and therapist. All specifications for custom foot orthotics can be foundin orthotic evaluation visit note. Planned Interventions: Follow up as needed for brace fitting/issues. Billing:[facility]: Equipment: no charge for equipment because modifications were covered under the device warranty by lab No charge for time. Total time: 15 minutes Bandar Cleary PT [facility] History of Present illness Narrative* Lobo Quevedo APRN.[facility] - 01/14/2024 12:14 PM EDT Images from the original note were not included. Subjective Patient came in with complaints of a cut on her middle left toe and said she is worried it might beinfection. It is starting to get some redness around it. Patient said she cut it several days ago with a viscera washer. Denies loss of feeling. The history is provided by the patient. No multi disciplined language analyst was used. Laceration Review of Systems Constitutional: Negative. Skin: Negative. Objective Physical Exam Constitutional: Appearance: Normal appearance. Pulmonary: Effort: Pulmonary effort is normal. Musculoskeletal: Feet: Feet: Comments: Red- redness and warmth in that area marked above. Blue area is a degloved area of skin seems to be healing normal no drainage noted. Neurological: Mental Status: She is alert. PAST MEDICAL HISTORY Diagnosis Date DIABETES MELLITUS TYPE II-UNCOMPL 10/07/2006 HYPERLIPIDEMIA NEC/NOS 11/04/2006 PERS HX TOBACCO USE 10/07/2006 Seronegative rheumatoid arthritis (HCC) Dr. Deutsch PAST SURGICAL HISTORY Procedure Laterality Date DELIVERY ONLY x 2 PAST SURGICAL HISTORY OF Dental implants ALLERGIES Epinephrine, Atorvastatin, Epinephrine-Chlorpheniramine, Pollen Extracts, Sulfa (Sulfonamide Antibiotics), and Oxybutynin Chloride MEDICATIONS doxycycline monohydrate 100 mg tablet Take 1 tablet by mouth two times a day for 7 days. lisinopril (PRINIVIL) 10 mg tablet Take 1 tablet by mouth once daily. insulin glargine (LANTUS U-100 INSULIN) 100 unit/mL injection Inject 26 Units subcutaneously two times a day. Adjust as directed metFORMIN (GLUCOPHAGE) 1,000 mg tablet Take 1 tablet by mouth two times a day with meals. semaglutide (OZEMPIC) 1 mg/dose (4 mg/3 mL) pen Inject 1 mg subcutaneously one time a week. Dx: Type 2 DM E11.9 insulin aspart U-100 (NOVOLOG FLEXPEN U-100 INSULIN) 100 unit/mL (3 mL) Inject three times daily prior to meals following sliding scale and carb-correction (1 unit for every 20 units >150, 1 unit covers 10g carbs) blood sugar diagnostic (FREESTYLE LITE STRIPS) test strip Test blood sugar(s) 2 times daily. Dx: Type 2 DM - Controlled E11.9 Insulin: Yes propranolol (INDERAL) 10 mg tablet Take 1 tablet by mouth once daily as needed (anxiety). Uses PRN Insulin [place], Disposable, (PEN NEEDLE) 30 gauge x 5/16 ndle Use with Novolog flex pen three times daily and as needed DM 2 E11.9 Miscellaneous Medical Supply Novofine 30 gauge X 1/3 one needle. Us 2 times daily for glargine twice daily lancets (FREESTYLE LANCETS) 28 gauge Test blood sugar(s) 2 times daily. Dx: Type 2 DM - Controlled E11.9 Insulin: Yes benzonatate (TESSALON PERLES) 100 mg capsule Take 1 capsule by mouth three times daily as needed for cough. albuterol HFA (PROVENTIL HFA, VENTOLIN HFA) 90 mcg/actuation inhaler Inhale 2 Puffs as instructed every 4 hours as needed (cough and/or wheezing). calcium carb/vitamin D3/vit K1 (SOFT CHEWS CALCIUM ORAL) traMADol (ULTRAM) 50 mg tablet Take 50 mg by mouth three times daily as needed. methotrexate 2.5 mg tablet Take 6 tablets by mouth every Tuesday. (Dr. Deutsch) cetirizine (ZYRTEC) 10 mg tablet Take 1 tablet by mouth once daily. multivitamin tablet Take 1 tablet by mouth once daily. Cholecalciferol, Vitamin D3, (VITAMIN D) 25 mcg (1,000 unit) cap Take 1,000 Units by mouth once daily. folic acid 1 mg tablet Take 1 mg by mouth once daily. Aspirin 81 mg ORAL Tab Take one(1) tablet daily. FAMILY HISTORY Problem Relation Age of Onset Diabetes Mother Hypertension Mother Stroke Mother other (Injuries from MVA) Father Social History Tobacco Use Smoking status: Former Packs/day: 0.50 Years: 20.00 Additional pack years: 0.00 Total pack years: 10.00 Types: Cigarettes Smokeless tobacco: Former Quit date: 04/10/2013 Vaping Use Vaping Use: Never used Substance Use Topics Alcohol use: No Drug use: No ASSESSMENT/PLAN: 1. Skin infection - ICD9: 686.9, ICD10: L08.9 - DOXYCYCLINE MONOHYDRATE 100 MG TABLET Instructed about proper use of medication and supportive therapy. Will soak foot in epsom salt soaks and monitor for signs of worsening infection. Patient was okay with this care plan. Lobo Quevedo APRN.[facility] History of Present illness Narrative* Mino Barcenas MD - 12/28/2023 3:51 PM EDT This note was created using [employer]. Subjective Katalina Lemos is a 73 year old female. Patient presents with: F/U 6 months: Labs prior SUBJECTIVE: Katalina Lemos is a 73 year old year old lady here today for 6 month follow up appointment for review of medical conditions. Doing well. Requested RX for meds all at once so not having worry about when to get meds refilled or get new RX. Following with Dr. Llamas. Gets swelling in lateral ankle. Has high arthritis. See assessment and plan for other issues addressed. PAST MEDICAL HISTORY Diagnosis Date DIABETES MELLITUS TYPE II-UNCOMPL 10/07/2006 HYPERLIPIDEMIA NEC/NOS 11/04/2006 PERS HX TOBACCO USE 10/07/2006 Seronegative rheumatoid arthritis (HCC) Dr. Deutsch Current Outpatient Medications Medication Sig semaglutide (OZEMPIC) 1 mg/dose (4 mg/3 mL) pen Inject 1 mg subcutaneously one time a week. Dx: Type 2 DM E11.9 metFORMIN (GLUCOPHAGE) 1,000 mg tablet Take 1 tablet by mouth two times a day with meals. lisinopril (PRINIVIL) 10 mg tablet Take 1 tablet by mouth once daily. blood sugar diagnostic (FREESTYLE LITE STRIPS) test strip Test blood sugar(s) 2 times daily. Dx: Type 2 DM - Controlled E11.9 Insulin: Yes lancets (FREESTYLE LANCETS) 28 gauge Test blood sugar(s) 2 times daily. Dx: Type 2 DM - Controlled E11.9 Insulin: Yes insulin glargine (LANTUS U-100 INSULIN) 100 unit/mL injection Inject 26 Units subcutaneously twice daily. Adjust as directed insulin aspart U-100 (NOVOLOG FLEXPEN U-100 INSULIN) 100 unit/mL (3 mL) Inject three times daily prior to meals following sliding scale and carb-correction (1 unit for every 20 units >150, 1 unit covers 10g carbs) benzonatate (TESSALON PERLES) 100 mg capsule Take 1 capsule by mouth three times daily as needed for cough. albuterol HFA (PROVENTIL HFA, VENTOLIN HFA) 90 mcg/actuation inhaler Inhale 2 Puffs as instructed every 4 hours as needed (cough and/or wheezing). Miscellaneous Medical Supply Novofine 30 gauge X 1/3 one needle. Us 5 times daily for insulin (3 to 4 times with meals for short-acting; once daily with glargine) propranolol (INDERAL) 10 mg tablet Take 1 tablet by mouth three times daily. Uses PRN calcium carb/vitamin D3/vit K1 (SOFT CHEWS CALCIUM ORAL) traMADol (ULTRAM) 50 mg tablet Take 50 mg by mouth three times daily as needed. methotrexate 2.5 mg tablet Take 6 tablets by mouth every Tuesday. (Dr. Deutsch) Insulin [place], Disposable, (NOVOFINE 30) 30 gauge x 1/3 ndle Novofine 30G Disposable pen Needle.30G x 8mm (07/13) . Use with each dose of insulin 3 to 4 meals a day plus Lantus (5 per day) . DM type 2, insulin requiring 11.9 cetirizine (ZYRTEC) 10 mg tablet Take 1 tablet by mouth once daily. multivitamin tablet Take 1 tablet by mouth once daily. Cholecalciferol, Vitamin D3, (VITAMIN D) 25 mcg (1,000 unit) cap Take 1,000 Units by mouth once daily. folic acid 1 mg tablet Take 1 mg by mouth once daily. Aspirin 81 mg ORAL Tab Take one(1) tablet daily. No current facility-administered medications for this visit. Review of Systems Objective BP 120/78 Pulse 89 Temp 37 C (98.6 F) Resp 18 Wt 109.3 kg (241 lb) SpO2 96% BMI 41.37 kg/m Last 5 Encounter Wt Readings: Date: Wt: 12/28/2023 109.3 kg (241 lb) 07/22/2023 109.8 kg (242 lb) 01/07/2023 110.7 kg (244 lb) 07/09/2022 108.9 kg (240 lb) 12/11/2021 108.4 kg (239 lb) No waist measurement recorded Estimated body mass index is 41.37 kg/m as calculated from the following: Height as of 06/29/21: 162.6 cm (5' 4). Weight as of this encounter: 109.3 kg (241 lb). Last 5 Encounter BP Readings: Date: BP: 12/28/2023 120/78 07/22/2023 132/78 01/07/2023 132/68 07/09/2022 122/68 12/11/2021 132/78 Physical Exam Constitutional: Appearance: Normal appearance. HENT: Head: Normocephalic. Eyes: Conjunctiva/sclera: Conjunctivae normal. Cardiovascular: Rate and Rhythm: Normal rate and regular rhythm. Heart sounds: Normal heart sounds. Pulmonary: Effort: Pulmonary effort is normal. Breath sounds: Normal breath sounds. Musculoskeletal: Right lower leg: No edema. Left lower leg: No edema. Skin: General: Skin is warm and dry. Neurological: General: No focal deficit present. Mental Status: She is alert and oriented to person, place, and time. Psychiatric: Mood and Affect: Mood normal. Behavior: Behavior normal. Thought Content: Thought content normal. Judgment: Judgment normal. Latest Ref Rng 01/04/2023 01/13/2023 07/18/2023 12/26/2023 WBC 3.70 - 11.00 k/uL 6.72 8.03 RBC 3.90 - 5.20 m/uL 4.52 4.37 Hemoglobin 11.5 - 15.5 g/dL 14.1 13.9 Hematocrit 36.0 - 46.0 % 43.9 43.2 MCV 80.0 - 100.0 fL 97.1 98.9 MCH 26.0 - 34.0 pg 31.2 31.8 MCHC 30.5 - 36.0 g/dL 32.1 32.2 RDW-CV 11.5 - 15.0 % 12.9 13.7 Platelet Count 150 - 400 k/uL 243 234 MPV 9.0 - 12.7 fL 10.6 11.1 Neut% % 58.1 58.6 Abs Neut (ANC) 1.45 - 7.50 k/uL 3.90 4.71 Lymph% % 29.9 29.8 Abs Lymph 1.00 - 4.00 k/uL 2.01 2.39 Arroyo% % 8.2 8.0 Abs Arroyo <0.87 k/uL 0.55 0.64 Eosin% % 3.1 2.5 Abs Eosin <0.46 k/uL 0.21 0.20 Baso% % 0.6 0.7 Abs Baso <0.11 k/uL 0.04 0.06 Immature Gran % % 0.1 0.4 IMMATURE GRANS (ABS) <0.10 k/uL <0.03 0.03 NRBC /100 WBC 0.0 0.0 Absolute nRBC <0.01 k/uL <0.01 <0.01 DTYPE Auto Auto Protein, Total 6.3 - 8.0 g/dL 6.7 6.7 Albumin 3.9 - 4.9 g/dL 4.2 4.1 Calcium 8.5 - 10.2 mg/dL 9.2 9.5 Bilirubin, Total 0.2 - 1.3 mg/dL 0.5 0.4 Alkaline Phosphatase 34 - 123 U/L 67 59 AST 13 - 35 U/L 30 22 ALT 7 - 38 U/L 33 23 Glucose 74 - 99 mg/dL 122 (H) 111 (H) BUN 7 - 21 mg/dL 15 31 (H) Creatinine 0.58 - 0.96 mg/dL 0.75 0.86 Sodium 136 - 144 mmol/L 142 139 Potassium 3.7 - 5.1 mmol/L 4.1 5.1 Chloride 98 - 107 mmol/L 104 105 CO2 22 - 30 mmol/L 25 22 Anion Gap 8 - 15 mmol/L 13 12 eGFR >=60 mL/min/1.73m 86 72 Cholesterol, Total <200 mg/dL 163 150 172 Triglyceride <150 mg/dL 104 71 115 HDL Cholesterol >39 mg/dL 63 59 60 Non HDL Cholesterol <130 mg/dL 100 91 112 Fasting Time hrs 12 12 12 VLDL Cholesterol <30 mg/dL 21 14 23 TC:HDL Ratio <5.10 2.59 2.54 2.87 LDL Cholesterol <100 mg/dL 79 77 89 LDL:HDL Ratio <2.54 1.25 1.31 1.48 Creatinine, Ur Random (UCRR) 20.0 - 300.0 mg/dL 53.6 144.0 Albumin, Urine Random mg/L <12.0 <12.0 Albumin/Creat Ratio <30 mg/g <22 <8 Hemoglobin A1C 4.3 - 5.6 % 6.0 (H) 6.0 (H) 6.1 (H) Estimated Average Glucose mg/dL 126 126 128 Occult Blood, Stool Negative Negative Legend: (H) High Assessment and Plan Encounter Diagnosis ICD-10-CM 1. Type 2 diabetes mellitus without complication, with long-term current use of insulin (HCC) E11.9lisinopril (PRINIVIL) 10 mg tablet Z79.4 insulin glargine (LANTUS U-100 INSULIN) 100 unit/mL injection metFORMIN (GLUCOPHAGE) 1,000 mg tablet semaglutide (OZEMPIC) 1 mg/dose (4 mg/3 mL) pen insulin aspart U-100 (NOVOLOG FLEXPEN U-100 INSULIN) 100 unit/mL (3 mL) blood sugar diagnostic (FREESTYLE LITE STRIPS) test strip Insulin [place], Disposable, (PEN NEEDLE) 30 gauge x 5/16 ndle [employer] HEMOGLOBIN A1C COMPREHENSIVE METABOLIC PANEL ALBUMIN/CREATININE RATIO, URINE Well controlled. Continue present management. Titrate down insulin as able as loses weight 2. Essential hypertension I10 lisinopril (PRINIVIL) 10 mg tablet COMPREHENSIVE METABOLIC PANEL COMPLETE BLOOD COUNT Fair control. Continue present medication management 3. Morbid obesity due to excess calories (HCC) E66.01 Down compared to 2020; plateaued the past year. Working on more lifestyle changes with diet and exercise.Isses that limit walking noted. 4. Mixed hyperlipidemia E78.2 LIPID PANEL BASIC Lipids good. Continue present management 5. Congenital cavus deformity of both feet Q66.71 Q66.[address] Llamas 6. Vitamin D deficiency E55.9 VITAMIN D 25 HYDROXY Follow up labs. Adjust dose as needed Above issues addressed with patient. Patient involved in shared decision making for management of medical issues. History and medications reviewed. Epic updated as needed Refills and/or prescriptions taken care of and meds adjusted as indicated after reviewed history, exam and labs. Health Maintenance reviewed. Updated record and/or ordered tests as recorded. Encouraged on efforts at healthy diet and regular exercise and adequate sleep. Mino Barcenas MD documented [facility] encounter[facility]24 History of Present illness Narrative* Bandar Cleary PT - 11/25/2023 12:04 PM EDT [facility] DME ISSUE NOTE Patient identified by name and date: Yes Subjective: Katalina Lemos is a 73 year old female seen today for fitting and pick up and delivery driver of customfoot orthotics. Equipment Owned: none DME Delivery: Pt was educated on wear schedule and care of custom foot orthotics. Pt was educated on the option of having orthotics refurbished as needed in the future as long as shell is performing it's intended function well. Pt was educated on approximate cost of refurbishing orthotics and an approximate timeframe when this might be necessary. Pt was urged to follow the wear schedule and to call with any questions or concerns. Pt was instructed to start with wearing orthotics one hour the first day and then to add one hour of wear time per day until time broker wear is achieved. Pt was educated on how toremove insoles from shoes and then place orthotics in shoes. The fit of orthotics was assessed with pt standing, with and without shoes. The comfort of orthotics was assessed with pt standing and walking with orthotics in shoes. Pt denied any rubbing or pinching and felt that fit of custom orthotics was correct. Contact information for this therapist was provided to patient. Custom biomechanical foot orthotics with serial number: #[id number] were issued to patient and proof of receipt form signed by pt and therapist. All specifications for custom foot orthotics can be foundin orthotic evaluation visit note. Planned Interventions: Follow up as needed for brace fitting/issues. Billing:[facility]: Orthotics Management and Training ([id number]): 1:1 time: 20 minutes (1 unit: 8-22 mins) Equipment: [id number] x2 pair of custom foot orthotics Total time: 20 minutes Bandar Cleary PT documented in this encounterK[facility]04-25-2024 History of Present illness Narrative* Bandar Cleary PT - 11/03/2023 12:22 PM EDT Images from the original note were not included. Episode Visit Count: 1 Therapist That Will Accept/Oversee The Plan Of Care: Bandar Cleary PT Start of Care Date: 11/03/23 Onset Date: 10/03/23 Plan of Care Certification Date: 11/03/23 Next Certification Due Date: 12/15/23 Patient Identified by Name and Date of : Yes REHABILITATION AND SPORTS THERAPY PHYSICAL THERAPY EVALUATION PLAN OF CARE: Assessment: Katalina Lemos presents with diagnosis of B pes cavus foot that interferes with standing, walking (walking on uneven surfaces) . She presents with impairments in ADL's, balance, gait,overall function, and symptom management. PROMIS (Patient-Reported Outcomes Measurement InformationSystem) scores were reviewed and identified as a rehabilitation concern. Prognosis for therapy is Good due to: current objective clinical presentation, within-session changes, positive past response to therapy, good support system/ coping skills, good overall health status. She will benefit from skilled therapy services to meet the goals established for this plan of care as noted below. Goals for Episode of Care: created on 11/03/23 through 12/15/23 Pt will be educated on proper wear schedule and care of custom biomechanical foot orthotics Pt will be provided with custom biomechanical B foot orthotics that improve foot and ankle biomechanics as intended with proper fit and function. Patient Goals: decrease pain with prolonged walking and improve stability Planned Interventions, Frequency, and Duration: Current Frequency: 1 visit Duration: 1 visit Total Number of Visits Planned: 2 (1 evaluation visit and 1 visit for fitting and pick up and delivery driver) Planned Treatment Interventions: Orthosis / DME, Patient/Family/Caregiver Education, Self-care homemanagement ([id number]), Gait Training ([id number]) PLAN FOR NEXT VISIT: Fitting and pick up and delivery driver of custom foot orthotics Patient demonstrates good understanding of plan of care and treatment. The above goals and plan of care were discussed and agreed upon by patient/family. SUBJECTIVE: Pt reports intermittent pain in B feet and lateral R ankle that is aggravated by WBing activity. She reports that off the shelf Powerstep orthotics have helped significantly but she quit wearing themand then her pain began. She quit wearing the Powersteps because she thought that her feet and ankles were turning out. She reports that pain is intermittent and aggravated by prolonged WBing activi ty. Patient Goals: decrease pain with prolonged walking and improve stability Functional Limitations: standing, walking (walking on uneven surfaces) Prior Level of Function: Independent without limitations Relevant History Employment: Retired Home Environment Equipment Owned: (off the shelf shoe inserts) Intake Information: Prescription present Previous Treatment: (off the shelf powerstep orthotics) Pain: Pain Pain Level: 3 Pain Location: Foot - Right, Foot - Left, Ankle - Right Description: (mild) Frequency: Intermittent, Standing, Walking Post Treatment Pain Post Treatment Pain Level: No Change PROMIS Scales 10/31/2023 Higher is Better Phys Func - Score 43 (mild dysfunction) Phys Func - Percentile 24 Self-Eff Symptom - Score 49 (Average) Self-Eff Symptom - Percentile 46 T-scores: mean of general population = 50. 5 points is clinically meaningfully difference Percentiles provide an indication of how the patient's score ranks in relation to the general population. Higher percentile rankings indicate better function/quality of life. 50th percentile is the average of the general population and indicates half of respondents had a worse score. OBJECTIVE MEASURES WITH LEVEL OF FUNCTION: Gait Gait Observation: mildly antalgic Plantar Callus Pattern: Right:plantar surface of 5th met head and lateral border of heel Left:plantar surface of 5th met head and lateral border of heel Supine: ROM: Ankle Dorsiflexion: Right: AROM:10 degrees Ankle Dorsiflexion: Left: AROM 10 degrees Calcaneal eversion: Right: none Left: less than normal but more than R Hallux dorsiflexion: Open chain right: >60 left: >60 Alignment: Rest: Medial arch appearance: Right: High Left:High Equinus: Right:forefoot Left:forefoot Prone Subtalar Neutral Alignment: Right: Rearfoot:0 degrees Forefoot:4 degrees varus Left: Rearfoot:0 degrees Forefoot:0 degrees First Ray Position: Right: pf Left: pf First Ray Mobility: Right: semi-rigid Left:semi-rigid WEIGHT BEARING: Alignment: Rest: Medial arch appearance: Right: High Left High Calcaneal stance position: Right: inverted Left inverted Knee position: Right: Straight Left Straight Subtalar Neutral: Medial arch appearance: Right High Left:High Calcaneal stance position: Right: inverted Left: rectus Forefoot position: Right: flat on ground Left: flat on ground Knee position: Right: straight Left straight Mobility: Hallux dorsiflexion Closed chain: Right: >9 Left >9 Midtarsal Mobility: (navicular drop) Right: hypo <6mm Left:hypo <6mm Rearfoot excursion: Right:<4 hypo Left: 4-6 norm FUNCTIONAL EVALUATION: Balance(SL): ability/quality Right: SLS balance testing deferred Left: SLS balance testing deferred Gait Assessment: Walking: WNL Running: N/A Orthotic Design Request Shoe size: 6.5. Weight:242 pounds. Plate Type: Functional Orthotic (shell): [employer] Performance RX / Engineered Nylon: RX-B Shell Rigidity: Semi-Flexible Plate Specifications: Heel Cup Depth Standard - 12mm, Shell Width Standard Posting: No Posting Additions: none Padding: Type: Soft Thickness:09/23 Padding Length:heels to toes Accommodations: Cut Out: Right and Left 09/23 5th met heads Top Covers: Material: Leatherette - Smoke [place] Length:to toes Classification of foot type: Pes Cavus Education: Education Learning Preferences: Demonstration, Explanation, Performance, Printed Materials Barriers: None Learning/educational needs: Procedure / Surgery, Lifestyle changes, Plan of Care, Brace Fit, Body Mechanics Education Provided: Yes, see treatment interventions for education provided Education Provided To: Patient Education Mode/Type: Demonstration, Explanation/Discussion, Literature/Printed Materials, Performance Response to Education/Teach Back: States/Identifies, Requires Review/Additional Education TREATMENT: PT Treatment Interventions: Orthotic Mgmt/Train (Initial) Evaluation Orthotics Management and Training: A thorough and complete biomechanical assessment completed and all results explained to pt in detail. Pt. was educated on the anatomy of affected area, possible source of symptoms and rationale for proposed treatment plan. With patient prone, subtalar neutral position digital scans were made of bilateral feet. These scans and and all supporting documentation was prepared for shipment to lab so that custom foot orthotics can be fabricated. Pt was educated on proper fitting shoes to be used with custom foot orthotics. R ecommendations were made on brands of shoes that are well constructed and provide appropriate support. Pt was advised to select neutral shoes to pair with the custom foot orthotics despite patient's foot structure. Pt was also given recommendations on supportive sandals and where these can be purchased. Pt was educated on the process that we will follow once custom orthotics arrive in this department and all of the patient's questions were answered. Skilled Intervention: Clinical knowledge and skills required for custom orthotic fabrication and wearing schedule Patient/Family/Caregiver Education: Precautions, purpose and use of orthosis Wearing schedule explained in detail Discussed management of any symptoms related to wearing the orthosis Billing * Evaluation Moderate Complexity: 1 Unit Orthotic Mgmt/Train (Initial) Treatment Minutes: 30 Skilled Treatment Time Minutes (timed and untimed codes): 60 Total Session Time (minutes): 70 Session Start Time : 1135 Session Stop Time : 1245 Bandar Cleary PT documented in this encounterK[facility]04-19-2024 History of Present illness Narrative* Will Armas PA-C - 10/28/2023 12:07 PM EDT HISTORY OF PRESENT ILLNESS: Katalina is a 73 year old female. She is here for follow up of Left knee pain. Patient previously been seen by Dr. Mejia and has had cortisone injection in the left knee before. She states that thishelped some, but this was not overwhelmingly positive. Patient routinely sees Dr. Llamas for higharches. She states that in the past she had more of a flatfoot and was given orthotics which helpedher knee pain as well. Her feet have now developed a high arch and she is obtaining new custom orthotics to alter this. Patient uses tramadol as given to her by Amelia Deutsch for chronic pain. Patient also has history of rheumatoid arthritis for which she is on methotrexate. Injury:No Pain: Yes LOCATION: medial left knee PAIN SCALE: 2 on a scale of 0-10 PAIN CHARACTER: aching and dull DURATION: (How long have you had the pain?) 4 months AGGRAVATING FACTORS: activity and walking ALLEVIATING FACTORS: resting and medications - tramadol Onset: gradual and progressive Quality:aching Swelling: Patient notes intermittent swelling of the joint. Mechanical symptoms: none Radiation: No Activities: walking Restriction: none Progression: Improving Previous treatment: medication (Ibuprofen and Tylenol, tramadol) and injection (steroid injection to the left knee) NSAIDS: Ibuprofen PT:Musculoskeletal Physical Therapy MEDICATIONS Current Outpatient Medications on File Prior to Visit Medication Sig semaglutide (OZEMPIC) 1 mg/dose (4 mg/3 mL) pen Inject 1 mg subcutaneously one time a week. Dx: Type 2 DM E11.9 metFORMIN (GLUCOPHAGE) 1,000 mg tablet Take 1 tablet by mouth two times a day with meals. lisinopril (PRINIVIL) 10 mg tablet Take 1 tablet by mouth once daily. insulin glargine (LANTUS U-100 INSULIN) 100 unit/mL injection Inject 26 Units subcutaneously twice daily. Adjust as directed insulin aspart U-100 (NOVOLOG FLEXPEN U-100 INSULIN) 100 unit/mL (3 mL) Inject three times daily prior to meals following sliding scale and carb-correction (1 unit for every 20 units >150, 1 unit covers 10g carbs) calcium carb/vitamin D3/vit K1 (SOFT CHEWS CALCIUM ORAL) traMADol (ULTRAM) 50 mg tablet Take 50 mg by mouth three times daily as needed. methotrexate 2.5 mg tablet Take 6 tablets by mouth every Tuesday. (Dr. Deutsch) multivitamin tablet Take 1 tablet by mouth once daily. Cholecalciferol, Vitamin D3, (VITAMIN D) 25 mcg (1,000 unit) cap Take 1,000 Units by mouth once daily. folic acid 1 mg tablet Take 1 mg by mouth once daily. Aspirin 81 mg ORAL Tab Take one(1) tablet daily. blood sugar diagnostic (FREESTYLE LITE STRIPS) test strip Test blood sugar(s) 2 times daily. Dx: Type 2 DM - Controlled E11.9 Insulin: Yes lancets (FREESTYLE LANCETS) 28 gauge Test blood sugar(s) 2 times daily. Dx: Type 2 DM - Controlled E11.9 Insulin: Yes benzonatate (TESSALON PERLES) 100 mg capsule Take 1 capsule by mouth three times daily as needed for cough. albuterol HFA (PROVENTIL HFA, VENTOLIN HFA) 90 mcg/actuation inhaler Inhale 2 Puffs as instructed every 4 hours as needed (cough and/or wheezing). [employer] Novofine 30 gauge X 1/3 one needle. Us 5 times daily for insulin (3 to 4 times with meals for short-acting; once daily with glargine) propranolol (INDERAL) 10 mg tablet Take 1 tablet by mouth three times daily. Uses PRN Insulin [place], Disposable, (NOVOFINE 30) 30 gauge x /3 ndle Novofine 30G Disposable pen Needle.30G x 8mm (07/13) . Use with each dose of insulin 3 to 4 meals a day plus Lantus (5 per day) . DM type 2, insulin requiring 11.9 cetirizine (ZYRTEC) 10 mg tablet Take 1 tablet by mouth once daily. No current facility-administered medications on file prior to visit. ALLERGIES ALLERGIES Allergen Reactions Epinephrine-Chlorph* Unknown Pollen Extracts Other: See Comments runny nose Sulfa (Sulfonamide * Rash PHYSICAL EXAM: PE: All other systems deferred. GENERAL: Appears healthy, well-nourished, no deformities. HABITUS: Obese Gait: Normal, the patient did not have trouble getting onto the exam table. Left: Alignment: Varus deformity, Correctable Range of motion is 0 degrees in extension and 120 degrees of flexion. Extension La degrees Pain with ROM: No Effusion: Slight Tender to the palpation of Medial femoral condyle and Medial joint line Pain with patellar compression: No Stability: Anterior/Posterior stable and Varus/Valgus stable Hip Exam: flexion to 100+ degrees, full extension, internal/external rotation adequate, and no painwith log roll Neurovascular Status: Sensation Intact, Moves foot and ankle up & down, and 2+ dorsalis pedis Strength: 5 Skin: Normal RADIOGRAPHS (personally reviewed): Left knee osteoarthritis most severe in the medial compartment MRI: None DIAGNOSIS Encounter Diagnosis ICD-10-CM 1. Primary osteoarthritis of left knee M17.12 PLAN Patient has left knee osteoarthritis as evidenced by x-ray. Patient is overall not having too much pain or limitation from this. She is routinely taking tramadol and ibuprofen for pain control. She is also being seen by Dr. Llamas for high arches and is being fitted for custom orthotic. We will see how her knee pain response to the orthotic before introducing new treatment. It is advisable thatshe does not take anti-inflammatories due to interference with methotrexate. She may take Tylenol or Voltaren gel for pain control. She can follow-up as symptoms dictate for possible cortisone injection in the future. I spent a total of approximately 25 minutes on the date of the service which included preparing to see the patient, [id number] patient care, completing clinical documentation, obtaining and/or reviewing separately obtained history, performing a medically appropriate examination, counseling and educating the patient/family/caregiver, ordering medications, tests, or procedures, independently interpreting results (not separately reported), communicating results to the patient/family/caregiver, and care coordination (not separately reported). PROCEDURE: Procedures Will Armas PA-C * Edith Edward MA - 10/28/2023 10:55 AM EDT AMB ROOMING INTAKE FLOWSHEET DATA Pain Pain Level: 2 Pain Location: Knee-Left Description: Sore Duration Amount of Time: 4 Duration Units: Months Frequency: Intermittent Intervention/Comfort measure: Medication, Relaxation Comments: Only when walking documented in this encounterK[facility]04-19-2024 History of Present illness Narrative* Samia Medina RT(R) - 10/28/2023 10:10 AM EDT Radiology Service Progress Note PATIENT NAME: Katalina Lemos DATE OF SERVICE: October 28, 2023 TIME: 1:23 PM PATIENT IDENTITY VERIFICATION COMPLETED USING TWO (2) IDENTIFIERS: Name and Date of confirmedby patient verbally. FALL SCREENING: Has the patient had 2 falls in the last year or 1 fall with injury or currently using an Ambulatory Assistive Device (Walker, Cane, Wheelchair, Crutches, etc.)? No PATIENT GENDER DATA: Female. status: : No status: NO. PATIENT RELEVANT IMPLANT DATA REVIEWED: Not Applicable PATIENT PRESENTS WITH AN IMPLANTABLE OR ATTACHED TECHNICAL SUPPORT MANAGER: No RADIOLOGY DEPARTMENT: General X-ray: Exam(s) Completed: Lower Extremity X- Ray(s): Knee, AP / Lat / Tunne / Merchant Left and Wt. Bearing PERIPHERAL IV DATA: Not applicable SIGNED BY: RT Elbert(R) October 28, 2023 1:23 PM documented in this encounterK[facility]04-05-2024 History of Present illness Narrative* Candie Llamas - 10/14/2023 11:15 AM EDT Images from the original note were not included. Subjective: This 73 year old female presents to clinic for diabetic foot check. Patient has the following complaints: right ankle pain. Patient presents to clinic for evaluation of right ankle. Patient states that for the past 2 months, she has pain to the lateral ankle extending to the 5th metatarsal. She states that she had used powerstep inserts in the past and this heped but she noticed over the past few months, when she was walking, the inserts caused her to walk on the lateral aspect of her foot so she stopped using them. She now feels that her feet are turning outward. She states that if she is walking on uneven surfaces, she feels a sense of inbalance. Patient also complains of ingrowing toenails of b/l feet. Patient admits to being diabetic for multiple years now. Patient -B/T/N in feet at this time. Patient -pain in legs when walking. No other pedal complaints at this time. No change in medications or medical history since last visit. PAIN EVALUATION 10/07/2023 1037 10/14/2023 1053 Pain Level: 3 3 Pain Location: Foot-Right Other: See Comment bilareral feet Description: Dull;Sore Dull;Sore Duration Amount of Time: 2 2 Duration Units: Months Months Frequency: Intermittent Intermittent Intervention/Comfort measure: Medication;Relaxation Medication;Relaxation Comments: Pain on side of foot and under ankle. Hurts after a lot of walking. Relieved with ibuprofen. -- Hemoglobin A1C (%) Date Value 07/18/2023 6.0 01/04/2023 6.0 07/07/2022 6.0 11/23/2021 6.1 03/19/2021 6.8 10/30/2020 6.4 04/15/2020 6.4 09/20/2019 6.0 10/17/2018 6.2 Hemoglobin A1C (POCT) (%) Date Value 03/26/2019 6.1 PCP: Mino Barcenas MD PAST MEDICAL HISTORY Diagnosis Date DIABETES MELLITUS TYPE II-UNCOMPL 10/07/2006 HYPERLIPIDEMIA NEC/NOS 11/04/2006 PERS HX TOBACCO USE 10/07/2006 Seronegative rheumatoid arthritis (HCC) Dr. Deutsch Current Outpatient Medications Medication Sig semaglutide (OZEMPIC) 1 mg/dose (4 mg/3 mL) pen Inject 1 mg subcutaneously one time a week. Dx: Type 2 DM E11.9 metFORMIN (GLUCOPHAGE) 1,000 mg tablet Take 1 tablet by mouth two times a day with meals. lisinopril (PRINIVIL) 10 mg tablet Take 1 tablet by mouth once daily. blood sugar diagnostic (FREESTYLE LITE STRIPS) test strip Test blood sugar(s) 2 times daily. Dx: Type 2 DM - Controlled E11.9 Insulin: Yes lancets (FREESTYLE LANCETS) 28 gauge Test blood sugar(s) 2 times daily. Dx: Type 2 DM - Controlled E11.9 Insulin: Yes insulin glargine (LANTUS U-100 INSULIN) 100 unit/mL injection Inject 26 Units subcutaneously twice daily. Adjust as directed insulin aspart U-100 (NOVOLOG FLEXPEN U-100 INSULIN) 100 unit/mL (3 mL) Inject three times daily prior to meals following sliding scale and carb-correction (1 unit for every 20 units >150, 1 unit covers 10g carbs) benzonatate (TESSALON PERLES) 100 mg capsule Take 1 capsule by mouth three times daily as needed for cough. albuterol HFA (PROVENTIL HFA, VENTOLIN HFA) 90 mcg/actuation inhaler Inhale 2 Puffs as instructed every 4 hours as needed (cough and/or wheezing). Miscellaneous Medical Supply Novofine 30 gauge X 1/3 one needle. Us 5 times daily for insulin (3 to 4 times with meals for short-acting; once daily with glargine) propranolol (INDERAL) 10 mg tablet Take 1 tablet by mouth three times daily. Uses PRN calcium carb/vitamin D3/vit K1 (SOFT CHEWS CALCIUM ORAL) traMADol (ULTRAM) 50 mg tablet Take 50 mg by mouth three times daily as needed. methotrexate 2.5 mg tablet Take 6 tablets by mouth every Tuesday. (Dr. Deutsch) Insulin [place], Disposable, (NOVOFINE 30) 30 gauge x 1/3 ndle Novofine 30G Disposable pen Needle.30G x 8mm (07/13) . Use with each dose of insulin 3 to 4 meals a day plus Lantus (5 per day) . DM type 2, insulin requiring 11.9 cetirizine (ZYRTEC) 10 mg tablet Take 1 tablet by mouth once daily. multivitamin tablet Take 1 tablet by mouth once daily. Cholecalciferol, Vitamin D3, (VITAMIN D) 25 mcg (1,000 unit) cap Take 1,000 Units by mouth once daily. folic acid 1 mg tablet Take 1 mg by mouth once daily. Aspirin 81 mg ORAL Tab Take one(1) tablet daily. No current facility-administered medications for this visit. ALLERGIES Allergen Reactions Epinephrine-Chlorph* Unknown Pollen Extracts Other: See Comments runny nose Sulfa (Sulfonamide * Rash PAST SURGICAL HISTORY Procedure Laterality Date DELIVERY ONLY x 2 INSERT PALATE IMPLANTS FAMILY HISTORY Problem Relation Age of Onset Diabetes Mother Hypertension Mother Stroke Mother other (Injuries from MVA) Father Social History Tobacco Use Smoking status: Former Packs/day: 0.50 Years: 20.00 Additional pack years: 0.00 Total pack years: 10.00 Types: Cigarettes Smokeless tobacco: Former Quit date: 04/10/2013 Vaping Use Vaping Use: Never used Substance Use Topics Alcohol use: No Drug use: No REVIEW OF SYSTEMS GENERAL: Negative for Malaise, significant weight loss, fever RESPIRATORY: Negative for cough, wheezing and shortness of breath CARDIOVASCULAR: Negative for chest pain, leg swelling and palpitations GI: Negative for abdominal discomfort, blood in stools or black stools and change in bowel habits : Negative for dysuria, frequency and incontinence MUSCULOSKELETAL: Negative for joint pain or swelling, back pain, and muscle pain. SKIN: Negative for lesions, rash, and itching. HEMATOLOGY/LYMPHOLOGY Negative for prolonged bleeding, bruising easily, and swollen nodes. ENDOCRINE: Negative for cold or heat intolerance, polyuria, polydipsia and goiter. NEURO: negative The remainder of the review of systems is noncontributory. Objective: Patient presents to clinic ambulating in [facility] Constitutional: Pt is a well developed 73 year old female who is alert, oriented, cooperative and in no apparent distress. Eyes: Following during examination. No redness or drainage. Respiratory: RR normal and nonlabored. Even breathing. No evidence of distress. Psychology: Patient is engaged during conversation. Normal affect and mood. Does not appear depressed or anxious. Vasc: DP and PT pulses are faintly palpable bilateral. CFT is less than 5 seconds bilateral. Skin temperature is warm to cool proximal to distal bilateral. There is no edema or varicosities noted. Hair growth decreased. Neuro: Protective sensation is intact to the foot and toes when tested with the 5.07 SWM bilateral.Vibratory sensation is absent at the hallux bilateral. + Significant neurological defecits. Derm: Inspection and palpation performed. Nails 1 b/l shows ingrowing tendency to b/l hallux medialborder. No signs of infection. Skin is of normal turgor and texture. Hyperkeratosis noted to 5th metatarsal head NO ulcerations, scars, verruca or other lesions noted. Ortho: Ankle joint DF is full with the knee extended and full with knee flexed. No pain or crepitusnoted. STJ, MTJ ROM are full and free of pain or crepitus. Muscle strength is 5/5 for dorsiflexors,plantarflexors, inverters, everters. Digital deformities include pes cavus b/l. Assessment: (Q66.71, Q66.72) Pes cavus of both feet (primary encounter diagnosis) (E11.9, Z79.4) Type 2 diabetes mellitus without complication, with long-term current use of insulin(HCC) (L84) Callus of foot (L60.0) Ingrowing toenail (R09.89) Diminished pulses in lower extremity Plan: 1. Patient was seen and evaluated. 2. Patient was instructed on the continued importance of diabetic foot care along with proper diet and keeping their blood sugar under control to prevent complications. Patient does have signs of neuropathy. It is important that she avoid barefoot walking and make sure to inspect her feet daily Instructions given both oral and written. 3. Discussed pain in ankles. Suspect pain in foot related to high arches. Will prescribe her customorthotics with spenco top cover. This should provide her the support she needs but the comfort thatshe likes. 4. Callus reduced with dremmel. 5. Discussed ingrowing toenail of b/l hallux. No signs of infection. Could consider partial nail matrixectomy pending pvr. 6. Pvr ordered. Canide Llamas DPM * Meli Avila LPN - 10/14/2023 10:51 AM EDT AMB ROOMING INTAKE FLOWSHEET DATA Pain Pain Level: 3 Pain Location: Other: See Comment (bilareral feet) Description: Dull, Sore Duration Amount of Time: 2 Duration Units: Months Frequency: Intermittent Intervention/Comfort measure: Medication, Relaxation Comments: Pain on side of foot and under ankle. Hurts after a lot of walking. Relieved with ibuprofen. Patient presents with: Right Ankle - Established Patient, Follow Up, Pain Left Foot - Established Patient, Follow Up, Pain, Diabetic Foot Care Right Foot - Diabetic Foot Care Meli Avila LPN documented in this encounter[facility]01-12-[facility]24 History of Present illness Narrative* Mino Barcenas MD - 07/22/2023 5:45 PM EST This note was created using MySmartPriceriter. Subjective Katalina Lemos is a 72 year old female. Patient presents with: F/U 6 months SUBJECTIVE: Katalina Lemos is a 72 year old year old lady here today for 6 month follow up appointment for review of medical conditions. Worse with sleeping lately. Tried everything she can think of. Tosses and turns. Gets hot and cold. Falls asleep but cannot stay asleep. Wakes up after 2 to 3 hours. Then tosses and turns after that. Can have trouble turning off brain. Tried magnesium and melatonin. Magnesium may have helped a little. Walking around [employer] when goes shopping. Rarely has a night that does not sleep at all. Doing best with carb counting. Working on weight loss. See assessment and plan for other issues addressed. PAST MEDICAL HISTORY Diagnosis Date DIABETES MELLITUS TYPE II-UNCOMPL 10/07/2006 HYPERLIPIDEMIA NEC/NOS 11/04/2006 PERS HX TOBACCO USE 10/07/2006 Seronegative rheumatoid arthritis (HCC) Dr. Deutsch Current Outpatient Medications Medication Sig insulin glargine (LANTUS U-100 INSULIN) 100 unit/mL injection Inject 26 Units subcutaneously twice daily. Adjust as directed insulin aspart U-100 (NOVOLOG FLEXPEN U-100 INSULIN) 100 unit/mL (3 mL) Inject three times daily prior to meals following sliding scale and carb-correction (1 unit for every 20 units >150, 1 unit covers 10g carbs) lisinopril (PRINIVIL) 10 mg tablet Take 1 tablet by mouth once daily. semaglutide (OZEMPIC) 1 mg/dose (4 mg/3 mL) pen Inject 1 mg subcutaneously one time a week. metFORMIN (GLUCOPHAGE) 1,000 mg tablet Take 1 tablet by mouth twice daily with meals. benzonatate (TESSALON PERLES) 100 mg capsule Take 1 capsule by mouth three times daily as needed for cough. albuterol HFA (PROVENTIL HFA, VENTOLIN HFA) 90 mcg/actuation inhaler Inhale 2 Puffs as instructed every 4 hours as needed (cough and/or wheezing). blood sugar diagnostic (FREESTYLE LITE STRIPS) test strip Test blood sugar(s) 2 times daily. Dx: Type 2 DM - Controlled E11.9 Insulin: Yes Miscellaneous Medical Supply Novofine 30 gauge X 1/3 one needle. Us 5 times daily for insulin (3 to 4 times with meals for short-acting; once daily with glargine) propranolol (INDERAL) 10 mg tablet Take 1 tablet by mouth three times daily. Uses PRN calcium carb/vitamin D3/vit K1 (SOFT CHEWS CALCIUM ORAL) traMADol (ULTRAM) 50 mg tablet Take 50 mg by mouth three times daily as needed. methotrexate 2.5 mg tablet Take 6 tablets by mouth every Tuesday. (Dr. Deutsch) Insulin [place], Disposable, (NOVOFINE 30) 30 gauge x 1/3 ndle Novofine 30G Disposable pen Needle.30G x 8mm (/3) . Use with each dose of insulin 3 to 4 meals a day plus Lantus (5 per day) . DM type 2, insulin requiring 11.9 cetirizine (ZYRTEC) 10 mg tablet Take 1 tablet by mouth once daily. multivitamin tablet Take 1 tablet by mouth once daily. Cholecalciferol, Vitamin D3, (VITAMIN D) 25 mcg (1,000 unit) cap Take 1,000 Units by mouth once daily. folic acid 1 mg tablet Take 1 mg by mouth once daily. Aspirin 81 mg ORAL Tab Take one(1) tablet daily. No current facility-administered medications for this visit. Review of Systems Objective BP 132/78 Pulse 82 Temp (!) 35.9 C (96.6 F) Resp 18 Wt 109.8 kg (242 lb) SpO2 97% BMI 41.54 kg/m Last 5 Encounter Wt Readings: Date: Wt: 07/22/2023 109.8 kg (242 lb) 01/07/2023 110.7 kg (244 lb) 07/09/2022 108.9 kg (240 lb) 12/11/2021 108.4 kg (239 lb) 06/29/2021 112 kg (247 lb) No waist measurement recorded Estimated body mass index is 41.54 kg/m as calculated from the following: Height as of 06/29/21: 162.6 cm (5' 4). Weight as of this encounter: 109.8 kg (242 lb). Last 5 Encounter BP Readings: Date: BP: 07/22/2023 132/78 01/07/2023 132/68 07/09/2022 122/68 12/11/2021 132/78 05/14/2021 130/80 Physical Exam Constitutional: Appearance: Normal appearance. She is obese. HENT: Head: Normocephalic. Eyes: Conjunctiva/sclera: Conjunctivae normal. Cardiovascular: Rate and Rhythm: Normal rate and regular rhythm. Heart sounds: Normal heart sounds. Pulmonary: Effort: Pulmonary effort is normal. Breath sounds: Normal breath sounds. Musculoskeletal: Right lower leg: No edema. Left lower leg: No edema. Skin: General: Skin is warm and dry. Neurological: General: No focal deficit present. Mental Status: She is alert and oriented to person, place, and time. Psychiatric: Attention and Perception: Attention and perception normal. Mood and Affect: Mood and affect normal. Speech: Speech normal. Behavior: Behavior normal. Thought Content: Thought content normal. Judgment: Judgment normal. Component Latest Ref Rng & Units 07/07/2022 01/04/2023 07/18/2023 WBC 3.70 - 11.00 k/uL 8.11 6.72 RBC 3.90 - 5.20 m/uL 4.35 4.52 Hemoglobin 11.5 - 15.5 g/dL 13.7 14.1 Hematocrit 36.0 - 46.0 % 41.7 43.9 MCV 80.0 - 100.0 fL 95.9 97.1 MCH 26.0 - 34.0 pg 31.5 31.2 MCHC 30.5 - 36.0 g/dL 32.9 32.1 RDW-CV 11.5 - 15.0 % 12.6 12.9 Platelet Count 150 - 400 k/uL 275 243 MPV 9.0 - 12.7 fL 10.7 10.6 Neut% % 58.1 Abs Neut (ANC) 1.45 - 7.50 k/uL 3.90 Lymph% % 29.9 Abs Lymph 1.00 - 4.00 k/uL 2.01 [place]% % 8.2 Abs [place] <0.87 k/uL 0.55 Eosin% % 3.1 Abs Eosin <0.46 k/uL 0.21 Baso% % 0.6 Abs Baso <0.11 k/uL 0.04 Immature Gran % % 0.1 IMMATURE GRANS (ABS) <0.10 k/uL <0.03 NRBC /100 WBC 0.0 Absolute nRBC <0.01 k/uL <0.01 <0.01 DTYPE Auto Protein, Total 6.3 - 8.0 g/dL 6.6 6.7 Albumin 3.9 - 4.9 g/dL 4.0 4.2 Calcium 8.5 - 10.2 mg/dL 9.1 9.2 Bilirubin, Total 0.2 - 1.3 mg/dL 0.4 0.5 Alkaline Phosphatase 34 - 123 U/L 73 67 AST 13 - 35 U/L 19 30 ALT 7 - 38 U/L 19 33 Glucose 74 - 99 mg/dL 188 (H) 122 (H) BUN 7 - 21 mg/dL 18 15 Creatinine 0.58 - 0.96 mg/dL 0.66 0.75 Sodium 136 - 144 mmol/L 139 142 Potassium 3.7 - 5.1 mmol/L 4.4 4.1 Chloride 97 - 105 mmol/L 106 (H) 104 CO2 22 - 30 mmol/L 25 25 Anion Gap 9 - 18 mmol/L 8 (L) 13 eGFR >=60 mL/min/1.73m 95 86 Cholesterol, Total <200 mg/dL 168 163 150 Triglyceride <150 mg/dL 99 104 71 HDL Cholesterol >39 mg/dL 60 63 59 Non HDL Cholesterol <130 mg/dL 108 100 91 Fasting Time hrs 12 12 12 VLDL Cholesterol <30 mg/dL 20 21 14 TC:HDL Ratio <5.10 2.80 2.59 2.54 LDL Cholesterol <100 mg/dL 88 79 77 LDL:HDL Ratio <2.54 1.47 1.25 1.31 Creatinine, Ur Random (UCRR) 20.0 - 300.0 mg/dL 53.6 Albumin, Urine Random mg/L <12.0 Albumin/Creat Ratio <30 mg/g <22 Hemoglobin A1C 4.3 - 5.6 % 6.0 (H) 6.0 (H) 6.0 (H) Estimated Average Glucose mg/dL 126 126 126 Hemoglobin A1C (%) Date Value 07/18/2023 6.0 01/04/2023 6.0 07/07/2022 6.0 11/23/2021 6.1 03/19/2021 6.8 10/30/2020 6.4 04/15/2020 6.4 09/20/2019 6.0 10/17/2018 6.2 Hemoglobin A1C (POCT) (%) Date Value 03/26/2019 6.1 Assessment and Plan Encounter Diagnosis ICD-10-CM 1. Type 2 diabetes mellitus without complication, with long-term current use of insulin ([facility]) E11.9metFORMIN (GLUCOPHAGE) 1,000 mg tablet Z79.4 lisinopril (PRINIVIL) 10 mg tablet blood sugar diagnostic (FREESTYLE LITE STRIPS) test strip lancets (FREESTYLE LANCETS) 28 gauge COMP METABOLIC PANEL HGB A1C ALBUMIN/CREAT RATIO RND UR Well controlled. Continue present management. Titrate down insulin as able as loses weight 2. Persistent disorder of maintaining sleep G47.00 Discussed sleep hygiene. Okay magnesium and melatonin. Consider consult to sleep medicine as needed 3. Class 3 severe obesity due to excess calories with body mass index (BMI) of 40.0 to 44.9 in adult, unspecified whether serious comorbidity present ([facility]) E66.01 Z68.41 Weight trending back down. Continue efforts at lifestyle changes for better diet and exercise 4. Essential hypertension I10 lisinopril (PRINIVIL) 10 mg tablet COMP METABOLIC PANEL CBC Fair control. Continue present medication management 5. Mixed hyperlipidemia E78.2 LIPID PANEL BASIC Lipids to goal.Continue present management 6. Encounter for immunization Z23 RSV PRINTED PHARMACY INSTRUCTIONS 7. Seronegative rheumatoid arthritis (HCC) M06.00 Above issues addressed with patient. Patient involved in shared decision making for management of medical issues. History and medications reviewed. Epic updated as needed Refills and/or prescriptions taken care of and meds adjusted as indicated after reviewed history, exam and labs. Health Maintenance reviewed. Updated record and/or ordered tests as recorded. Encouraged on efforts at healthy diet and regular exercise and adequate sleep. Further evaluation and treatment as indicated. Mino Barcenas MD documented in this encounterK[facility]01-08-2024 Miscellaneous Notes* Telephone Encounter - Mino Barcenas MD - 07/18/2023 12:00 AM EST Noted does not need alternative med for Ozempic. documented in this encounterK[facility]08-21-2023 Miscellaneous Notes* Telephone Encounter - Mino Barcenas MD - 02/28/2023 6:46 PM EDT The following approved medication requests have been transmitted electronically. Requested Prescriptions Signed Prescriptions Disp Refills insulin glargine (LANTUS U-100 INSULIN) 100 unit/mL injection 20 mL 11 Sig: Inject 26 Units subcutaneously twice daily. Adjust as directed Authorizing Provider: MINO BARCENAS MD Needs 2 vials per 30 days * Telephone Encounter - Ashley Kourtneykalina ONEILL - 02/28/2023 10:25 AM EDT Patient has been identified by name and date of : Patient phones for refill(s): Requested Prescriptions Pending Prescriptions Disp Refills insulin glargine (LANTUS U-100 INSULIN) 100 unit/mL injection 16.8 mL 11 Sig: Inject 26 Units subcutaneously twice daily. Adjust as directed Date of last office visit in primary care: 01/07/2023 , has appt 07/22/2023 Last 2 Encounter Wt Readings: Date: Wt: 01/07/2023 110.7 kg (244 lb) 07/09/2022 108.9 kg (240 lb) Previous labs/tests for medication: Diabetes: Hemoglobin A1C (%) Date Value 01/04/2023 6.0 07/07/2022 6.0 03/19/2021 6.8 10/30/2020 6.4 Please advise. Thank you. Kourtney Ramirez LPN documented in this encounterK[facility] Health08-04-2023 Miscellaneous Notes* Telephone Encounter - Elisha Gallegos - 02/11/2023 9:30 AM EDT Pt needs an urgent supply sent to the pharmacy in [place], [place]. She is on vacation and will not return until this coming February 15. She needs [place] U-1-Insulin as she left it at home in [facility]. She does not have any with her at all. Pharmacy is: [address] [address] PH. [phone] Patient phones requesting refills as follows: Requested Prescriptions Pending Prescriptions Disp Refills insulin glargine (LANTUS U-100 INSULIN) 100 unit/mL injection 16.8 mL 11 Sig: Inject 26 Units subcutaneously twice daily. Adjust as directed ALEXANDER-01/07/23 Labs-01/04/23 NOV-07/22/23 Please review and advise. Daina Chuahan LPN documented in this encounterKettering Health06-30-2023 History of Present illness Narrative* Mino Barcenas MD - 01/07/2023 11:05 AM EDT This note was created using MySmartP[employer]. Subjective Katalina Lemos is a 72 year old female. Patient presents with: F/U 6 months SUBJECTIVE: Katalina Lemos is a 72 year old year old lady here today for 6 month follow up appointment for review of medical conditions. Doing well overall. Decided not to worry about things so much. Things typically work out. Realized does not need to try to figure out the next 16 steps. 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 Sugars well controlled. No lows or highs, Going about 18 hours between meal from night before. Weight has come down since 2020 and staying within 5 pounds of lowest weight 12/11/2021. Continues to follow with Dr. Deutsch for RF negative RA. Has HCDPOA and LW--can drop of copy; surrogate decision maker--son Depression Screening 04/18/2021 07/02/2022 07/09/2022 01/07/2023 PHQ-2 Score 2 1 1 0 PHQ-9 Score - 8 - - Depression screening tool completed and reviewed. Based on score and interview, patient is not at risk for depression. Screening tool discussed with patient, and I recommended no further interventionat this time. PAST MEDICAL HISTORY Diagnosis Date DIABETES MELLITUS TYPE II-UNCOMPL 10/07/2006 HYPERLIPIDEMIA NEC/NOS 11/04/2006 PERS HX TOBACCO USE 10/07/2006 Seronegative rheumatoid arthritis (HCC) Dr. Deutsch Current Outpatient Medications Medication Sig semaglutide (OZEMPIC) 1 mg/dose (4 mg/3 mL) pen Inject 1 mg subcutaneously one time a week. metFORMIN (GLUCOPHAGE) 1,000 mg tablet Take 1 tablet by mouth twice daily with meals. benzonatate (TESSALON PERLES) 100 mg capsule Take 1 capsule by mouth three times daily as needed for cough. albuterol HFA (PROVENTIL HFA, VENTOLIN HFA) 90 mcg/actuation inhaler Inhale 2 Puffs as instructed every 4 hours as needed (cough and/or wheezing). blood sugar diagnostic (FREESTYLE LITE STRIPS) test strip Test blood sugar(s) 2 times daily. Dx: Type 2 DM - Controlled E11.9 Insulin: Yes Miscellaneous Medical Supply Novofine 30 gauge X 1/3 one needle. Us 5 times daily for insulin (3 to 4 times with meals for short-acting; once daily with glargine) insulin aspart U-100 (NOVOLOG FLEXPEN U-100 INSULIN) 100 unit/mL (3 mL) Inject three times daily prior to meals following sliding scale and carb-correction (1 unit for every 20 units >150, 1 unit covers 10g carbs) lisinopril (PRINIVIL) 10 mg tablet Take 1 tablet by mouth once daily. calcium carb/vitamin D3/vit K1 (SOFT CHEWS CALCIUM ORAL) traMADol (ULTRAM) 50 mg tablet Take 50 mg by mouth three times daily as needed. methotrexate 2.5 mg tablet Take 6 tablets by mouth every Tuesday. (Dr. Deutsch) Insulin [place], Disposable, (NOVOFINE 30) 30 gauge x 1/3 ndle Novofine 30G Disposable pen Needle.30G x 8mm (/) . Use with each dose of insulin 3 to 4 meals a day plus Lantus (5 per day) . DM type 2, insulin requiring 11.9 cetirizine (ZYRTEC) 10 mg tablet Take 1 tablet by mouth once daily. multivitamin tablet Take 1 tablet by mouth once daily. Cholecalciferol, Vitamin D3, (VITAMIN D) 25 mcg (1,000 unit) cap Take 1,000 Units by mouth once daily. folic acid 1 mg tablet Take 1 mg by mouth once daily. Aspirin 81 mg ORAL Tab Take one(1) tablet daily. insulin glargine (LANTUS U-100 INSULIN) 100 unit/mL injection Inject 26 Units subcutaneously twice daily. Adjust as directed propranolol (INDERAL) 10 mg tablet Take 1 tablet by mouth three times daily. Uses PRN No current facility-administered medications for this visit. Review of Systems Objective BP 132/68 Pulse 75 Temp 36.7 C (98.1 F) Resp 18 Wt 110.7 kg (244 lb) SpO2 97% BMI 41.88kg/m Physical Exam Constitutional: Appearance: Normal appearance. She is obese. HENT: Head: Normocephalic. Eyes: Conjunctiva/sclera: Conjunctivae normal. Cardiovascular: Rate and Rhythm: Normal rate and regular rhythm. Heart sounds: Normal heart sounds. Pulmonary: Effort: Pulmonary effort is normal. Breath sounds: Normal breath sounds. Skin: General: Skin is warm and dry. Neurological: General: No focal deficit present. Mental Status: She is alert and oriented to person, place, and time. Psychiatric: Attention and Perception: Attention and perception normal. Mood and Affect: Mood and affect normal. Speech: Speech normal. Behavior: Behavior normal. Thought Content: Thought content normal. Cognition and Memory: Cognition and memory normal. Judgment: Judgment normal. Feet:Shoes and socks removed, No deformities, ulcers, calluses, normal distal pulses, and sensitiveto 10 gm monofilament Component Latest Ref Rng & Units 11/23/2021 07/07/2022 01/04/2023 WBC 3.70 - 11.00 k/uL 6.29 8.11 RBC 3.90 - 5.20 m/uL 4.52 4.35 Hemoglobin 11.5 - 15.5 g/dL 14.1 13.7 Hematocrit 36.0 - 46.0 % 43.6 41.7 MCV 80.0 - 100.0 fL 96.5 95.9 MCH 26.0 - 34.0 pg 31.2 31.5 MCHC 30.5 - 36.0 g/dL 32.3 32.9 RDW-CV 11.5 - 15.0 % 13.6 12.6 Platelet Count 150 - 400 k/uL 237 275 MPV 9.0 - 12.7 fL 11.1 10.7 Neut% % 58.5 Abs Neut (ANC) 1.45 - 7.50 k/uL 3.68 Lymph% % 29.4 Abs Lymph 1.00 - 4.00 k/uL 1.85 Arroyo% % 8.1 Abs [place] <0.87 k/uL 0.51 Eosin% % 3.2 Abs Eosin <0.46 k/uL 0.20 Baso% % 0.6 Abs Baso <0.11 k/uL 0.04 Immature Gran % % 0.2 IMMATURE GRANS (ABS) <0.10 k/uL <0.03 NRBC /100 WBC 0.0 Absolute nRBC <0.01 k/uL <0.01 <0.01 DTYPE Auto Protein, Total 6.3 - 8.0 g/dL 6.4 6.6 Albumin 3.9 - 4.9 g/dL 4.2 4.0 Calcium 8.5 - 10.2 mg/dL 9.4 9.1 Bilirubin, Total 0.2 - 1.3 mg/dL 0.6 0.4 Alkaline Phosphatase 34 - 123 U/L 62 73 AST 13 - 35 U/L 39 (H) 19 ALT 7 - 38 U/L 43 (H) 19 Glucose 74 - 99 mg/dL 95 188 (H) BUN 7 - 21 mg/dL 14 18 Creatinine 0.58 - 0.96 mg/dL 0.70 0.66 Sodium 136 - 144 mmol/L 141 139 Potassium 3.7 - 5.1 mmol/L 4.2 4.4 Chloride 97 - 105 mmol/L 103 106 (H) CO2 22 - 30 mmol/L 29 25 Anion Gap 9 - 18 mmol/L 9 8 (L) eGFR >=60 mL/min/1.73m 94 95 Cholesterol, Total <200 mg/dL 142 168 163 Triglyceride <150 mg/dL 68 99 104 HDL Cholesterol >39 mg/dL 59 60 63 Non HDL Cholesterol <130 mg/dL 83 108 100 Fasting Time hrs 13 12 12 VLDL Cholesterol <30 mg/dL 14 20 21 TC:HDL Ratio <5.10 2.41 2.80 2.59 LDL Cholesterol <100 mg/dL 69 88 79 LDL:HDL Ratio <2.54 1.17 1.47 1.25 Creatinine, Ur Random (UCRR) 20.0 - 300.0 mg/dL 131.9 53.6 Albumin, Urine Random mg/L <12.0 <12.0 Albumin/Creat Ratio <30 mg/g <9 <22 Hemoglobin A1C 4.3 - 5.6 % 6.1 (H) 6.0 (H) 6.0 (H) Estimated Average Glucose mg/dL 128 126 126 CMP and CBC at [facility] for Dr. Deutsch. Assessment and Plan Encounter Diagnosis ICD-10-CM 1. Type 2 diabetes mellitus without complication, with long-term current use of insulin (HCC) E11.9HGB A1C Z79.4 insulin aspart U-100 (NOVOLOG FLEXPEN U-100 INSULIN) 100 unit/mL (3 mL) insulin glargine (LANTUS U-100 INSULIN) 100 unit/mL injection lisinopril (PRINIVIL) 10 mg tablet 2. Essential hypertension I10 3. Mixed hyperlipidemia E78.2 LIPID PANEL BASIC 4. Colon cancer screening Z12.11 FECAL OCCULT BLOOD TEST 5. Morbid obesity due to excess calories (HCC) E66.01 6. Seronegative rheumatoid arthritis (HCC) M06.00 Above issues addressed with patient. Patient involved in shared decision making for management of medical issues. History and medications reviewed. Epic updated as needed Refills and/or prescriptions taken care of and meds adjusted as indicated after reviewed history, exam and labs. Health Maintenance reviewed. Updated record and/or ordered tests as recorded. Encouraged on efforts at healthy diet and regular exercise and adequate sleep. Mino Barcenas MD documented in this encounter[facility]12-30-[facility]22 History of Present illness Narrative* Mino Barcenas MD - 07/09/2022 12:33 PM EST This note was created using NoteWriter. Subjective Katalina Lemos is a 71 year old female. Patient presents with: Established Patient: 6 month follow up SUBJECTIVE: Katalina Lemos is a 71 year old year old lady here today for 6 month follow up appointment for review of medical conditions. Has an ongoing cough--will be 3 weeks this weekend. Productive cough and runny nose when started. Cough persisted. Cough keeping her up at night. No wheezing noted. No chest tightness. Throat gets irritated and cough starts. Throat really dry in AM. Voice staying hoarse. Does not talk a lot since live alone/ Trying hot tea with lemon and edis chews. Delsym did not help initially. More postnasal drainage at night and triggers cough. No pain or SOB. Rest of medical issues stable. Doing good overall from chronic issues. Noted was having foot pains. Saw recruiter coordinator and gel orthotics have helped so no pain in knees and ankles. Wears [employer]ix shoes already. Noted tried fish oil but pills too large and needs 3 per day. [facility] issues: Accu Chek no longer covered. Reviewed letter on covered meters and strips. Had not looked into CGM yet. Ozempic might not be available when needs in about 3 weeks. PAST MEDICAL HISTORY Diagnosis Date DIABETES MELLITUS TYPE II-UNCOMPL 10/07/2006 HYPERLIPIDEMIA NEC/NOS 11/04/2006 PERS HX TOBACCO USE 10/07/2006 Seronegative rheumatoid arthritis (HCC) Dr. Deutsch Current Outpatient Medications Medication Sig insulin glargine (LANTUS U-100 INSULIN) 100 unit/mL injection Inject 26 Units subcutaneously twice daily. Adjust as directed propranolol (INDERAL) 10 mg tablet Take 1 tablet by mouth three times daily. Uses PRN insulin aspart U-100 (NOVOLOG FLEXPEN U-100 INSULIN) 100 unit/mL (3 mL) Inject three times daily prior to meals following sliding scale and carb-correction (1 unit for every 20 units >150, 1 unit covers 10g carbs) Insulin Syringe-Needle U-100 (BD INSULIN SYRINGE ULTRA-FINE) 0.5 mL 31 gauge x 5/16 BD Insulin Syring with BD Ultra Fine needle semaglutide (OZEMPIC) 1 mg/dose (4 mg/3 mL) pen injector Inject 1 mg subcutaneously one time a week. lisinopril (PRINIVIL) 10 mg tablet Take 1 tablet by mouth once daily. metFORMIN (GLUCOPHAGE) 1,000 mg tablet Take 1 tablet by mouth twice daily with meals. blood sugar diagnostic (ACCU-CHEK RAMON) test strip Test blood sugar(s) two times daily. Dx: Type 2DM - Controlled E11.9 Insulin: Yes calcium carb/vitamin D3/vit K1 (SOFT CHEWS CALCIUM ORAL) traMADol (ULTRAM) 50 mg tablet Take 50 mg by mouth three times daily as needed. methotrexate 2.5 mg tablet Take 6 tablets by mouth every Tuesday. (Dr. Deutsch) Insulin [place], Disposable, (NOVOFINE 30) 30 gauge x 1/3 ndle Novofine 30G Disposable pen Needle.30G x 8mm (07/13) . Use with each dose of insulin 3 to 4 meals a day plus Lantus (5 per day) . DM type 2, insulin requiring 11.9 cetirizine (ZYRTEC) 10 mg tablet Take 1 tablet by mouth once daily. Cholecalciferol, Vitamin D3, (VITAMIN D) 25 mcg (1,000 unit) cap Take 1,000 Units by mouth once daily. folic acid 1 mg tablet Take 1 mg by mouth once daily. Aspirin 81 mg ORAL Tab Take one(1) tablet daily. multivitamin tablet Take 1 tablet by mouth once daily. (Patient not taking: Reported on 07/09/2022) No current facility-administered medications for this visit. Review of Systems Objective BP 122/68 Pulse 84 Temp 36.7 C (98.1 F) Resp 18 Wt 108.9 kg (240 lb) SpO2 96% BMI 41.20kg/m Last 5 Encounter Wt Readings: Date: Wt: 07/09/2022 108.9 kg (240 lb) 12/11/2021 108.4 kg (239 lb) 06/29/2021 112 kg (247 lb) 05/14/2021 112.5 kg (248 lb) 04/24/2021 116.1 kg (256 lb) No waist measurement recorded Estimated body mass index is 41.2 kg/m as calculated from the following: Height as of 06/29/21: 162.6 cm (5' 4). Weight as of this encounter: 108.9 kg (240 lb). Last 5 Encounter BP Readings: Date: BP: 07/09/2022 122/68 12/11/2021 132/78 05/14/2021 130/80 04/24/2021 118/78 01/30/2021 132/84 Physical Exam Constitutional: Appearance: Normal appearance. HENT: Head: Normocephalic. Comments: No sinus tendernesss Mouth/Throat: Comments: Voice hoarse Eyes: Conjunctiva/sclera: Conjunctivae normal. Cardiovascular: Rate and Rhythm: Normal rate and regular rhythm. Heart sounds: Normal heart sounds. Pulmonary: Effort: Pulmonary effort is normal. Breath sounds: Normal breath sounds. No wheezing. Skin: General: Skin is warm and dry. Neurological: General: No focal deficit present. Mental Status: She is alert and oriented to person, place, and time. Psychiatric: Mood and Affect: Mood normal. Behavior: Behavior normal. Thought Content: Thought content normal. Judgment: Judgment normal. Component Latest Ref Rng & Units 03/19/2021 06/06/2021 11/23/2021 07/07/2022 WBC 3.70 - 11.00 k/uL 7.01 6.29 8.11 RBC 3.90 - 5.20 m/uL 4.56 4.52 4.35 Hemoglobin 11.5 - 15.5 g/dL 14.4 14.1 13.7 Hematocrit 36.0 - 46.0 % 44.0 43.6 41.7 MCV 80.0 - 100.0 fL 96.5 96.5 95.9 MCH 26.0 - 34.0 pg 31.6 31.2 31.5 MCHC 30.5 - 36.0 g/dL 32.7 32.3 32.9 RDW-CV 11.5 - 15.0 % 12.9 13.6 12.6 Platelet Count 150 - 400 k/uL 255 237 275 MPV 9.0 - 12.7 fL 11.6 11.1 10.7 Neut% % 58.5 Abs Neut (ANC) 1.45 - 7.50 k/uL 3.68 Lymph% % 29.4 Abs Lymph 1.00 - 4.00 k/uL 1.85 Arroyo% % 8.1 Abs Arroyo <0.87 k/uL 0.51 Eosin% % 3.2 Abs Eosin <0.46 k/uL 0.20 Baso% % 0.6 Abs Baso <0.11 k/uL 0.04 Immature Gran % % 0.2 IMMATURE GRANS (ABS) <0.10 k/uL <0.03 NRBC /100 WBC 0.0 Absolute nRBC <0.01 k/uL <0.01 <0.01 <0.01 DTYPE Auto Protein, Total 6.3 - 8.0 g/dL 6.8 6.4 6.6 Albumin 3.9 - 4.9 g/dL 4.1 4.2 4.0 Calcium 8.5 - 10.2 mg/dL 9.3 9.4 9.1 Bilirubin, Total 0.2 - 1.3 mg/dL 0.6 0.6 0.4 Alkaline Phosphatase 34 - 123 U/L 67 62 73 AST 13 - 35 U/L 21 39 (H) 19 Glucose 74 - 99 mg/dL 149 (H) 95 188 (H) BUN 7 - 21 mg/dL 14 14 18 Creatinine 0.58 - 0.96 mg/dL 0.73 0.70 0.66 Sodium 136 - 144 mmol/L 139 141 139 Potassium 3.7 - 5.1 mmol/L 3.9 4.2 4.4 Chloride 97 - 105 mmol/L 103 103 106 (H) CO2 22 - 30 mmol/L 22 29 25 Anion Gap 9 - 18 mmol/L 14 9 8 (L) ALT 7 - 38 U/L 29 43 (H) 19 eGFR- >60 eGFR-All Other Races . >60 eGFR >=60 mL/min/1.73m 94 95 Cholesterol, Total <200 mg/dL 142 168 Triglyceride <150 mg/dL 68 99 HDL Cholesterol >39 mg/dL 59 60 Non HDL Cholesterol <130 mg/dL 83 108 Fasting Time hrs 13 12 VLDL Cholesterol <30 mg/dL 14 20 TC:HDL Ratio <5.10 2.41 2.80 LDL Cholesterol <100 mg/dL 69 88 LDL:HDL Ratio <2.54 1.17 1.47 Total Cholesterol, Nonfasting <200 mg/dL 153 Triglycerides, Nonfasting <150 mg/dL 93 HDL Cholesterol, Nonfasting >39 mg/dL 52 LDL Cholesterol, Nonfasting <100 mg/dL 82 Non HDL Cholesterol, Nonfasting <130 mg/dL 101 VLDL Cholesterol, Nonfasting <30 mg/dL 19 Total Chol/HDL Ratio, Nonfasting <5.10 mg/dL 2.94 LDL/HDL Ratio, Nonfasting <2.54 mg/dL 1.58 Creatinine, Ur Random (UCRR) 20.0 - 300.0 mg/dL 247.9 131.9 Albumin, Urine Random mg/L 44.3 <12.0 Albumin/Creat Ratio <30 mg/g 18 <9 Hemoglobin A1C 4.3 - 5.6 % 6.8 (H) 6.1 (H) 6.0 (H) Estimated Average Glucose mg/dL 148 128 126 Vitamin D 25 Hydroxy 31.0 - 80.0 ng/mL 52.5 Occult Blood, Stool Negative Negative Assessment and Plan Encounter Diagnosis ICD-10-CM 1. Acute laryngitis J04.0 doxycycline (VIBRA-TABS) 100 mg tablet benzonatate (TESSALON PERLES) 100 mg capsule albuterol HFA (PROVENTIL HFA, VENTOLIN HFA) 90 mcg/actuation inhaler Inhalational Spacing Device 2. Type 2 diabetes mellitus without complication, with long-term current use of insulin ([facility]) E11.9 Z79.4 3. Essential hypertension I10 4. Acute bronchitis, unspecified organism J20.9 doxycycline (VIBRA-TABS) 100 mg tablet benzonatate (TESSALON PERLES) 100 mg capsule albuterol HFA (PROVENTIL HFA, VENTOLIN HFA) 90 mcg/actuation inhaler Inhalational Spacing Device 5. Mixed hyperlipidemia E78.2 6. Morbid obesity due to excess calories ([facility]) E66.01 7. Vitamin D deficiency E55.9 Above issues addressed with patient. Patient involved in shared decision making for management of medical issues. History and medications reviewed. Epic updated as needed Refills and/or prescriptions taken care of and meds adjusted as indicated after reviewed history, exam and labs. Health Maintenance reviewed. Updated record and/or ordered tests as recorded. Encouraged on efforts at healthy diet and regular exercise and adequate sleep. I spent a total of 82 minutes on the date of the service which included [id number] patient care, completing clinical documentation, obtaining and/or reviewing separately obtained history, performing a medically appropriate examination, ordering medications, tests, or procedures, and communicating results to the patient/family/caregiver. Mino Barcenas MD documented in this encounterK[facility]10-31-2022 Instructions* Patient Instructions* Candie Llamas - 05/10/2022 11:40 AM EDT Powerstep Original Full length. Can purchase at [employer] here in [place], [employer] in [place] or [place]. Also can find in [employer] in [facility]. Powersteps can also be purchased online, starting around $25.00 If you have a metatarsal or dancer pad for your feet apply the pad directly to the insole so you can interchange between your shoes. Find a shoe with a removable insole and take this out and replace with your powerstep insole. Always bring powersteps with you when shopping for shoes so that you can make sure that everything fits well together Diabetes Foot Care Instructions When you have diabetes, proper foot care is very important. Poor foot care may lead to amputation of a foot or leg. As a person with diabetes, you are more vulnerable to foot problems, because diabetes can damage your nerves and reduce blood flow to your feet. Here are some diabetes foot care tips to follow: Wash and Dry Your Feet Daily Use mild soaps Use warm water Pat your skin dry; do not rub. Thoroughly dry your feet. After washing, use lotion on your feet to prevent cracking. Do not put lotion between your toes. Examine Your Feet Each Day Check the tops and bottoms of your feet. Have someone else look at your feet if you cannot see them. Check for dry, cracked skin. Look for blisters, cuts, scratches, or other sores. Check for redness, increased warmth, or tenderness when touching any area of your feet. Check for ingrown toenails, corns, and calluses. If you get a blister or sore from your shoes, do not pop it. Apply a bandage and wear a differentpair of shoes. Take Care of Your Toenails Cut toenails after bathing, when they are soft. Cut toenails straight across and smooth with a nail file. Avoid cutting into the corners of toes. Do not cut cuticles. If you have neuropathy (or decreased sensation in your feet) a recruiter coordinator should always cut your toenails. Be Careful When Exercising Walk and exercise in comfortable shoes. Do not exercise when you have open sores on your feet. Protect Your Feet With Shoes and Socks Never go barefoot. Always protect your feet by wearing shoes or hard-soled slippers or footwear. Avoid shoes with high heels and pointed toes. Avoid shoes that expose your toes or heels (such as open-toed shoes or sandals). These types of shoes increase your risk for injury and potential infections. Try on new footwear with the type of socks you usually wear. Do not wear new shoes for more than an hour at a time. Change your socks daily. Look and feel inside your shoes before putting them on to make sure there are no foreign objects orrough areas. Avoid tight socks. Wear natural-fiber socks (cotton, wool, or a cotton-wool blend). Wear special shoes if your health care provider recommends them. Wear shoes/boots that will protect your feet from various weather conditions (cold, moisture, etc.). Make sure your shoes fit properly. If you have neuropathy (nerve damage), you may not notice that your shoes are too tight. Perform the footwear test described below. Footwear Test Use this simple test to see if your shoes fit correctly: Stand on a piece of paper. (Make sure you are standing and not sitting, because your foot changes shape when you stand.) Trace the outline of your foot. Trace the outline of your shoe. Compare the tracings: Is the shoe too narrow? Is your foot crammed into the shoe? The shoe should be at least 1/2 inch longer than your longest toe and as wide as your foot. Proper Shoe Choices The following types of shoes are best for people with diabetes Closed toes and heels Leather uppers without a seam inside At least 1/2 inch extra space at the end of your longest toe Inside of shoe should be soft with no rough areas Outer sole should be made of stiff material Shoes should be at least as wide as your feet Tips for Foot Care in Diabetes Don't wait to treat a minor foot problem if you have diabetes. Follow your health care provider's guidelines and first aid guidelines. Report foot injuries and infections to your health care provider immediately. Check water temperature with your elbow, not your foot. Do not use a heating pad on your feet. Do not cross your legs. Do not self-treat your corns, calluses, or other foot problems. Go to your health care provider or recruiter coordinator to treat these conditions. documented in this encounterK[facility]10-31-2022 History of Present illness Narrative* Candie Muriel - 05/10/2022 11:31 AM EDT Initial Office Visit Subjective: This 71 year old female presents to clinic for diabetic foot check. Patient has the following complaints: sharp shooting pain in right foot and ankle. Patient states that for the past month, when she curls her toes, she will notice pain in her right foot and ankle. The pain is located more medially ankle but can also be laterally. Patient states the pain is a quick stab and then is gone immediately. Patient does not take any medication on a constant schedule for the pain but will take tramadol if she is going to do a lot of walking. Patient admits to being diabetic for 12 years now. Patient +B/T/N in feet at this time. Patient -pain in legs when walking. No other pedal complaints at this time. No change in medications or medical history since last visit. PAIN EVALUATION 05/10/2022 1119 Pain Level: 8 Pain Location: Other: See Comment r foot and ankle Description: Sharp;Radiating Duration Amount of Time: 1 Duration Units: Months Frequency: Intermittent Intervention/Comfort measure: Reposition;Relaxation Hemoglobin A1C (%) Date Value 11/23/2021 6.1 03/19/2021 6.8 10/30/2020 6.4 04/15/2020 6.4 09/20/2019 6.0 10/17/2018 6.2 Hemoglobin A1C (POCT) (%) Date Value 03/26/2019 6.1 PCP: Mino Barcenas MD PAST MEDICAL HISTORY Diagnosis Date DIABETES MELLITUS TYPE II-UNCOMPL 10/07/2006 HYPERLIPIDEMIA NEC/NOS 11/04/2006 PERS HX TOBACCO USE 10/07/2006 Seronegative rheumatoid arthritis (HCC) Dr. Deutsch Current Outpatient Medications Medication Sig insulin glargine (LANTUS U-100 INSULIN) 100 unit/mL injection Inject 26 Units subcutaneously twice daily. Adjust as directed propranolol (INDERAL) 10 mg tablet Take 1 tablet by mouth three times daily. Uses PRN insulin aspart U-100 (NOVOLOG FLEXPEN U-100 INSULIN) 100 unit/mL (3 mL) Inject three times daily prior to meals following sliding scale and carb-correction (1 unit for every 20 units >150, 1 unit covers 10g carbs) Insulin Syringe-Needle U-100 (BD INSULIN SYRINGE ULTRA-FINE) 0.5 mL 31 gauge x 5/16 BD Insulin Syring with BD Ultra Fine needle semaglutide (OZEMPIC) 1 mg/dose (4 mg/3 mL) pen injector Inject 1 mg subcutaneously one time a week. lisinopril (PRINIVIL) 10 mg tablet Take 1 tablet by mouth once daily. metFORMIN (GLUCOPHAGE) 1,000 mg tablet Take 1 tablet by mouth twice daily with meals. blood sugar diagnostic (ACCU-CHEK RAMON) test strip Test blood sugar(s) two times daily. Dx: Type 2DM - Controlled E11.9 Insulin: Yes calcium carb/vitamin D3/vit K1 (SOFT CHEWS CALCIUM ORAL) traMADol (ULTRAM) 50 mg tablet Take 50 mg by mouth three times daily as needed. methotrexate 2.5 mg tablet Take 6 tablets by mouth every Tuesday. (Dr. Deutsch) Insulin [place], Disposable, (NOVOFINE 30) 30 gauge x 1/3 ndle Novofine 30G Disposable pen Needle.30G x 8mm (07/13) . Use with each dose of insulin 3 to 4 meals a day plus Lantus (5 per day) . DM type 2, insulin requiring 11.9 cetirizine (ZYRTEC) 10 mg tablet Take 1 tablet by mouth once daily. multivitamin tablet Take 1 tablet by mouth once daily. Cholecalciferol, Vitamin D3, (VITAMIN D) 25 mcg (1,000 unit) cap Take 1,000 Units by mouth once daily. folic acid 1 mg tablet Take 1 mg by mouth once daily. Aspirin 81 mg ORAL Tab Take one(1) tablet daily. No current facility-administered medications for this visit. ALLERGIES Allergen Reactions Epinephrine-Chlorph* Unknown Pollen Extracts Other: See Comments runny nose Sulfa (Sulfonamide * Rash PAST SURGICAL HISTORY Procedure Laterality Date DELIVERY ONLY x 2 INSERT PALATE IMPLANTS FAMILY HISTORY Problem Relation Age of Onset Diabetes Mother Hypertension Mother Stroke Mother other (Injuries from MVA) Father Social History Tobacco Use Smoking status: Former Packs/day: 0.50 Years: 20.00 Pack years: 10.00 Types: Cigarettes Smokeless tobacco: Former Quit date: 04/10/2013 Vaping Use Vaping Use: Never used Substance Use Topics Alcohol use: No Drug use: No REVIEW OF SYSTEMS GENERAL: Negative for Malaise, significant weight loss, fever RESPIRATORY: Negative for cough, wheezing and shortness of breath CARDIOVASCULAR: Negative for chest pain, leg swelling and palpitations GI: Negative for abdominal discomfort, blood in stools or black stools and change in bowel habits : Negative for dysuria, frequency and incontinence MUSCULOSKELETAL: Negative for joint pain or swelling, back pain, and muscle pain. SKIN: Negative for lesions, rash, and itching. HEMATOLOGY/LYMPHOLOGY Negative for prolonged bleeding, bruising easily, and swollen nodes. ENDOCRINE: Negative for cold or heat intolerance, polyuria, polydipsia and goiter. NEURO: negative The remainder of the review of systems is noncontributory. Objective: Patient presents to clinic ambulating in [facility] Constitutional: Pt is a well developed 71 year old female who is alert, oriented, cooperative and in no apparent distress. Eyes: Following during examination. No redness or drainage. Respiratory: RR normal and nonlabored. Even breathing. No evidence of distress. Psychology: Patient is engaged during conversation. Normal affect and mood. Does not appear depressed or anxious. Vasc: DP and PT pulses are palpable bilateral. CFT is less than 5 seconds bilateral. Skin temperature is warm to warm proximal to distal bilateral. There is mild edema or varicosities noted. Hair growth present. Neuro: Protective sensation is intact to the foot and toes when tested with the 5.07 SWM bilateral.Vibratory sensation is intact at the hallux bilateral. No Significant neurological defecits. Derm: Inspection and palpation performed. Nails 1-5 b/l are normal in length and thickness. Skin isof normal turgor and texture. Hyperkeratosis noted to callus to right 5th metatarsal. NO ulcerations, scars, verruca or other lesions noted. Ortho: Ankle joint DF is decreased with the knee extended and decreased with knee flexed. No pain or crepitus noted. STJ, MTJ ROM are full and free of pain or crepitus. Muscle strength is 5/5 for dorsiflexors, plantarflexors, inverters, everters. Digital deformities include none. Pes cavus deformity is noted b/l. Assessment: (Q66.71, Q66.72) Pes cavus of both feet (primary encounter diagnosis) (E11.9, Z79.4) Type 2 diabetes mellitus without complication, with long-term current use of insulin([facility]) (L84) Callus of foot Plan: 1. Patient was seen and evaluated. 2. Patient was instructed on the continued importance of diabetic foot care along with proper diet and keeping their blood sugar under control to prevent complications. Instructions given both oral and written. 3. Powerstep inserts recommended. If these help, consider custom orthotics 4. Callus reduced to right 5th metatarsal with kaitlyn Llamas DPM * Jane Naqvi RN - 05/10/2022 11:17 AM EDT AMB ROOMING INTAKE FLOWSHEET DATA Risk Screening Do you have concerns about personal safety or safety in the home?: No Pain Pain Level: 8 Pain Location: Other: See Comment (r foot and ankle) Description: Sharp, Radiating Duration Amount of Time: 1 Duration Units: Months Frequency: Intermittent Intervention/Comfort measure: Reposition, Relaxation Patient presents with: Right Ankle - New, Pain Right Foot - New, Pain Patient c/o pain in top of R foot and back of ankle that occurs when she curls her toes. Pain is sharp and epidsodic. It only occurs when she curls her toes and it is short lived. Patient unable to take ibuprofen due to fatty liver. documented in this encounterK[facility]10-28-2022 History of Present illness Narrative* Shazia Mays RT(Yasmine) - 05/07/2022 11:20 AM EDT Radiology Service Progress Note PATIENT NAME: Katalina Lemos DATE OF SERVICE: May 07, 2022 TIME: 11:25 AM PATIENT IDENTITY VERIFICATION COMPLETED USING TWO (2) IDENTIFIERS: Name and Date of confirmedby patient verbally. FALL SCREENING: Has the patient had 2 falls in the last year or 1 fall with injury or currently using an Ambulatory Assistive Device (Walker, Cane, Wheelchair, Crutches, etc.)? No PATIENT GENDER DATA: Female. status: : No status: NO. PATIENT RELEVANT IMPLANT DATA REVIEWED: Not Applicable RADIOLOGY DEPARTMENT: General X-ray: Exam(s) Completed: Lower Extremity X- Ray(s): Ankle, Right and Wt. Bearing and Foot, Right and Wt. Bearing PERIPHERAL IV DATA: Not applicable SIGNED BY: RT Jordan(R) May 07, 2022 11:25 AM documented in this encounterKettering Health07-15-2022 Miscellaneous Notes* Telephone Encounter - Phyllis Gallo Ma - 01/22/2022 3:08 PM EDT mychart sent * Telephone Encounter - Angi Bartlett APRN.CNP - 01/22/2022 1:59 PM EDT Is patient still having these symptoms? If so she will need to be seen in the office Angi Bartlett APRN.CNP documented in this encounterKettering Health06-30-2022 History of Present illness Narrative* Agustin Mejia MD - 01/07/2022 10:13 AM EDT Associated Order(s): Large Joint Arthro/Inj: L knee joint Agustin Mejia MD Department of Orthopaedics Orthopaedics [address] [place] [id number] Dept: [phone] Dept January 07, 2022 CHIEF COMPLAINT: Knee Pain of the Left Knee and 10 weeks 3 days post visit OA left knee (wants injection) HPI Pt. states she has dull ache with WB and would like to try injection today. Pt. states FBS was 134 today. AMB ROOMING INTAKE FLOWSHEET DATA Pain Pain Level: (2-5) Pain Location: Knee-Left Description: Aching Duration Amount of Time: 1 Duration Units: Years Frequency: Intermittent Intervention/Comfort measure: Medication Comments: Tramadol 100 mg daily as needed ASSESSMENT: M25.562, G89.29 Chronic pain of left knee (primary encounter diagnosis) M17.12 Primary osteoarthritis of left knee PLAN: She was helpful for an injection today she is going to be going on vacation. Ms. Katalina Lemos was advised as to contrast therapies and/or to take analgesics/anti-inflammatories as needed and all contraindications were reviewed. OBJECTIVE: Ms. Katalina Lemos is a pleasant 71 year old in no apparent distress. Gen:There were no vitals taken for this visit. nl development, obese, no deformities ENT: Normocephalic, normal hearing, moist mucosa CV: Pulses:DP/PT= 2+ and symmetric, capillary refill < 2 secs, no peripheral edema/varicosities Skin: no rash, bruising or lesions. Good turgor. Psych: cooperative and appropriate, alert and oriented x 3, good mood and affect. Musculoskeletal: Stable exam from prior visit. Large Joint Arthro/Inj: L knee joint Informed Consent Consent Obtained: Verbal Odd Protocol A moment to CARE was completed. SIGN IN Sign in communication not applicable due to emergent procedure. Personnel directly involved with the procedure wore the appropriate PPE. Special Equipment: N/A Patient/Surrogate Stated/Verified: Patient name, Date of , Relevant allergies and Intended procedure TIME OUT Intended patient and procedure match the source document(s). Relevant labs, photos, and/or imaging studies have been reviewed. Correct side/site marked and visible. Medications required for procedure verified. No fire risk assessment and interventions applicable. No implant(s) inserted. 01/07/2022 11:04 AM The procedure site was prepped in the usual sterile fashion. Site: L knee joint Medications: 6 mg betamethasone acetate-betamethasone sodium phosphate 6 mg/mL Anesthetics: 4 mL lidocaine (PF) 10 mg/mL (1 %) Outcome: Tolerated well, no immediate complications Post-injection instructions were reviewed with the patient and the patient voiced understanding of these instructions. SIGN OUT All instruments, equipment, possible retained foreign bodies accounted for. Post-procedure follow-up management communicated and Plan of Care Visit completed when applicable Imaging: Supporting Subjective Information Below: Past Surgical History: PAST SURGICAL HISTORY Procedure Laterality Date DELIVERY ONLY x 2 INSERT PALATE IMPLANTS Medications: Current Outpatient Medications Medication Sig insulin glargine (LANTUS U-100 INSULIN) 100 unit/mL injection Inject 26 Units subcutaneously twice daily. Adjust as directed propranolol (INDERAL) 10 mg tablet Take 1 tablet by mouth three times daily. Uses PRN insulin aspart U-100 (NOVOLOG FLEXPEN U-100 INSULIN) 100 unit/mL (3 mL) Inject three times daily prior to meals following sliding scale and carb-correction (1 unit for every 20 units >150, 1 unit covers 10g carbs) Insulin Syringe-Needle U-100 (BD INSULIN SYRINGE ULTRA-FINE) 0.5 mL 31 gauge x 5/16 BD Insulin Syring with BD Ultra Fine needle semaglutide (OZEMPIC) 1 mg/dose (4 mg/3 mL) pen injector Inject 1 mg subcutaneously one time a week. lisinopril (PRINIVIL) 10 mg tablet Take 1 tablet by mouth once daily. metFORMIN (GLUCOPHAGE) 1,000 mg tablet Take 1 tablet by mouth twice daily with meals. blood sugar diagnostic (ACCU-CHEK RAMON) test strip Test blood sugar(s) two times daily. Dx: Type 2DM - Controlled E11.9 Insulin: Yes calcium carb/vitamin D3/vit K1 (SOFT CHEWS CALCIUM ORAL) traMADol (ULTRAM) 50 mg tablet Take 50 mg by mouth three times daily as needed. methotrexate 2.5 mg tablet Take 6 tablets by mouth every Tuesday. (Dr. Deutsch) Insulin [place], Disposable, (NOVOFINE 30) 30 gauge x 1/3 ndle Novofine 30G Disposable pen Needle.30G x 8mm (1/3) . Use with each dose of insulin 3 to 4 meals a day plus Lantus (5 per day) . DM type 2, insulin requiring 11.9 cetirizine (ZYRTEC) 10 mg tablet Take 1 tablet by mouth once daily. multivitamin tablet Take 1 tablet by mouth once daily. Cholecalciferol, Vitamin D3, (VITAMIN D) 25 mcg (1,000 unit) cap Take 1,000 Units by mouth once daily. folic acid 1 mg tablet Take 1 mg by mouth once daily. Aspirin 81 mg ORAL Tab Take one(1) tablet daily. No current facility-administered medications for this visit. Allergies: Epinephrine-Chlorpheniramine and Sulfa (Sulfonamide Antibiotics) ROS: General (negative for fatigue, malaise, weight loss/gain) HEENT (negative for headache, earache, recent vision changes, sinus pain, sore throat) Respiratory (no recent shortness of breath, hemoptysis) CV (negative for chest tightness, palpitations) Musculoskeletal (see HPI) Psych (no depression, anxiety) Agustin Mejia MD documented [facility] History of Present illness Narrative* Mino Barcenas MD - 12/11/2021 2:25 PM EDT This note was created using [employer]. Subjective Katalina Lemos is a 71 year old female. Patient presents with: Follow Up SUBJECTIVE: Katalina Lemos is a 71 year old year old lady here today for 6 month follow up appointment for review of medical conditions. Had COVID infection starting last . Tested + at home. Low grade temp, fatigue, headache; cough and runny nose started after other symptoms resolved. Getting by with OTC med.s Noted Dr. eDutsch stopoped MTX and getting US liver tomorrow for elevated LFTS (AST 39, ALT 43). Lost weight since on Ozempic. Adjusting insulin according to what she is eating. BP checked at Dr. Deutsch's. Has been lately up like Tuesday at 148/80s. Gets meds from . PAST MEDICAL HISTORY Diagnosis Date DIABETES MELLITUS TYPE II-UNCOMPL 10/07/2006 HYPERLIPIDEMIA NEC/NOS 11/04/2006 PERS HX TOBACCO USE 10/07/2006 Seronegative rheumatoid arthritis (HCC) Dr. Deutsch Current Outpatient Medications Medication Sig semaglutide (OZEMPIC) 1 mg/dose (4 mg/3 mL) pen injector Inject 1 mg subcutaneously one time a week. calcium carb/vitamin D3/vit K1 (SOFT CHEWS CALCIUM ORAL) metFORMIN (GLUCOPHAGE) 1,000 mg tablet Take 1 tablet by mouth twice daily with meals. lisinopril (PRINIVIL) 10 mg tablet Take 1 tablet by mouth once daily. insulin glargine (LANTUS U-100 INSULIN) 100 unit/mL injection Inject 26 Units subcutaneously twice daily. Adjust as directed insulin aspart U-100 (NOVOLOG FLEXPEN U-100 INSULIN) 100 unit/mL (3 mL) Inject three times daily prior to meals following sliding scale and carb-correction (1 unit for every 20 units >150, 1 unit covers 10g carbs) traMADol (ULTRAM) 50 mg tablet Take 50 mg by mouth three times daily as needed. propranolol (INDERAL) 10 mg tablet Take 1 tablet by mouth three times daily. Uses PRN methotrexate 2.5 mg tablet Take 6 tablets by mouth every Tuesday. (Dr. Deutsch) cetirizine (ZYRTEC) 10 mg tablet Take 1 tablet by mouth once daily. multivitamin tablet Take 1 tablet by mouth once daily. Cholecalciferol, Vitamin D3, (VITAMIN D) 25 mcg (1,000 unit) cap Take 1,000 Units by mouth once daily. folic acid 1 mg tablet Take 1 mg by mouth once daily. Aspirin 81 mg ORAL Tab Take one(1) tablet daily. blood sugar diagnostic (ACCU-CHEK RAMON) test strip Test blood sugar(s) two times daily. Dx: Type 2DM - Controlled E11.9 Insulin: Yes diclofenac (VOLTAREN) 1 % topical gel Apply 2 g to affected area four times daily. (Patient not taking: Reported on 06/23/2021 ) Insulin Syringe-Needle U-100 (BD INSULIN SYRINGE ULTRA-FINE) 0.5 mL 31 gauge x 5/16 BD Insulin Syring with BD Ultra Fine needle Insulin [place], Disposable, (NOVOFINE 30) 30 gauge x 1/3 ndle Novofine 30G Disposable pen Needle.30G x 8mm (/) . Use with each dose of insulin 3 to 4 meals a day plus Lantus (5 per day) . DM type 2, insulin requiring 11.9 No current facility-administered medications for this visit. Review of Systems Objective BP 142/80 Pulse 82 Wt 108.4 kg (239 lb) BMI 41.02 kg/m Last 5 Encounter Wt Readings: Date: Wt: 12/11/2021 108.4 kg (239 lb) 06/29/2021 112 kg (247 lb) 05/14/2021 112.5 kg (248 lb) 04/24/2021 116.1 kg (256 lb) 01/30/2021 116.8 kg (257 lb 6.4 oz) No waist measurement recorded Estimated body mass index is 41.02 kg/m as calculated from the following: Height as of 06/29/21: 162.6 cm (5' 4). Weight as of this encounter: 108.4 kg (239 lb). Last 5 Encounter BP Readings: Date: BP: 12/11/2021 142/80 05/14/2021 130/80 04/24/2021 118/78 01/30/2021 132/84 11/07/2020 138/80 Physical Exam Constitutional: Appearance: Normal appearance. HENT: Head: Normocephalic. Eyes: Conjunctiva/sclera: Conjunctivae normal. Cardiovascular: Rate and Rhythm: Normal rate and regular rhythm. Heart sounds: Normal heart sounds. Pulmonary: Effort: Pulmonary effort is normal. Breath sounds: Normal breath sounds. Skin: General: Skin is warm and dry. Neurological: General: No focal deficit present. Mental Status: She is alert and oriented to person, place, and time. Psychiatric: Mood and Affect: Mood normal. Behavior: Behavior normal. Thought Content: Thought content normal. Judgment: Judgment normal. Component Latest Ref Rng & Units 10/30/2020 03/19/2021 11/23/2021 WBC 3.70 - 11.00 k/uL 6.35 7.01 6.29 RBC 3.90 - 5.20 m/uL 4.42 4.56 4.52 Hemoglobin 11.5 - 15.5 g/dL 14.0 14.4 14.1 Hematocrit 36.0 - 46.0 % 42.9 44.0 43.6 MCV 80.0 - 100.0 fL 97.1 96.5 96.5 MCH 26.0 - 34.0 pg 31.7 31.6 31.2 MCHC 30.5 - 36.0 g/dL 32.6 32.7 32.3 RDW-CV 11.5 - 15.0 % 12.9 12.9 13.6 Platelet Count 150 - 400 k/uL 238 255 237 MPV 9.0 - 12.7 fL 11.1 11.6 11.1 Neut% % 58.5 Abs Neut (ANC) 1.45 - 7.50 k/uL 3.68 Lymph% % 29.4 Abs Lymph 1.00 - 4.00 k/uL 1.85 [place]% % 8.1 Abs [place] <0.87 k/uL 0.51 Eosin% % 3.2 Abs Eosin <0.46 k/uL 0.20 Baso% % 0.6 Abs Baso <0.11 k/uL 0.04 Immature Gran % % 0.2 IMMATURE GRANS (ABS) <0.10 k/uL <0.03 NRBC /100 WBC 0.0 Absolute nRBC <0.01 k/uL <0.01 <0.01 <0.01 DTYPE Auto Protein, Total 6.3 - 8.0 g/dL 6.8 6.8 6.4 Albumin 3.9 - 4.9 g/dL 4.0 4.1 4.2 Calcium 8.5 - 10.2 mg/dL 9.3 9.3 9.4 Bilirubin, Total 0.2 - 1.3 mg/dL 0.4 0.6 0.6 Alkaline Phosphatase 34 - 123 U/L 71 67 62 AST 13 - 35 U/L 21 21 39 (H) Glucose 74 - 99 mg/dL 106 (H) 149 (H) 95 BUN 7 - 21 mg/dL 19 14 14 Creatinine 0.58 - 0.96 mg/dL 0.77 0.73 0.70 Sodium 136 - 144 mmol/L 142 139 141 Potassium 3.7 - 5.1 mmol/L 3.9 3.9 4.2 Chloride 97 - 105 mmol/L 104 103 103 CO2 22 - 30 mmol/L 28 22 29 Anion Gap 9 - 18 mmol/L 10 14 9 ALT 7 - 38 U/L 35 29 43 (H) eGFR- >60 >60 eGFR-All Other Races . >60 >60 eGFR >=60 mL/min/1.73m 94 Cholesterol, Total <200 mg/dL 155 142 Triglyceride <150 mg/dL 92 68 HDL Cholesterol >39 mg/dL 55 59 LDL Cholesterol <100 mg/dL 82 69 Non HDL Cholesterol <130 mg/dL 100 83 Fasting Time hrs 12 13 VLDL Cholesterol <30 mg/dL 18 14 TC:HDL Ratio <5.10 2.82 2.41 LDL:HDL Ratio <2.54 1.49 1.17 Total Cholesterol, Nonfasting <200 mg/dL 153 Triglycerides, Nonfasting <150 mg/dL 93 HDL Cholesterol, Nonfasting >39 mg/dL 52 LDL Cholesterol, Nonfasting <100 mg/dL 82 Non HDL Cholesterol, Nonfasting <130 mg/dL 101 VLDL Cholesterol, Nonfasting <30 mg/dL 19 Total Chol/HDL Ratio, Nonfasting <5.10 mg/dL 2.94 LDL/HDL Ratio, Nonfasting <2.54 mg/dL 1.58 Creatinine, Ur Random (UCRR) 20.0 - 300.0 mg/dL 247.9 131.9 Albumin, Urine Random mg/L 44.3 <12.0 Albumin/Creat Ratio <30 mg/g 18 <9 Hemoglobin A1C 4.3 - 5.6 % 6.4 (H) 6.8 (H) 6.1 (H) Estimated Average Glucose mg/dL 137 148 128 Vitamin D 25 Hydroxy 31.0 - 80.0 ng/mL 81.7 (H) 52.5 Assessment and Plan Encounter Diagnosis ICD-10-CM 1. Type 2 diabetes mellitus without complication, with long-term current use of insulin ([facility]) E11.9insulin glargine (LANTUS U-100 INSULIN) 100 unit/mL injection Z79.4 insulin aspart U-100 (NOVOLOG FLEXPEN U-100 INSULIN) 100 unit/mL (3 mL) Not spilling albumin in urine this time. HgA1C up but still <6.5. Continue present management 2. COVID-19 virus infection U07.1 Some brain fog; cough and runny nose. Monitor for resolution. Home test positive on Tuesday. Initial symptoms resolved 3. Essential hypertension I10 4. Mixed hyperlipidemia E78.2 ASSESSMENT/PLAN: 1. Type 2 diabetes mellitus without complication, with long-term current use of insulin ([facility]) - ICD9: 250.00, V58.67, ICD10: E11.9, Z79.4 (primary diagnosis) Controlled. improved control - Continue current medications - Encouraged regular aerobic exercise and weight loss - INSULIN GLARGINE (U-100) 100 UNIT/ML SUBCUTANEOUS SOLUTION - INSULIN ASPART (U-100) 100 UNIT/ML (3 ML) SUBCUTANEOUS PEN - COMP METABOLIC PANEL - HGB A1C 2. COVID-19 virus infection - ICD9: 079.89, ICD10: U07.1 Resolving symptoms. No red flag symptoms. Continue present management. Follow up as needed for complications or long haulers syndrome. 3. Essential hypertension - ICD9: 401.9, ICD10: I10 - good control - Continue current medication(s) - Recommended regular aerobic exercise. - Discussed need and benefit for weight loss. - Goal of BP <130/80 - COMP METABOLIC PANEL - CBC 4. Mixed hyperlipidemia - ICD9: 272.2, ICD10: E78.2 - to be determined upon return of lab results - Encouraged following a low fat, low cholesterol diet. - Discussed the benefits of regular aerobic exercise and weight loss. - Encouraged following a low carbohydrate, healthy oil intake diet. - LIPID PANEL BASIC 5. Seronegative rheumatoid arthritis (HCC) - ICD9: 714.0, ICD10: M06.[address] Deutsch. Mino Barcenas MD Additional Medical Conditions Last edited 02/04/22 13:01 EDT by Mino Barcenas MD documented [facility] Miscellaneous Notes* Telephone Encounter - [place] LPN - 12/11/2021 11:41 AM EDT Pt has reviewed the my chart message. * Telephone Encounter - Mino Barcenas MD - 12/11/2021 1:58 AM EDT See MyChart reply Call to check on patient in case she does not see my reply. documented in this [facility] History of Present illness Narrative* Shazia Mays, RT(R) - 01/30/2021 12:00 PM EDT Radiology Service Progress Note PATIENT NAME: Katalina Lemos DATE OF SERVICE: January 30, 2021 TIME: 12:04 PM PATIENT IDENTITY VERIFICATION COMPLETED USING TWO (2) IDENTIFIERS: Name and Date of confirmedby patient verbally. FALL SCREENING: Has the patient had 2 falls in the last year or 1 fall with injury or currently using an Ambulatory Assistive Device (Walker, Cane, Wheelchair, Crutches, etc.)? No PATIENT GENDER DATA: Female. status: : No status: NO. PATIENT RELEVANT IMPLANT DATA REVIEWED: Not Applicable RADIOLOGY DEPARTMENT: General X-ray: Exam(s) Completed: Lower Extremity X- Ray(s): Knee, AP / Lat / Tunne / Merchant Left and Wt. Bearing PERIPHERAL IV DATA: Not applicable SIGNED BY: RT Jordan(R) January 30, 2021 12:04 PM documented in this encounter[facility] History of Past illness Narrative* Problem Noted Date Resolved Date OVERWEIGHT 10/07/2006 05/15/2016 Personal history of tobacco use, presenting hazards to health 10/07/2006 05/15/2016 Overview: Quit smoking 2012 documented as of this encounter (statuses as of 12/11/2021) [facility] Narrative* Problem Noted Date Resolved Date OVERWEIGHT 10/07/2006 05/15/2016 Personal history of tobacco use, presenting hazards to health 10/07/2006 05/15/2016 Overview: Quit smoking 2012 documented as of this encounter (statuses as of 01/25/2022) [facility] of Past illness Narrative* Problem Noted Date Resolved Date OVERWEIGHT 10/07/2006 05/15/2016 Personal history of tobacco use, presenting hazards to health 10/07/2006 05/15/2016 Overview: Quit smoking 2012 documented as of this encounter (statuses as of 01/25/2022) [facility] of Past illness Narrative* Problem Noted Date Resolved Date OVERWEIGHT 10/07/2006 05/15/2016 Personal history of tobacco use, presenting hazards to health 10/07/2006 05/15/2016 Overview: Quit smoking 2013 documented as of this encounter (statuses as of 02/04/2022) [place] [id number] History of Past illness Narrative* Problem Noted Date Resolved Date OVERWEIGHT 10/07/2006 05/15/2016 Personal history of tobacco use, presenting hazards to health 10/07/2006 05/15/2016 Overview: Quit smoking 2013 documented as of this encounter (statuses as of 04/26/2022) [address]2007 History of Past illness Narrative* Problem Noted Date Resolved Date OVERWEIGHT 10/07/2006 05/15/2016 Personal history of tobacco use, presenting hazards to health 10/07/2006 05/15/2016 Overview: Quit smoking 2012 documented as of this encounter (statuses as of 05/10/2022) [address]2007 History of Past illness Narrative* Problem Noted Date Resolved Date OVERWEIGHT 10/07/2006 05/15/2016 Personal history of tobacco use, presenting hazards to health 10/07/2006 05/15/2016 Overview: Quit smoking 2012 documented as of this encounter (statuses as of 08/09/2022) [place] [id number] History of Past illness Narrative* Problem Noted Date Resolved Date OVERWEIGHT 10/07/2006 05/15/2016 Personal history of tobacco use, presenting hazards to health 10/07/2006 05/15/2016 Overview: Quit smoking 2012 documented as of this encounter (statuses as of 01/08/2023) [place] [id number] History of Past illness Narrative* Problem Noted Date Diagnosed Date Resolved Date OVERWEIGHT 10/07/2006 05/15/2016 Personal history of tobacco use, presenting hazards to health 10/07/2006 05/15/2016 Overview: Quit smoking 2012 documented as of this encounter (statuses as of 02/11/2023) [address]2007 History of Past illness Narrative* Problem Noted Date Diagnosed Date Resolved Date OVERWEIGHT 10/07/2006 05/15/2016 Personal history of tobacco use, presenting hazards to health 10/07/2006 05/15/2016 Overview: Quit smoking 2013 documented as of this encounter (statuses as of 03/01/2023) [place] [id number] History of Past illness Narrative* Problem Noted Date Diagnosed Date Resolved Date OVERWEIGHT 10/07/2006 05/15/2016 Personal history of tobacco use, presenting hazards to health 10/07/2006 05/15/2016 Overview: Quit smoking 2013 documented as of this encounter (statuses as of 07/18/2023) [address]2007 History of Past illness Narrative* Problem Noted Date Diagnosed Date Resolved Date OVERWEIGHT 10/07/2006 05/15/2016 Personal history of tobacco use, presenting hazards to health 10/07/2006 05/15/2016 Overview: Quit smoking 2012 documented as of this encounter (statuses as of 08/24/2023) [place] [id number] History of Past illness Narrative* Problem Noted Date Diagnosed Date Resolved Date OVERWEIGHT 10/07/2006 05/15/2016 Personal history of tobacco use, presenting hazards to health 10/07/2006 05/15/2016 Overview: Quit smoking 2013 documented as of this encounter (statuses as of 08/28/2023) [place] [id number] History of Past illness Narrative* Problem Noted Date Diagnosed Date Resolved Date OVERWEIGHT 10/07/2006 05/15/2016 Personal history of tobacco use, presenting hazards to health 10/07/2006 05/15/2016 Overview: Quit smoking 2013 documented as of this encounter (statuses as of 10/28/2023) [place] [id number] History of Past illness Narrative* Problem Noted Date Diagnosed Date Resolved Date OVERWEIGHT 10/07/2006 05/15/2016 Personal history of tobacco use, presenting hazards to health 10/07/2006 05/15/2016 Overview: Quit smoking 2012 documented as of this encounter (statuses as of 10/29/2023) [address]2007 History of Past illness Narrative* Problem Noted Date Diagnosed Date Resolved Date OVERWEIGHT 10/07/2006 05/15/2016 Personal history of tobacco use, presenting hazards to health 10/07/2006 05/15/2016 Overview: Quit smoking 2013 documented as of this encounter (statuses as of 10/14/2023) [facility] Diagnosis Onset Date Resolution Status Back pain acute Rheumatoid arthritis acute Scoliosis of lumbar spine ac [place] Segmental and somatic dysfunction of lumbar region acute Segmental and somatic dysfunction of pelvic region acute Back pain acute Rheumatoid arthritis acute Scoliosis of lumbar spine ac [place] Segmental and somatic dysfunction of lumbar region acute Segmental and somatic dysfunction of pelvic region acute Back pain acute Rheumatoid arthritis acute Scoliosis of lumbar spine ac [place] Segmental and somatic dysfunction of lumbar region acute Segmental and somatic dysfunction of pelvic region acute Back pain acute Rheumatoid arthritis acute Scoliosis of lumbar spine ac [place] Segmental and somatic dysfunction of lumbar region acute Segmental and somatic dysfunction of pelvic region acute Back pain acute Rheumatoid arthritis acute Scoliosis of lumbar spine ac [place] Segmental and somatic dysfunction of lumbar region acute Segmental and somatic dysfunction of pelvic region acute Back pain acute Rheumatoid arthritis acute Scoliosis of lumbar spine ac [place] Segmental and somatic dysfunction of lumbar region acute Segmental and somatic dysfunction of pelvic region acute Back pain acute Rheumatoid arthritis acute Scoliosis of lumbar spine ac [place] Segmental and somatic dysfunction of lumbar region acute Segmental and somatic dysfunction of pelvic region acute Back pain acute Rheumatoid arthritis acute Scoliosis of lumbar spine ac [place] Segmental and somatic dysfunction of lumbar region acute Segmental and somatic dysfunction of pelvic region acute Back pain acute Rheumatoid arthritis acute Scoliosis of lumbar spine ac [place] Segmental and somatic dysfunction of lumbar region acute Segmental and somatic dysfunction of pelvic region acute Back pain acute Rheumatoid arthritis acute Scoliosis of lumbar spine ac [place] Segmental and somatic dysfunction of lumbar region acute Segmental and somatic dysfunction of pelvic region acute Back pain acute Rheumatoid arthritis acute Scoliosis of lumbar spine ac [place] Segmental and somatic dysfunction of lumbar region acute Segmental and somatic dysfunction of pelvic region acute Back pain acute Rheumatoid arthritis acute Scoliosis of lumbar spine ac [place] Segmental and somatic dysfunction of lumbar region acute Segmental and somatic dysfunction of pelvic region acute [facility] Work Phone: Evaluation note* Diagnosis Onset Date Resolution Status Back pain acute Rheumatoid arthritis acute Scoliosis of lumbar spine ac [place] Segmental and somatic dysfunction of lumbar region acute Segmental and somatic dysfunction of pelvic region acute Back pain acute Rheumatoid arthritis acute Scoliosis of lumbar spine ac [place] Segmental and somatic dysfunction of lumbar region acute Segmental and somatic dysfunction of pelvic region acute Back pain acute Rheumatoid arthritis acute Scoliosis of lumbar spine ac [place] Segmental and somatic dysfunction of lumbar region acute Segmental and somatic dysfunction of pelvic region acute Back pain acute Rheumatoid arthritis acute Scoliosis of lumbar spine ac [place] Segmental and somatic dysfunction of lumbar region acute Segmental and somatic dysfunction of pelvic region acute Back pain acute Rheumatoid arthritis acute Scoliosis of lumbar spine ac [place] Segmental and somatic dysfunction of lumbar region acute Segmental and somatic dysfunction of pelvic region acute Back pain acute Rheumatoid arthritis acute Scoliosis of lumbar spine ac [place] Segmental and somatic dysfunction of lumbar region acute Segmental and somatic dysfunction of pelvic region acute Back pain acute Rheumatoid arthritis acute Scoliosis of lumbar spine ac [place] Segmental and somatic dysfunction of lumbar region acute Segmental and somatic dysfunction of pelvic region acute Back pain acute Rheumatoid arthritis acute Scoliosis of lumbar spine ac [place] Segmental and somatic dysfunction of lumbar region acute Segmental and somatic dysfunction of pelvic region acute [facility] Work Phone: Evaluation note* Diagnosis Chronic pain of left knee- Primary Pain in joint, lower leg Primary osteoarthritis of left knee Primary localized osteoarthrosis, lower leg [facility] Diagnosis Onset Date Resolution Status Back pain acute Rheumatoid arthritis acute Scoliosis of lumbar spine ac [place] Segmental and somatic dysfunction of lumbar region acute Segmental and somatic dysfunction of pelvic region acute Back pain acute Rheumatoid arthritis acute Scoliosis of lumbar spine ac [place] Segmental and somatic dysfunction of lumbar region acute Segmental and somatic dysfunction of pelvic region acute Back pain acute Rheumatoid arthritis acute Scoliosis of lumbar spine ac [place] Segmental and somatic dysfunction of lumbar region acute Segmental and somatic dysfunction of pelvic region acute Back pain acute Rheumatoid arthritis acute Scoliosis of lumbar spine ac [place] Segmental and somatic dysfunction of lumbar region acute Segmental and somatic dysfunction of pelvic region acute Back pain acute Rheumatoid arthritis acute Scoliosis of lumbar spine ac [place] Segmental and somatic dysfunction of lumbar region acute Segmental and somatic dysfunction of pelvic region acute [facility] Work Phone: Evaluation note* Diagnosis Type 2 diabetes mellitus without complication, with long-term current use of insulin (HCC)- Primary COVID-19 virus infection Essential hypertension Unspecified essential hypertension Mixed hyperlipidemia Seronegative rheumatoid arthritis (HCC) Rheumatoid [facility] Diagnosis Onset Date Resolution Status Back pain acute Rheumatoid arthritis acute Scoliosis of lumbar spine ac [place] Segmental and somatic dysfunction of lumbar region acute Segmental and somatic dysfunction of pelvic region acute Back pain acute Rheumatoid arthritis acute Scoliosis of lumbar spine ac [place] Segmental and somatic dysfunction of lumbar region acute Segmental and somatic dysfunction of pelvic region acute [facility] Work Phone: Evaluation note* Diagnosis Pain in right foot- Primary Pain in limb Acute right ankle pain [facility] Diagnosis Pes cavus of both feet- Primary Type 2 diabetes mellitus without complication, with long-term current use of insulin (HCC) Callus of foot Corns and callosities [facility]* Diagnosis Acute laryngitis- Primary Acute laryngitis, without mention of obstruction Type 2 diabetes mellitus without complication, with long-term current use of insulin (HCC) Essential hypertension Unspecified essential hypertension Acute bronchitis, unspecified organism Mixed hyperlipidemia Morbid obesity due to excess calories (HCC) Vitamin D deficiency Unspecified vitamin D deficiency [facility] noteNo assessment information availableWKet[facility] Work Phone: Evaluation note* Diagnosis Type 2 diabetes mellitus without complication, with long-term current use of insulin (HCC)- Primary Essential hypertension Unspecified essential hypertension Mixed hyperlipidemia Colon cancer screening Special screening for malignant neoplasms, colon Morbid obesity due to excess calories (HCC) Seronegative rheumatoid arthritis (HCC) Rheumatoid arthritis [facility]* Diagnosis Type 2 diabetes mellitus without complication, with long-term current use of insulin (HCC) [facility]* Diagnosis Type 2 diabetes mellitus without complication, with long-term current use of insulin (HCC) documented in this encounter [facility] note* Diagnosis Type 2 diabetes mellitus without complication, with long-term current use of insulin (HCC)- Primary documented in this encounter [facility] note* Diagnosis Type 2 diabetes mellitus without complication, with long-term current use of insulin (HCC)- Primary Persistent disorder of maintaining sleep Persistent disorder of initiating or maintaining sleep Class 3 severe obesity due to excess calories with body mass index (BMI) of 40.0 to 44.9 in adult, unspecified whether serious comorbidity present (HCC) Essential hypertension Unspecified essential hypertension Mixed hyperlipidemia Encounter for immunization Need for other specified prophylactic vaccination against single bacterial disease Seronegative rheumatoid arthritis (HCC) Rheumatoid arthritis [facility] Diagnosis Primary osteoarthritis of left knee- Primary Primary localized osteoarthrosis, lower leg [facility] Diagnosis Pain Generalized pain [facility]* Diagnosis Pes cavus of both feet Type 2 diabetes mellitus without complication, with long-term current use of insulin (HCC) Congenital cavus deformity of both feet [facility] Diagnosis Congenital cavus deformity of both feet- Primary [facility] Diagnosis Skin infection- Primary Unspecified local infection of skin and subcutaneous tissue [facility] Diagnosis Congenital cavus deformity of both feet- Primary [facility] Diagnosis Type 2 diabetes mellitus without complication, with long-term current use of insulin (HCC)- Primary Essential hypertension Unspecified essential hypertension Morbid obesity due to excess calories (HCC) Mixed hyperlipidemia Congenital cavus deformity of both feet Vitamin D deficiency Unspecified vitamin D deficiency [facility]* Diagnosis Pain in right foot Pain in limb Acute right ankle pain [facility] Diagnosis Acute pain of left knee [facility] Diagnosis Pes cavus of both feet- Primary Type 2 diabetes mellitus without complication, with long-term current use of insulin (HCC) Callus of foot Corns and callosities Ingrowing toenail Ingrowing nail Diminished pulses in lower extremity Other symptoms involving cardiovascular system [facility]* Diagnosis Encounter for screening mammogram for breast cancer [facility] Diagnosis Type 2 diabetes mellitus without complication, with long-term current use of insulin (HCC)- Primary Essential hypertension Unspecified essential hypertension Mixed hyperlipidemia Morbid obesity due to excess calories (HCC) Vitamin D deficiency Unspecified vitamin D deficiency [facility]* Diagnosis Neuroma- Primary Other benign neoplasm of connective and other soft tissue of unspecified site Pain in left foot Pain in limb [facility] Diagnosis Neuroma Other benign neoplasm of connective and other soft tissue of unspecified site Pain in left foot Pain in limb [facility] Diagnosis Injury of head, initial encounter- Primary [facility]* Diagnosis Injury of head, initial encounter- Primary Traumatic ecchymosis of face, initial encounter Traumatic hematoma of forehead, initial encounter [facility]* Diagnosis Type 2 diabetes mellitus without complication, with long-term current use of insulin (HCC)- Primary Essential hypertension Unspecified essential hypertension Mixed hyperlipidemia Morbid obesity due to excess calories (HCC) Vitamin D deficiency Unspecified vitamin D deficiency Encounter for screening examination for other mental health and behavioral disorders Screening for depression Encounter for screening mammogram for breast cancer documented in this encounter [facility] for referral (narrative)* Diagnostic Procedure Only (Routine) - Pending Review Specialty Diagnoses / Procedures Referred By Contac t Referred To Contact XR IMAGING Diagnoses Acute right ankle pain Procedures XR ANKLE GENERAL 3V AP/LAT/OBL RIGHT RADEX ANKLE COMPLETE MINIMUM 3 VIEWS Candie [address] [place] [address] Xr Imaging Referral ID Status Reason Start Date Expiration Date Visits Requested Visits Authorized [id number] Pending Review Auto-Generat ed Referral 2 05/26/2023 1 1 * Diagnostic Procedure Only (Routine) - Pending Review Specialty Diagnoses / Procedures Referred By Contac t Referred To Contact XR IMAGING Diagnoses Pain in right foot Procedures XR FOOT GENERAL 3V AP/LAT/OBL RIGHT RADEX FOOT COMPLETE MINIMUM 3 VIEWS Candie [address]lam[address] [place] [address] Xr Imaging Referral ID Status Reason Start Date Expiration Date Visits Requested Visits Authorized [id number] Pending Review Auto-Generat ed Referral 2 05/26/2023 1 1 [facility] for referral (narrative)* Diagnostic Procedure Only (Routine) - Closed Specialty Diagnoses / Procedures Referred By Contac t Referred To Contact XR IMAGING Diagnoses Acute right ankle pain Procedures XR ANKLE GENERAL 3V AP/LAT/OBL RIGHT RADEX ANKLE COMPLETE MINIMUM 3 VIEWS Candie [address] [place] [address] [place] [address] Referral ID Status Reason Start Date Expiration Date V isits Requested Visits Authorized [id number] Closed Auto-Generate d Referral 04/26/2022 05/26/2023 1 1 * Diagnostic Procedure Only (Routine) - Closed Specialty Diagnoses / Procedures Referred By Donaldo t Referred To Contact XR IMAGING Diagnoses Pain in right foot Procedures XR FOOT GENERAL 3V AP/LAT/OBL RIGHT RADEX FOOT COMPLETE MINIMUM 3 VIEWS Candie Llamas [address] [place] [address] [place] [id number] Referral ID Status Reason Start Date Expiration Date V isits Requested Visits Authorized [id number] Closed Auto-Generate d Referral 04/26/2022 05/26/2023 1 1 [facility] for referral (narrative)* Outpatient Procedure (Routine) - Authorized Specialty Diagnoses / Procedures Referred By Donaldo corona Referred To Contact [facility] Diagnoses Type 2 diabetes mellitus without complication, with long-term current use of insulin (HCC) Ingrowing toenail Diminished pulses in lower extremity Procedures PVR ANK PRESS TENZIN VAS LAB NON-INVAS PHYSIOLOGIC STD EXTREMITY ART 2 LEVEL Candie Llamas [address] [place] [address] [facility] [place] [address] [place] [address] Referral ID Status Reason Start Date Expiration Date Visits Requested Visits Authorized [id number] Authorized Auto-Generat ed Referral 10/14/2023 10/13/2024 1 1 * Physical Therapy (Routine) - Authorized Specialty Diagnoses / Procedures Referred By Donaldo t Referred To Contact [facility] Diagnoses Pes cavus of both feet Type 2 diabetes mellitus without complication, with long-term current use of insulin (HCC) Procedures CONSULT TO PHYSICAL THERAPY PHYSICAL THERAPY EVALUATION HIGH COMPLEX 45 MINS Candie Llamas [address] [place] [address] [facility] [place] [address] [place] [address] Referral ID Status Reason Start Date Expiration Date Visits Requested Visits Authorized [id number] Authorized PCP Requested Referral Auto-Generate d Referral 10/14/2023 10/13/2024 99 99 [facility] for referral (narrative)* Diagnostic Procedure Only (Routine) - New Request Specialty Diagnoses / Procedures Referred By Donaldo corona Referred To Contact [facility] Diagnoses Encounter for screening mammogram for breast cancer Procedures ROSEMARY SCREENING W CELESTINE SCREENING DIGITAL BREAST TOMOSYNTHESIS BI SCREENING MAMMOGRAPHY BI 2-VIEW BREAST INC Mino Heath MD [address] [place] [address] [facility] [address] [place] [id number] Referral ID Status Reason Start Date Expiration Date Visits Requested Visits Authorized [id number] New Request Auto-Generat ed Referral 07/20/2025 1 1 [facility] for referral (narrative)No reason for referral information availableWKettering [facility] Work Phone: Reason for visit Narrative* Diagnostic Procedure Only (Routine) - Closed Specialty Diagnoses / Procedures Referred By Donaldo corona Referred To Contact XR IMAGING Diagnoses Pain Procedures XR KNEE GENERAL 4V AP BOTH/PA BOTH/LAT/MERC LEFT RADIOLOGIC EXAM KNEE COMPLETE 4/MORE VIEWS Will Armas PA-C [address] [address] [place] [id number] Referral ID Status Reason Start Date Expiration Date V isits Requested Visits Authorized [id number] Closed Auto-Generate d Referral 09/20/2023 10/19/2024 1 1 [facility] for visit Narrative* Diagnostic Procedure Only (Routine) - Closed Specialty Diagnoses / Procedures Referred By Contac t Referred To Contact XR IMAGING Diagnoses Acute right ankle pain Procedures XR ANKLE GENERAL 3V AP/LAT/OBL RIGHT RADEX ANKLE COMPLETE MINIMUM 3 VIEWS Candie Llamas [address] [place] [address] [place] [address] Referral ID Status Reason Start Date Expiration Date V isits Requested Visits Authorized [id number] Closed Auto-Generate d Referral 04/26/2022 05/26/2023 1 1 [facility] Diagnostic Procedure Only (Routine) - Closed Specialty Diagnoses / Procedures Referred By Contac t Referred To Contact XR IMAGING Diagnoses Neuroma Pain in left foot Procedures XR FOOT GENERAL 3V AP/LAT/OBL LEFT RADEX FOOT COMPLETE MINIMUM 3 VIEWS Candie Llamas [address] [address] Phone: tel: fax: [place] [id number] Referral ID Status Reason Start Date Expiration Date V isits Requested Visits Authorized [id number] Closed Auto-Generate d Referral 09/04/2024 10/04/2025 1 1 [facility] Chief Complaint and Reason for Visit Chief Complaint est care- LBP XRAY LBP LBP LBP STANDING ORDER LBP LBP LBP Back pain Back pain Back pain Back pain Back pain ELEVATED LIVER ENZYMES Reason for Visit Back pain Rheumatoid arthritis Scoliosis of lumbar spine Segmental and somatic dysfunction of lumbar region Segmental and somatic dysfunction of pelvic region Back pain Rheumatoid arthritis Scoliosis of lumbar spine Segmental and somatic dysfunction of lumbar region Segmental and somatic dysfunction of pelvic region Back pain Rheumatoid arthritis Scoliosis of lumbar spine Segmental and somatic dysfunction of lumbar region Segmental and somatic dysfunction of pelvic region Back pain Rheumatoid arthritis Scoliosis of lumbar spine Segmental and somatic dysfunction of lumbar region Segmental and somatic dysfunction of pelvic region Back pain Rheumatoid arthritis Scoliosis of lumbar spine Segmental and somatic dysfunction of lumbar region Segmental and somatic dysfunction of pelvic region Back pain Rheumatoid arthritis Scoliosis of lumbar spine Segmental and somatic dysfunction of lumbar region Segmental and somatic dysfunction of pelvic region Back pain Rheumatoid arthritis Scoliosis of lumbar spine Segmental and somatic dysfunction of lumbar region Segmental and somatic dysfunction of pelvic region Back pain Rheumatoid arthritis Scoliosis of lumbar spine Segmental and somatic dysfunction of lumbar region Segmental and somatic dysfunction of pelvic region Back pain Rheumatoid arthritis Scoliosis of lumbar spine Segmental and somatic dysfunction of lumbar region Segmental and somatic dysfunction of pelvic region Back pain Rheumatoid arthritis Scoliosis of lumbar spine Segmental and somatic dysfunction of lumbar region Segmental and somatic dysfunction of pelvic region Back pain Rheumatoid arthritis Scoliosis of lumbar spine Segmental and somatic dysfunction of lumbar region Segmental and somatic dysfunction of pelvic region Back pain Rheumatoid arthritis Scoliosis of lumbar spine Segmental and somatic dysfunction of lumbar region Segmental and somatic dysfunction of pelvic region Chief Complaint LBP LBP Back pain Back pain Back pain Back pain Back pain ELEVATED LIVER ENZYMES Back pain Reason for Visit Back pain Rheumatoid arthritis Scoliosis of lumbar spine Segmental and somatic dysfunction of lumbar region Segmental and somatic dysfunction of pelvic region Back pain Rheumatoid arthritis Scoliosis of lumbar spine Segmental and somatic dysfunction of lumbar region Segmental and somatic dysfunction of pelvic region Back pain Rheumatoid arthritis Scoliosis of lumbar spine Segmental and somatic dysfunction of lumbar region Segmental and somatic dysfunction of pelvic region Back pain Rheumatoid arthritis Scoliosis of lumbar spine Segmental and somatic dysfunction of lumbar region Segmental and somatic dysfunction of pelvic region Back pain Rheumatoid arthritis Scoliosis of lumbar spine Segmental and somatic dysfunction of lumbar region Segmental and somatic dysfunction of pelvic region Back pain Rheumatoid arthritis Scoliosis of lumbar spine Segmental and somatic dysfunction of lumbar region Segmental and somatic dysfunction of pelvic region Back pain Rheumatoid arthritis Scoliosis of lumbar spine Segmental and somatic dysfunction of lumbar region Segmental and somatic dysfunction of pelvic region Back pain Rheumatoid arthritis Scoliosis of lumbar spine Segmental and somatic dysfunction of lumbar region Segmental and somatic dysfunction of pelvic region Chief Complaint Back pain Back pain Back pain ELEVATED LIVER ENZYMES Back pain Back pain Reason for Visit Back pain Rheumatoid arthritis Scoliosis of lumbar spine Segmental and somatic dysfunction of lumbar region Segmental and somatic dysfunction of pelvic region Back pain Rheumatoid arthritis Scoliosis of lumbar spine Segmental and somatic dysfunction of lumbar region Segmental and somatic dysfunction of pelvic region Back pain Rheumatoid arthritis Scoliosis of lumbar spine Segmental and somatic dysfunction of lumbar region Segmental and somatic dysfunction of pelvic region Back pain Rheumatoid arthritis Scoliosis of lumbar spine Segmental and somatic dysfunction of lumbar region Segmental and somatic dysfunction of pelvic region Back pain Rheumatoid arthritis Scoliosis of lumbar spine Segmental and somatic dysfunction of lumbar region Segmental and somatic dysfunction of pelvic region Chief Complaint Back pain Back pain Reason for Visit Back pain Rheumatoid arthritis Scoliosis of lumbar spine Segmental and somatic dysfunction of lumbar region Segmental and somatic dysfunction of pelvic region Back pain Rheumatoid arthritis Scoliosis of lumbar spine Segmental and somatic dysfunction of lumbar region Segmental and somatic dysfunction of pelvic region Chief Complaint PAIN- COPY PCP Chief Complaint PAIN- COPY PCP PAIN- COPY PCP Chief Complaint S/O- PAIN- COPY PCP Chief Complaint Admit Date S/O- PAIN- COPY PCP June 20, 2024 10:38am REEVAL June 27, 2024 10:53am Back pain July 24, 2024 1 0:55am STANDING ORDER September 13, 2024 10:5 4am Reason for Visit Admit Date Segmental and somatic dysfunction of lum bar region June 27, 2024 10:53am Segmental and somatic dysfunction of pel conor region June 27, 2024 10:53am Scoliosis of lumbar spine June 27, 2024 10:53am Back pain July 24, 2024 1 0:55am Segmental and somatic dysfunction of lum bar region July 24, 2024 10:55am Segmental and somatic dysfunction of pel conor region July 24, 2024 10:55am Rheumatoid arthritis July 24, 2024 10:55am Scoliosis of lumbar spine July 24, 2024 10:55am Chief Complaint Admit Date STANDING ORDER September 13, 2024 10:5 4am Chief Complaint Admit Date STANDING ORDER September 13, 2024 10:5 4am head injury January 10, 2025 1:39p m Family History No Family History Records Found Relationship Condition Age at Onset Recorded Date/T verónica mother Arthritis Unknown Cerebrovascular accident (CVA) Unknown Osteoporosis Unknown grandfather Cardiac disease Unknown Medications Administered Section Inactive Administered Medications - up to 3 most recent administrations Medication Order MAR Action Action Date Dose Rate Site betamethasone acetate-betamethasone sodium phosphate 6 mg injection (CELESTONE) 6 mg, Injection - FOR ORTHO USE ONLY, ONE TIME INJECTION, 1 dose, Starting on Carmencita 01/07/22 at 1104, Until Carm[place] 01/07/22 at 1104 Given 01/07/2022 11:04 AM EDT 6 mg lidocaine (PF) 10 mg/mL (1 %) 4 mL injection (XYLOCAINE) 4 mL, Injection - FOR ORTHO USE ONLY, ONE TIME INJECTION, 1 dose, Starting on Carmencita 01/07/22 at 1104, Until [place] 01/07/22 at 1104 Given 01/07/2022 11:04 AM EDT 4 mL Advance Directives No Advanced Directives Records Found Advance Directive Response Recorded Date/ Time Do you have a Healthcare Power of Grips? No January 10, 2025 2:09pm Summary Purpose Additional Source Comments Source Comments (unrecognize d section and content) In the event this informatio n is protected by the [facility] Confidentiality of Alcohol and Drug Abuse Patient Records regulations: The Federal rules restrict any use of the information to criminally investigate or prosecute any alcohol or drug abuse patient.[facility] the event this information is protected by the Federal Confidentiality of Alcohol and Drug Abuse Patient Records regulations: The Federal rules restrict any use of the information to criminally investigate or prosecute any alcohol or drug abuse patient.[facility] HealthIn the event this information is protected by the Federal Confidentiality of Alcohol and Drug Abuse Patient Records regulations: The Federal rules restrict any use of the information to criminally investigate or prosecute any alcohol or drug abuse patient.[facility] the event this information is protected by the Federal Confidentiality of Alcohol and Drug Abuse Patient Records regulations: The Federal rules restrict any use of the information to criminally investigate or prosecute any alcohol or drug abuse patient.[facility] the event this information is protected by the Federal Confidentiality of Alcohol and Drug Abuse Patient Records regulations: The Federal rules restrict any use of the information to criminally investigate or prosecute any alcohol or drug abuse patient.[facility] Health[facility] the event this information is protected by the Federal Confidentiality of Alcohol and Drug Abuse Patient Records regulations: The Federal rules restrict any use of the information to criminally investigate or prosecute any alcohol or drug abuse patient.[facility] the event this information is protected by the Federal Confidentiality of Alcohol and Drug Abuse Patient Records regulations: The Federal rules restrict any use of the information to criminally investigate or prosecute any alcohol or drug abuse patient.[facility] the event this information is protected by the Federal Confidentiality of Alcohol and Drug Abuse Patient Records regulations: The Federal rules restrict any use of the information to criminally investigate or prosecute any alcohol or drug abuse patient.[facility] the event this information is protected by the Federal Confidentiality of Alcohol and Drug Abuse Patient Records regulations: The Federal rules restrict any use of the information to criminally investigate or prosecute any alcohol or drug abuse patient.[facility] the event this information is protected by the Federal Confidentiality of Alcohol and Drug Abuse Patient Records regulations: The Federal rules restrict any use of the information to criminally investigate or prosecute any alcohol or drug abuse patient.[facility] the event this information is protected by the Federal Confidentiality of Alcohol and Drug Abuse Patient Records regulations: The Federal rules restrict any use of the information to criminally investigate or prosecute any alcohol or drug abuse patient.[facility] HealthIn the event this information is protected by the Federal Confidentiality of Alcohol and Drug Abuse Patient Records regulations: The Federal rules restrict any use of the information to criminally investigate or prosecute any alcohol or drug abuse patient.[facility] the event this information is protected by the Federal Confidentiality of Alcohol and Drug Abuse Patient Records regulations: The Federal rules restrict any use of the information to criminally investigate or prosecute any alcohol or drug abuse patient.[facility] the event this information is protected by the Federal Confidentiality of Alcohol and Drug Abuse Patient Records regulations: The Federal rules restrict any use of the information to criminally investigate or prosecute any alcohol or drug abuse patient.[facility] the event this information is protected by the Federal Confidentiality of Alcohol and Drug Abuse Patient Records regulations: The Federal rules restrict any use of the information to criminally investigate or prosecute any alcohol or drug abuse patient.[facility] HealthIn the event this information is protected by the Federal Confidentiality of Alcohol and Drug Abuse Patient Records regulations: The Federal rules restrict any use of the information to criminally investigate or prosecute any alcohol or drug abuse patient.[facility] HealthIn the event this information is protected by the Federal Confidentiality of Alcohol and Drug Abuse Patient Records regulations: The Federal rules restrict any use of the information to criminally investigate or prosecute any alcohol or drug abuse patient.[facility] HealthIn the event this information is protected by the Federal Confidentiality of Alcohol and Drug Abuse Patient Records regulations: The Federal rules restrict any use of the information to criminally investigate or prosecute any alcohol or drug abuse patient.[facility] HealthIn the event this information is protected by the Federal Confidentiality of Alcohol and Drug Abuse Patient Records regulations: The Federal rules restrict any use of the information to criminally investigate or prosecute any alcohol or drug abuse patient.[facility] HealthIn the event this information is protected by the Federal Confidentiality of Alcohol and Drug Abuse Patient Records regulations: The Federal rules restrict any use of the information to criminally investigate or prosecute any alcohol or drug abuse patient.[facility] HealthIn the event this information is protected by the Federal Confidentiality of Alcohol and Drug Abuse Patient Records regulations: The Federal rules restrict any use of the information to criminally investigate or prosecute any alcohol or drug abuse patient.[facility] HealthIn the event this information is protected by the Federal Confidentiality of Alcohol and Drug Abuse Patient Records regulations: The Federal rules restrict any use of the information to criminally investigate or prosecute any alcohol or drug abuse patient.[facility] HealthIn the event this information is protected by the Federal Confidentiality of Alcohol and Drug Abuse Patient Records regulations: The Federal rules restrict any use of the information to criminally investigate or prosecute any alcohol or drug abuse patient.[facility] HealthIn the event this information is protected by the Federal Confidentiality of Alcohol and Drug Abuse Patient Records regulations: The Federal rules restrict any use of the information to criminally investigate or prosecute any alcohol or drug abuse patient.[facility] HealthIn the event this information is protected by the Federal Confidentiality of Alcohol and Drug Abuse Patient Records regulations: The Federal rules restrict any use of the information to criminally investigate or prosecute any alcohol or drug abuse patient.[facility] HealthIn the event this information is protected by the Federal Confidentiality of Alcohol and Drug Abuse Patient Records regulations: The Federal rules restrict any use of the information to criminally investigate or prosecute any alcohol or drug abuse patient.[facility] HealthIn the event this information is protected by the Federal Confidentiality of Alcohol and Drug Abuse Patient Records regulations: The Federal rules restrict any use of the information to criminally investigate or prosecute any alcohol or drug abuse patient.[facility] HealthIn the event this information is protected by the Federal Confidentiality of Alcohol and Drug Abuse Patient Records regulations: The Federal rules restrict any use of the information to criminally investigate or prosecute any alcohol or drug abuse patient.[facility] HealthIn the event this information is protected by the Federal Confidentiality of Alcohol and Drug Abuse Patient Records regulations: The Federal rules restrict any use of the information to criminally investigate or prosecute any alcohol or drug abuse patient.[facility] HealthIn the event this information is protected by the Federal Confidentiality of Alcohol and Drug Abuse Patient Records regulations: The Federal rules restrict any use of the information to criminally investigate or prosecute any alcohol or drug abuse patient.[facility] HealthIn the event this information is protected by the Federal Confidentiality of Alcohol and Drug Abuse Patient Records regulations: The Federal rules restrict any use of the information to criminally investigate or prosecute any alcohol or drug abuse patient.[facility] HealthIn the event this information is protected by the Federal Confidentiality of Alcohol and Drug Abuse Patient Records regulations: The Federal rules restrict any use of the information to criminally investigate or prosecute any alcohol or drug abuse patient.[facility] HealthIn the event this information is protected by the Federal Confidentiality of Alcohol and Drug Abuse Patient Records regulations: The Federal rules restrict any use of the information to criminally investigate or prosecute any alcohol or drug abuse patient.[facility] HealthIn the event this information is protected by the Federal Confidentiality of Alcohol and Drug Abuse Patient Records regulations: The Federal rules restrict any use of the information to criminally investigate or prosecute any alcohol or drug abuse patient.[facility] HealthIn the event this information is protected by the Federal Confidentiality of Alcohol and Drug Abuse Patient Records regulations: The Federal rules restrict any use of the information to criminally investigate or prosecute any alcohol or drug abuse patient.[facility] Care Teams (unrecognized sec tion and content) Vp Respiratory Relationship Specialty Start Date End Date Mino Barcenas MD [facility] [place] [address] PCP - General Internal Medicine 05/17/16 Vp Respiratory Relationship Specialty Start Date End Date Mino Barcenas MD [address] [place] [address] PCP - General Internal Medicine 05/17/16 Vp Respiratory Relationship Specialty Start Date End Date Mino Barcenas MD [address] [place] [address] PCP - General Internal Medicine 05/17/16 Vp Respiratory Relationship Specialty Start Date End Date Mino Barcenas MD [address] [place] [address] PCP - General Internal Medicine 05/17/16 Vp Respiratory Relationship Specialty Start Date End Date Mino Barcenas MD [address] [place] [address] PCP - General Internal Medicine 05/17/16 Vp Respiratory Relationship Specialty Start Date End Date Mino Bacrenas MD [address] [place] [address] PCP - General Internal Medicine 05/17/16 Vp Respiratory Relationship Specialty Start Date End Date Mino Barcensa MD [address] [place] [address] PCP - General Internal Medicine 05/17/16 Team Status: Active Member Role Status Dates Dr. Mino Barcenas MD Family Provider Active Dr. Mino Barcenas MD Primary Care Provider Active Team Status: Inactive Member Role Status Dates Dr. Mino Barcenas MD Primary Care Provider Active Dr. Amelia Deutsch MD Attending Provider, Referring Provider Active Vp Respiratory Relationship Specialty Start Date End Date Mino Barcenas MD [address] [place] [address] PCP - General Internal Medicine 05/17/16 Vp Respiratory Relationship Specialty Start Date End Date Mino Barcenas MD [address] [place] [address] PCP - General Internal Medicine 05/17/16 Vp Respiratory Relationship Specialty Start Date End Date Mino Barcenas MD [address] [place] [address] PCP - General Internal Medicine 05/17/16 Vp Respiratory Relationship Specialty Start Date End Date Mino Barcenas MD [address] [place] [address] PCP - General Internal Medicine 05/17/16 Vp Respiratory Relationship Specialty Start Date End Date Mino Barcenas MD [address] [place] [address] PCP - General Internal Medicine 05/17/16 Vp Respiratory Relationship Specialty Start Date End Date Mino Barcenas MD [address] [place] [address] PCP - General Internal Medicine 05/17/16 Vp Respiratory Relationship Specialty Start Date End Date Mino Barcenas MD [address] [place] [address] PCP - General Internal Medicine 05/17/16 Vp Respiratory Relationship Specialty Start Date End Date Mino Barcenas MD [address] [facility] [place] [address] PCP - General Internal Medicine 05/17/16 Vp Respiratory Relationship Specialty Start Date End Date Mino Barcenas MD [address] [facility] [place] [address] PCP - General Internal Medicine 05/17/16 Vp Respiratory Relationship Specialty Start Date End Date Mino Barcenas MD [address] [facility] [place] [address] PCP - General Internal Medicine 05/17/16 Vp Respiratory Relationship Specialty Start Date End Date Mino Barcenas MD [address] [facility] [place] [address] PCP - General Internal Medicine 05/17/16 Vp Respiratory Relationship Specialty Start Date End Date Mino Barcenas MD [address] [facility] [place] [address] PCP - General Internal Medicine 05/17/16 Vp Respiratory Relationship Specialty Start Date End Date Mino Barcenas MD [address] [facility] [place] [address] PCP - General Internal Medicine 05/17/16 Vp Respiratory Relationship Specialty Start Date End Date Mino Barcenas MD [address] [facility] [place] [address] PCP - General Internal Medicine 05/17/16 Vp Respiratory Relationship Specialty Start Date End Date Mino Barcenas MD [address] [facility] [place] [address] PCP - General Internal Medicine 05/17/16 Vp Respiratory Relationship Specialty Start Date End Date Mino Barcenas MD [address] [place] [address] PCP - General Internal Medicine 05/17/16 Vp Respiratory Relationship Specialty Start Date End Date Mino Barcenas MD [address] [place] [address] PCP - General Internal Medicine 05/17/16 Bianka Rushing, NONDESTRUCTIVE TESTER.SOLAR POWER INSTALLER [address] [place] [address] [facility] 06/18/24 Barby Segundo NONDESTRUCTIVE TESTER.SAMPLE STEAMER [address] [place] [address] [employer] 06/18/24 Vp Respiratory Relationship Specialty Start Date End Date Mino Barcenas MD [address] [place] [address] PCP - General Internal Medicine 05/17/16 Bianka Rushing, NONDESTRUCTIVE TESTER.SOLAR POWER INSTALLER [address] [place] [address] [facility] 06/18/24 Barby Segundo NONDESTRUCTIVE TESTER.SAMPLE STEAMER [address] [place] [address] [facility] Internal Medicine 06/18/24 Vp Respiratory Relationship Specialty Start Date End Date Mino Barcenas MD [address] [place] [address] PCP - General Internal Medicine 05/17/16 Bianka Rushing, NONDESTRUCTIVE TESTER.SOLAR POWER INSTALLER [address] [place] [address] [facility] Internal Medicine 06/18/24 Barby Segundo APRN.SAMPLE STEAMER [address] [place] [address] [facility] Internal Medicine 06/18/24 Vp Respiratory Relationship Specialty Start Date End Date Mino Barcenas MD [address] [place] [address] PCP - General Internal Medicine 05/17/16 Bianka Rushing APRN.SOLAR POWER INSTALLER [address] [place] [address] [facility] Internal Medicine 06/18/24 Barby Segundo APRN.SAMPLE STEAMER [address] [place] [address] [id number] [facility] Internal Medicine 06/18/24 Team Status: Inactive Member Role Status Dates Dr. Mino Barcenas MD Primary Care Provider Active Start: June 20, 2024 End: June 20, 2024 Dr. Amelia Deutsch MD Attending Provider Active Start: June 20, 2024 End: June 20, 2024 Dr. Amelia Deutsch MD Referring Provider Active Start: June 20, 2024 End: June 20, 2024 Team Status: Inactive Member Role Status Dates Dr. Mino Barcenas MD Primary Care Provider Active Start: June 27, 2024 End: June 27, 2024 Dr. Mino Barcenas MD Referring Provider Active Start: June 27, 2024 End: June 27, 2024 Dr. Mari Souza DC Attending Provider Active S tart: June 27, 2024 End: June 27, 2024 Team Status: Inactive Member Role Status Dates Dr. Mino Barcenas MD Primary Care Provider Active Start: July 24, 2024 End: July 24, 2024 Dr. Mino Barcenas MD Referring Provider Active Start: July 24, 2024 End: July 24, 2024 Dr. Mari Souza DC Attending Provider Active S tart: July 24, 2024 End: July 24, 2024 Team Status: Inactive Member Role Status Dates Dr. Mino Barcenas MD Primary Care Provider Active Start: September 13, 2024 End: September 13, 2024 Dr. Amelia Deutsch MD Attending Provider Active Start: September 13, 2024 End: September 13, 2024 Dr. Amelia Deutsch MD Referring Provider Active Start: September 13, 2024 End: September 13, 2024 Vp Respiratory Relationship Specialty Start Date End Date Mino Barcenas MD [address] [facility] [place] [address] PCP - General Internal Medicine 05/17/16 Bianka Rushing, NONDESTRUCTIVE TESTER.SOLAR POWER INSTALLER [address] [facility] [place] [address] [facility] 06/18/24 Barby Segundo APRN.SAMPLE STEAMER [address] [place] [address] [employer] [facility] 10/02/24 Vp Respiratory Relationship Specialty Start Date End Date Mino Barcenas MD [address] [place] [address] PCP - General Internal Medicine 05/17/16 Bianka Rushing NONDESTRUCTIVE TESTER.SOLAR POWER INSTALLER [address] [place] [address] [facility] 06/18/24 Barby Segundo APRN.SAMPLE STEAMER [address] [facility] [place] [address] [facility] 06/18/24 09/28/24 Barby Segundo APRN.SAMPLE STEAMER [address] [facility] [place] [address] [facility] Internal Medicine 10/02/24 Team Status: Inactive Member Role Status Dates Dr. Mino Barcenas MD Primary Care Provider Active Start: December 06, 2024 End: December 06, 2024 Dr. Amelia Deutsch MD Attending Provider Active Start: December 06, 2024 End: December 06, 2024 Dr. Amelia Deutsch MD Referring Provider Active Start: December 06, 2024 End: December 06, 2024 Team Status: Active Member Role/Relationship Status Dates Dr. Mino Barcenas MD Primary Care Provider Active Team Status: Inactive Member Role/Relationship Status Dates Dr. Mino Barcenas MD Primary Care Provider Active Start: September 13, 2024 End: September 13, 2024 Dr. Amelia Deutsch MD Attending Provider Active Start: September 13, 2024 End: September 13, 2024 Dr. Amelia Deutsch MD Referring Provider Active Start: September 13, 2024 End: September 13, 2024 Team Status: Inactive Member Role/Relationship Status Dates Dr. Mino Barcenas MD Primary Care Provider Active Start: December 06, 2024 End: December 06, 2024 Dr. Amelia Deutsch MD Attending Provider Active Start: December 06, 2024 End: December 06, 2024 Dr. Amelia Deutsch MD Referring Provider Active Start: December 06, 2024 End: December 06, 2024 Team Status: Inactive Member Role/Relationship Status Dates Dr. Mino Barcenas MD Primary Care Provider Active Start: January 10, 2025 End: January 10, 2025 Dr. Jace Hayes DO Referring Provider Active Start: January 10, 2025 End: January 10, 2025 Dr. Jace Hayes DO Emergency Provider Active Start: January 10, 2025 End: January 10, 2025 Vp Respiratory Relationship Specialty Start Date End Date Mino Barcenas MD [address] [facility] [place] [address] PCP - General Internal Medicine 05/17/16 Barby Segundo APRN.SAMPLE STEAMER [address] [facility] [place] [address] [facility] 10/02/24 Bianka Rushing APRN.SOLAR POWER INSTALLER [address] [facility] [place] [address] [facility] 11/28/24 Vp Respiratory Relationship Specialty Start Date End Date Mino Barcenas MD [address] [facility] [place] [address] PCP - General Internal Medicine 05/17/16 Barby Segundo APRN.SAMPLE STEAMER [address] [facility] [place] [address] [employer] [facility] 10/02/24 Bianka Rushing APRN.SOLAR POWER INSTALLER [address] [facility] [place] [address] [employer] 11/28/24 Vp Respiratory Relationship Specialty Start Date End Date Mino Barcenas MD [address] [facility] [place] [address] PCP - General Internal Medicine 05/17/16 Barby Segundo APRN.SAMPLE STEAMER [address] [facility] [place] [address] [facility] 10/02/24 Bianka Rushing APRN.SOLAR POWER INSTALLER [address] [facility] [place] [address] [employer] [facility] 11/28/24 Vp Respiratory Relationship Specialty Start Date End Date Mino Barcenas MD [address] [place], [place] [address] PCP - General Internal Medicine 05/17/16 Barby Segundo NONDESTRUCTIVE TESTER.SAMPLE STEAMER [address] [place], [place] [address] [facility] 10/02/24 Bianka Rushing NONDESTRUCTIVE TESTER.SOLAR POWER INSTALLER [address] [place], [place] [address]41 [facility] Internal Medicine 11/28/24 Vp Respiratory Relationship Specialty Start Date End Date Mino Barcenas MD [address] [place] [address] PCP - General Internal Medicine 05/17/16 Barby Segundo NONDESTRUCTIVE TESTER.SAMPLE STEAMER [address] [place], [place] [id number] [facility] 10/02/24 Bianka Rushing, NONDESTRUCTIVE TESTER.SOLAR POWER INSTALLER [address] [place], [place] [address] [facility] Internal Medicine 11/28/24 Reason for Visit (unrecogniz ed section and content) Reason Comments PT Discharge Specialty Diagnoses / Procedures Referred By Donaldo t Referred To Contact [facility] Diagnoses Pes cavus of both feet Type 2 diabetes mellitus without complication, with long-term current use of insulin (HCC) Procedures CONSULT TO PHYSICAL THERAPY PHYSICAL THERAPY EVALUATION HIGH COMPLEX [address] [place] [address] [facility] [place] [address] [place] [address] Referral ID Status Reason Start Date Expiration Date Visits Requested Visits Authorized [id number] Authorized PCP Requested Referral Auto-Generate d Referral 10/14/2023 10/13/2024 99 99 Reason Comments 10 weeks 3 days post visit OA left knee wants injection Knee Pain Reason Comments Follow Up Reason Comments New Pain Reason Comments Established Patient 6 month follow up Reason Comments F/U 6 months Reason Comments Refill Request Reason Onset Date Comments Refill Request 02/28/2023 Reason Comments PT Eval Reason Comments Laceration Top of L foot middle toe x4 days Reason Comments F/U 6 months Labs prior Reason Comments Established Patient Follow Up Pain Diabetic Foot Care Reason Comments Established Patient Follow Up Wart Pain Reason Comments Finger Injury Reason Comments ER F/U Reason Comments 6 Month Exam With lab review Reason Onset Date Comments Population Health Navigation Outreach 03/05/2025 [facility] WORKBENCKalina MONTOYA . INFORMATION SOURCE (unrecogn ized section and content) DATE CREATED AUTHOR [facility]/19/2025 [facility] DATE CREATED AUTHOR AUTHOR'S ORGANIZ ATION 03/06/2025 [facility] FOR RECORDS PERTAINING TO PATIENTS WHO ARE OR HAVE BEEN ENROLLED IN A CHEMICAL DEPENDENCY/SUBSTANCEABUSE PROGRAM, SOME INFORMATION MAY BE OMITTED. This clinical summary was aggregated from multiple sources. Caution should be exercised in using it in the provision of clinical care. This summary normalizes information from multiple sources, and as a consequence, information in this document may materially change the coding, format and clinical context of patient data. In addition, data may be omitted in some cases. CLINICAL DECISIONS SHOULD BE BASED ON THE PRIMARY CLINICAL RECORDS. [employer] provides no warranty or guarantee of the accuracy or completeness of information in this document.
== END | disposition home or self-care (01) ==
LOC: MTLAB 13:22
PROVIDERS: PCP Internal Medicine; Referring Provider Internal Medicine Rheumatology; Visit Provider Internal Medicine Rheumatology
DX: M06.4 Inflammatory polyarthropathy (principal); M19.041 Primary osteoarthritis, right hand; Z79.899 Other long term (current) drug therapy
CPT/HCPCS: 36415; 80053; 85025

== ENCOUNTER → 2025-06-10 | Outpatient (CLI) | payer MEDICARE, OTHER, SELFPAY ==
[2025-06-10 15:02] LABS: Hematocrit 40.8 % (37-47); Hemoglobin 13.6 g/dL (12.0-15.0); Immature Granulocytes Count 0.010 X10^3/uL (0.0-0.0); Mean Corp Hgb Conc 33.3 g/dL (32-36); Mean Corpuscular Volume 94.9 fL (81-99); Mean Platelet Vol. 11.0 fl (6.2-12.0); NRBC Flagged by Analyzer 0 % (0-5); Platelet Count 224 K/mm3 (150-450); RBC Distribution Width CV 13.1 % (11.6-14.6); RBC Distribution Width SD 45.3 fl (35.1-43.9); Red Blood Count 4.30 M/mm3 (4.2-5.4); White Blood Count 5.7 K/mm3 (4.4-11.0)
[2025-06-10 15:20] LABS: AST(SGOT) 28 U/L (<=31); Alanine Aminotransfer ALT/SGPT 29 U/L (<=34); Albumin, Serum 4.0 g/dL (3.4-4.8); Alkaline Phosphatase 61 U/L (35-104); Anion Gap 11 (5-15); BUN 17 mg/dL (4-19); BUN/Creat Ratio 23.5 RATIO (10-20); Calcium,Total 9.2 mg/dL (7.6-11.0); Carbon Dioxide 27.7 mmol/L (21.0-32.0); Chloride 105 mmol/L (98-108); Globulin 2.4 g/dL (2.2-4.2); Glucose 109 mg/dL (70-99); Potassium 4.1 mmol/L (3.3-5.1)
== END | disposition home or self-care (01) ==
LOC: MTLAB 11:22
PROVIDERS: PCP Internal Medicine; Referring Provider Internal Medicine Rheumatology; Visit Provider Internal Medicine Rheumatology
DX: M06.4 Inflammatory polyarthropathy (principal); M19.041 Primary osteoarthritis, right hand; Z79.899 Other long term (current) drug therapy
CPT/HCPCS: 36415; 80053; 85025